=== PATIENT | male | born 1950 | race African-American/Black ===

== ENCOUNTER → 2016-08-08 | Outpatient (REF) | payer MEDICARE, MEDICAID ==
[~2016-08-08] MED LIST: /HALO5TAB OR; ARTANE OR; CARMOL TOP; CIPR25SS OR; FERR325T OR; FLEETS ENEMA PR; HALDOL DECANOATE IM; KEFL250C OR; KEFL500C OR; LACT10SO8 OR; MILKSUS OR; PAXI20TA OR; PRIMI25TA OR; RISP0.5T20 OR; SYNT50TA OR; TRAZ100T OR; VALT500T OR; [UNRECOGNIZED DRUG - CODE] OR
[2016-08-08 15:44] LABS: BASO % 0.1 % (0.0-1.0); LARGE UNSTAINED CELL # 0.2 K/mm3 (0.0-0.4); LARGE UNSTAINED CELL % 5.8 % (0.0-4.0); LYMPH % 39.1 % (24.0-44.0); MEAN CORPUSCULAR HEMOGLOBIN 28.4 pg (27.0-33.0); MEAN CORPUSCULAR HGB CONC 30.9 g/dl (32.0-36.5); MEAN CORPUSCULAR VOLUME 91.9 fl (80.0-96.0); MONO # 0.2 K/mm3 (0.0-0.8); MONO % 6.4 % (0.0-5.0); NEUTROPHILS # 1.2 K/mm3 (1.8-7.7); NEUTROPHILS % 46.5 % (36.0-66.0); PLATELET COUNT, AUTOMATED 140 k/mm3 (150-450); RED CELL DISTRIBUTION WIDTH 13.4 % (11.5-14.5); WHITE BLOOD COUNT 2.7 K/mm3 (4.0-10.0)
[2016-08-08 16:38] LABS: ALBUMIN 3.6 GM/DL (3.2-5.2); ALKALINE PHOSPHATASE 92 U/L (45-117); ALT/SGPT 26 U/L (12-78); ANION GAP 10 MEQ/L (8-16); AST/SGOT 34 U/L (15-37); BILIRUBIN,TOTAL 0.4 MG/DL (0.2-1.0); BLOOD UREA NITROGEN 12 MG/DL (7-18); CALCIUM LEVEL 8.1 MG/DL (8.8-10.2); CARBON DIOXIDE LEVEL 24 MEQ/L (21-32); CHLORIDE LEVEL 106 MEQ/L (98-107); CREATININE FOR GFR 0.76 MG/DL (0.70-1.30); FERRITIN 48 NG/ML (26-388); FREE T4 0.91 NG/DL (0.76-1.46); GLOMERULAR FILTRATION RATE > 60.0 (>49); GLUCOSE, FASTING 64 MG/DL (80-110); PERCENT SATURATION 36.9 % (19.7-37.4); SODIUM LEVEL 140 MEQ/L (136-145); TOTAL IRON BINDING CAPACITY 268 UG/DL (250-450); TOTAL PROTEIN 7.6 GM/DL (6.4-8.2)
[2016-08-08 16:42] LABS: POTASSIUM SERUM 5.4 MEQ/L (3.5-5.1)
== END ==
LOC: M SFHCPLAZ 12:00
PROVIDERS: ATTEND Family Medicine
DX: D50.9 Iron deficiency anemia, unspecified (principal); R22.1 Localized swelling, mass and lump, neck; E03.9 Hypothyroidism, unspecified
CPT/HCPCS: 36415; 80053; 82728; 83550; 84439; 84443; 85025; 86140; G0463

== ENCOUNTER → 2016-08-13 | Outpatient (CLI) | payer MEDICARE, MEDICAID ==
--- NOTE | 2016-08-13 09:56 | REP ---
Clinical: Neck mass. Technique: Real time tan scale and color evaluation using curved array and linear high frequency transducer. 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 Signed by Layo Fernandez MD 08/13/2016 09:48 A
== END ==
LOC: M RAD 08:24
PROVIDERS: ATTEND Family Medicine
DX: R22.1 Localized swelling, mass and lump, neck (principal)

== ENCOUNTER → 2016-09-12 | Outpatient (CLI) | payer MEDICARE, MEDICAID | LOC: M WUC 08:37 | PROVIDERS: ATTEND Anesthesiology Pain Medicine | DX: Z79.899 Other long term (current) drug therapy (principal) ==

== ENCOUNTER → 2017-01-01 | Outpatient (REF) | payer MEDICARE, MEDICAID ==
[~2017-01-01] MED LIST changes: +FLEEENE4 PR; +FOLI1TAB4 PO; +HALD50IN4 IM; +HALO5TA PO; +LACT10SO29 PO; +LEVO50TA5 PO; +MILKSUS PO; +PARO20TA3 PO; +PRIMI25TA PO; +RISP0.5T3 PO; +TRAZ50TA11 PO; +TRIH5TAB PO; +[UNRECOGNIZED DRUG - CODE] PO
== END ==
LOC: M SFHCPLAZ 12:34
PROVIDERS: ATTEND Family Medicine
DX: D72.819 Decreased white blood cell count, unspecified (principal); G40.909 Epilepsy, unspecified, not intractable, without status epilepticus; Z12.5 Encounter for screening for malignant neoplasm of prostate; D50.9 Iron deficiency anemia, unspecified

== ENCOUNTER → 2017-01-02 | Outpatient (CLI) | payer MEDICARE, MEDICAID ==
[2017-01-02 14:20] LABS: MEAN CORPUSCULAR HEMOGLOBIN 28.6 pg (27.0-33.0); MEAN CORPUSCULAR HGB CONC 32.5 g/dl (32.0-36.5); MEAN CORPUSCULAR VOLUME 87.9 fl (80.0-96.0)
[2017-01-02 14:43] LABS: VITAMIN B12 LEVEL 726 PG/ML (247-911)
[2017-01-02 14:48] LABS: ALBUMIN 3.5 GM/DL (3.2-5.2); ALBUMIN/GLOBULIN RATIO 0.92 (1.00-1.93); ALKALINE PHOSPHATASE 74 U/L (45-117); ALT/SGPT 33 U/L (12-78); ANION GAP 8 MEQ/L (8-16); AST/SGOT 23 U/L (15-37); BILIRUBIN,TOTAL 0.2 MG/DL (0.2-1.0); BLOOD UREA NITROGEN 13 MG/DL (7-18); CALCIUM LEVEL 8.2 MG/DL (8.8-10.2); CARBON DIOXIDE LEVEL 27 MEQ/L (21-32); CHLORIDE LEVEL 105 MEQ/L (98-107); CREATININE FOR GFR 0.82 MG/DL (0.70-1.30); GLOMERULAR FILTRATION RATE > 60.0 (>49); GLUCOSE, FASTING 87 MG/DL (80-110); POTASSIUM SERUM 4.4 MEQ/L (3.5-5.1); SODIUM LEVEL 140 MEQ/L (136-145); TOTAL PROTEIN 7.3 GM/DL (6.4-8.2)
[2017-01-02 15:05] LABS: EOSINOPHILS 1 % (0-5)
[2017-01-02 15:07] LABS: ANISOCYTOSIS 1+
[2017-01-06 00:06] LABS: PHENOBARBITAL (PRIMIDONE) 10 ug/mL (15-40)
[2017-01-09 11:53] LABS: PRETREATED FOLATE FOR RBCFOL 5.6 NG/ML
== END ==
LOC: M LAB 13:36
PROVIDERS: ATTEND Family Medicine
DX: D72.819 Decreased white blood cell count, unspecified (principal); Z12.5 Encounter for screening for malignant neoplasm of prostate; D50.9 Iron deficiency anemia, unspecified; G40.909 Epilepsy, unspecified, not intractable, without status epilepticus; Z79.899 Other long term (current) drug therapy
CPT/HCPCS: 36415; 80053; 80188; 82607; 82747; 85007; 85027; G0103

== ENCOUNTER → 2017-01-13 | Outpatient (CLI) | payer MEDICARE, MEDICAID ==
--- NOTE | 2017-01-13 09:42 | REP ---
CT Head without contrast HISTORY: Ataxia COMPARISON: None Areas of decreased attenuation are present in the periventricular white matter. This represents small-vessel ischemic disease. There is no intraparenchymal hemorrhage, acute infarct, mass or midline shift. The ventricular system and cortical sulci are dilated consistent with minimal volume loss. There is no extra cerebral collection. There is no fracture. The visualized sinuses are clear. There is enlargement of the pinna greater on the right than on the left. Several calcifications are present. IMPRESSION: 1. Small vessel ischemic disease. 2. Minimal volume loss. Signed by Jw Neal MD 01/13/2017 09:33 A
== END ==
LOC: M RAD 08:53
PROVIDERS: ATTEND Family Medicine
DX: R27.0 Ataxia, unspecified (principal)

== ENCOUNTER 2017-01-15 12:25 | Observation (INO) | payer MEDICARE, MEDICAID ==
[~2017-01-15] VITALS: Ht 165.1 cm; Wt 64.8 kg
[~2017-01-15 12:25] MED LIST changes: -FLEEENE4 PR; -FOLI1TAB4 PO; -HALD50IN4 IM; -HALO5TA PO; -LACT10SO29 PO; -LEVO50TA5 PO; -MILKSUS PO; -PARO20TA3 PO; -PRIMI25TA PO; -RISP0.5T3 PO; -TRAZ50TA11 PO; -TRIH5TAB PO; -[UNRECOGNIZED DRUG - CODE] PO
[2017-01-15] MEDS ORDERED: FOLI1TAB4 PO ×2 (12:55→20:25)
--- NOTE | 2017-01-15 15:04 | REP ---
CT Head without contrast HISTORY: Ataxia COMPARISON: 01/13/2017 Areas of decreased attenuation are present in the periventricular white matter. This represents small-vessel ischemic disease. There is no intraparenchymal hemorrhage, acute infarct, mass or midline shift. The ventricular system and cortical sulci are dilated consistent with minimal volume loss. There is no extra cerebral collection. There is no fracture. The visualized sinuses are clear. There is enlargement of the pinna greater on the right than on the left. IMPRESSION: 1. Small vessel ischemic disease. 2. Minimal volume loss. Signed by Jw Neal MD 01/15/2017 02:55 P
--- NOTE | 2017-01-15 15:57 | REP ---
LUMBAR SPINE, THREE VIEWS: HISTORY: Fall. The examination is limited. There is no acute fracture or subluxation. The intervertebral discs are decreased in height consistent with disc degeneration. IMPRESSION: Degenerative change as described above. Signed by Jw Neal MD 01/15/2017 04:01 P
[2017-01-15 16:20] LABS: BASO % 0.2 % (0.0-1.0); EOS # 0.1 K/mm3 (0.0-0.50); EOS % 2.1 % (0.0-3.0); LARGE UNSTAINED CELL # 0.2 K/mm3 (0.0-0.4); LYMPH # 1.5 K/mm3 (1.5-4.5); LYMPH % 31.4 % (24.0-44.0); MEAN CORPUSCULAR HEMOGLOBIN 29.2 pg (27.0-33.0); MEAN CORPUSCULAR HGB CONC 32.6 g/dl (32.0-36.5); MEAN CORPUSCULAR VOLUME 89.7 fl (80.0-96.0); MONO # 0.3 K/mm3 (0.0-0.8); MONO % 7.4 % (0.0-5.0); NEUTROPHILS # 2.2 K/mm3 (1.8-7.7); NEUTROPHILS % 53.9 % (36.0-66.0); PLATELET COUNT, AUTOMATED 150 k/mm3 (150-450)
[2017-01-15 16:56] LABS: ANION GAP 6 MEQ/L (8-16); BLOOD UREA NITROGEN 13 MG/DL (7-18); CARBON DIOXIDE LEVEL 29 MEQ/L (21-32); CHLORIDE LEVEL 103 MEQ/L (98-107); CREATININE FOR GFR 0.92 MG/DL (0.70-1.30); FREE T4 0.93 NG/DL (0.76-1.46); GLOMERULAR FILTRATION RATE > 60.0 (>49); GLUCOSE, FASTING 90 MG/DL (80-110); POTASSIUM SERUM 4.5 MEQ/L (3.5-5.1); SODIUM LEVEL 138 MEQ/L (136-145)
--- NOTE | 2017-01-15 19:40 | REPUSA ---
CT of the lumbar spine without contrast Clinical history: leg weakness. Technique: Multiple axial CT images were obtained through the lumbar spine without administration of contrast. Coronal and sagittal 3-D reconstructed images were also obtained. Findings: The lumbar vertebral bodies are in satisfactory positioning and alignment. No fractures or dislocatio ns are demonstrated. Intervertebral disc spaces are well-maintained. There is no evidence of facet wyman bluxation. The neural foramen appear grossly patent. The spinal canal demonstrates normal caliber and contour without evidence of spinal stenosis. The surrounding soft tissues are within normal limits. Moderate amount of stool fills the colon. Impression: 1. Unremarkable CT examination of the lumbar spine. 2. Moderate constipation.
[2017-01-15] MEDS ORDERED: BISACODYL 5 MG TAB PO PRN (20:15)
[2017-01-15] MEDS ORDERED: ACETAMINOPHEN TAB 650MG DOSE (2X325MG) PO PRN (20:15)
[2017-01-15] MEDS ORDERED: LEVO50TA5 PO (20:25)
[2017-01-15] MEDS ORDERED: FLEEENE4 PR (20:25)
[2017-01-15] MEDS ORDERED: PRIMI25TA PO (20:25)
[2017-01-15] MEDS ORDERED: RISP0.5T3 PO (20:25)
[2017-01-15] MEDS ORDERED: LACT10SO29 PO (20:25)
[2017-01-15] MEDS ORDERED: HALO5TA PO (20:25)
[2017-01-15] MEDS ORDERED: TRAZ50TA11 PO (20:25)
[2017-01-15] MEDS ORDERED: HALD50IN4 IM (20:25)
[2017-01-15] MEDS ORDERED: [UNRECOGNIZED DRUG - CODE] PO (20:25)
[2017-01-15] MEDS ORDERED: TRIH5TAB PO (20:25)
[2017-01-15] MEDS ORDERED: MILKSUS PO (20:25)
[2017-01-15] MEDS ORDERED: PARO20TA3 PO (20:25)
[2017-01-15] MEDS ORDERED: risperiDONE 0.5 MG TAB PO SCH (21:00)
[2017-01-15] MEDS ORDERED: traZODone 50 MG TAB PO SCH (21:00)
[2017-01-15] MEDS: PRIMIDONE 250 MG TAB PO SCH (21:00)
[2017-01-15] MEDS ORDERED: ASPIRIN 81 MG ENTERIC TAB PO ONE (21:00)
[2017-01-15] MEDS ORDERED: ATORVASTATIN 20 MG TAB PO SCH (21:00)
[2017-01-16 00:30] VITALS: BP 138/88
[2017-01-16] MEDS: SENOKOT S TAB PO SCH ×2 (00:56→10:12)
[2017-01-16] MEDS: HALOPERIDOL 5 MG TAB PO SCH ×2 (00:57→10:12)
[2017-01-16] MEDS: LACTULOSE 20 GM/30 ML SYRUP UD PO SCH ×3 (00:57→16:02)
[2017-01-16] MEDS: TIAGABINE 4 MG PO SCH ×2 (00:58→10:13)
[2017-01-16] MEDS: TRIHEXYPHENIDYL 2 MG TAB PO SCH ×2 (00:58→10:12)
[2017-01-16 04:00] VITALS: BP 91/57
[2017-01-16 04:54] LABS: ADD MANUAL DIFFER YES; MEAN CORPUSCULAR HGB CONC 33.5 g/dl (32.0-36.5); MEAN CORPUSCULAR VOLUME 86.6 fl (80.0-96.0); PLATELET COUNT, AUTOMATED 141 k/mm3 (150-450); RED CELL DISTRIBUTION WIDTH 13.1 % (11.5-14.5); WHITE BLOOD COUNT 5.3 K/mm3 (4.0-10.0)
[2017-01-16 05:12] LABS: ALBUMIN 3.3 GM/DL (3.2-5.2); ALBUMIN/GLOBULIN RATIO 0.94 (1.00-1.93); ALKALINE PHOSPHATASE 75 U/L (45-117); ALT/SGPT 25 U/L (12-78); ANION GAP 9 MEQ/L (8-16); AST/SGOT 24 U/L (15-37); BILIRUBIN,TOTAL 0.4 MG/DL (0.2-1.0); BLOOD UREA NITROGEN 10 MG/DL (7-18); CALCIUM LEVEL 8.3 MG/DL (8.8-10.2); CARBON DIOXIDE LEVEL 23 MEQ/L (21-32); CHLORIDE LEVEL 105 MEQ/L (98-107); GLOMERULAR FILTRATION RATE > 60.0 (>49); GLUCOSE, FASTING 89 MG/DL (80-110); MAGNESIUM LEVEL 2.1 MG/DL (1.8-2.4); POTASSIUM SERUM 4.1 MEQ/L (3.5-5.1); SODIUM LEVEL 137 MEQ/L (136-145); TOTAL PROTEIN 6.8 GM/DL (6.4-8.2)
[2017-01-16 05:25] LABS: BASOPHILS 1 % (0-4); EOSINOPHILS 4 % (0-5)
[2017-01-16] MEDS ORDERED: LEVOTHYROXINE 50MCG TABLET (0.05MG) PO SCH (06:00)
--- NOTE | 2017-01-16 07:37 | ECGEPIP ---
Stationary ECG Study [facility] - ED Test Date: 2017-01-15 Pat Name: BIRD MCCALL JR Department: Room: [place] [address] Gender: M Reed Press Feeder: terry : 1950 Requested By: BETITO ARANA Order Number: [id number] Reading MD: Delphine Thomas Measurements Intervals [place] Rate: 73 P: 18 ME: 142 QRS: 4 QRSD: 85 T: -2 QT: 368 QTc: 407 Interpretive Statements SINUS RHYTHM MODERATE T-WAVE ABNORMALITY, CONSIDER ANTERIOR ISCHEMIA, SEEN 11/30/13 Electronically Signed On 01-16-2017 7:37:42 EDT by Delphine Thomas
[2017-01-16 08:00] VITALS: BP 125/80
--- NOTE | 2017-01-16 08:06 | HPE ---
DATE OF ADMISSION: 01/15/2017 PRIMARY CARE PHYSICIAN: Dr. Shelton CHIEF COMPLAINT: Tremors of the upper extremities, weakness, and unsteady gait. The patient had this episode before when he had a urinary tract infection (UTI). HISTORY OF PRESENT ILLNESS: Mr. Hamilton is a 66-year-old male with multiple past medical history including profound mental retardation with psychosis, who was transferred from [facility] to the emergency room (ER) due to experiencing upper extremity tremors as well as generalized weakness and very unsteady gait. However, according to the [facility] ([facility]) paperwork and personnel, the patient had this episode before when he had UTI. According to the [facility] staff, for the past two days the patient has more shaking of his upper extremities. Also the patient has ambulating with ataxia that is mostly in the morning at the baseline at the [facility], and they have been using a gait belt. Due to profound mental retardation, the patient does not communicate regarding his pains or new symptoms. However, based on the [facility] staff, the patient seems to be more weak and tired than usual. The patient also continued to have this shaking on-and-off. Therefore, the patient was transferred to the ER. At the ER, the patient's urinalysis (UA) was negative for UTI. However, urine culture is pending. According to [facility] staff, at this moment the patient is at his baseline and shaking has stopped for the past two hours. ALLERGIES: 1. PENICILLIN. 2. LITHIUM. 3. ZYPREXA. 4. SEROQUEL. 5. AMANTADINE. 6. IV SEDATIONS. PAST MEDICAL HISTORY: 1. Profound mental retardation with psychosis. 2. Seizure disorder. 3. History of positive PPD. 4. Hypothyroidism. 5. Anemia, chronic, secondary to iron deficiency and AEDs/thrombocytopenia. 6. Bilateral feet corns. 7. Constipation, chronic/megacolon, chronic enema dependent. 8. History of gastrointestinal (gastrointestinal) bleed. 9. UTI, first was in 2013, Escherichia (E.) coli. Normal bilateral ultrasound of the renal, which was done in 2013. 10. Chronic stool/urinary incontinence. 11. Leukopenia, chronic clonal T-large granular lymphocytosis. PAST SURGICAL HISTORY: 1. Ar fundoplication April 1990. 2. Cholecystectomy. 3. Normal colonoscopy to the right colon, poor prep. No ICV visualized. FAMILY HISTORY: Unknown at this time. However, based on documentation, the patient does not have legal guardians. SOCIAL HISTORY: Based on documentation, the patient never had a history of smoking. The patient has never had occupation due to mental instability. At this time, the patient lives at [facility]. The patient has no history of illicit drug use or alcohol usage. REVIEW OF SYSTEMS: Review of systems cannot be obtained due to profound mental retardation and not being able to communicate. HOME MEDICATIONS: - folic acid 1 mg by mouth daily - Haldol 50 mg intravenous (IV) every month - haloperidol 5 mg by mouth twice a day - lactulose 30 mg by mouth three times a day - Synthroid 50 mcg by mouth daily - milk of magnesia 30 mL by mouth every two days - paroxetine HCL 20 mg by mouth daily - primidone 250 mg by mouth twice a day - risperidone 0.5 mg by mouth at bedtime - sodium biphosphate one Mondays and - Gabitril 16 mg by mouth twice a day - trazodone 50 mg by mouth at bedtime - trihexyphenidyl HCL 5 mg by mouth twice a day PHYSICAL EXAMINATION: VITAL SIGNS: Temperature 98.1, pulse 89, respiratory rate 18, blood pressure 124/87, pulse oximetry 98 on room air. GENERAL APPEARANCE: The patient is sitting in bed, seems to be not in acute distress, and the patient is nonverbal, not cooperative, and not being able to communicate due to profound mental retardation. HEENT: Oral mucosa is moist. Atraumatic. Pupils are equal and reactive to light. NECK: Soft, supple. No lymphadenopathy, no thyromegaly. HEART: Regular rate and rhythm. Normal S1, S2. LUNGS: Clear breath sounds. ABDOMEN: Soft. No guarding or rebound with palpating the abdomen. Positive bowel sounds in all quadrants. EXTREMITIES: The patient has mild lower extremity edema, +2 pulses in both lower extremities. However, due to patient not being cooperative and not being able to communicate due to mental retardation, I cannot determine the strength and the sensation of his upper and lower extremities. Also, we ambulated the patient with a gait belt. The patient was ambulating at the baseline, based on the report from the [facility] staff. Also, no tremor was appreciated on the upper extremities, and based on the [facility] staff, the patient is at baseline. NEUROLOGIC: Exam cannot be done due to patient being uncooperative secondary to mental retardation. LABORATORY DATA: White blood cells four, red blood cells 5.18, hemoglobin 15.1, hematocrit 46.5, MCV 89.7, MCH 29.2, MCHC 32.6, RDW 13, platelet count 150. Neutrophil percentage 53.9, lymphocyte percentage 31.4, monocyte percentage 7.4, eosinophils percentage 2.1, basophils percentage 0.2, leukocyte percentage five. Sodium 138, potassium 4.5, chloride 103, carbon dioxide 29, anion gap six, BUN 13, creatinine 0.92, glomerular filtration rate more than 60, fasting glucose 90 , calcium nine. TSH 1.15. Free T4 0.93. UA: Urine color yellow, urine appearance clear, urine pH six, urine specific gravity 1.010, urine protein negative. Urine glucose negative. Urine ketones negative. Urine blood 1+. Urine nitrite negative. Urine bilirubin negative. Urine urobilinogen 0.2, urine leukocyte esterase negative. Urine white blood cells one , urine red blood cells five, urine hyaline casts zero, urine bacteria negative, urine squamous epithelial cells zero. Blood culture is pending. Urine culture is pending. IMAGING: Head CT shows small vessel ischemic disease, minimal volume loss. Spine lumbosacral complete shows degenerative changes; however, there is no acute fracture or subluxation. CT spine lumbar without contrast shows unremarkable CT examination of the lumbar spine. Moderate constipation. ASSESSMENT AND PLAN: 1. Generalized weakness/upper extremity tremor. Urinalysis (UA) was negative for urinary tract infection (UTI); however, urine culture is pending. Also, I have ordered blood culture. The patient does not have leukocytosis and the patient is afebrile. Therefore, I have not started the patient on antibiotic. CT of the head was negative. Also, other imaging for spine did not show any fracture. I have spoken with Dr. Hilton who believes that the patient has low possibility of stroke; however, we have ordered MRI/MRA of the brain, as well as MRI of the spine without contrast. However, it needs to be coordinated with anesthesiology due to the patient's mental retardation. Dr. Hilton requested to be called back if the results of the MRI/MRA are abnormal. Also, I have started the patient on aspirin 81 mg, as well as Lipitor 40 mg. 2. Ataxia. Chronic issue. At the ER, we ambulated the patient and based on the report from the [facility] staff, the patient is at his baseline. 3. Neck mass. The patient has posterior neck mass about 5 cm x 5 cm, which favors lipoma. This is a chronic issue. 4. History of iron-deficiency anemia. This is a chronic issue. However, at this time the patient's hemoglobin and hematocrit are in normal range. 5. Seizure disorder. At this time, the patient is on Mysoline as well as Gabitril, which is managed by the primary care. Based on the report from [facility], the patient has not had any episode of seizure recently. We will continue the patient on these medications. 6. Constipation. This is a chronic issue. The patient is on milk of magnesia as well as lactulose. Also, patient is receiving Fleet enema on Mondays and . 7. Hypothyroidism. We will continue the patient on the current dose of Synthroid. 8. Deep venous thrombosis (DVT) prophylaxis. The patient is on Lovenox. 9. Profound mental retardation with psychosis. At this time, we will continue the patient on the home medications. My preceptor for this patient encounter was Dr. Marianela Sanchez. The preceptor was physically present in the building during the encounter and was fully available as needed. All aspects of the patient interview, examination, medical decision making process, and medical care plan development were reviewed and approved by the preceptor. The preceptor is aware and concurs with the plan as stated in the body of this note and will attest to such by his/her co-signature. I have both independently examined this patient as well as reviewed the H&P. I have discussed in detail with the resident the findings and plan of treatment as documented in the residents note. I will continue to follow the patient and offer further guidance to the patients care as necessary during this hospital stay. Marianela RICK
[2017-01-16] MEDS ORDERED: MIRALAX *UNIT DOSE* 17GM PACKET PO SCH (09:00)
[2017-01-16] MEDS ORDERED: PARoxetine 20 MG TAB PO SCH (09:00)
[2017-01-16] MEDS ORDERED: FOLIC ACID 1 MG TAB PO SCH (09:00)
[2017-01-16] MEDS ORDERED: ASPIRIN 81 MG ENTERIC TAB PO SCH (09:00)
[2017-01-16] MEDS ORDERED: ENOXAPARIN 40 MG/0.4 ML SYRINGE (J1650) SC SCH (09:00)
[2017-01-16] MEDS: PRIMIDONE 250 MG TAB PO SCH (12:30)
[2017-01-16 14:00] VITALS: BP 120/71
[2017-01-16] MEDS ORDERED: MOM 30ML SUSPENSION UDC PO SCH (21:00)
--- NOTE | 2017-01-17 22:59 | DSES ---
DATE OF ADMISSION: 01/15/2017 DATE OF DISCHARGE: 01/16/2017 ATTENDING PHYSICIAN: Dr. Jacky Shelton. PRIMARY CARE PHYSICIAN Dr. Jacky Shelton. HISTORY OF PRESENT ILLNESS: A 66-year-old male, resident of [facility] ([facility]) with profound mental retardation with psychosis who was transferred from [facility] to [facility] emergency room experiencing upper extremity tremors and generalized weakness with unsteady gait. This lasted for approximately two hours and subsequently resolved. The patient returned to normal physical function and behavior. According to [facility] staff, this is common for him when he has a urinary tract infection (UTI). [facility] staff also admit that the patient has been having some odd lethargy and tremors mostly in the evening hours. It has been going on for the past 3-6 months. Workup in the emergency department (ED) proved negative for a UTI. The patient continued to have baseline behavior, as well as physical capabilities. MRI/MRA were unobtainable secondary to patient's inability to lay still for the testing. CT of the brain did show minimal volume loss. CT lumbar spine was unremarkable. PHYSICAL EXAMINATION: VITAL SIGNS: Stable. He is afebrile. HEENT: Neck is supple without lymphadenopathy or jugular venous distention (JVD). CARDIOVASCULAR: Heart rate and rhythm are regular. PULMONARY: Lungs are clear. NEUROLOGIC: The patient is nonverbal. He does respond to conversation, is cooperative with exam, and appears to appreciate attention by staff as well as healthcare providers. ASSESSMENT/DISCHARGE DIAGNOSES: 1. Generalized weakness with upper extremity tremor. The patient will be set up for an electroencephalogram (EEG) Thursday, 01/19, by his primary care physician (PCP), Dr. Jacky Shelton, for further evaluation of questionable recurrent seizure. 2. Ataxia. This is a chronic issue and he is at his baseline physical capabilities per [facility] staff. 3. 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 This can be monitored by PCP. SECONDARY DIAGNOSES: 1. History of iron-deficiency anemia. 2. Seizure disorder. 3. Constipation. 4. Hypothyroidism. 5. Profound mental retardation with psychosis. PLAN: The patient will be discharged back to [facility]. Diet is as tolerated. Activities as tolerated. Medications: - folic acid 1 mg by mouth daily - haloperidol 5 mg by mouth twice a day - haloperidol 50 mg intramuscular (IM) monthly - lactulose 30 mL by mouth three times a day - levothyroxine 50 mcg by mouth daily - milk of magnesia 30 mL by mouth every two days - paroxetine 20 mg daily - Primidone 250 mg by mouth twice a day - risperidone 0.5 mg tablet by mouth at bedtime - Fleets enema per rectum twice per week - Gabitril 16 mg by mouth twice a day - trazodone 50 mg by mouth at bedtime - trihexyphenidyl 5 mg one by mouth twice a day The patient is discharged in stable and satisfactory condition. Staff had no further questions at time of discharge.
== END 2017-01-16 16:22 | disposition other institution (70) ==
LOC: M ED 12:25 → M ED INP 21:14 → M ICU 01-16 00:20 → M MSPAV 01-16 13:29
PROVIDERS: ADMIT Hospitalist; ATTEND Family Medicine
DX: R53.1 Weakness (principal); R26.0 Ataxic gait; D17.30 Benign lipomatous neoplasm of skin and subcutaneous tissue of unspecified sites; E03.9 Hypothyroidism, unspecified; K59.00 Constipation, unspecified; G40.909 Epilepsy, unspecified, not intractable, without status epilepticus; D50.9 Iron deficiency anemia, unspecified; F73 Profound intellectual disabilities; Z79.899 Other long term (current) drug therapy; Z88.0 Allergy status to penicillin; Z88.8 Allergy status to other drugs, medicaments and biological substances; R76.11 Nonspecific reaction to tuberculin skin test without active tuberculosis
CPT/HCPCS: 36415; 51701; 70450; 72110; 72131; 80048; 80053; 81001; 83735; 84439; 84443; 85025; 87040; 87086; 93005; 96372; 99284; G0378; J1650

== ENCOUNTER → 2017-02-21 | Outpatient (CLI) | payer MEDICARE, MEDICAID ==
[~2017-02-21] MED LIST changes: +FLEEENE4 PR; +FOLI1TAB4 PO; +HALD50IN4 IM; +HALO5TA PO; +LACT10SO29 PO; +LEVO50TA5 PO; +MILKSUS PO; +PARO20TA3 PO; +PRIMI25TA PO; +RISP0.5T3 PO; +TRAZ50TA11 PO; +TRIH5TAB PO; +[UNRECOGNIZED DRUG - CODE] PO
== END ==
LOC: M WUC 09:37
PROVIDERS: ATTEND Anesthesiology Pain Medicine
DX: Z79.899 Other long term (current) drug therapy (principal)

== ENCOUNTER → 2017-03-13 | Outpatient (CLI) | payer MEDICARE, MEDICAID ==
--- NOTE | 2017-03-13 16:25 | REP ---
Pelvis, bilateral hip study: Five views. History: Pain. Findings: AP view of the pelvis demonstrate an intact bony pelvic ring. There is mild acetabular spurring bilaterally. Femoral heads are smooth and rounded. Periarticular soft tissues are unremarkable. Impression: Mild hip joint osteoarthritis bilaterally. No acute abnormality. Signed by Raymundo Payne MD 03/13/2017 05:02 P
== END ==
LOC: M RAD 15:13
PROVIDERS: ATTEND Family Medicine
DX: M25.559 Pain in unspecified hip (principal)

== ENCOUNTER → 2017-04-20 | Outpatient (REF) | payer MEDICARE, MEDICAID ==
[2017-04-20 13:09] LABS: MEAN CORPUSCULAR HEMOGLOBIN 27.4 pg (27.0-33.0); MEAN CORPUSCULAR HGB CONC 31.3 g/dl (32.0-36.5); MEAN CORPUSCULAR VOLUME 87.6 fl (80.0-96.0); RED CELL DISTRIBUTION WIDTH 13.8 % (11.5-14.5); RETIC HEMOGLOBIN EQUIVALENT 33.1 pg (24-36); RETICULOCYTE % 1.2 % (0.5-1.5); WHITE BLOOD COUNT 3.1 10^3/uL (4.0-10.0)
[2017-04-20 13:34] LABS: CBCMD ORDERED? YES (YES)
[2017-04-20 14:00] LABS: ALBUMIN 3.9 GM/DL (3.2-5.2); ALBUMIN/GLOBULIN RATIO 0.98 (1.00-1.93); ALKALINE PHOSPHATASE 85 U/L (45-117); ALT/SGPT 44 U/L (12-78); ANION GAP 6 MEQ/L (8-16); AST/SGOT 25 U/L (15-37); BASOPHILS 1 % (0-4); BILIRUBIN,TOTAL 0.3 MG/DL (0.2-1.0); BLOOD UREA NITROGEN 16 MG/DL (7-18); CALCIUM LEVEL 8.6 MG/DL (8.8-10.2); CARBON DIOXIDE LEVEL 30 MEQ/L (21-32); CHLORIDE LEVEL 105 MEQ/L (98-107); CREATININE FOR GFR 0.87 MG/DL (0.70-1.30); EOSINOPHILS 1 % (0-5); FERRITIN 64 NG/ML (26-388); FREE T4 0.91 NG/DL (0.76-1.46); GLOMERULAR FILTRATION RATE > 60.0 (>49); GLUCOSE, FASTING 69 MG/DL (80-110); PERCENT SATURATION 43.4 % (19.7-50.0); POTASSIUM SERUM 4.5 MEQ/L (3.5-5.1); SODIUM LEVEL 141 MEQ/L (136-145); TOTAL IRON BINDING CAPACITY 242 UG/DL (250-450); TOTAL PROTEIN 7.9 GM/DL (6.4-8.2)
[2017-04-21 11:05] LABS: PRETREATED FOLATE FOR RBCFOL 12.8 NG/ML
== END ==
LOC: M SFHCPLAZ 11:34
PROVIDERS: ATTEND Family Medicine
DX: E53.8 Deficiency of other specified B group vitamins (principal); E03.9 Hypothyroidism, unspecified; D50.9 Iron deficiency anemia, unspecified
CPT/HCPCS: 80053; 82728; 82747; 83550; 84439; 84443; 85007; 85027; 85046; G0463

== ENCOUNTER 2017-06-23 10:42 | Emergency (ER) | payer MEDICARE, MEDICAID ==
[2017-06-23 13:21] LABS: KETONE, URINE AUTO RFX TRACE mg/dL (NEGATIVE); MUCUS, URINE RFX MODERATE (NEGATIVE); RBC, URINE AUTO RFX TNTC /HPF (0-3); SPECIFIC GRAVITY UR AUTO RFX 1.026 (1.002-1.035); SQUAM EPITHELIAL CELL UR AURFX 1 /HPF (0-6)
[2017-06-23 13:24] LABS: LEUKOCYTE ESTERASE UR AUTO RFX 3+ (NEGATIVE); NITRITE, URINE AUTO RFX POSITIVE (NEGATIVE); WBC, URINE AUTO RFX TNTC /HPF (0-3)
== END 2017-06-23 14:04 | disposition home or self-care (01) ==
LOC: M ED 10:42
DX: N39.0 Urinary tract infection, site not specified (principal); R56.9 Unspecified convulsions; F79 Unspecified intellectual disabilities; G93.40 Encephalopathy, unspecified; E03.9 Hypothyroidism, unspecified; F33.9 Major depressive disorder, recurrent, unspecified; D72.819 Decreased white blood cell count, unspecified; G24.01 Drug induced subacute dyskinesia; Z79.899 Other long term (current) drug therapy; Z79.52 Long term (current) use of systemic steroids; Z79.890 Hormone replacement therapy; Z88.0 Allergy status to penicillin; Z88.8 Allergy status to other drugs, medicaments and biological substances
CPT/HCPCS: 81001

== ENCOUNTER → 2017-08-13 | Outpatient (REF) | payer MEDICARE, MEDICAID ==
[2017-08-13 12:38] LABS: BASO % 0.3 % (0.0-1.0); EOS # 0.1 10^3/uL (0.0-0.50); EOS % 1.5 % (0.0-3.0); HEMATOCRIT 44.3 % (42.0-52.0); IMMATURE GRANULOCYTE % 0.3 % (0-3.0); LYMPH # 1.5 10^3/uL (1.5-4.5); LYMPH % 43.3 % (24.0-44.0); MEAN CORPUSCULAR HEMOGLOBIN 27.1 pg (27.0-33.0); MEAN CORPUSCULAR HGB CONC 31.6 g/dl (32.0-36.5); MEAN CORPUSCULAR VOLUME 85.9 fl (80.0-96.0); MONO # 0.3 10^3/uL (0.0-0.8); MONO % 8.7 % (0.0-5.0); NEUTROPHILS # 1.5 10^3/uL (1.8-7.7); NEUTROPHILS % 45.9 % (36.0-66.0); PLATELET COUNT, AUTOMATED 266 10^3/uL (150-450); RED BLOOD COUNT 5.16 10^6/uL (4.30-6.10); RED CELL DISTRIBUTION WIDTH 14.6 % (11.5-14.5); RETIC HEMOGLOBIN EQUIVALENT 31.2 pg (24-36); RETICULOCYTE % 1.2 % (0.5-1.5); WHITE BLOOD COUNT 3.4 10^3/uL (4.0-10.0)
[2017-08-13 12:50] LABS: TOTAL 25(OH) VITAMIN D 24.2 NG/ML (30.0-100.0)
[2017-08-13 12:51] LABS: PTH INTACT 28.7 PG/ML (18.5-88.0)
[2017-08-13 12:55] LABS: ALBUMIN 3.9 GM/DL (3.2-5.2); ALBUMIN/GLOBULIN RATIO 0.95 (1.00-1.93); ALKALINE PHOSPHATASE 79 U/L (45-117); ALT/SGPT 26 U/L (12-78); ANION GAP 6 MEQ/L (8-16); AST/SGOT 19 U/L (7-37); BILIRUBIN,TOTAL 0.2 MG/DL (0.2-1.0); BLOOD UREA NITROGEN 11 MG/DL (7-18); CALCIUM LEVEL 8.5 MG/DL (8.8-10.2); CARBON DIOXIDE LEVEL 30 MEQ/L (21-32); CHLORIDE LEVEL 104 MEQ/L (98-107); CREATININE FOR GFR 0.82 MG/DL (0.70-1.30); GLOMERULAR FILTRATION RATE > 60.0 (>49); GLUCOSE, FASTING 81 MG/DL (70-100); POTASSIUM SERUM 4.4 MEQ/L (3.5-5.1); SODIUM LEVEL 140 MEQ/L (136-145)
[2017-08-16 00:06] LABS: QUANTIFERON GOLD TB Negative (Negative); TB Test (QFT) Antigen 0.05 IU/mL (.); TB Test (QFT) Mitogen 6.77 IU/mL (.); TB Test (QFT) Nil 0.05 IU/mL (.)
[2017-08-17 10:10] LABS: (LD) FRACTION 1 19 % (17-32); (LD) FRACTION 2 27 % (25-40); (LD) FRACTION 3 30 % (17-27); (LD) FRACTION 4 12 % (5-13); (LD) FRACTION 5 12 % (4-20); LDH 176 IU/L (121-224)
[2017-08-18 00:06] LABS: PHENOBARBITAL (PRIMIDONE) 11 ug/mL (15-40); PRIMIDONE, SERUM 11.6 ug/mL (5.0-12.0)
== END ==
LOC: M SFHCPLAZ 10:12
DX: E53.8 Deficiency of other specified B group vitamins (principal); G40.909 Epilepsy, unspecified, not intractable, without status epilepticus; D50.9 Iron deficiency anemia, unspecified; R76.11 Nonspecific reaction to tuberculin skin test without active tuberculosis; D72.819 Decreased white blood cell count, unspecified; R22.1 Localized swelling, mass and lump, neck; N39.0 Urinary tract infection, site not specified; F79 Unspecified intellectual disabilities; R27.0 Ataxia, unspecified; D72.820 Lymphocytosis (symptomatic); K59.00 Constipation, unspecified; E03.9 Hypothyroidism, unspecified; Z12.5 Encounter for screening for malignant neoplasm of prostate; F51.01 Primary insomnia
CPT/HCPCS: 83625

== ENCOUNTER → 2017-08-19 | Outpatient (CLI) | payer MEDICARE, MEDICAID | LOC: M RAD 10:50 | DX: R22.1 Localized swelling, mass and lump, neck (principal) | CPT/HCPCS: 76536 ==

== ENCOUNTER → 2017-08-28 | Outpatient (CLI) | payer MEDICARE, MEDICAID | LOC: M RAD 10:38 | DX: R22.1 Localized swelling, mass and lump, neck (principal); Z53.9 Procedure and treatment not carried out, unspecified reason ==

== ENCOUNTER → 2017-09-11 | Outpatient (CLI) | payer MEDICARE, MEDICAID ==
[~2017-09-11] MED LIST changes: -/HALO5TAB OR; -ARTANE OR; -CARMOL TOP; -CIPR25SS OR; -FERR325T OR; -FLEEENE4 PR; -FLEETS ENEMA PR; -FOLI1TAB4 PO; -HALD50IN4 IM; -HALDOL DECANOATE IM; -HALO5TA PO; +ISOVUE-370 76% 100ML VIAL (Q9967) As Ordered; -KEFL250C OR; -KEFL500C OR; -LACT10SO29 PO; -LACT10SO8 OR; -LEVO50TA5 PO; -MILKSUS OR; -MILKSUS PO; -PARO20TA3 PO; -PAXI20TA OR; -PRIMI25TA OR; -PRIMI25TA PO; -RISP0.5T20 OR; -RISP0.5T3 PO; -SYNT50TA OR; -TRAZ100T OR; -TRAZ50TA11 PO; -TRIH5TAB PO; -VALT500T OR; -[UNRECOGNIZED DRUG - CODE] OR; -[UNRECOGNIZED DRUG - CODE] PO
== END ==
LOC: M RAD 08:28
DX: R22.1 Localized swelling, mass and lump, neck (principal)
CPT/HCPCS: Q9967

== ENCOUNTER → 2017-12-11 | Outpatient (CLI) | payer MEDICARE, MEDICAID ==
[2017-12-11 09:21] LABS: BASO % 0.2 % (0.0-1.0); EOS # 0.1 10^3/uL (0.0-0.50); EOS % 1.6 % (0.0-3.0); HEMATOCRIT 44.8 % (42.0-52.0); HEMOGLOBIN 14.3 g/dl (13.5-17.5); IMMATURE GRANULOCYTE % 0.2 % (0-3.0); LYMPH # 1.9 10^3/uL (1.5-4.5); LYMPH % 44.1 % (24.0-44.0); MEAN CORPUSCULAR HEMOGLOBIN 27.5 pg (27.0-33.0); MEAN CORPUSCULAR HGB CONC 31.9 g/dl (32.0-36.5); MEAN CORPUSCULAR VOLUME 86.2 fl (80.0-96.0); MONO # 0.5 10^3/uL (0.0-0.8); MONO % 10.8 % (0.0-5.0); NEUTROPHILS # 1.9 10^3/uL (1.8-7.7); NEUTROPHILS % 43.1 % (36.0-66.0); PLATELET COUNT, AUTOMATED 179 10^3/uL (150-450); RED CELL DISTRIBUTION WIDTH 13.5 % (11.5-14.5); WHITE BLOOD COUNT 4.4 10^3/uL (4.0-10.0)
[2017-12-11 09:50] LABS: ALBUMIN/GLOBULIN RATIO 0.98 (1.00-1.93); ALKALINE PHOSPHATASE 84 U/L (45-117); ALT/SGPT 27 U/L (12-78); ANION GAP 7 MEQ/L (8-16); AST/SGOT 19 U/L (7-37); BILIRUBIN,TOTAL 0.3 MG/DL (0.2-1.0); BLOOD UREA NITROGEN 12 MG/DL (7-18); CALCIUM LEVEL 8.6 MG/DL (8.8-10.2); CARBON DIOXIDE LEVEL 30 MEQ/L (21-32); CHLORIDE LEVEL 104 MEQ/L (98-107); CREATININE FOR GFR 0.92 MG/DL (0.70-1.30); FREE T4 0.93 NG/DL (0.76-1.46); GLOMERULAR FILTRATION RATE > 60.0 (>49); GLUCOSE, FASTING 80 MG/DL (70-100); SODIUM LEVEL 141 MEQ/L (136-145); TOTAL PROTEIN 8.1 GM/DL (6.4-8.2)
[2017-12-11 11:58] LABS: VITAMIN B12 LEVEL 591 PG/ML (247-911)
[2017-12-11 12:49] LABS: PRETREATED FOLATE FOR RBCFOL 15.2 NG/ML; RBC FOLATE 709.3 NG/ML (280-791)
== END ==
LOC: M WUC 08:12
DX: D72.819 Decreased white blood cell count, unspecified (principal); E03.9 Hypothyroidism, unspecified; Z12.5 Encounter for screening for malignant neoplasm of prostate
CPT/HCPCS: 84443

== ENCOUNTER 2018-03-06 12:40 | Emergency (ER) | payer MEDICARE, MEDICAID ==
[2018-03-06 14:13] LABS: EOS # 0.1 10^3/uL (0.0-0.50); EOS % 1.4 % (0.0-3.0); HEMATOCRIT 46.9 % (42.0-52.0); HEMOGLOBIN 14.7 g/dl (13.5-17.5); IMMATURE GRANULOCYTE % 0.3 % (0-3.0); LYMPH # 1.3 10^3/uL (1.5-4.5); LYMPH % 35.2 % (24.0-44.0); MEAN CORPUSCULAR HEMOGLOBIN 27.5 pg (27.0-33.0); MEAN CORPUSCULAR HGB CONC 31.3 g/dl (32.0-36.5); MEAN CORPUSCULAR VOLUME 87.7 fl (80.0-96.0); MONO # 0.4 10^3/uL (0.0-0.8); MONO % 11.2 % (0.0-5.0); NEUTROPHILS # 1.9 10^3/uL (1.8-7.7); NEUTROPHILS % 51.9 % (36.0-66.0); PLATELET COUNT, AUTOMATED 184 10^3/uL (150-450); RED BLOOD COUNT 5.35 10^6/uL (4.30-6.10); RED CELL DISTRIBUTION WIDTH 13.9 % (11.5-14.5); WHITE BLOOD COUNT 3.6 10^3/uL (4.0-10.0)
[2018-03-06 14:34] LABS: ALBUMIN 3.9 GM/DL (3.2-5.2); ALBUMIN/GLOBULIN RATIO 0.93 (1.00-1.93); ALKALINE PHOSPHATASE 95 U/L (45-117); ALT/SGPT 43 U/L (12-78); ANION GAP 9 MEQ/L (8-16); AST/SGOT 31 U/L (7-37); BILIRUBIN,DIRECT < 0.1 MG/DL (0.0-0.2); BILIRUBIN,TOTAL 0.2 MG/DL (0.2-1.0); BLOOD UREA NITROGEN 10 MG/DL (7-18); CALCIUM LEVEL 8.7 MG/DL (8.8-10.2); CARBON DIOXIDE LEVEL 26 MEQ/L (21-32); CHLORIDE LEVEL 107 MEQ/L (98-107); GLOMERULAR FILTRATION RATE > 60.0 (>49); GLUCOSE, FASTING 53 MG/DL (70-100); SODIUM LEVEL 142 MEQ/L (136-145); TOTAL PROTEIN 8.1 GM/DL (6.4-8.2)
[2018-03-06 14:35] LABS: LACTIC ACID SEPSIS PROTOCOL 1.9 MMOL/L (0.4-2.0)
== END 2018-03-06 15:07 | disposition home or self-care (01) ==
LOC: M ED 12:40
DX: K59.00 Constipation, unspecified (principal); E16.2 Hypoglycemia, unspecified; K21.9 Gastro-esophageal reflux disease without esophagitis; E07.9 Disorder of thyroid, unspecified; D72.819 Decreased white blood cell count, unspecified; Z88.8 Allergy status to other drugs, medicaments and biological substances; Z88.0 Allergy status to penicillin; Z86.69 Personal history of other diseases of the nervous system and sense organs; Z79.899 Other long term (current) drug therapy
CPT/HCPCS: 74019

== ENCOUNTER → 2018-03-11 | Outpatient (CLI) | payer MEDICARE, MEDICAID ==
[2018-03-11 10:31] LABS: BASO % 0.3 % (0.0-1.0); EOS # 0.1 10^3/uL (0.0-0.50); EOS % 2.8 % (0.0-3.0); HEMOGLOBIN 14.9 g/dl (13.5-17.5); IMMATURE GRANULOCYTE % 0.3 % (0-3.0); LYMPH # 1.7 10^3/uL (1.5-4.5); LYMPH % 47.2 % (24.0-44.0); MEAN CORPUSCULAR HEMOGLOBIN 27.4 pg (27.0-33.0); MEAN CORPUSCULAR HGB CONC 31.7 g/dl (32.0-36.5); MEAN CORPUSCULAR VOLUME 86.4 fl (80.0-96.0); MONO # 0.4 10^3/uL (0.0-0.8); MONO % 12.4 % (0.0-5.0); NEUTROPHILS # 1.3 10^3/uL (1.8-7.7); PLATELET COUNT, AUTOMATED 211 10^3/uL (150-450); RED BLOOD COUNT 5.44 10^6/uL (4.30-6.10); RED CELL DISTRIBUTION WIDTH 13.9 % (11.5-14.5); WHITE BLOOD COUNT 3.5 10^3/uL (4.0-10.0)
[2018-03-11 11:19] LABS: ALBUMIN 3.8 GM/DL (3.2-5.2); ALKALINE PHOSPHATASE 95 U/L (45-117); ALT/SGPT 40 U/L (12-78); ANION GAP 9 MEQ/L (8-16); AST/SGOT 30 U/L (7-37); BILIRUBIN,TOTAL 0.3 MG/DL (0.2-1.0); BLOOD UREA NITROGEN 9 MG/DL (7-18); CALCIUM LEVEL 8.7 MG/DL (8.8-10.2); CARBON DIOXIDE LEVEL 29 MEQ/L (21-32); CHLORIDE LEVEL 102 MEQ/L (98-107); CHOLESTEROL LEVEL 151 MG/DL (<200); CHOLESTEROL RISK RATIO 2.396 (<5); FREE T4 0.99 NG/DL (0.76-1.46); GLOMERULAR FILTRATION RATE > 60.0 (>49); GLUCOSE, FASTING 74 MG/DL (70-100); HDL CHOLESTEROL 63 MG/DL (>40); LDL CHOLESTEROL 76 MG/DL (<100); NON-HDL-C 88 MG/DL; POTASSIUM SERUM 4.4 MEQ/L (3.5-5.1); PSA SCREENING 0.94 NG/ML (< 4.0); SODIUM LEVEL 140 MEQ/L (136-145); TRIGLYCERIDES LEVEL 62 MG/DL (<150)
[2018-03-12 13:12] LABS: PRETREATED FOLATE FOR RBCFOL 13.7 NG/ML; RBC FOLATE 612.1 NG/ML (280-791)
== END ==
LOC: M WUC 08:31
DX: D72.819 Decreased white blood cell count, unspecified (principal); E53.8 Deficiency of other specified B group vitamins; Z12.5 Encounter for screening for malignant neoplasm of prostate; E03.9 Hypothyroidism, unspecified; Z13.220 Encounter for screening for lipoid disorders
CPT/HCPCS: 84443

== ENCOUNTER 2018-03-22 18:25 | Inpatient (IN) | payer MEDICARE, MEDICAID ==
[2018-03-22] MEDS: NS 500 ML IV (20:52)
[2018-03-22] MEDS: LevoFLOXacin IV 750 MG in APPROPRIATE DILUENT 1 EA IV (21:39)
[2018-03-22 21:49] LABS: BASO % 0.1 % (0.0-1.0); EOS # 0.1 10^3/uL (0.0-0.50); HEMATOCRIT 47.5 % (42.0-52.0); HEMOGLOBIN 15.3 g/dl (13.5-17.5); IMMATURE GRANULOCYTE % 0.3 % (0-3.0); LYMPH # 1.2 10^3/uL (1.5-4.5); LYMPH % 17.4 % (24.0-44.0); MEAN CORPUSCULAR HEMOGLOBIN 27.4 pg (27.0-33.0); MEAN CORPUSCULAR HGB CONC 32.2 g/dl (32.0-36.5); MEAN CORPUSCULAR VOLUME 85.1 fl (80.0-96.0); MONO # 1.1 10^3/uL (0.0-0.8); MONO % 16.7 % (0.0-5.0); NEUTROPHILS # 4.3 10^3/uL (1.8-7.7); NEUTROPHILS % 64.5 % (36.0-66.0); PLATELET COUNT, AUTOMATED 184 10^3/uL (150-450); RED BLOOD COUNT 5.58 10^6/uL (4.30-6.10); RED CELL DISTRIBUTION WIDTH 13.6 % (11.5-14.5); WHITE BLOOD COUNT 6.7 10^3/uL (4.0-10.0)
[2018-03-22 22:15] LABS: LACTIC ACID SEPSIS PROTOCOL 1.5 MMOL/L (0.4-2.0)
[2018-03-22] MEDS ORDERED: MIRALAX *UNIT DOSE* 17GM PACKET PO (22:15)
[2018-03-22] MEDS ORDERED: ONDANSETRON 4MG/2ML VIAL (J2405) IV (22:15)
[2018-03-22] MEDS ORDERED: PILL CRUSHER/CUTTER 1 EACH XX (22:30)
[2018-03-22 22:33] LABS: ALBUMIN 3.5 GM/DL (3.2-5.2); ALBUMIN/GLOBULIN RATIO 0.85 (1.00-1.93); ALKALINE PHOSPHATASE 90 U/L (45-117); ALT/SGPT 26 U/L (12-78); ANION GAP 8 MEQ/L (8-16); AST/SGOT 16 U/L (7-37); BILIRUBIN,DIRECT 0.1 MG/DL (0.0-0.2); BILIRUBIN,TOTAL 0.3 MG/DL (0.2-1.0); BLOOD UREA NITROGEN 15 MG/DL (7-18); CALCIUM LEVEL 8.8 MG/DL (8.8-10.2); CARBON DIOXIDE LEVEL 30 MEQ/L (21-32); CHLORIDE LEVEL 100 MEQ/L (98-107); CREATININE FOR GFR 0.78 MG/DL (0.70-1.30); GLOMERULAR FILTRATION RATE > 60.0 (>49); GLUCOSE, FASTING 92 MG/DL (70-100); LIPASE 98 U/L (73-393); POTASSIUM SERUM 4.1 MEQ/L (3.5-5.1); SODIUM LEVEL 138 MEQ/L (136-145); TOTAL PROTEIN 7.6 GM/DL (6.4-8.2)
[2018-03-23] MEDS: LACTULOSE 20 GM/30 ML SYRUP UD PO ×4 (01:34→22:19)
[2018-03-23] MEDS: traZODone 50 MG TAB PO ×2 (01:34→22:08)
[2018-03-23] MEDS: NS 500 ML IV ×4 (01:34→22:53)
[2018-03-23] MEDS: HALOPERIDOL 5 MG TAB PO ×3 (01:34→22:08)
[2018-03-23] MEDS: TRIHEXYPHENIDYL 2 MG TAB PO ×3 (01:35→22:13)
[2018-03-23] MEDS: PRIMIDONE 250 MG TAB PO ×3 (01:35→22:15)
[2018-03-23] MEDS: TIAGABINE 4 MG PO ×3 (01:37→22:10)
[2018-03-23 07:07] LABS: HEMATOCRIT 43.2 % (42.0-52.0); HEMOGLOBIN 14.1 g/dl (13.5-17.5); MEAN CORPUSCULAR HEMOGLOBIN 27.3 pg (27.0-33.0); MEAN CORPUSCULAR HGB CONC 32.6 g/dl (32.0-36.5); MEAN CORPUSCULAR VOLUME 83.6 fl (80.0-96.0); PLATELET COUNT, AUTOMATED 187 10^3/uL (150-450); RED BLOOD COUNT 5.17 10^6/uL (4.30-6.10); RED CELL DISTRIBUTION WIDTH 13.4 % (11.5-14.5); WHITE BLOOD COUNT 5.2 10^3/uL (4.0-10.0)
[2018-03-23 07:22] LABS: ANION GAP 8 MEQ/L (8-16); BLOOD UREA NITROGEN 14 MG/DL (7-18); CALCIUM LEVEL 8.5 MG/DL (8.8-10.2); CARBON DIOXIDE LEVEL 28 MEQ/L (21-32); CHLORIDE LEVEL 102 MEQ/L (98-107); CREATININE FOR GFR 0.83 MG/DL (0.70-1.30); GLOMERULAR FILTRATION RATE > 60.0 (>49); GLUCOSE, FASTING 87 MG/DL (70-100); POTASSIUM SERUM 4.2 MEQ/L (3.5-5.1); SODIUM LEVEL 138 MEQ/L (136-145)
[2018-03-23] MEDS ORDERED: DOCUSATE SODIUM 100 MG CAP PO (09:00)
[2018-03-23] MEDS: ENOXAPARIN 40 MG/0.4 ML SYRINGE (J1650) SC (10:02)
[2018-03-23] MEDS: VITAMIN D 1,000 INTERNATIONAL UNITS TABLET PO (10:03)
[2018-03-23] MEDS: FOLIC ACID 1 MG TAB PO (10:03)
[2018-03-23] MEDS: LEVOTHYROXINE 50MCG TABLET (0.05MG) PO (10:04)
[2018-03-23] MEDS: PARoxetine 20 MG TAB PO (10:04)
[2018-03-23] MEDS: FLEET ENEMA PR (12:15)
[2018-03-23] MEDS: SENNA 8.6 MG TAB (SENOKOT) PO ×2 (12:16→22:10)
[2018-03-23] MEDS: DOCUSATE SOD LIQ 100MG/10ML UDC PO ×2 (14:02→22:19)
[2018-03-23] MEDS: LevoFLOXacin IV 750 MG in APPROPRIATE DILUENT 1 EA IV (22:05)
[2018-03-23] MEDS: MOM 30ML SUSPENSION UDC PO (22:19)
[2018-03-24] MEDS: NS 500 ML IV ×4 (01:29→14:20)
[2018-03-24 06:41] LABS: HEMATOCRIT 39.1 % (42.0-52.0); HEMOGLOBIN 12.6 g/dl (13.5-17.5); MEAN CORPUSCULAR HEMOGLOBIN 27.3 pg (27.0-33.0); MEAN CORPUSCULAR HGB CONC 32.2 g/dl (32.0-36.5); MEAN CORPUSCULAR VOLUME 84.6 fl (80.0-96.0); PLATELET COUNT, AUTOMATED 189 10^3/uL (150-450); RED BLOOD COUNT 4.62 10^6/uL (4.30-6.10); RED CELL DISTRIBUTION WIDTH 13.7 % (11.5-14.5); WHITE BLOOD COUNT 4.4 10^3/uL (4.0-10.0)
[2018-03-24 07:04] LABS: ANION GAP 11 MEQ/L (8-16); BLOOD UREA NITROGEN 13 MG/DL (7-18); CARBON DIOXIDE LEVEL 22 MEQ/L (21-32); CHLORIDE LEVEL 107 MEQ/L (98-107); CREATININE FOR GFR 0.74 MG/DL (0.70-1.30); GLOMERULAR FILTRATION RATE > 60.0 (>49); GLUCOSE, FASTING 81 MG/DL (70-100); MAGNESIUM LEVEL 1.7 MG/DL (1.8-2.4); SODIUM LEVEL 140 MEQ/L (136-145)
[2018-03-24] MEDS: TIAGABINE 4 MG PO ×2 (08:20→21:02)
[2018-03-24] MEDS: PRIMIDONE 250 MG TAB PO ×2 (08:21→21:01)
[2018-03-24] MEDS: TRIHEXYPHENIDYL 2 MG TAB PO ×2 (08:22→21:02)
[2018-03-24] MEDS: LEVOTHYROXINE 50MCG TABLET (0.05MG) PO (08:25)
[2018-03-24] MEDS: SENNA 8.6 MG TAB (SENOKOT) PO ×2 (08:25→21:01)
[2018-03-24] MEDS: PARoxetine 20 MG TAB PO (08:25)
[2018-03-24] MEDS: LACTULOSE 20 GM/30 ML SYRUP UD PO ×3 (08:27→21:02)
[2018-03-24] MEDS: DOCUSATE SOD LIQ 100MG/10ML UDC PO ×2 (08:27→21:01)
[2018-03-24] MEDS: ENOXAPARIN 40 MG/0.4 ML SYRINGE (J1650) SC (08:27)
[2018-03-24] MEDS: FLEET ENEMA PR (08:52)
[2018-03-24] MEDS ORDERED: FLEET ENEMA PR (09:00)
[2018-03-24] MEDS: VITAMIN D 1,000 INTERNATIONAL UNITS TABLET PO (10:00)
[2018-03-24] MEDS: HALOPERIDOL 5 MG TAB PO ×2 (10:00→21:02)
[2018-03-24] MEDS: FOLIC ACID 1 MG TAB PO (10:00)
[2018-03-24] MEDS: traZODone 50 MG TAB PO (21:01)
[2018-03-24] MEDS: LevoFLOXacin IV 750 MG in APPROPRIATE DILUENT 1 EA IV (21:03)
[2018-03-25] MEDS: NS 500 ML IV ×4 (00:21→19:00)
[2018-03-25 06:59] LABS: HEMATOCRIT 39.6 % (42.0-52.0); HEMOGLOBIN 12.7 g/dl (13.5-17.5); MEAN CORPUSCULAR HEMOGLOBIN 27.4 pg (27.0-33.0); MEAN CORPUSCULAR HGB CONC 32.1 g/dl (32.0-36.5); MEAN CORPUSCULAR VOLUME 85.3 fl (80.0-96.0); PLATELET COUNT, AUTOMATED 180 10^3/uL (150-450); RED BLOOD COUNT 4.64 10^6/uL (4.30-6.10); RED CELL DISTRIBUTION WIDTH 13.8 % (11.5-14.5); WHITE BLOOD COUNT 5.1 10^3/uL (4.0-10.0)
[2018-03-25 07:45] LABS: ANION GAP 9 MEQ/L (8-16); BLOOD UREA NITROGEN 12 MG/DL (7-18); CALCIUM LEVEL 8.2 MG/DL (8.8-10.2); CARBON DIOXIDE LEVEL 24 MEQ/L (21-32); CHLORIDE LEVEL 109 MEQ/L (98-107); CREATININE FOR GFR 0.68 MG/DL (0.70-1.30); GLOMERULAR FILTRATION RATE > 60.0 (>49); GLUCOSE, FASTING 86 MG/DL (70-100); POTASSIUM SERUM 3.8 MEQ/L (3.5-5.1); SODIUM LEVEL 142 MEQ/L (136-145)
[2018-03-25] MEDS: TIAGABINE 4 MG PO ×2 (10:04→21:00)
[2018-03-25] MEDS: LACTULOSE 20 GM/30 ML SYRUP UD PO ×3 (10:04→21:00)
[2018-03-25] MEDS: VITAMIN D 1,000 INTERNATIONAL UNITS TABLET PO (10:05)
[2018-03-25] MEDS: DOCUSATE SOD LIQ 100MG/10ML UDC PO ×2 (10:05→21:00)
[2018-03-25] MEDS: TRIHEXYPHENIDYL 2 MG TAB PO ×2 (10:05→21:00)
[2018-03-25] MEDS: SENNA 8.6 MG TAB (SENOKOT) PO ×2 (10:06→21:00)
[2018-03-25] MEDS: PRIMIDONE 250 MG TAB PO ×2 (10:06→21:00)
[2018-03-25] MEDS: LEVOTHYROXINE 50MCG TABLET (0.05MG) PO (10:06)
[2018-03-25] MEDS: ENOXAPARIN 40 MG/0.4 ML SYRINGE (J1650) SC (10:06)
[2018-03-25] MEDS: FOLIC ACID 1 MG TAB PO (10:06)
[2018-03-25] MEDS: HALOPERIDOL 5 MG TAB PO ×2 (10:06→21:00)
[2018-03-25] MEDS: PARoxetine 20 MG TAB PO (10:32)
[2018-03-25] MEDS: FINASTERIDE 5 MG TAB PO (15:39)
[2018-03-25] MEDS: TAMSULOSIN 0.4 MG CAP PO (21:00)
[2018-03-25] MEDS: MOM 30ML SUSPENSION UDC PO (21:00)
[2018-03-25] MEDS: traZODone 50 MG TAB PO (21:00)
[2018-03-25] MEDS: LevoFLOXacin IV 750 MG in APPROPRIATE DILUENT 1 EA IV (22:30)
[2018-03-26] MEDS: NS 500 ML IV (00:55)
[2018-03-26] MEDS: LEVOTHYROXINE 50MCG TABLET (0.05MG) PO (06:20)
[2018-03-26 07:03] LABS: KETONE, URINE AUTO RFX TRACE mg/dL (NEGATIVE); NITRITE, URINE AUTO RFX NEGATIVE (NEGATIVE); SPECIFIC GRAVITY UR AUTO RFX 1.004 (1.002-1.035)
[2018-03-26 07:04] LABS: LEUKOCYTE ESTERASE UR AUTO RFX NEGATIVE (NEGATIVE); MUCUS, URINE RFX SMALL (NEGATIVE); RBC, URINE AUTO RFX 4 /HPF (0-3); SQUAM EPITHELIAL CELL UR AURFX 0 /HPF (0-6); WBC, URINE AUTO RFX 1 /HPF (0-3)
[2018-03-26 07:22] LABS: HEMATOCRIT 38.3 % (42.0-52.0); HEMOGLOBIN 12.5 g/dl (13.5-17.5); MEAN CORPUSCULAR HEMOGLOBIN 27.1 pg (27.0-33.0); MEAN CORPUSCULAR HGB CONC 32.6 g/dl (32.0-36.5); MEAN CORPUSCULAR VOLUME 83.1 fl (80.0-96.0); PLATELET COUNT, AUTOMATED 192 10^3/uL (150-450); RED BLOOD COUNT 4.61 10^6/uL (4.30-6.10); RED CELL DISTRIBUTION WIDTH 13.6 % (11.5-14.5); WHITE BLOOD COUNT 4.1 10^3/uL (4.0-10.0)
[2018-03-26 07:45] LABS: ANION GAP 7 MEQ/L (8-16); BLOOD UREA NITROGEN 6 MG/DL (7-18); CALCIUM LEVEL 7.4 MG/DL (8.8-10.2); CARBON DIOXIDE LEVEL 23 MEQ/L (21-32); CHLORIDE LEVEL 109 MEQ/L (98-107); GLOMERULAR FILTRATION RATE > 60.0 (>49); GLUCOSE, FASTING 95 MG/DL (70-100); POTASSIUM SERUM 3.7 MEQ/L (3.5-5.1); SODIUM LEVEL 139 MEQ/L (136-145)
[2018-03-26] MEDS: FLEET ENEMA PR (09:00)
[2018-03-26] MEDS: DOCUSATE SOD LIQ 100MG/10ML UDC PO ×2 (09:42→20:00)
[2018-03-26] MEDS: LACTULOSE 20 GM/30 ML SYRUP UD PO ×3 (09:42→20:00)
[2018-03-26] MEDS: FINASTERIDE 5 MG TAB PO (09:43)
[2018-03-26] MEDS: HALOPERIDOL 5 MG TAB PO ×2 (09:43→20:01)
[2018-03-26] MEDS: VITAMIN D 1,000 INTERNATIONAL UNITS TABLET PO (09:43)
[2018-03-26] MEDS: SENNA 8.6 MG TAB (SENOKOT) PO ×2 (09:43→20:01)
[2018-03-26] MEDS: PARoxetine 20 MG TAB PO (09:43)
[2018-03-26] MEDS: FOLIC ACID 1 MG TAB PO (09:43)
[2018-03-26] MEDS: TAMSULOSIN 0.4 MG CAP PO ×2 (09:43→20:00)
[2018-03-26] MEDS: LevoFLOXacin 750 MG TABLET PO (09:43)
[2018-03-26] MEDS: ENOXAPARIN 40 MG/0.4 ML SYRINGE (J1650) SC (09:44)
[2018-03-26] MEDS: TRIHEXYPHENIDYL 2 MG TAB PO ×2 (09:44→20:01)
[2018-03-26] MEDS: PRIMIDONE 250 MG TAB PO ×2 (09:44→20:01)
[2018-03-26] MEDS: TIAGABINE 4 MG PO ×2 (11:28→20:01)
[2018-03-26] MEDS: traZODone 50 MG TAB PO (20:00)
[2018-03-27] MEDS: LevoFLOXacin 750 MG TABLET PO (05:43)
[2018-03-27] MEDS: LEVOTHYROXINE 50MCG TABLET (0.05MG) PO (05:43)
[2018-03-27 06:36] LABS: MEAN CORPUSCULAR HEMOGLOBIN 27.5 pg (27.0-33.0); MEAN CORPUSCULAR HGB CONC 33.3 g/dl (32.0-36.5); MEAN CORPUSCULAR VOLUME 82.6 fl (80.0-96.0); PLATELET COUNT, AUTOMATED 204 10^3/uL (150-450); RED BLOOD COUNT 4.72 10^6/uL (4.30-6.10); RED CELL DISTRIBUTION WIDTH 13.5 % (11.5-14.5)
[2018-03-27 07:00] LABS: ANION GAP 9 MEQ/L (8-16); BLOOD UREA NITROGEN 7 MG/DL (7-18); CALCIUM LEVEL 8.5 MG/DL (8.8-10.2); CARBON DIOXIDE LEVEL 25 MEQ/L (21-32); CHLORIDE LEVEL 108 MEQ/L (98-107); GLOMERULAR FILTRATION RATE > 60.0 (>49); GLUCOSE, FASTING 83 MG/DL (70-100); POTASSIUM SERUM 3.6 MEQ/L (3.5-5.1); SODIUM LEVEL 142 MEQ/L (136-145)
[2018-03-27] MEDS: PARoxetine 20 MG TAB PO (09:56)
[2018-03-27] MEDS: PRIMIDONE 250 MG TAB PO ×2 (09:56→19:35)
[2018-03-27] MEDS: FOLIC ACID 1 MG TAB PO (09:56)
[2018-03-27] MEDS: FINASTERIDE 5 MG TAB PO (09:56)
[2018-03-27] MEDS: TAMSULOSIN 0.4 MG CAP PO ×2 (09:56→19:34)
[2018-03-27] MEDS: TRIHEXYPHENIDYL 2 MG TAB PO ×2 (09:57→19:35)
[2018-03-27] MEDS: VITAMIN D 1,000 INTERNATIONAL UNITS TABLET PO (09:57)
[2018-03-27] MEDS: TIAGABINE 4 MG PO ×2 (09:57→19:35)
[2018-03-27] MEDS: HALOPERIDOL 5 MG TAB PO ×2 (09:57→19:35)
[2018-03-27] MEDS: SENNA 8.6 MG TAB (SENOKOT) PO ×2 (09:57→19:34)
[2018-03-27] MEDS: ENOXAPARIN 40 MG/0.4 ML SYRINGE (J1650) SC (09:58)
[2018-03-27] MEDS: DOCUSATE SOD LIQ 100MG/10ML UDC PO ×2 (09:58→19:35)
[2018-03-27] MEDS: LACTULOSE 20 GM/30 ML SYRUP UD PO ×3 (09:58→19:35)
[2018-03-27] MEDS: MEGESTROL ES SUSP 625 MG/5 ML UDC PO (18:55)
[2018-03-27] MEDS: traZODone 50 MG TAB PO (19:35)
[2018-03-27] MEDS: MOM 30ML SUSPENSION UDC PO (19:49)
[2018-03-28] MEDS: LevoFLOXacin 750 MG TABLET PO (05:53)
[2018-03-28] MEDS: LEVOTHYROXINE 50MCG TABLET (0.05MG) PO (05:53)
[2018-03-28 06:13] LABS: ANION GAP 7 MEQ/L (8-16); BLOOD UREA NITROGEN 7 MG/DL (7-18); CARBON DIOXIDE LEVEL 25 MEQ/L (21-32); CHLORIDE LEVEL 105 MEQ/L (98-107); CREATININE FOR GFR 0.75 MG/DL (0.70-1.30); GLOMERULAR FILTRATION RATE > 60.0 (>49); GLUCOSE, FASTING 95 MG/DL (70-100); POTASSIUM SERUM 3.7 MEQ/L (3.5-5.1); SODIUM LEVEL 137 MEQ/L (136-145)
[2018-03-28 07:45] LABS: HEMATOCRIT 40.5 % (42.0-52.0); HEMOGLOBIN 13.5 g/dl (13.5-17.5); MEAN CORPUSCULAR HEMOGLOBIN 27.5 pg (27.0-33.0); MEAN CORPUSCULAR HGB CONC 33.3 g/dl (32.0-36.5); MEAN CORPUSCULAR VOLUME 82.5 fl (80.0-96.0); PLATELET COUNT, AUTOMATED 219 10^3/uL (150-450); RED BLOOD COUNT 4.91 10^6/uL (4.30-6.10); RED CELL DISTRIBUTION WIDTH 13.6 % (11.5-14.5); WHITE BLOOD COUNT 4.9 10^3/uL (4.0-10.0)
[2018-03-28] MEDS: VITAMIN D 1,000 INTERNATIONAL UNITS TABLET PO (10:11)
[2018-03-28] MEDS: PRIMIDONE 250 MG TAB PO ×2 (10:11→21:18)
[2018-03-28] MEDS: TRIHEXYPHENIDYL 2 MG TAB PO ×2 (10:12→21:18)
[2018-03-28] MEDS: TIAGABINE 4 MG PO ×2 (10:13→21:18)
[2018-03-28] MEDS: HALOPERIDOL 5 MG TAB PO ×2 (10:14→21:18)
[2018-03-28] MEDS: SENNA 8.6 MG TAB (SENOKOT) PO ×2 (10:14→21:19)
[2018-03-28] MEDS: FINASTERIDE 5 MG TAB PO (10:14)
[2018-03-28] MEDS: TAMSULOSIN 0.4 MG CAP PO ×2 (10:14→21:19)
[2018-03-28] MEDS: MEGESTROL ES SUSP 625 MG/5 ML UDC PO (10:15)
[2018-03-28] MEDS: LACTULOSE 20 GM/30 ML SYRUP UD PO ×3 (10:15→21:19)
[2018-03-28] MEDS: FOLIC ACID 1 MG TAB PO (10:15)
[2018-03-28] MEDS: DOCUSATE SOD LIQ 100MG/10ML UDC PO ×2 (10:15→21:19)
[2018-03-28] MEDS: PARoxetine 20 MG TAB PO (10:15)
[2018-03-28] MEDS: ENOXAPARIN 40 MG/0.4 ML SYRINGE (J1650) SC (10:16)
[2018-03-28] MEDS: traZODone 50 MG TAB PO (21:19)
[2018-03-29] MEDS: LevoFLOXacin 750 MG TABLET PO (05:35)
[2018-03-29] MEDS: LEVOTHYROXINE 50MCG TABLET (0.05MG) PO (05:35)
[2018-03-29 07:49] LABS: HEMATOCRIT 41.2 % (42.0-52.0); HEMOGLOBIN 13.7 g/dl (13.5-17.5); MEAN CORPUSCULAR HEMOGLOBIN 27.4 pg (27.0-33.0); MEAN CORPUSCULAR HGB CONC 33.3 g/dl (32.0-36.5); MEAN CORPUSCULAR VOLUME 82.4 fl (80.0-96.0); PLATELET COUNT, AUTOMATED 228 10^3/uL (150-450); RED CELL DISTRIBUTION WIDTH 13.9 % (11.5-14.5); WHITE BLOOD COUNT 7.4 10^3/uL (4.0-10.0)
[2018-03-29 08:30] LABS: ANION GAP 6 MEQ/L (8-16); BLOOD UREA NITROGEN 10 MG/DL (7-18); CALCIUM LEVEL 8.6 MG/DL (8.8-10.2); CARBON DIOXIDE LEVEL 25 MEQ/L (21-32); CHLORIDE LEVEL 106 MEQ/L (98-107); CREATININE FOR GFR 0.75 MG/DL (0.70-1.30); GLOMERULAR FILTRATION RATE > 60.0 (>49); GLUCOSE, FASTING 87 MG/DL (70-100); NT-PRO BNP 13 PG/ML (<125); SODIUM LEVEL 137 MEQ/L (136-145)
[2018-03-29] MEDS: TIAGABINE 4 MG PO ×2 (09:41→21:01)
[2018-03-29] MEDS: FINASTERIDE 5 MG TAB PO (09:41)
[2018-03-29] MEDS: PRIMIDONE 250 MG TAB PO ×2 (09:41→21:01)
[2018-03-29] MEDS: SENNA 8.6 MG TAB (SENOKOT) PO ×2 (09:41→21:01)
[2018-03-29] MEDS: FOLIC ACID 1 MG TAB PO (09:41)
[2018-03-29] MEDS: VITAMIN D 1,000 INTERNATIONAL UNITS TABLET PO (09:41)
[2018-03-29] MEDS: PARoxetine 20 MG TAB PO (09:41)
[2018-03-29] MEDS: TAMSULOSIN 0.4 MG CAP PO ×2 (09:41→21:01)
[2018-03-29] MEDS: HALOPERIDOL 5 MG TAB PO ×2 (09:41→21:01)
[2018-03-29] MEDS: LACTULOSE 20 GM/30 ML SYRUP UD PO ×3 (09:42→21:02)
[2018-03-29] MEDS: DOCUSATE SOD LIQ 100MG/10ML UDC PO ×2 (09:42→21:01)
[2018-03-29] MEDS: TRIHEXYPHENIDYL 2 MG TAB PO ×2 (09:42→21:01)
[2018-03-29] MEDS: ENOXAPARIN 40 MG/0.4 ML SYRINGE (J1650) SC (09:42)
[2018-03-29] MEDS: FLEET ENEMA PR (09:45)
[2018-03-29] MEDS: MEGESTROL ES SUSP 625 MG/5 ML UDC PO (09:45)
[2018-03-29] MEDS: traZODone 50 MG TAB PO (21:01)
[2018-03-29] MEDS: MOM 30ML SUSPENSION UDC PO (21:02)
[2018-03-30] MEDS: LEVOTHYROXINE 50MCG TABLET (0.05MG) PO (06:03)
[2018-03-30] MEDS: LevoFLOXacin 750 MG TABLET PO (06:03)
[2018-03-30] MEDS: DOCUSATE SOD LIQ 100MG/10ML UDC PO ×2 (09:40→22:03)
[2018-03-30] MEDS: LACTULOSE 20 GM/30 ML SYRUP UD PO (09:40)
[2018-03-30] MEDS: ENOXAPARIN 40 MG/0.4 ML SYRINGE (J1650) SC (09:41)
[2018-03-30] MEDS: PRIMIDONE 250 MG TAB PO ×2 (09:41→22:02)
[2018-03-30] MEDS: HALOPERIDOL 5 MG TAB PO ×2 (09:41→22:02)
[2018-03-30] MEDS: TIAGABINE 4 MG PO ×2 (09:42→22:02)
[2018-03-30] MEDS: FINASTERIDE 5 MG TAB PO (09:42)
[2018-03-30] MEDS: TRIHEXYPHENIDYL 2 MG TAB PO ×2 (09:42→22:07)
[2018-03-30] MEDS: VITAMIN D 1,000 INTERNATIONAL UNITS TABLET PO (09:43)
[2018-03-30] MEDS: SENNA 8.6 MG TAB (SENOKOT) PO ×2 (09:43→22:03)
[2018-03-30] MEDS: FOLIC ACID 1 MG TAB PO (09:43)
[2018-03-30] MEDS: PARoxetine 20 MG TAB PO (09:43)
[2018-03-30] MEDS: TAMSULOSIN 0.4 MG CAP PO ×2 (09:43→22:03)
[2018-03-30] MEDS: MEGESTROL ES SUSP 625 MG/5 ML UDC PO (09:54)
[2018-03-30] MEDS: FLEET ENEMA PR (17:15)
[2018-03-30] MEDS: MIRALAX *UNIT DOSE* 17GM PACKET PO (17:43)
[2018-03-30] MEDS: MOM 30ML SUSPENSION UDC PO (22:03)
[2018-03-30] MEDS: traZODone 50 MG TAB PO (22:03)
[2018-03-31] MEDS: LEVOTHYROXINE 50MCG TABLET (0.05MG) PO (05:58)
[2018-03-31] MEDS: LevoFLOXacin 750 MG TABLET PO (05:58)
[2018-03-31 07:36] LABS: ALBUMIN 3.2 GM/DL (3.2-5.2); ANION GAP 7 MEQ/L (8-16); BLOOD UREA NITROGEN 11 MG/DL (7-18); CALCIUM LEVEL 8.6 MG/DL (8.8-10.2); CARBON DIOXIDE LEVEL 26 MEQ/L (21-32); CHLORIDE LEVEL 107 MEQ/L (98-107); CREATININE FOR GFR 0.73 MG/DL (0.70-1.30); GLOMERULAR FILTRATION RATE > 60.0 (>49); GLUCOSE, FASTING 98 MG/DL (70-100); MAGNESIUM LEVEL 1.9 MG/DL (1.8-2.4); PHOSPHORUS LEVEL 2.7 MG/DL (2.5-4.9); POTASSIUM SERUM 3.6 MEQ/L (3.5-5.1); SODIUM LEVEL 140 MEQ/L (136-145)
[2018-03-31] MEDS: MOM 30ML SUSPENSION UDC PO ×2 (09:00→09:35)
[2018-03-31] MEDS: MEGESTROL ES SUSP 625 MG/5 ML UDC PO ×2 (09:00→09:36)
[2018-03-31] MEDS: HALOPERIDOL 5 MG TAB PO ×2 (09:28→19:56)
[2018-03-31] MEDS: PRIMIDONE 250 MG TAB PO ×2 (09:28→19:56)
[2018-03-31] MEDS: TIAGABINE 4 MG PO ×2 (09:29→19:57)
[2018-03-31] MEDS: TRIHEXYPHENIDYL 2 MG TAB PO ×2 (09:29→19:57)
[2018-03-31] MEDS: VITAMIN D 1,000 INTERNATIONAL UNITS TABLET PO (09:34)
[2018-03-31] MEDS: TAMSULOSIN 0.4 MG CAP PO ×2 (09:34→19:56)
[2018-03-31] MEDS: FINASTERIDE 5 MG TAB PO (09:34)
[2018-03-31] MEDS: PARoxetine 20 MG TAB PO (09:35)
[2018-03-31] MEDS: MIRALAX *UNIT DOSE* 17GM PACKET PO (09:35)
[2018-03-31] MEDS: SENNA 8.6 MG TAB (SENOKOT) PO ×2 (09:35→19:56)
[2018-03-31] MEDS: FOLIC ACID 1 MG TAB PO (09:35)
[2018-03-31] MEDS: ENOXAPARIN 40 MG/0.4 ML SYRINGE (J1650) SC (09:36)
[2018-03-31] MEDS: FLEET ENEMA PR (09:36)
[2018-03-31] MEDS: DOCUSATE SOD LIQ 100MG/10ML UDC PO ×3 (09:36→21:00)
[2018-03-31] MEDS: traZODone 50 MG TAB PO (19:56)
[2018-04-01] MEDS: LEVOTHYROXINE 50MCG TABLET (0.05MG) PO (06:06)
[2018-04-01] MEDS: LevoFLOXacin 750 MG TABLET PO (06:06)
[2018-04-01] MEDS: MOM 30ML SUSPENSION UDC PO (09:14)
[2018-04-01] MEDS: TRIHEXYPHENIDYL 2 MG TAB PO (09:14)
[2018-04-01] MEDS: DOCUSATE SOD LIQ 100MG/10ML UDC PO (09:14)
[2018-04-01] MEDS: TIAGABINE 4 MG PO (09:15)
[2018-04-01] MEDS: FINASTERIDE 5 MG TAB PO (09:15)
[2018-04-01] MEDS: VITAMIN D 1,000 INTERNATIONAL UNITS TABLET PO (09:15)
[2018-04-01] MEDS: FOLIC ACID 1 MG TAB PO (09:15)
[2018-04-01] MEDS: BISACODYL 10 MG SUPP PR (09:16)
[2018-04-01] MEDS: TAMSULOSIN 0.4 MG CAP PO (09:16)
[2018-04-01] MEDS: PRIMIDONE 250 MG TAB PO (09:16)
[2018-04-01] MEDS: MIRALAX *UNIT DOSE* 17GM PACKET PO (09:16)
[2018-04-01] MEDS: HALOPERIDOL 5 MG TAB PO (09:16)
[2018-04-01] MEDS: PARoxetine 20 MG TAB PO (09:16)
[2018-04-01] MEDS: SENNA 8.6 MG TAB (SENOKOT) PO (09:17)
[2018-04-01] MEDS: ENOXAPARIN 40 MG/0.4 ML SYRINGE (J1650) SC (09:17)
[2018-04-01] MEDS: MEGESTROL ES SUSP 625 MG/5 ML UDC PO (09:18)
[2018-04-04 14:13] LABS: QUANTIFERON GOLD TB Negative (Negative); TB Test (QFT) Antigen Minus Ni 0.04 IU/mL (.); TB Test (QFT) Mitogen >10.00 IU/mL (.); TB Test (QFT) Nil 0.06 IU/mL (.)
== END 2018-04-01 12:05 | disposition home or self-care (01) | DRG 194 ==
LOC: M MS5PR 03-23 00:20 → M ED 18:25 → M MS5PR 03-23 14:30 → M ED INP 22:03
DX: J18.9 Pneumonia, unspecified organism (principal); F72 Severe intellectual disabilities; J90 Pleural effusion, not elsewhere classified; G40.909 Epilepsy, unspecified, not intractable, without status epilepticus; E03.9 Hypothyroidism, unspecified; K56.41 Fecal impaction; Z88.0 Allergy status to penicillin; Z88.8 Allergy status to other drugs, medicaments and biological substances; Z79.899 Other long term (current) drug therapy; R33.9 Retention of urine, unspecified; R32 Unspecified urinary incontinence; N31.2 Flaccid neuropathic bladder, not elsewhere classified; R35.0 Frequency of micturition; R35.1 Nocturia

== ENCOUNTER → 2018-03-22 | Outpatient (REF) | payer MEDICARE, MEDICAID ==
[2018-03-22 14:12] LABS: BASO % 0.1 % (0.0-1.0); EOS # 0.1 10^3/uL (0.0-0.50); EOS % 0.8 % (0.0-3.0); HEMATOCRIT 49.9 % (42.0-52.0); IMMATURE GRANULOCYTE % 0.5 % (0-3.0); LYMPH # 1.3 10^3/uL (1.5-4.5); LYMPH % 17.4 % (24.0-44.0); MEAN CORPUSCULAR HEMOGLOBIN 27.4 pg (27.0-33.0); MEAN CORPUSCULAR HGB CONC 32.1 g/dl (32.0-36.5); MEAN CORPUSCULAR VOLUME 85.4 fl (80.0-96.0); MONO # 1.1 10^3/uL (0.0-0.8); MONO % 14.7 % (0.0-5.0); NEUTROPHILS % 66.5 % (36.0-66.0); PLATELET COUNT, AUTOMATED 196 10^3/uL (150-450); RED BLOOD COUNT 5.84 10^6/uL (4.30-6.10); RED CELL DISTRIBUTION WIDTH 13.7 % (11.5-14.5); WHITE BLOOD COUNT 7.5 10^3/uL (4.0-10.0)
[2018-03-22 15:01] LABS: ALBUMIN 3.8 GM/DL (3.2-5.2); ALBUMIN/GLOBULIN RATIO 0.83 (1.00-1.93); ALKALINE PHOSPHATASE 96 U/L (45-117); ALT/SGPT 31 U/L (12-78); ANION GAP 9 MEQ/L (8-16); AST/SGOT 28 U/L (7-37); BILIRUBIN,TOTAL 0.4 MG/DL (0.2-1.0); BLOOD UREA NITROGEN 14 MG/DL (7-18); CALCIUM LEVEL 9.5 MG/DL (8.8-10.2); CARBON DIOXIDE LEVEL 29 MEQ/L (21-32); CHLORIDE LEVEL 98 MEQ/L (98-107); CREATININE FOR GFR 0.76 MG/DL (0.70-1.30); GLOMERULAR FILTRATION RATE > 60.0 (>49); GLUCOSE, FASTING 91 MG/DL (70-100); LIPASE 104 U/L (73-393); POTASSIUM SERUM 4.6 MEQ/L (3.5-5.1); SODIUM LEVEL 136 MEQ/L (136-145); TOTAL PROTEIN 8.4 GM/DL (6.4-8.2)
[2018-03-22 15:05] LABS: LACTIC ACID SEPSIS PROTOCOL 2.1 MMOL/L (0.4-2.0)
== END ==
LOC: M SFHCPLAZ 12:52
DX: R63.0 Anorexia (principal)
CPT/HCPCS: 83690

== ENCOUNTER → 2018-03-22 | Outpatient (CLI) | payer MEDICARE, MEDICAID | LOC: M WUC 13:48 | DX: J90 Pleural effusion, not elsewhere classified (principal); R63.0 Anorexia | CPT/HCPCS: 74021 ==

== ENCOUNTER 2018-04-08 09:23 | Emergency (ER) | payer MEDICARE, MEDICAID ==
[2018-04-08 10:39] LABS: VENOUS BASE EXCESS -0.6 (-2.0-2.0); VENOUS HCO3 26.3 MEQ/L (23.0-27.0); VENOUS O2 SATURATION 79.2 % (60.0-80.0); VENOUS PARTIAL PRESSURE CO2 51.9 mmHg (38.0-50.0); VENOUS PARTIAL PRESSURE O2 46.8 mmHg (30.0-50.0); VENOUS PH 7.322 UNITS (7.330-7.430); VENOUS STANDARD HCO3 23.6 MEQ/L; VENOUS TOTAL CO2 27.9 MEQ/L (24.0-28.0)
[2018-04-08 10:46] LABS: INFLUENZA A AMPLIFICATION NEGATIVE (NEGATIVE); INFLUENZA B AMPLIFICATION NEGATIVE (NEGATIVE)
[2018-04-08 10:53] LABS: BASO % 0.2 % (0.0-1.0); EOS % 0.3 % (0.0-3.0); HEMOGLOBIN 13.4 g/dl (13.5-17.5); IMMATURE GRANULOCYTE % 0.4 % (0-3.0); LYMPH # 1.2 10^3/uL (1.5-4.5); LYMPH % 13.4 % (24.0-44.0); MEAN CORPUSCULAR HEMOGLOBIN 27.6 pg (27.0-33.0); MEAN CORPUSCULAR HGB CONC 31.9 g/dl (32.0-36.5); MEAN CORPUSCULAR VOLUME 86.6 fl (80.0-96.0); MONO # 0.6 10^3/uL (0.0-0.8); MONO % 6.8 % (0.0-5.0); NEUTROPHILS # 7.3 10^3/uL (1.8-7.7); NEUTROPHILS % 78.9 % (36.0-66.0); PLATELET COUNT, AUTOMATED 326 10^3/uL (150-450); RED BLOOD COUNT 4.85 10^6/uL (4.30-6.10); RED CELL DISTRIBUTION WIDTH 14.3 % (11.5-14.5); WHITE BLOOD COUNT 9.2 10^3/uL (4.0-10.0)
[2018-04-08 11:22] LABS: ALBUMIN 3.4 GM/DL (3.2-5.2); ALBUMIN/GLOBULIN RATIO 0.89 (1.00-1.93); ALKALINE PHOSPHATASE 85 U/L (45-117); ALT/SGPT 29 U/L (12-78); ANION GAP 8 MEQ/L (8-16); AST/SGOT 21 U/L (7-37); BILIRUBIN,DIRECT < 0.1 MG/DL (0.0-0.2); BILIRUBIN,TOTAL 0.2 MG/DL (0.2-1.0); BLOOD UREA NITROGEN 10 MG/DL (7-18); CALCIUM LEVEL 8.1 MG/DL (8.8-10.2); CARBON DIOXIDE LEVEL 27 MEQ/L (21-32); CHLORIDE LEVEL 107 MEQ/L (98-107); CPK CREATINE PHOSPHOKINASE 87 U/L (39-308); CREATININE FOR GFR 0.85 MG/DL (0.70-1.30); GLOMERULAR FILTRATION RATE > 60.0 (>49); GLUCOSE, FASTING 91 MG/DL (70-100); MB/CK RELATIVE INDEX 2.99 (< OR =4); POTASSIUM SERUM 4.3 MEQ/L (3.5-5.1); SODIUM LEVEL 142 MEQ/L (136-145); TOTAL PROTEIN 7.2 GM/DL (6.4-8.2); TROPONIN I < 0.02 NG/ML (< 0.10)
[2018-04-08 11:31] LABS: LACTIC ACID SEPSIS PROTOCOL 3.6 MMOL/L (0.4-2.0)
[2018-04-08] MEDS: NS 1,000 ML IV (12:12)
[2018-04-08 15:56] LABS: LACTIC ACID SEPSIS PROTOCOL 1.4 MMOL/L (0.4-2.0)
== END 2018-04-08 16:40 | disposition home or self-care (01) ==
LOC: M ED 09:23
DX: R09.02 Hypoxemia (principal); E86.0 Dehydration; G40.909 Epilepsy, unspecified, not intractable, without status epilepticus; E07.9 Disorder of thyroid, unspecified; F79 Unspecified intellectual disabilities; Z79.899 Other long term (current) drug therapy; Z79.890 Hormone replacement therapy; Z88.0 Allergy status to penicillin; Z88.8 Allergy status to other drugs, medicaments and biological substances
CPT/HCPCS: 71045

== ENCOUNTER 2018-04-09 21:22 | Emergency (ER) | payer MEDICARE, MEDICAID ==
[2018-04-09 23:25] LABS: BASO % 0.1 % (0.0-1.0); EOS # 0.1 10^3/uL (0.0-0.50); EOS % 0.9 % (0.0-3.0); HEMOGLOBIN 13.6 g/dl (13.5-17.5); IMMATURE GRANULOCYTE % 0.3 % (0-3.0); LYMPH # 1.4 10^3/uL (1.5-4.5); MEAN CORPUSCULAR HEMOGLOBIN 27.6 pg (27.0-33.0); MEAN CORPUSCULAR HGB CONC 31.6 g/dl (32.0-36.5); MEAN CORPUSCULAR VOLUME 87.2 fl (80.0-96.0); MONO # 0.7 10^3/uL (0.0-0.8); MONO % 8.6 % (0.0-5.0); NEUTROPHILS # 5.4 10^3/uL (1.8-7.7); NEUTROPHILS % 72.1 % (36.0-66.0); PLATELET COUNT, AUTOMATED 347 10^3/uL (150-450); RED BLOOD COUNT 4.93 10^6/uL (4.30-6.10); RED CELL DISTRIBUTION WIDTH 14.4 % (11.5-14.5); WHITE BLOOD COUNT 7.5 10^3/uL (4.0-10.0)
[2018-04-09 23:58] LABS: ALBUMIN 3.4 GM/DL (3.2-5.2); ALBUMIN/GLOBULIN RATIO 0.83 (1.00-1.93); ALKALINE PHOSPHATASE 87 U/L (45-117); ALT/SGPT 25 U/L (12-78); ANION GAP 8 MEQ/L (8-16); AST/SGOT 18 U/L (7-37); BILIRUBIN,DIRECT < 0.1 MG/DL (0.0-0.2); BILIRUBIN,TOTAL 0.2 MG/DL (0.2-1.0); BLOOD UREA NITROGEN 6 MG/DL (7-18); CALCIUM LEVEL 8.6 MG/DL (8.8-10.2); CARBON DIOXIDE LEVEL 27 MEQ/L (21-32); CHLORIDE LEVEL 106 MEQ/L (98-107); CPK CREATINE PHOSPHOKINASE 84 U/L (39-308); CREATININE FOR GFR 0.78 MG/DL (0.70-1.30); GLOMERULAR FILTRATION RATE > 60.0 (>49); GLUCOSE, FASTING 89 MG/DL (70-100); MB/CK RELATIVE INDEX 1.19 (< OR =4); POTASSIUM SERUM 4.7 MEQ/L (3.5-5.1); SODIUM LEVEL 141 MEQ/L (136-145); TOTAL PROTEIN 7.5 GM/DL (6.4-8.2); TROPONIN I < 0.02 NG/ML (< 0.10)
[2018-04-10 01:45] LABS: KETONE, URINE AUTO RFX NEGATIVE (NEGATIVE); LEUKOCYTE ESTERASE UR AUTO RFX 1+ (NEGATIVE); MUCUS, URINE RFX SMALL (NEGATIVE); NITRITE, URINE AUTO RFX POSITIVE (NEGATIVE); RBC, URINE AUTO RFX 4 /HPF (0-3); SPECIFIC GRAVITY UR AUTO RFX 1.013 (1.002-1.035); SQUAM EPITHELIAL CELL UR AURFX 0 /HPF (0-6); WBC, URINE AUTO RFX 44 /HPF (0-3)
[2018-04-10] MEDS: LevoFLOXacin 750 MG TABLET PO ×2 (03:30)
== END 2018-04-10 04:38 | disposition home or self-care (01) ==
LOC: M ED 04-10 04:38
DX: N39.0 Urinary tract infection, site not specified (principal); F79 Unspecified intellectual disabilities; G24.01 Drug induced subacute dyskinesia; G93.40 Encephalopathy, unspecified; Z88.8 Allergy status to other drugs, medicaments and biological substances; Z88.0 Allergy status to penicillin; Z79.899 Other long term (current) drug therapy
CPT/HCPCS: 93005

== ENCOUNTER → 2018-04-21 | Outpatient (CLI) | payer MEDICARE, MEDICAID ==
[2018-04-21 13:53] LABS: BASO % 0.3 % (0.0-1.0); EOS # 0.1 10^3/uL (0.0-0.50); EOS % 1.7 % (0.0-3.0); HEMATOCRIT 42.2 % (42.0-52.0); HEMOGLOBIN 13.4 g/dl (13.5-17.5); IMMATURE GRANULOCYTE % 0.5 % (0-3.0); LYMPH # 1.2 10^3/uL (1.5-4.5); LYMPH % 18.8 % (24.0-44.0); MEAN CORPUSCULAR HEMOGLOBIN 27.6 pg (27.0-33.0); MEAN CORPUSCULAR HGB CONC 31.8 g/dl (32.0-36.5); MEAN CORPUSCULAR VOLUME 86.8 fl (80.0-96.0); MONO # 0.7 10^3/uL (0.0-0.8); MONO % 10.7 % (0.0-5.0); NEUTROPHILS # 4.3 10^3/uL (1.8-7.7); PLATELET COUNT, AUTOMATED 196 10^3/uL (150-450); RED BLOOD COUNT 4.86 10^6/uL (4.30-6.10); WHITE BLOOD COUNT 6.4 10^3/uL (4.0-10.0)
[2018-04-21 14:22] LABS: ALBUMIN 3.2 GM/DL (3.2-5.2); ALBUMIN/GLOBULIN RATIO 0.82 (1.00-1.93); ALKALINE PHOSPHATASE 93 U/L (45-117); ALT/SGPT 26 U/L (12-78); ANION GAP 8 MEQ/L (8-16); AST/SGOT 20 U/L (7-37); BILIRUBIN,TOTAL 0.2 MG/DL (0.2-1.0); BLOOD UREA NITROGEN 16 MG/DL (7-18); CALCIUM LEVEL 8.6 MG/DL (8.8-10.2); CARBON DIOXIDE LEVEL 25 MEQ/L (21-32); CHLORIDE LEVEL 107 MEQ/L (98-107); CREATININE FOR GFR 0.75 MG/DL (0.70-1.30); GLOMERULAR FILTRATION RATE > 60.0 (>49); GLUCOSE, FASTING 71 MG/DL (70-100); LIPASE 117 U/L (73-393); POTASSIUM SERUM 4.4 MEQ/L (3.5-5.1); SODIUM LEVEL 140 MEQ/L (136-145); TOTAL PROTEIN 7.1 GM/DL (6.4-8.2)
== END ==
LOC: M WUC 12:34
DX: J90 Pleural effusion, not elsewhere classified (principal); R63.0 Anorexia
CPT/HCPCS: 83690

== ENCOUNTER 2018-05-05 20:38 | Emergency (ER) | payer MEDICARE, MEDICAID ==
[2018-05-05] MEDS: diphenhydrAMINE INJ 50MG/ML VIAL (J1200) IM (21:45)
[2018-05-05] MEDS: HALOPERIDOL 5 MG/ML VIAL (J1630) IM (21:45)
[2018-05-05 22:56] LABS: AMORPHOUS SEDIMENT SMALL (NEGATIVE); APPEARANCE, URINE CLOUDY (CLEAR); BACTERIA, URINE AUTO NEGATIVE (NEGATIVE); BILIRUBIN, URINE AUTO NEGATIVE (NEGATIVE); BLOOD, URINE BLOOD NEGATIVE (NEGATIVE); COLOR, URINE YELLOW (YELLOW); GLUCOSE, URINE (UA) AUTO NEGATIVE (NEGATIVE); KETONE, URINE AUTO NEGATIVE (NEGATIVE); LEUKOCYTE ESTERASE, URINE AUTO 1+ (NEGATIVE); MUCUS, URINE SMALL (NEGATIVE); NITRITE, URINE AUTO NEGATIVE (NEGATIVE); PROTEIN, URINE AUTO NEGATIVE (NEGATIVE); RBC, URINE AUTO 1 /HPF (0-3); SPECIFIC GRAVITY URINE AUTO 1.021 (1.002-1.035); SQUAMOUS EPITHELIAL CELL UR AU 0 /HPF (0-6); TRIPLE PHOSPHATE CRYSTALS MODERATE; UROBILINOGEN, URINE AUTO 0.2 mg/dL (0.0-2.0); WBC, URINE AUTO 8 /HPF (0-3)
== END 2018-05-05 23:33 | disposition home or self-care (01) ==
LOC: M ED 20:38
DX: R33.9 Retention of urine, unspecified (principal); F79 Unspecified intellectual disabilities; Z79.899 Other long term (current) drug therapy; Z88.0 Allergy status to penicillin; Z88.8 Allergy status to other drugs, medicaments and biological substances
CPT/HCPCS: J1200

== ENCOUNTER → 2018-05-19 | Outpatient (CLI) | payer MEDICARE, MEDICAID ==
[2018-05-19 16:45] LABS: BASO % 0.1 % (0.0-1.0); EOS % 0.4 % (0.0-3.0); HEMATOCRIT 43.6 % (42.0-52.0); HEMOGLOBIN 13.8 g/dl (13.5-17.5); IMMATURE GRANULOCYTE % 0.3 % (0-3.0); LYMPH # 1.2 10^3/uL (1.5-4.5); LYMPH % 17.2 % (24.0-44.0); MEAN CORPUSCULAR HEMOGLOBIN 27.3 pg (27.0-33.0); MEAN CORPUSCULAR HGB CONC 31.7 g/dl (32.0-36.5); MEAN CORPUSCULAR VOLUME 86.2 fl (80.0-96.0); MONO # 0.5 10^3/uL (0.0-0.8); MONO % 7.2 % (0.0-5.0); NEUTROPHILS % 74.8 % (36.0-66.0); PLATELET COUNT, AUTOMATED 249 10^3/uL (150-450); RED BLOOD COUNT 5.06 10^6/uL (4.30-6.10); RED CELL DISTRIBUTION WIDTH 14.5 % (11.5-14.5); WHITE BLOOD COUNT 6.7 10^3/uL (4.0-10.0)
[2018-05-19 17:01] LABS: ANION GAP 5 MEQ/L (8-16); BLOOD UREA NITROGEN 10 MG/DL (7-18); CALCIUM LEVEL 8.5 MG/DL (8.8-10.2); CARBON DIOXIDE LEVEL 28 MEQ/L (21-32); CHLORIDE LEVEL 105 MEQ/L (98-107); CREATININE FOR GFR 0.67 MG/DL (0.70-1.30); GLOMERULAR FILTRATION RATE > 60.0 (>49); GLUCOSE, FASTING 92 MG/DL (70-100); POTASSIUM SERUM 4.7 MEQ/L (3.5-5.1); SODIUM LEVEL 138 MEQ/L (136-145)
== END ==
LOC: M WUC 14:35
DX: R14.0 Abdominal distension (gaseous) (principal); R05 Cough; J91.8 Pleural effusion in other conditions classified elsewhere; R93.5 Abnormal findings on diagnostic imaging of other abdominal regions, including retroperitoneum
CPT/HCPCS: 80048

== ENCOUNTER 2018-06-05 10:57 | Emergency (ER) | payer MEDICARE, MEDICAID ==
[2018-06-05 11:58] LABS: BASO % 0.1 % (0.0-1.0); EOS % 0.3 % (0.0-3.0); HEMATOCRIT 49.2 % (42.0-52.0); HEMOGLOBIN 15.7 g/dl (13.5-17.5); IMMATURE GRANULOCYTE % 0.4 % (0-3.0); LYMPH # 0.8 10^3/uL (1.5-4.5); LYMPH % 9.9 % (24.0-44.0); MEAN CORPUSCULAR HEMOGLOBIN 27.3 pg (27.0-33.0); MEAN CORPUSCULAR HGB CONC 31.9 g/dl (32.0-36.5); MEAN CORPUSCULAR VOLUME 85.4 fl (80.0-96.0); MONO # 0.7 10^3/uL (0.0-0.8); MONO % 9.4 % (0.0-5.0); NEUTROPHILS # 6.3 10^3/uL (1.8-7.7); NEUTROPHILS % 79.9 % (36.0-66.0); PLATELET COUNT, AUTOMATED 185 10^3/uL (150-450); RED BLOOD COUNT 5.76 10^6/uL (4.30-6.10); RED CELL DISTRIBUTION WIDTH 14.9 % (11.5-14.5); WHITE BLOOD COUNT 7.9 10^3/uL (4.0-10.0)
[2018-06-05] MEDS: NS 500 ML IV ×2 (12:08→13:40)
[2018-06-05 12:09] LABS: INR 0.92; PROTHROMBIN TIME 12.5 SECONDS (12.1-14.4)
[2018-06-05 12:10] LABS: PARTIAL THROMBOPLASTIN TIME 29.2 SECONDS (25.4-37.6)
[2018-06-05 12:39] LABS: ALBUMIN 3.5 GM/DL (3.2-5.2); ALKALINE PHOSPHATASE 145 U/L (45-117); ALT/SGPT 45 U/L (12-78); AMYLASE 101 U/L (25-115); ANION GAP 9 MEQ/L (8-16); AST/SGOT 25 U/L (7-37); BILIRUBIN,DIRECT < 0.1 MG/DL (0.0-0.2); BILIRUBIN,TOTAL 0.3 MG/DL (0.2-1.0); BLOOD UREA NITROGEN 11 MG/DL (7-18); CALCIUM LEVEL 9.3 MG/DL (8.8-10.2); CARBON DIOXIDE LEVEL 30 MEQ/L (21-32); CHLORIDE LEVEL 106 MEQ/L (98-107); GLOMERULAR FILTRATION RATE > 60.0 (>49); GLUCOSE, FASTING 69 MG/DL (70-100); LIPASE 111 U/L (73-393); POTASSIUM SERUM 4.4 MEQ/L (3.5-5.1); SODIUM LEVEL 145 MEQ/L (136-145); TOTAL PROTEIN 7.9 GM/DL (6.4-8.2)
[2018-06-05 13:32] LABS: BEDSIDE GLUCOSE 72 MG/DL (80-115)
[2018-06-05] MEDS ORDERED: ISOVUE-370 76% 100ML VIAL (Q9967) As Ordered (15:12)
[2018-06-05] MEDS: NS 1,000 ML IV (15:20)
== END 2018-06-05 19:57 | disposition home or self-care (01) ==
LOC: M ED 10:57
DX: S22.41XA Multiple fractures of ribs, right side, initial encounter for closed fracture (principal); K59.09 Other constipation; R00.0 Tachycardia, unspecified; R94.31 Abnormal electrocardiogram [ECG] [EKG]; X58.XXXA Exposure to other specified factors, initial encounter; Y92.9 Unspecified place or not applicable; Y93.9 Activity, unspecified; Y99.9 Unspecified external cause status; R56.9 Unspecified convulsions; E07.9 Disorder of thyroid, unspecified; F73 Profound intellectual disabilities; D72.819 Decreased white blood cell count, unspecified; Z79.899 Other long term (current) drug therapy; Z88.0 Allergy status to penicillin; Z88.8 Allergy status to other drugs, medicaments and biological substances
CPT/HCPCS: Q9967

== ENCOUNTER 2018-06-13 20:12 | Emergency (ER) | payer MEDICARE, MEDICAID ==
[2018-06-13 20:39] LABS: BEDSIDE GLUCOSE 76 MG/DL (80-115)
[2018-06-13 21:24] LABS: VENOUS BASE EXCESS -0.1 (-2.0-2.0); VENOUS HCO3 27.9 MEQ/L (23.0-27.0); VENOUS O2 SATURATION 68.7 % (60.0-80.0); VENOUS PARTIAL PRESSURE CO2 59.5 mmHg (38.0-50.0); VENOUS PARTIAL PRESSURE O2 40.6 mmHg (30.0-50.0); VENOUS PH 7.289 UNITS (7.330-7.430); VENOUS STANDARD HCO3 23.6 MEQ/L; VENOUS TOTAL CO2 29.7 MEQ/L (24.0-28.0)
[2018-06-13 21:26] LABS: EOS % 0.6 % (0.0-3.0); HEMATOCRIT 45.9 % (42.0-52.0); HEMOGLOBIN 14.3 g/dl (13.5-17.5); IMMATURE GRANULOCYTE % 0.3 % (0-3.0); LYMPH # 0.8 10^3/uL (1.5-4.5); LYMPH % 22.3 % (24.0-44.0); MEAN CORPUSCULAR HEMOGLOBIN 27.3 pg (27.0-33.0); MEAN CORPUSCULAR HGB CONC 31.2 g/dl (32.0-36.5); MEAN CORPUSCULAR VOLUME 87.8 fl (80.0-96.0); MONO # 0.2 10^3/uL (0.0-0.8); MONO % 6.2 % (0.0-5.0); NEUTROPHILS # 2.5 10^3/uL (1.8-7.7); NEUTROPHILS % 70.6 % (36.0-66.0); PLATELET COUNT, AUTOMATED 319 10^3/uL (150-450); RED BLOOD COUNT 5.23 10^6/uL (4.30-6.10); RED CELL DISTRIBUTION WIDTH 14.8 % (11.5-14.5); WHITE BLOOD COUNT 3.6 10^3/uL (4.0-10.0)
[2018-06-13 21:37] LABS: KETONE, URINE AUTO RFX TRACE mg/dL (NEGATIVE); LEUKOCYTE ESTERASE UR AUTO RFX 2+ (NEGATIVE); MUCUS, URINE RFX SMALL (NEGATIVE); NITRITE, URINE AUTO RFX NEGATIVE (NEGATIVE); RBC, URINE AUTO RFX 1 /HPF (0-3); SPECIFIC GRAVITY UR AUTO RFX 1.027 (1.002-1.035); SQUAM EPITHELIAL CELL UR AURFX 0 /HPF (0-6); TRIPLE PHOSPHATE CRYSTALS RFX LARGE; WBC, URINE AUTO RFX 14 /HPF (0-3)
[2018-06-13 21:42] LABS: AMMONIA 38 uMOL/L (<32)
[2018-06-13 21:51] LABS: AMPHETAMINES LEVEL URINE NEGATIVE (NEGATIVE); BARBITURATES URINE POSITIVE (NEGATIVE); BENZODIAZEPINES URINE NEGATIVE (NEGATIVE); CANNABINOIDS URINE NEGATIVE (NEGATIVE); COCAINE METABOLITE URINE NEGATIVE (NEGATIVE); METHADONE URINE NEGATIVE (NEGATIVE); OPIATES URINE NEGATIVE (NEGATIVE); PHENCYCLIDINE URINE NEGATIVE (NEGATIVE)
[2018-06-13 22:06] LABS: ACETAMINOPHEN LEVEL < 2.0 UG/ML (10.0-30.0); ALBUMIN 2.9 GM/DL (3.2-5.2); ALBUMIN/GLOBULIN RATIO 0.71 (1.00-1.93); ALKALINE PHOSPHATASE 136 U/L (45-117); ALT/SGPT 63 U/L (12-78); ANION GAP 9 MEQ/L (8-16); AST/SGOT 45 U/L (7-37); BILIRUBIN,DIRECT < 0.1 MG/DL (0.0-0.2); BILIRUBIN,TOTAL < 0.1 MG/DL (0.2-1.0); BLOOD UREA NITROGEN 8 MG/DL (7-18); CALCIUM LEVEL 8.1 MG/DL (8.8-10.2); CARBON DIOXIDE LEVEL 28 MEQ/L (21-32); CHLORIDE LEVEL 109 MEQ/L (98-107); CPK CREATINE PHOSPHOKINASE 52 U/L (39-308); CREATININE FOR GFR 0.74 MG/DL (0.70-1.30); ETHYL ALCOHOL (ETHANOL) < 0.003 % (0.000-0.010); GLOMERULAR FILTRATION RATE > 60.0 (>49); GLUCOSE, FASTING 58 MG/DL (70-100); MB/CK RELATIVE INDEX 2.88 (< OR =4); POTASSIUM SERUM 4.1 MEQ/L (3.5-5.1); SALICYLATE LEVEL < 1.7 MG/DL (5.0-30.0); SODIUM LEVEL 146 MEQ/L (136-145); THYROID STIMULATING HORMONE 0.855 uIU/ML (0.358-3.740); TROPONIN I < 0.02 NG/ML (< 0.10)
[2018-06-13] MEDS: GLUCAGON FOR INJ 1 MG VIAL (J1610) IM (22:43)
[2018-06-13 23:06] LABS: BEDSIDE GLUCOSE 112 MG/DL (80-115)
[2018-06-13 23:51] LABS: BEDSIDE GLUCOSE 149 MG/DL (80-115)
== END 2018-06-14 00:05 | disposition home or self-care (01) ==
LOC: M ED 06-14 00:05
DX: E16.2 Hypoglycemia, unspecified (principal); N39.0 Urinary tract infection, site not specified; R56.9 Unspecified convulsions; F20.9 Schizophrenia, unspecified; G93.40 Encephalopathy, unspecified; D72.819 Decreased white blood cell count, unspecified; Z79.899 Other long term (current) drug therapy; Z79.890 Hormone replacement therapy; Z88.0 Allergy status to penicillin; Z88.8 Allergy status to other drugs, medicaments and biological substances
CPT/HCPCS: J1610

== ENCOUNTER → 2018-06-24 | Outpatient (CLI) | payer MEDICARE, MEDICAID ==
[~2018-06-24] MED LIST changes: +/HALO5TAB OR; +ARTANE OR; +BACT20SS PO; +CARMOL TOP; +CIPR-249 PO; +CIPR25SS OR; +COLA100C5 PO; +FERR325T OR; +FINA5TAB2 PO; +FLEEENE4 PR; +FLEETS ENEMA PR; +FOLI1TAB11 PO; +HALD50IN4 IM; +HALDOL DECANOATE IM; +HALO5TA PO; -ISOVUE-370 76% 100ML VIAL (Q9967) As Ordered; +KEFL250C OR; +KEFL500C OR; +LACT10SO29 PO; +LACT10SO8 OR; +LEVA1TAB2 PO; +LEVA750T7 PO; +LEVO50TA5 PO; +MEGA625S PO; +MILK120011 PO; +MILKSUS OR; +MIRA3350 PO; +PARO20TA3 PO; +PAXI20TA OR; +PEG1POW PO; +PRIM250T8; +PRIMI25TA OR; +PRIMI25TA PO; +RISP0.5T20 OR; +RISP0.5T3 PO; +SENN18TA PO; +SYNT50TA OR; +TERA2CAP3; +TRAZ-160 PO; +TRAZ100T OR; +TRIH5TAB PO; +VALT500T OR; +VITA200015 PO; +[UNRECOGNIZED DRUG - CODE] OR; +[UNRECOGNIZED DRUG - CODE] PO; +[UNRECOGNIZED DRUG - CODE] PO
--- NOTE | 2018-06-24 16:30 | NUR ---
Pt. demonstrates mod-severe oropharyngeal phase dysphagia characterized by: open mouth posture, poor oral control of bolus, decreased AP transit, delayed swallow onset/reflex, pooling/residue in the vallecula and pyriform sinuses with penetration during nectar thick liquid intake via spoon sip. Recommend nectar thick liquids delivered via spoon sips and a pureed diet. Trials of feeding land surveyor assistant cup may result in increased PO consumption/swallow onset. Recommend discussion of possible feeding tube placement as pt. demonstrates severe risk of aspiration/penetration during PO intake due to decreased initation of swallow. Addendum: 06/25/18 at 1633 by ASHLYN JIN Amended: Links added.
--- NOTE | 2018-06-24 16:31 | NUR ---
Pt. demonstrates mod-severe oropharyngeal phase dysphagia characterized by: open mouth posture, poor oral control of bolus, decreased AP transit, delayed swallow onset/reflex, pooling/residue in the vallecula and pyriform sinuses with penetration during nectar thick liquid intake via spoon sip. Recommend nectar thick liquids delivered via spoon sips and a pureed diet. Trials of feeding assistant professor of forestry cup may result in increased PO consumption/swallow onset. Recommend discussion of possible feeding tube placement as pt. demonstrates severe risk of aspiration/penetration during PO intake due to decreased initiation of swallow. Addendum: 06/25/18 at 1633 by ASHLYN JIN Amended: Links added.
--- NOTE | 2018-06-24 17:59 | REP ---
Modified barium swallow: History: Oral pharyngeal dysphagia. Study is performed in conjunction with the swallowing therapist. The patient very limited ability to follow commands and could not remain motionless in the center of the field of view. Exam quality is substantially inhibited due to these factors. Fluoroscopy time associated with this examination is 1.5 minutes. The thin liquids portion of the examination was unsatisfactory due to the liquid barium spontaneously running out of the front of the patient's mouth. With pudding consistency material fed from this bone, the patient took the material intraorally. There was delay in oral transfer and there was significant delay in initiation of swallow with the ingested material in the region of the vallecula for a protected of time with swallowing. There was laryngeal penetration coating the supraglottic larynx. No rj aspiration was observed. No cough was observed. Impression: Significant laryngeal penetration was observed with pudding consistency material. There was a delay in intraoral transfer and significant delay in the initiation of swallow with pooling in the vallecula. There was lack of complete clearing and laryngeal penetration. Electronically Signed by Raymundo Panye MD 06/24/2018 06:27 P
--- NOTE | 2018-06-24 18:15 | NUR ---
Pt. demonstrates mod-severe oropharyngeal phase dysphagia characterized by: open mouth posture, poor oral control of bolus, decreased AP transit, delayed swallow onset/reflex, pooling/residue in the vallecula and pyriform sinuses, decreased epiglottic inversion and laryngeal elevation. Pt. demonstrates penetration during nectar thick liquid intake via spoon sip and pharyngeal residue results in risk of aspiration/penetration. Recommend nectar thick liquids delivered via spoon sips and a pureed diet. Trials of feeding assistant winemaker cup may result in increased PO consumption. Addendum: 06/24/18 at 1817 by ASHLYN JIN Amended: Links added.
== END ==
LOC: M ST 15:18
PROVIDERS: ATTEND Family Medicine
DX: R13.12 Dysphagia, oropharyngeal phase (principal)
CPT/HCPCS: 74230; 92611; G8996; G8997; G8998

== ENCOUNTER 2018-06-26 20:59 | Emergency (ER) | payer MEDICARE, MEDICAID ==
[~2018-06-26 20:59] MED LIST changes: -LEVA750T7 PO
[2018-06-26] MEDS ORDERED: ONDANSETRON 4MG/2ML VIAL (J2405) IV ONE (21:45)
[2018-06-26 22:03] LABS: BASO % 0.2 % (0.0-1.0); EOS % 0.3 % (0.0-3.0); HEMATOCRIT 44.9 % (42.0-52.0); HEMOGLOBIN 14.1 g/dl (13.5-17.5); LYMPH # 0.4 10^3/uL (1.5-4.5); LYMPH % 7.6 % (24.0-44.0); MEAN CORPUSCULAR HEMOGLOBIN 27.1 pg (27.0-33.0); MEAN CORPUSCULAR HGB CONC 31.4 g/dl (32.0-36.5); MEAN CORPUSCULAR VOLUME 86.3 fl (80.0-96.0); MONO # 0.3 10^3/uL (0.0-0.8); MONO % 4.9 % (0.0-5.0); NEUTROPHILS % 86.7 % (36.0-66.0); PLATELET COUNT, AUTOMATED 236 10^3/uL (150-450); WHITE BLOOD COUNT 5.8 10^3/uL (4.0-10.0)
[2018-06-26 23:26] LABS: BLOOD UREA NITROGEN 14 MG/DL (7-18); CALCIUM LEVEL 9.2 MG/DL (8.8-10.2); CARBON DIOXIDE LEVEL 27 MEQ/L (21-32); CHLORIDE LEVEL 108 MEQ/L (98-107); CREATININE FOR GFR 0.78 MG/DL (0.70-1.30); GLOMERULAR FILTRATION RATE > 60.0 (>49); GLUCOSE, FASTING 94 MG/DL (70-100); LIPASE 138 U/L (73-393); POTASSIUM SERUM 4.5 MEQ/L (3.5-5.1); SODIUM LEVEL 145 MEQ/L (136-145)
[2018-06-26] MEDS ORDERED: ISOVUE-370 76% 100ML VIAL (Q9967) As Ordered ONE (23:35)
--- NOTE | 2018-06-27 00:20 | REPVR ---
EXAM: CT Chest With Contrast EXAM DATE/TIME: 06/26/2018 11:52 PM CLINICAL HISTORY: 67 years old, male; Signs and symptoms; Other: Vomiting; Additional info: AMS and vomiting, R/O aspiration TECHNIQUE: Axial computed tomography images of the chest with intravenous contrast. All CT scans at this facility use at least one of these dose optimization techniques: automated exposure control; mA and/or kV adjustment per patient size (includes targeted exams where dose is matched to clinical indication); or iterative reconstruction. Coronal and sagittal reformatted images were created and reviewed. CONTRAST: 100 ml of ISOVUE 370 administered intravenously. COMPARISON: CT Chest without contrast 03/28/2018 11:30 AM FINDINGS: Limitations: Examination is limited by motion artifact. Lungs: Mild patchy ground glass opacities bilaterally. Pulmonary cavitation in the right lower lobe measuring 12 mm in diameter. Pleural space: Small bilateral pleural effusions. No pneumothorax. Heart: Normal. No cardiomegaly. No pericardial effusion. Mediastinum: Diffuse thickening of the esophagus. Esophagus measures up to 2.9 x 4.8 cm. Aorta: Normal. No aortic aneurysm. Lymph nodes: Unremarkable. No enlarged lymph nodes. Bones/joints: Mild degenerative spine. No acute fracture. Soft tissues: Unremarkable. Stomach and bowel: Moderate sliding type gastric hiatal hernia. IMPRESSION: Mild patchy ground glass opacities bilaterally. New from prior. Pneumonia versus pneumonitis. Pulmonary cavitation in the right lower lobe. New from prior. Diffuse thickened and dilated esophagus. Thickening is new. Dilatation is increased. Evaluate for esophagitis. Moderate sliding type gastric hiatal hernia. Unchanged from prior. Small bilateral pleural effusions. Decreased on the right. Unchanged on the left. Additional findings as described. Electronically signed by: Aston Pike On 06/27/2018 00:19:43 AM
--- NOTE | 2018-06-27 00:23 | REPVR ---
EXAM: CT Abdomen and Pelvis With Contrast EXAM DATE/TIME: 06/26/2018 11:52 PM CLINICAL HISTORY: 67 years old, male; Signs and symptoms; Vomiting; Additional info: AMS and vomiting, R/O aspiration TECHNIQUE: Axial computed tomography images of the abdomen and pelvis with intravenous contrast. All CT scans at this facility use at least one of these dose optimization techniques: automated exposure control; mA and/or kV adjustment per patient size (includes targeted exams where dose is matched to clinical indication); or iterative reconstruction. Coronal and sagittal reformatted images were created and reviewed. COMPARISON: CT Chest without contrast 03/28/2018 11:30 AM FINDINGS: Limitations: Examination is limited by motion artifact. Lower thorax: Small bilateral pleural effusions. Moderate sliding type gastric hiatal hernia. See CT chest report. ABDOMEN: Liver: Normal. No mass. Gallbladder and bile ducts: Patient is status post cholecystectomy. No biliary ductal dilatation. Pancreas: Normal. No ductal dilation. Spleen: Normal. No splenomegaly. Adrenals: Normal. No mass. Kidneys and ureters: Normal. No hydronephrosis. Stomach and bowel: Distended loops of small bowel. Copious stool throughout the colon. Diffuse dilated colon. No normal bowel wall thickening. Negative for colonic diverticulitis. Appendix: The appendix is not seen. However, there is no evidence of appendicitis. PELVIS: Bladder: Unremarkable as visualized. Reproductive: Prostate is normal in size. ABDOMEN and PELVIS: Intraperitoneal space: Normal. No free air. No significant fluid collection. Bones/joints: No acute fracture. No dislocation. Soft tissues: Unremarkable. Vasculature: Normal. No abdominal aortic aneurysm. Lymph nodes: Normal. No enlarged lymph nodes. IMPRESSION: Copious stool throughout the colon. Increased from prior. No bowel perforation. Moderate sliding type gastric hiatal hernia. Unchanged from prior. Additional findings as described. Electronically signed by: Aston Pike On 06/27/2018 00:22:50 AM
[2018-06-27 00:30] VITALS: BP 104/60
[2018-06-27] MEDS ORDERED: LEVA750T7 PO (00:39)
[2018-06-27] MEDS ORDERED: LevoFLOXacin 750 MG TABLET PO ONE (00:45)
--- NOTE | 2018-06-27 09:22 | REP ---
Clinical: Cough and dyspnea. Comparison: 06/13/2018. Findings: Examination is significantly limited by portable technique, underpenetration, positioning and poor inspiratory effort. Very subtle perihilar and bibasilar opacities are suggested. No obvious effusion. No pneumothorax. Mediastinum and cardiac silhouette are stable. Skeletal structures intact. Impression: Perihilar and basilar opacities. Differential diagnosis includes early pulmonary edema as well as multifocal pneumonia. Electronically Signed by Layo Fernandez MD 06/27/2018 09:14 A
== END 2018-06-27 01:07 | disposition home or self-care (01) ==
LOC: EDBD 20:59 → M ED 20:59
DX: K59.00 Constipation, unspecified (principal); R91.8 Other nonspecific abnormal finding of lung field; K44.9 Diaphragmatic hernia without obstruction or gangrene; F79 Unspecified intellectual disabilities; G40.909 Epilepsy, unspecified, not intractable, without status epilepticus; F29 Unspecified psychosis not due to a substance or known physiological condition; Z87.440 Personal history of urinary (tract) infections; Z79.899 Other long term (current) drug therapy; Z88.0 Allergy status to penicillin; Z88.8 Allergy status to other drugs, medicaments and biological substances
CPT/HCPCS: 36415; 51701; 71045; 71260; 74177; 80048; 81001; 83605; 83690; 85025; 96374; 99284; J2405; Q9967

== ENCOUNTER → 2018-07-13 | Outpatient (CLI) | payer MEDICARE, MEDICAID ==
[~2018-07-13] MED LIST changes: +COMMENT; +FLOM0.4C39 PO; +LEVA750T7 PO; +LINZ290C PO; -TERA2CAP3; +TERA2CAP3 PO
[2018-07-13 17:15] LABS: BASO # 0.1 10^3/uL (0.0-0.2); BASO % 0.5 % (0.0-1.0); EOS % 0.3 % (0.0-3.0); HEMOGLOBIN 13.6 g/dl (13.5-17.5); LYMPH # 0.7 10^3/uL (1.5-4.5); MEAN CORPUSCULAR HEMOGLOBIN 27.1 pg (27.0-33.0); MEAN CORPUSCULAR HGB CONC 32.4 g/dl (32.0-36.5); MEAN CORPUSCULAR VOLUME 83.8 fl (80.0-96.0); MONO # 0.2 10^3/uL (0.0-0.8); MONO % 1.2 % (0.0-5.0); NEUTROPHILS # 11.7 10^3/uL (1.8-7.7); NEUTROPHILS % 90.8 % (36.0-66.0); PLATELET COUNT, AUTOMATED 147 10^3/uL (150-450); RED BLOOD COUNT 5.01 10^6/uL (4.30-6.10); WHITE BLOOD COUNT 12.9 10^3/uL (4.0-10.0)
[2018-07-13 17:27] LABS: ALBUMIN 2.4 GM/DL (3.2-5.2); ALT/SGPT 52 U/L (12-78); BILIRUBIN,TOTAL 0.1 MG/DL (0.2-1.0); BLOOD UREA NITROGEN 21 MG/DL (7-18); CALCIUM LEVEL 8.6 MG/DL (8.8-10.2); CARBON DIOXIDE LEVEL 31 MEQ/L (21-32); CHLORIDE LEVEL 113 MEQ/L (98-107); CHOLESTEROL LEVEL 162 MG/DL (<200); CHOLESTEROL RISK RATIO 3.306 (<5); CREATININE FOR GFR 0.92 MG/DL (0.70-1.30); FREE T4 1.35 NG/DL (0.76-1.46); GLOMERULAR FILTRATION RATE > 60.0 (>49); GLUCOSE, FASTING 90 MG/DL (70-100); HDL CHOLESTEROL 49 MG/DL (>40); LDL CHOLESTEROL 96 MG/DL (<100); NON-HDL-C 113 MG/DL; PHENOBARBITAL LEVEL 30.6 UG/ML (15.0-40.0); POTASSIUM SERUM 3.9 MEQ/L (3.5-5.1); SODIUM LEVEL 152 MEQ/L (136-145); THYROID STIMULATING HORMONE 0.806 uIU/ML (0.358-3.740); TOTAL PROTEIN 6.7 GM/DL (6.4-8.2); TRIGLYCERIDES LEVEL 86 MG/DL (<150)
[2018-07-13 19:21] LABS: EOSINOPHILS 2 % (0-5); LYMPHOCYTES 4 % (16-52); MONOCYTES 4 % (0-8); NEUTROPHILS 72 % (35-75)
[2018-07-13 19:25] LABS: PLATELET ESTIMATE DECREASED (NORMAL); TOXIC VACUOLATION 1+
[2018-07-13 19:26] LABS: ANISOCYTOSIS 1+
[2018-07-13 21:31] LABS: PTH INTACT 43.4 PG/ML (18.5-88.0); TOTAL 25(OH) VITAMIN D 72.5 NG/ML (30.0-100.0)
== END ==
LOC: M WUC 08:28
PROVIDERS: ATTEND Nurse Practitioner Family
DX: J98.4 Other disorders of lung (principal); J18.9 Pneumonia, unspecified organism; D50.9 Iron deficiency anemia, unspecified; E03.9 Hypothyroidism, unspecified; E53.8 Deficiency of other specified B group vitamins; E55.9 Vitamin D deficiency, unspecified

== ENCOUNTER 2018-07-15 09:32 | Inpatient (IN) | payer MEDICARE, MEDICAID ==
[2018-07-15] VITALS (12 sets, daily range): BP systolic 104–121; BP diastolic 72–81
[~2018-07-15] VITALS: Ht 160 cm; Wt 53.1 kg
[~2018-07-15 09:32] MED LIST changes: -COMMENT; -FLOM0.4C39 PO; -LINZ290C PO
[2018-07-15] MEDS ORDERED: NS 500 ML IV ONE (10:30)
[2018-07-15] MEDS ORDERED: HALOPERIDOL 5 MG/ML VIAL (J1630) IM ONE (12:00)
[2018-07-15 12:21] LABS: HEMATOCRIT 38.3 % (42.0-52.0); HEMOGLOBIN 12.3 g/dl (13.5-17.5); MEAN CORPUSCULAR HEMOGLOBIN 27.2 pg (27.0-33.0); MEAN CORPUSCULAR HGB CONC 32.1 g/dl (32.0-36.5); MEAN CORPUSCULAR VOLUME 84.7 fl (80.0-96.0); PLATELET COUNT, AUTOMATED 115 10^3/uL (150-450); RED BLOOD COUNT 4.52 10^6/uL (4.30-6.10); WHITE BLOOD COUNT 4.7 10^3/uL (4.0-10.0)
[2018-07-15 12:31] LABS: ALBUMIN 1.9 GM/DL (3.2-5.2); ALT/SGPT 43 U/L (12-78); BILIRUBIN,TOTAL < 0.1 MG/DL (0.2-1.0); BLOOD UREA NITROGEN 28 MG/DL (7-18); CALCIUM LEVEL 8.6 MG/DL (8.8-10.2); CARBON DIOXIDE LEVEL 31 MEQ/L (21-32); CHLORIDE LEVEL 115 MEQ/L (98-107); CREATININE FOR GFR 0.72 MG/DL (0.70-1.30); GLOMERULAR FILTRATION RATE > 60.0 (>49); GLUCOSE, FASTING 87 MG/DL (70-100); MAGNESIUM LEVEL 2.1 MG/DL (1.8-2.4); POTASSIUM SERUM 3.8 MEQ/L (3.5-5.1); SODIUM LEVEL 155 MEQ/L (136-145); TOTAL PROTEIN 5.9 GM/DL (6.4-8.2)
[2018-07-15] MEDS ORDERED: ISOVUE-370 76% 100ML VIAL (Q9967) As Ordered ONE (12:35)
[2018-07-15 12:57] LABS: EOSINOPHILS 1 % (0-5); LYMPHOCYTES 8 % (16-52); MONOCYTES 3 % (0-8); NEUTROPHILS 68 % (35-75); PLATELET ESTIMATE DECREASED (NORMAL)
[2018-07-15 12:58] LABS: MICROCYTOSIS 1+; TOXIC GRANULATION 1+; TOXIC VACUOLATION 1+
--- NOTE | 2018-07-15 13:49 | REP ---
CT CHEST WITH IV CONTRAST: HISTORY: Decreased appetite. Difficulty swallowing. Comparison chest CT study: June 26, 2018. CT CONTRAST DOSE: 100 mL of intravenous Isovue 370. CT FINDINGS: Diffuse mural thickening and mild hyper-enhancement of the mucosa of the esophagus is seen. The esophagus is dilated and contains air and some fluid. There is a sliding type hiatal hernia again noted. The findings are quite similar to the June 26, 2018 prior study and are felt to be suggestive of advanced reflux esophagitis. No focal mass lesion is seen. There is however a pattern of patchy pneumonia on today's chest CT which is considerably more pronounced than on the prior study. The markings are most pronounced in the right upper lobe but also abnormalities are seen in the lingula, left and right lower lobes and the right middle lobe. There is no pleural effusion. The previously noted cavitary area in the right lower lobe has resolved. There is a mottled pattern of contrast enhancement in the liver consistent with early phase contrast enhancement. There is a large amount of low density semi-solid stool in the colon filling the left upper quadrant of the abdomen. Cardiomegaly is observed. No evidence of adenopathy or mass. IMPRESSION: Patchy pneumonitis pattern bilaterally, more pronounced than previous. Hiatal hernia. Evidence of diffuse esophagitis with dilation and diffuse mural thickening in the esophagus consistent with reflux esophagitis. Electronically Signed by Raymundo Payne MD 07/15/2018 06:09 P
--- NOTE | 2018-07-15 13:55 | REP ---
CT abdomen and pelvis with IV contrast: History: Decreased appetite. History of megacolon. Question obstruction. Comparison CT study June 26, 2018. CT contrast dose: 100 mL of intravenous Isovue [address] findings: A somewhat mottled contrast enhancement pattern is seen in the liver today consistent with some early phase contrast enhancement. The spleen is unremarkable. No adrenal lesion is seen. The kidneys enhance symmetrically and are morphologically intact. No pancreatic abnormalities observed. There is moderate to marked diffuse dilation of the colon. The colon is filled with relatively low density semi-solid stool. There is marked dilation of the rectum with mural thickening in the rectum and rectosigmoid colon consistent with stercoral colitis. The dilated rectum fills the pelvis displacing the bladder anteriorly. Urinary bladder is slightly distended today and contains some opaque material in its dependent portion. This is a new finding and may be a calcifications. The CT acquisition was done too soon after contrast injection for it to be contrast opacified urine. A normal appendix is seen in the right lower quadrant. No evidence of free air is seen. No dilated small bowel loops are seen. Impression: Fecal impaction obstipation pattern. Possible stercoral colitis with mural thickening in the rectum and rectosigmoid colon. Somewhat distended urinary bladder. Electronically Signed by Raymundo Payne MD 07/15/2018 06:09 P
[2018-07-15] MEDS ORDERED: LINZ290C PO (14:36)
[2018-07-15] MEDS ORDERED: MEGA625S PO (14:36)
[2018-07-15] MEDS ORDERED: FLOM0.4C39 PO (14:37)
[2018-07-15] MEDS ORDERED: COMMENT (14:38)
[2018-07-15] MEDS ORDERED: NS 0.45% 1,000 ML IV ONE (15:15)
[2018-07-15] MEDS: MEROPENEM INJ 1 GM in APPROPRIATE DILUENT 1 EA IV SCH (17:05)
[2018-07-15] MEDS: NS 0.45% 1,000 ML IV SCH ×2 (17:05→20:45)
[2018-07-15] MEDS ORDERED: NS IV ONE (18:15)
[2018-07-15] MEDS ORDERED: DILUENT IV ONE (18:15)
[2018-07-15] MEDS: CLINDAMYCIN 600 MG in APPROPRIATE DILUENT 1 EA IV SCH ×2 (18:30→23:52)
--- NOTE | 2018-07-15 18:43 | HPE ---
DATE OF ADMISSION: 07/15/2018 67-year-old male with past medical history of advanced cognitive impairment with psychosis. Nonverbal with a past medical history of seizures and recurrent urinary tract infections who presents to the emergency room from [facility] where the staff have noticed in the last week that he has been progressively having decreased by mouth intake and more lethargic and has been having intermittent vomiting of the food that he has been taking in. They brought him to the ER for evaluation. In the ER he was found to be hypothermic so Nohemy huggers were started on him however it was very difficult to get a temperature from him. They did do a catheter temp and the catheter temp and the catheter temp was 90.5 and according to the staff members he runs between 94 and 95 degrees Fahrenheit. He was started on IV fluid with a bolus of [address] of the abdomen and pelvis and chest abdomen and pelvis was also done which only revealed bilateral pneumonitis, urinalysis was strongly positive for UTI. He will be admitted for further management. PAST MEDICAL HISTORY: Advanced cognitive impairment with psychosis currently nonverbal. History of hypothyroidism. History of seizure disorder. Recurrent UTI's. PAST SURGICAL HISTORY: Farheen fundoplication and cholecystectomy. ALLERGIES: Amantadine, olanzapine, Dawn, penicillin as well as cross reactors and Seroquel. FAMILY HISTORY: Can not be assessed. He is mentally challenged. SOCIAL HISTORY: Can not be assessed. He is mentally challenged but he is fully dependant ADL's at the [facility]. MEDICATIONS: Cholecalciferol 2000 units orally daily, Colace 100 mg orally twice daily, folic acid 1 mg orally daily, Haldol 50 mg IM monthly, Haldol 5 mg by mouth twice a day, lactulose 30 mL orally three times a day, Synthroid 50 mcg orally daily, linaclotide 290 mcg orally daily, megace 5 mg orally daily, milk of magnesia as needed, paroxetine 20 mg orally daily, polythene glycol one dose orally daily as needed, primidone 250 mg orally twice daily, risperidone 0.5 mg orally at bedtime, Fleet's enema Thursday, Thursday, Thursday, tamsulosin 0.4 mg orally daily, terazosin 2 mg orally daily, Gabitril 60 mg orally twice daily, trazodone 50 mg orally at bedtime, trihexyphenidyl 5 mg orally twice daily. REVIEW OF SYSTEMS: Can not be assessed. Patient is mentally challenged and nonverbal. VITALS: Blood pressure 96/56, pulse 71 and regular, respiratory rate 26, temperature 90.5 via urinary catheter, Oxygen saturation 98% on room air. Head is atraumatic, normocephalic. Neck is supple with no JVD. Lungs are clear to auscultation S1 audible. No murmurs appreciated. Abdomen was soft and positive bowel sounds. No pedal edema. Skin was intact. Neurologic examination, the patient is awake, alert and orietned times 0. LABS: WBC 4.7, hemoglobin 12.3, hematocrit 38.8, platelets are 115,000. Sodium 155, potassium 3.8, chloride 115, CO2 31, anion gap 9, BUN 28, creatinine 0.72, lactic acid 1.2, urinalysis strongly positive for UTI. IMPRESSION: 1. Sepsis. 2. Bilateral pneumonitis. 3. Urinary tract infection. PLAN: The patient is to be admitted to PCU. We will start the patient on IV meropenem and clindamycin and follow up cultures. As far as the hyponatremia is concerned, the patient already got a 500 mL bolus of normal saline. I will start gently hydrating him back to normal natremia with half normal saline at 75 mL an hour. He will be nothing by mouth including meds and I will switch him Synthroid to 25 mcg IV daily until speech evaluates him for his swallow capabilities. We will continue following his care in the PCU.
[2018-07-15] MEDS ORDERED: NOREPINEPHRINE 4 MG/4 ML AMP As Ordered ONE ×2 (19:19→19:32)
[2018-07-15] MEDS: NOREPINEPHRINE BITARTRATE 8 MG in D5W 492 ML IV SCH (19:43)
[2018-07-15] MEDS ORDERED: NS 1,000 ML IV ONE (21:15)
[2018-07-16] VITALS (44 sets, daily range): BP systolic 76–113; BP diastolic 51–77
[2018-07-16] MEDS: MEROPENEM INJ 1 GM in APPROPRIATE DILUENT 1 EA IV SCH ×3 (00:42→17:51)
[2018-07-16] MEDS ORDERED: D5W 1,000 ML IV SCH (01:30)
[2018-07-16 05:27] LABS: HEMATOCRIT 31.9 % (42.0-52.0); MEAN CORPUSCULAR HEMOGLOBIN 26.8 pg (27.0-33.0); MEAN CORPUSCULAR HGB CONC 32.3 g/dl (32.0-36.5); MEAN CORPUSCULAR VOLUME 83.1 fl (80.0-96.0); PLATELET COUNT, AUTOMATED 121 10^3/uL (150-450); RED BLOOD COUNT 3.84 10^6/uL (4.30-6.10); WHITE BLOOD COUNT 4.6 10^3/uL (4.0-10.0)
[2018-07-16 05:43] LABS: HEMOGLOBIN 10.3 g/dl (13.5-17.5)
[2018-07-16 05:54] LABS: BLOOD UREA NITROGEN 22 MG/DL (7-18); CALCIUM LEVEL 7.4 MG/DL (8.8-10.2); CARBON DIOXIDE LEVEL 26 MEQ/L (21-32); CHLORIDE LEVEL 118 MEQ/L (98-107); CREATININE FOR GFR 0.77 MG/DL (0.70-1.30); GLOMERULAR FILTRATION RATE > 60.0 (>49); GLUCOSE, FASTING 80 MG/DL (70-100); POTASSIUM SERUM 3.3 MEQ/L (3.5-5.1); SODIUM LEVEL 151 MEQ/L (136-145)
[2018-07-16] MEDS ORDERED: LEVOTHYROXINE 25MCG TABLET (0.025MG) XX SCH (06:00)
[2018-07-16] MEDS: CLINDAMYCIN 600 MG in APPROPRIATE DILUENT 1 EA IV SCH ×4 (06:01→23:47)
[2018-07-16] MEDS ORDERED: POTASSIUM CHLORIDE 10 MEQ SR TABLET PO ONE (07:30)
[2018-07-16] MEDS ORDERED: D5W 1,000 ML IV ONE (07:45)
[2018-07-16 08:00] LABS: FREE T4 1.07 NG/DL (0.76-1.46); THYROID STIMULATING HORMONE 0.988 uIU/ML (0.358-3.740)
--- NOTE | 2018-07-16 08:02 | REP ---
Portable chest x-ray: Single view. History: Post line insertion. Comparison study: June 26, 2018. Findings: Right internal jugular central venous line has been inserted with its tip in the expected location of the right atrium. There is no visible pneumothorax. Heart is enlarged. Pulmonary vascular interstitial markings are diffusely prominent as before. Increased markings in the bases may reflect infiltrates. Electronically Signed by Raymundo Payne MD 07/16/2018 07:54 A
--- NOTE | 2018-07-16 08:47 | IPNPDOC ---
Subjective Date Seen The patient was seen on 07/16/18. Subjective Chief Complaint/HPI Patient is a 67 yo [facility] resident with PMH of advanced cognitive impairment w/ psychosis, seizure d/o, frequent UTI, anemia, and urinary retention presents at ED as he has progressively decrease in PO intake with intermittent vomiting. Found david hypothermic in ER; UA indicated UTI and CXR showed b/l pneumonitis Events since last encounter Patient is examined at bedside. Obtunded thus ROS non-obtainable. It is noted that at baseline pt non-verbal but is able to ambulate w/o assist; usually don't follow commands General: Denies: ROS Unobtainable Objective Physical Examination General Exam: Positive: Other (Obtunded); Negative: Alert, Cooperative Eye Exam: Positive: Conjunctiva & lids normal, EOMI (Unable to assess as not fo llowing commands), Sclera icteric; Negative: PERRLA (Dilated pupil b/l) ENT Exam: Positive: Other ENT; Negative: Atraumatic (healing scar on forehead with no obvious signs of inflammation), Mucous membr. moist/pink (Dried oral mucosa) Neck Exam: Positive: Supple; Negative: JVD Chest Exam: Positive: Clear to auscultation, Normal air movement Heart Exam: Positive: Rate Normal, Regular Rhythm; Negative: Normal S1, Normal S2 Abdomen Exam: Positive: Normal bowel sounds, Soft; Negative: Tenderness (Unable to assess as pt obtunded, no grimace was noted on palpation) Extremity Exam: Negative: Edema, Swelling Skin Exam: Positive: Other skin issue (Cold and dry); Negative: Nl turgor and temperature (mild to moderately cold and dry) Neuro Exam: Negative: Normal Gait, Normal Speech (Obtunded; non-verbal), Strength at 5/5 X4 ext (Cold and dry), Cranial Nerves 3-12 NL (Unable to assess as not following commands) Psych Exam: Negative: Mental status NL (Unable to assess as not following comm ands), Memory Intact (Unable to assess as not following commands), Oriented x 3 (Unable to assess as not following commands) Assessment /Plan Problems (1) Shock Status: Acute Response to Treatment: Controlled Problem Specific Plan: Monitor Clinically, Repeat Tests Problem Text: Likely 2/2 sepsis with a component of hypovolemic shock from dehydration; Free water deficit 2.1L; urine osmolality 702 with oligouria. 9lb weight loss compared to 06/26/18. UA indicates UTI; urine Cx pending. Blood Cx neg for 24 hrs. CXR pos for pneumonitis. Continue to trend blood cx. Improving MAP currently>65. Hypothermia resolved. Pt on Clindamycin and Meropenem. High Na and low K likely 2/2 compensatory response to hypovolemia/hypotension. On levophed at rate of 2 micrograms per minute and IV D5W with 20meq KCl at 75ml/hr. Pt did have drop in hemoglobin and platelets but likely 2/2 to hemodilution; s/p 3.1L IVF. (2) Hypernatremia Status: Acute Response to Treatment: Stable Problem Specific Plan: Monitor Clinically, Repeat Labs Problem Text: Probably d/t compensatory response to dehydration vs less likely hyperaldosteronism. Plasma renin and aldosterone level ordered. Pt on 20meqK with D5W 75ml/hr as pt also has hypokalemia and hypotension. F/u BMP at 0920. Continue to f/u BMP (3) Hypokalemia Status: Resolved Response to Treatment: Stable, Improving Problem Specific Plan: Monitor Clinically, Repeat Labs Problem Text: K 3.3 with repeat in the afternoon 3.4. Questionable 2/2 compensatory response to hypoveolemia/hyperaldosteronism. R/O RTA type 1 as urine bicarb>10 and urine K<40. Plasma renin and aldosterone lvl ordered. Continue to trend with K level or BMP (4) UTI (urinary tract infection) Status: Acute Problem Text: UA pos for nitrite only; Continue IV Meropnenm and Clindamycin. (5) Hypothyroidism Status: Chronic Response to Treatment: Stable, Controlled Problem Specific Plan: Monitor Clinically Problem Text: PMH of hypothyroidism; T4 and TSH wnl; r/o myexedma coma. IV synthroid conversion equivalent to PO synthroid dose as pt isNPO (6) Hypothermia Status: Resolved Problem Text: Initially presented with hypothermia currently resolved. Warm blanket. It should be noted that his baseline temperature is reported as roughly 95F per staff at [facility]. (7) Anemia Status: Chronic Problem Specific Plan: Repeat Labs Problem Text: Likely 2/2 to hemodilution vs less likely GI bleed. PMH of anemia as well as GI bleed. Hg on 07/16 10.3 with repeat 9.9. Occult blood ordered. Continue to trend H&H and CBC (8) Oligouria Status: Resolved Problem Specific Plan: Monitor Clinically, Repeat Tests Problem Text: Urine output 375ml for 24 hr. Likely 2/2 dehydration/hypovolemia vs unlikely urinary retention. Urine osmo 702; on IVF. Bladder scan ordered. (9) Seizure disorder Status: Chronic Response to Treatment: Controlled Problem Specific Plan: Monitor Clinically Problem Text: PMH of seizure d/o. PO meds on hold as pt obtunded. Seizure precaution ordered (10) Constipation Status: Chronic Response to Treatment: Stable, Controlled Problem Specific Plan: Monitor Clinically Problem Text: PMH of constipation. CT abdomen showed obstipation. 1 bowel movement 07/16 so far. Fleet enema PRN (11) Cognitive impairment Status: Chronic Response to Treatment: Stable Problem Text: [facility] pt with PMH of advanced cognitive impairement with psychosis. Hold home meds now as pt is NPO. Pt not at baseline as more obtunded than usual Plan/VTE VTE Prophylaxis Ordered?: Yes (SCD) Plan/Urinary Catheter Urinary Catheter: Place Jimenez Reason for insertion/continuin: Critical Pt monitoring Plan IVF: Change Diet: Make NPO Activity: Continue Current Medications: Replete Electrolytes IV, Bowel Regimen Diagnostics: Check Labs, Repeat Labs in AM, Obtain Cultures Family Medicine Attending Note: I was present on site to supervise CRISTA Williamson. We discussed the history and exam. I confirmed the valentino elements during my [id number] encounter with the patient. We conferred on the assessment and plan; I agree with the note as documented. Mr. Hamilton seems to be stable, but th is is stable on pressors. We'll slowly trend his hypernatremia down with D5 W the 20meQ potassium in the bag. I spoke to his primary care physician, Dr. Jacky Shelton, today he expresses concern about recurrent aspiration and feels that that may be a component of what's going on during this admission. He suggested we consider consulting with the [facility] Guardian Committee to discussed the possibility of PEG tube placement early next week. I put a call in to Faith Moreno ([phone]) to initiate this process. I have not received a call back, but will pass this information on so we can continue to be in communication. (produce wrapper) Disposition Shock likely 2/2 to sepsis vs hypovolemia. MAP roughly stable on IVF D5W with 20meql KCl as well as Levophed. Hypokalemia improving. Seizure precaution. Oligouria; hx of urinary retention thus bladder scan ordered VS, I&O, 24H, Fishbone Vital Signs/I&O Vital Signs Date Time Temp Pulse Resp B/P (MAP) Pulse Ox O2 Delivery O2 Flow Rate FiO2 07/16/18 07:30 86 26 90/61 (71) 95 Room Air 07/16/18 07:00 96.9 I&O- Last 24 Hours up to 6 AM 07/16/18 06:00 Intake Total 5078.8 ml Output Total 735 ml Balance 4343.8 ml Laboratory Data 24H LABS Laboratory Tests 2 07/15/18 11:41: Nucleated Red Blood Cells % (auto) 1.5H, Neutrophils 68, Band Neutrophils 20H, Lymphocytes (Manual) 8L, Monocytes (Manual) 3, Eosinophils (Manual) 1, Toxic Granulation 1+, Toxic Vacuolation 1+, Platelet Estimate DECREASED, Microcytosis 1+, Anion Gap 9, Glomerular Filtration Rate > 60.0, Lactic Acid Level 1.2, Blood Urea Nitrogen 28H, Creatinine 0.72, Sodium Level 155H, Potassium Level 3.8, Chloride Level 115H, Carbon Dioxide Level 31, Calcium Level 8.6L, Aspartate Amino Transf (AST/SGOT) 32, Alanine Aminotransferase (ALT/SGPT) 43, Alkaline Phosphatase 134H, Total Bilirubin < 0.1L, Total Protein 5.9L, Albumin 1.9#L, Magnesium Level 2.1, Albumin/Globulin Ratio 0.48L 07/15/18 13:29: Urine Color EMILY, Urine Appearance HAZY, Urine pH 7.0, Urine Specific [place] 1.031, Urine Protein 2+H, Urine Glucose (UA) NEGATIVE, Urine Ketones TRACEH, Urine Blood NEGATIVE, Urine Nitrite POSITIVEH, Urine Bilirubin 1+H, Urine Urobilinogen 0.2, Urine Leukocyte Esterase TRACEH, Urine WBC (Auto) 7H, Urine RBC (Auto) 32H, Urine Hyaline Casts (Auto) 0, Urine Bacteria (Auto) 1+H, Urine Squamous Epithelial Cells 0, Urine Triple Phosphate Cryst (Auto) SMALL, Urine Mucus (Auto) SMALL, Urine Sperm (Auto) 07/16/18 05:12: Nucleated Red Blood Cells % (auto) 2.4H, Anion Gap 7L, Glomerular Filtration Rate > 60.0, Blood Urea Nitrogen 22H, Creatinine 0.77, Sodium Level 151H, Potassium Level 3.3L, Chloride Level 118H, Carbon Dioxide Level 26, Calcium Level 7.4L, Thyroid Stimulating Hormone (TSH) 0.988, Free Thyroxine 1.07 CBC/BMP Laboratory Tests 07/15/18 11:41 Red Blood Count 4.52, Mean Corpuscular Volume 84.7, Mean Corpuscular Hemoglobin 27.2, Mean Corpuscular Hemoglobin Concent 32.1, Red Cell Distribution Width 16.3 H, Calcium Level 8.6 L, Aspartate Amino Transf (AST/SGOT) 32, Alanine Aminotransferase (ALT/SGPT) 43, Alkaline Phosphatase 134 H, Total Bilirubin < 0.1 L, Total Protein 5.9 L, Albumin 1.9 #L 07/16/18 05:12 Red Blood Count 3.84 L, Mean Corpuscular Volume 83.1, Mean Corpuscular Hemoglobin 26.8 L, Mean Corpuscular Hemoglobin Concent 32.3, Red Cell Distribution Width 15.7 H, Calcium Level 7.4 L Microbiology Microbiology 07/15/18 Blood Culture, Received Pending 07/15/18 Blood Culture, Received Pending 07/15/18 Urine Culture, Received Pending SKYE ALLEN DO Jul 16, 2018 08:47 Yong Gallardo MD Jul 17, 2018 18:02
[2018-07-16] MEDS: LEVOTHYROXINE 100 MCG (0.1MG) VIAL IV SCH (09:03)
[2018-07-16] MEDS: KCL 20MEQ IN D5/NS 1000ML 1,000 ML IV SCH ×2 (09:03→20:25)
[2018-07-16] MEDS: NOREPINEPHRINE BITARTRATE 8 MG in D5W 492 ML IV SCH (09:29)
[2018-07-16 09:42] LABS: BLOOD UREA NITROGEN 19 MG/DL (7-18); CALCIUM LEVEL 7.2 MG/DL (8.8-10.2); CARBON DIOXIDE LEVEL 26 MEQ/L (21-32); CHLORIDE LEVEL 117 MEQ/L (98-107); CREATININE FOR GFR 0.79 MG/DL (0.70-1.30); FREE T4 1.07 NG/DL (0.76-1.46); GLOMERULAR FILTRATION RATE > 60.0 (>49); GLUCOSE, FASTING 106 MG/DL (70-100); POTASSIUM SERUM 3.3 MEQ/L (3.5-5.1); SODIUM LEVEL 150 MEQ/L (136-145); THYROID STIMULATING HORMONE 0.803 uIU/ML (0.358-3.740)
--- NOTE | 2018-07-16 11:12 | NUR ---
Pt w/ severe oropharyngeal phase dysphagia. Recommend continue NPO. Dysphagia tx reassess tolerance pureed solids. Please assist pt w/ oral care 3x/day using suction toothbrush or toothben's pinched of excess mouthwash. Addendum: 07/16/[address] [facility] Amended: Links added.
[2018-07-16 12:56] LABS: HEMATOCRIT 30.8 % (42.0-52.0); HEMOGLOBIN 9.9 g/dl (13.5-17.5)
[2018-07-16 14:01] LABS: ABG BASE EXCESS 0.7 (-2.0-2.0); ABG HCO3 24.4 MEQ/L (22.0-26.0); ABG O2 SATURATION 97.1 % (95.0-99.0); ABG PARTIAL PRESSURE CO2 35.6 mmHg (35.0-45.0); ABG PARTIAL PRESSURE O2 92.4 mmHg (75.0-100.0); ABG STANDARD HCO3 25.1 MEQ/L (22.0-26.0); ABG TOTAL CO2 25.4 MEQ/L (23.0-31.0); ABG pH (ARTERIAL) 7.453 UNITS (7.350-7.450)
[2018-07-16] MEDS ORDERED: FLEET ENEMA PR PRN (14:15)
[2018-07-16 16:20] LABS: BLOOD UREA NITROGEN 19 MG/DL (7-18); CALCIUM LEVEL 7.1 MG/DL (8.8-10.2); CARBON DIOXIDE LEVEL 26 MEQ/L (21-32); CHLORIDE LEVEL 118 MEQ/L (98-107); CREATININE FOR GFR 0.82 MG/DL (0.70-1.30); GLOMERULAR FILTRATION RATE > 60.0 (>49); GLUCOSE, FASTING 103 MG/DL (70-100); POTASSIUM SERUM 3.6 MEQ/L (3.5-5.1); SODIUM LEVEL 152 MEQ/L (136-145)
[2018-07-17] VITALS (25 sets, daily range): BP systolic 73–120; BP diastolic 50–69
[2018-07-17] MEDS: MEROPENEM INJ 1 GM in APPROPRIATE DILUENT 1 EA IV SCH ×3 (00:35→23:44)
[2018-07-17 05:18] LABS: HEMATOCRIT 29.9 % (42.0-52.0); HEMOGLOBIN 9.7 g/dl (13.5-17.5); MEAN CORPUSCULAR HEMOGLOBIN 26.9 pg (27.0-33.0); MEAN CORPUSCULAR HGB CONC 32.4 g/dl (32.0-36.5); MEAN CORPUSCULAR VOLUME 82.8 fl (80.0-96.0); PLATELET COUNT, AUTOMATED 132 10^3/uL (150-450); RED BLOOD COUNT 3.61 10^6/uL (4.30-6.10); WHITE BLOOD COUNT 4.3 10^3/uL (4.0-10.0)
[2018-07-17] MEDS: CLINDAMYCIN 600 MG in APPROPRIATE DILUENT 1 EA IV SCH ×2 (05:35→12:39)
[2018-07-17 05:42] LABS: BLOOD UREA NITROGEN 13 MG/DL (7-18); CALCIUM LEVEL 7.2 MG/DL (8.8-10.2); CARBON DIOXIDE LEVEL 26 MEQ/L (21-32); CHLORIDE LEVEL 122 MEQ/L (98-107); CREATININE FOR GFR 0.77 MG/DL (0.70-1.30); GLOMERULAR FILTRATION RATE > 60.0 (>49); GLUCOSE, FASTING 93 MG/DL (70-100); POTASSIUM SERUM 3.6 MEQ/L (3.5-5.1); SODIUM LEVEL 153 MEQ/L (136-145)
--- NOTE | 2018-07-17 07:54 | IPNPDOC ---
Subjective Date Seen The patient was seen on 07/17/18. Subjective Chief Complaint/HPI Patient is a 67 yo [facility] resident with PMH of advanced cognitive impairment w/ psychosis, seizure d/o, frequent UTI, anemia, and urinary retention presents at ED as he has progressively decrease in PO intake with intermittent vomiting. Events since last encounter Patient is examined at bedside with no family member/[facility] staff at bedside. ROS non-obtainable as patient is obtunded. It was noted that patient would open eyes spontaneously, but otherwise no significant mental status change and pt remained obtunded General: Reports: ROS Unobtainable Objective Physical Examination General Exam: Positive: Other (Obtunded); Negative: Alert, Cooperative Eye Exam: Positive: Conjunctiva & lids normal, EOMI (Unable to assess as not following commands); Negative: PERRLA (Dilated pupil b/l non-reactive to light), Sclera icteric ENT Exam: Negative: Atraumatic (healing scar on forehead with no obvious signs of inflammation), Mucous membr. moist/pink (lips and part of oral mucosa appears to be dry), Ext Auditory Canal Nml (b/l cauliflower ear noted) Neck Exam: Positive: Supple; Negative: JVD Chest Exam: Positive: Normal air movement, Rales (bilateral); Negative: Clear to auscultation Heart Exam: Positive: Rate Normal, Regular Rhythm; Negative: Normal S1, Normal S2 Abdomen Exam: Positive: Normal bowel sounds, Soft; Negative: Tenderness (Unable to assess aas pt obtunded) Extremity Exam: Negative: Edema, Swelling Skin Exam: Positive: Nl turgor and temperature, Lesion (healing 1cm long lesion on forehead), Other skin issue (Cold and dry) Neuro Exam: Positive: Other (patient is minimally responsive. does respond to voice, looks at examiner, pulls away to painful stimuli, doesn't follow command, no verbal response, GCS=8 (E3,V1,M4)) Psych Exam: Positive: Other (See Neuro exam) Assessment /Plan Problems (1) Shock Status: Acute Response to Treatment: Improving, Controlled Problem Specific Plan: Monitor Clinically Problem Text: 07/17 Hypovolemic shock from inadequate water intake/dehydration. Continue IVF and levophed; goal MAP>65, controlled. Off levophed since a little after 9am today with MAP around 70. 07/16 likely 2/2 hypovolemic shock from dehydration vs inadequate water intake vs sepsis; Free water deficit 2.1L; urine osmolality 702 with oligouria. 9lb weight loss compared to 06/26/18. UA indicates UTI; urine Cx pending. Blood Cx neg for 24 hrs. CXR pos for pneumonitis. Continue to trend blood cx. Improving MAP currently>65. Hypothermia resolved. Pt on Clindamycin and Meropenem. High Na and low K likely 2/2 compensatory response to hypovolemia/hypotension. On levophed at rate of 2 and IVF. Pt did have drop in hemoglobin and platelets but likely 2/2 to hemodilution (2) Hypernatremia Status: Acute Response to Treatment: Stable Problem Specific Plan: Monitor Clinically, Repeat Labs Problem Text: Questionable d/t compensatory response to dehydration vs less likely hyperaldosternoism. Plasma renin and aldosteron level pending. Continue IVF. BMP daily. F/u with BMP this afternoon. (3) Hypokalemia Status: Resolved Response to Treatment: Stable, Controlled Problem Specific Plan: Monitor Clinically, Repeat Labs Problem Text: Resolved. K 3.6 as of 07/17. Questionable 2/2 compensatory response to hypoveolemia/hyperaldosteronism. R/O RTA type 1 as urine bicarb>10 and urine K<40. Plasma renin and aldosterone lvl ordered. Continue to f/u BMP. Continue IVF with 20meq KCl (4) UTI (urinary tract infection) Status: Acute Problem Text: UA pos for nitrite only; Urine Cx pos for >100,000 stap epidermidis. Clindamycin d/c and start Vancomycin as pt has unspecified PCN allergy per [facility]. Cont Meropenem as pt has pneumonitis questionable for pneumonia (5) Hypothyroidism Status: Chronic Response to Treatment: Stable, Controlled Problem Specific Plan: Monitor Clinically Problem Text: PMH of hypothyroidism; T4 and TSH wnl; r/o myexedma coma. IV synthroid conversion equivalent to PO synthroid dose as pt isNPO (6) Hypothermia Status: Resolved Response to Treatment: Controlled Problem Specific Plan: Monitor Clinically, Repeat Tests Problem Text: Initially presented with hypothermia currently resolved. Warm blanket. (7) Anemia Status: Chronic Response to Treatment: Stable Problem Specific Plan: Repeat Labs Problem Text: likely 2/2 to hemodilution. PMH of anemia as well as GI bleed; GI bleed r/o as occult blood neg. Hg on 07/17 9.7 compared to 9.9 yesterday. Continue to trend CBC (8) Oligouria Status: Resolved Problem Specific Plan: Monitor Clinically Problem Text: Resolved. Likely 2/2 dehydration/hypovolemia vs unlikely urinary retention. Urine osmo 702; on IVF. On klein catheter (9) Seizure disorder Status: Chronic Response to Treatment: Controlled Problem Specific Plan: Monitor Clinically Problem Text: PMH of seizure d/o. PO meds on hold as pt obtunded. Seizure precaution (10) Constipation Status: Chronic Response to Treatment: Stable, Controlled Problem Specific Plan: Monitor Clinically Problem Text: PMH of constipation. CT abdomen showed obstipation. 1 bowel movement 07/16. PT home bowel regimen on hold as he is NPO, continue Fleet enema PRN. Ammonia level ordered as pt kathy meds include Lactulose; result wnl at 31. (11) Cognitive impairment Status: Chronic Response to Treatment: Stable Problem Specific Plan: Monitor Clinically Problem Text: [facility] pt with PMH of advanced cognitive impairement with psychosis. Hold home meds now as pt is NPO. Pt not at baseline as more obtunded than usual. CT brain w/o contrast ordered showed no gross abnormality. Continue to monitor Plan/VTE VTE Prophylaxis Ordered?: Yes (SCD) Plan/Urinary Catheter Urinary Catheter: Other Catheter: (con klein catheter) Reason for insertion/continuin: Critical Pt monitoring Plan IVF: Change Diet: Make NPO Activity: Continue Current Therapy: Speech Medications: Replete Electrolytes IV, Bowel Regimen Diagnostics: Check Labs, Repeat Labs in AM, CT Disposition CT brain w/o contrast showed no acute abnormality. Continue IVF. MAP at goal. Clindamycin d/c and start Vanco as pt urine cx pos for >100,000 staph epidermis. Cont Meropenem for ?pneumonia as CXR showed pneumonitis VS, I&O, 24H, Fishbone Vital Signs/I&O Vital Signs Date Time Temp Pulse Resp B/P (MAP) Pulse Ox O2 Delivery O2 Flow Rate FiO2 07/17/18 04:00 95.4 70 22 93/64 (74) 98 Room Air I&O- Last 24 Hours up to 6 AM 07/17/18 06:00 Intake Total 2384.8 ml Output Total 765 ml Balance 1619.8 ml Laboratory Data 24H LABS Laboratory Tests 2 07/16/18 08:56: Anion Gap 7L, Glomerular Filtration Rate > 60.0, Blood Urea Nitrogen 19H, Creatinine 0.79, Sodium Level 150H, Potassium Level 3.3L, Chloride Level 117H, Carbon Dioxide Level 26, Calcium Level 7.2L, C-Reactive Protein, Quantitative 22.70H, Thyroid Stimulating Hormone (TSH) 0.803, Free Thyroxine 1.07 07/16/18 08:57: Urine Random Osmolality 702, Urine Random Potassium 26.7, Osmolality 306H 07/16/18 13:44: Blood Gas Bicarbonate Standard 25.1, Arterial Blood pH 7.453H, Arterial Blood Partial Pressure CO2 35.6, Arterial Blood Partial Pressure O2 92.4, Arterial Blood Total CO2 25.4, Arterial Blood HCO3 24.4, Arterial Blood Base Excess 0.7, Arterial Blood Oxygen Saturation 97.1 07/16/18 15:30: Anion Gap 8, Glomerular Filtration Rate > 60.0, Blood Urea Nitrogen 19H, Creatinine 0.82, Sodium Level 152H, Potassium Level 3.6, Chloride Level 118H, Carbon Dioxide Level 26, Calcium Level 7.1L 07/17/18 05:08: Nucleated Red Blood Cells % (auto) 2.6H, Anion Gap 5L, Glomerular Filtration Rate > 60.0, Blood Urea Nitrogen 13, Creatinine 0.77, Sodium Level 153H, Potassium Level 3.6, Chloride Level 122H, Carbon Dioxide Level 26, Calcium Level 7.2L CBC/BMP Laboratory Tests 07/16/18 08:56 Calcium Level 7.2 L 07/16/18 12:38 07/16/18 15:30 Calcium Level 7.1 L 07/16/18 19:37 07/16/18 23:43 07/17/18 03:50 07/17/18 05:08 Red Blood Count 3.61 L, Mean Corpuscular Volume 82.8, Mean Corpuscular Hemoglobin 26.9 L, Mean Corpuscular Hemoglobin Concent 32.4, Red Cell Distribution Width 15.5 H, Calcium Level 7.2 L Microbiology Microbiology 07/15/18 Blood Culture - Preliminary, Resulted No growth after 24 hours . All specim... 07/15/18 Blood Culture - Preliminary, Resulted No growth after 24 hours . All specim... 07/16/18 Stool Occult Blood (LIZBETH) - Final, Complete 07/15/18 Urine Culture - Final, Complete Staphylococcus Epidermidis SKEY ALLEN DO Jul 17, 2018 07:54 Ben Ley MD Jul 17, 2018 15:29
[2018-07-17] MEDS: NOREPINEPHRINE BITARTRATE 8 MG in D5W 492 ML IV SCH ×3 (08:00→18:28)
[2018-07-17] MEDS ORDERED: VANCOMYCIN HCL 1,000 MG, VIAL MATE ADAPTER 1 EACH in D5W 250 ML IV SCH (08:00)
[2018-07-17] MEDS: LEVOTHYROXINE 100 MCG (0.1MG) VIAL IV SCH (08:37)
[2018-07-17] MEDS: KCL 20MEQ IN D5W 1000ML 1,000 ML IV SCH ×2 (08:37→20:52)
[2018-07-17] MEDS ORDERED: VANCOMYCIN HCL 500 MG in D5W MINI-BAG PLUS 100 ML IV ONE (09:00)
--- NOTE | 2018-07-17 10:16 | REP ---
CT BRAIN WITHOUT CONTRAST: 07/17/2018. Comparison: 06/13/2018, 06/05/2018. Clinical history: Altered mental status. Findings: Noncontrast images show lateral ventricles midline, symmetric, mildly dilated but in proportion with diffuse cerebral atrophy. All this is unchanged. Basal ganglia were symmetric. Scattered heterogeneous low attenuation white matter changes are noted. There is mild chronic small vessel ischemic disease. There is no intracranial hemorrhage, extra-axial fluid collection, mass or mass effect. Cortical atrophy is noted. Brainstem intact. Cerebellum shows some mild atrophy but no mass. No posterior fossa bleed. Third and fourth ventricles are unchanged and proportionate to the atrophy. Calcifications in the carotid siphons are minimal. Mastoid aeration symmetric and normal. Some minor ethmoid sinus mucosal thickening with the other sinuses visible without opacification. The skull base and calvarium without fracture or focal lesion. Incidental note is made of cartilage calcification in the ears, left greater than right, as on previous studies. There is thickening or swelling of the right year lobe more than the left. Impression: 1. Some generalized atrophy and chronic small vessel white matter ischemic change. Stable from multiple prior studies. No intracranial hemorrhage, acute infarct, mass or mass effect. 2. Skull base and calvarium grossly intact. Sinuses and mastoids without opacification. Electronically Signed by Declan Bar MD 07/17/2018 01:21 P
--- NOTE | 2018-07-17 14:12 | PHACANCOPD ---
PHARMACY VANCOMYCIN DOSING Pt Demographics Demographics Patient Age:67 , Weight:61.500 , Gender: male Adjusted Body Weight Date: 07/17/18, Adjusted Body Weight: [61.5] Kg Events Past 24 Hours Events Past 24 Hours: NO: Dialysis, Diuretic Therapy, Change in CrCl, Fever, Elevation in WBC, Pending Diagnostics, Pending Procedures, Other Vancomycin Vancomycin indication: uti Vancomycin Target Ranges: 15-20 mcg/ml Vancomycin Load Y/N: Yes Load Dose Date Time Vancomycin Load Dose: 1.5g Date: 07/17/18 Time: 08:00 Vancomycin Dose Date: 07/17/18. Current Vancomycin Dose: [1g iv q12h] Intermittent Dosing?: No Labs Labs Item Value Date Time White Blood Count 4.6 10^3/uL 07/16/18 0512 White Blood Count 4.3 10^3/uL 07/17/18 0508 Creatinine 0.77 MG/DL 07/17/18 0508 Micro Microbiology 07/15/18 Blood Culture - Preliminary, Resulted No Growth after 48 hours. All Specime... 07/15/18 Blood Culture - Preliminary, Resulted No Growth after 48 hours. All Specime... 07/16/18 Stool Occult Blood (LIZBETH) - Final, Complete 07/15/18 Urine Culture - Final, Complete Staphylococcus Epidermidis Creatinine Clearance Date:07/17/18. Creatinine Clearance: [75ml/min]. Assessment and Plan Maintaining Current Dose?: Yes Reason for dose change: No Dose Change Pharmacist Note Pharmacist Note Date: 07/17/18. Pharmacist note: Pt is a 67 year old male being treated for UTI goal trough 15-20mcg/ml. The patient has not been treated with vancomycin here at [facility] in the past. To achieve goal a 1.5g loading dose was started 07/17/18 @08. Maintenance therapy will consist of 1g IV every 12 hours starting 07/17/18 @ 20:00. A trough is scheduled 07/18/18 @19:00. We will continue to monitor and adjust the dose as needed. JUSTICE SANTANA [facility] Jul 17, 2018 14:12
[2018-07-17 15:14] LABS: BLOOD UREA NITROGEN 12 MG/DL (7-18); CALCIUM LEVEL 6.7 MG/DL (8.8-10.2); CARBON DIOXIDE LEVEL 26 MEQ/L (21-32); CHLORIDE LEVEL 119 MEQ/L (98-107); CREATININE FOR GFR 0.73 MG/DL (0.70-1.30); GLOMERULAR FILTRATION RATE > 60.0 (>49); GLUCOSE, FASTING 77 MG/DL (70-100); POTASSIUM SERUM 3.8 MEQ/L (3.5-5.1); SODIUM LEVEL 149 MEQ/L (136-145)
[2018-07-17] MEDS ORDERED: MEROPENEM INJ 1 GM in APPROPRIATE DILUENT 1 EA IV SCH (15:15)
[2018-07-17] MEDS ORDERED: GLUCAGON FOR INJ 1 MG VIAL (J1610) SC PRN (16:30)
[2018-07-17] MEDS ORDERED: DEXTROSE 50% 50 ML SYRINGE IV PRN (16:30)
[2018-07-17] MEDS: VANCOMYCIN HCL 1,000 MG, VIAL MATE ADAPTER 1 EACH in D5W 250 ML IV SCH (19:03)
[2018-07-17 23:48] LABS: BLOOD UREA NITROGEN 12 MG/DL (7-18); CALCIUM LEVEL 7.1 MG/DL (8.8-10.2); CARBON DIOXIDE LEVEL 23 MEQ/L (21-32); CHLORIDE LEVEL 117 MEQ/L (98-107); CREATININE FOR GFR 0.74 MG/DL (0.70-1.30); GLOMERULAR FILTRATION RATE > 60.0 (>49); GLUCOSE, FASTING 69 MG/DL (70-100); POTASSIUM SERUM 4.3 MEQ/L (3.5-5.1); SODIUM LEVEL 148 MEQ/L (136-145)
[2018-07-18] VITALS (20 sets, daily range): BP systolic 95–124; BP diastolic 56–90
[2018-07-18 05:19] LABS: HEMATOCRIT 31.6 % (42.0-52.0); HEMOGLOBIN 10.4 g/dl (13.5-17.5); MEAN CORPUSCULAR HEMOGLOBIN 26.6 pg (27.0-33.0); MEAN CORPUSCULAR HGB CONC 32.9 g/dl (32.0-36.5); MEAN CORPUSCULAR VOLUME 80.8 fl (80.0-96.0); PLATELET COUNT, AUTOMATED 149 10^3/uL (150-450); RED BLOOD COUNT 3.91 10^6/uL (4.30-6.10)
[2018-07-18 05:36] LABS: BLOOD UREA NITROGEN 11 MG/DL (7-18); CALCIUM LEVEL 7.8 MG/DL (8.8-10.2); CARBON DIOXIDE LEVEL 24 MEQ/L (21-32); CHLORIDE LEVEL 116 MEQ/L (98-107); CREATININE FOR GFR 0.87 MG/DL (0.70-1.30); GLOMERULAR FILTRATION RATE > 60.0 (>49); GLUCOSE, FASTING 96 MG/DL (70-100); POTASSIUM SERUM 3.7 MEQ/L (3.5-5.1); SODIUM LEVEL 147 MEQ/L (136-145)
[2018-07-18] MEDS: MEROPENEM INJ 1 GM in APPROPRIATE DILUENT 1 EA IV SCH ×2 (08:20→16:21)
[2018-07-18] MEDS: VANCOMYCIN HCL 1,000 MG, VIAL MATE ADAPTER 1 EACH in D5W 250 ML IV SCH ×2 (08:21→19:55)
[2018-07-18] MEDS: LEVOTHYROXINE 100 MCG (0.1MG) VIAL IV SCH (08:21)
[2018-07-18] MEDS: KCL 20MEQ IN D5W 1000ML 1,000 ML IV SCH ×2 (10:18→21:31)
[2018-07-18] MEDS ORDERED: SODIUM CHLORIDE 0.9% INJ 10 ML SYR IV PRN (14:15)
--- NOTE | 2018-07-18 14:45 | IPNPDOC ---
Subjective Date Seen The patient was seen on 07/18/18. Subjective Chief Complaint/HPI none General: Reports: ROS Unobtainable Objective Physical Examination General Exam: Positive: Other Eye Exam: Positive: Conjunctiva & lids normal, EOMI, Sclera icteric ENT Exam: Positive: Other ENT (tongue protrudes, not verbal) Neck Exam: Positive: Supple, Other (right central line catheter in place. no redness and no oozing) Chest Exam: Positive: Clear to auscultation, Normal air movement Heart Exam: Positive: Rate Normal, Regular Rhythm Abdomen Exam: Positive: Normal bowel sounds, Soft Extremity Exam: Negative: Edema, Swelling Skin Exam: Positive: Other skin issue Psych Exam: Positive: Other (alert, no verbal response, spontaneously attempts to block exam. GCS 10 (E4,V1,M5) This may be his baseline based on comments of [facility] staff here present.) Assessment /Plan Problems (1) Shock Status: Resolved Response to Treatment: Controlled Problem Specific Plan: Monitor Clinically, Repeat Tests Problem Text: 07/18: required levophen from 1722 until about 0200 today, now >12 hours w/o pressor and BP good. Sats good and urine output is good. Likely 2/2 sepsis with a component of hypovolemic shock from dehydration; Free water deficit 2.1L; urine osmolality 702 with oligouria. 9lb weight loss compared to 06/26/18. UA indicates UTI; urine Cx pending. Blood Cx neg for 24 hrs. CXR pos for pneumonitis. Continue to trend blood cx. Improving MAP currently>65. Hypothermia resolved. Pt on Clindamycin and Meropenem. High Na and low K likely 2/2 compensatory response to hypovolemia/hypotension. On levophed at rate of 2 micrograms per minute and IV D5W with 20meq KCl at 75ml/hr. Pt did have drop in hemoglobin and platelets but likely 2/2 to hemodilution; s/p 3.1L IVF. (2) Hypernatremia Status: Acute Response to Treatment: Stable Problem Specific Plan: Monitor Clinically, Repeat Labs Problem Text: 07/18: Sodum improving. Will continue D5W Probably d/t compensatory response to dehydration vs less likely hyperaldosteronism. Plasma renin and aldosterone level ordered. Pt on 20meqK with D5W 75ml/hr as pt also has hypokalemia and hypotension. F/u BMP at 0920. Continue to f/u BMP (3) Hypokalemia Status: Resolved Response to Treatment: Stable, Improving Problem Specific Plan: Monitor Clinically, Repeat Labs Problem Text: K 3.3 with repeat in the afternoon 3.4. Questionable 2/2 compensatory response to hypoveolemia/hyperaldosteronism. R/O RTA type 1 as urine bicarb>10 and urine K<40. Plasma renin and aldosterone lvl ordered. Continue to trend with K level or BMP (4) UTI (urinary tract infection) Status: Acute Problem Text: UA pos for nitrite only; Continue IV Meropnenm and Clindamycin. (5) Hypothyroidism Status: Chronic Response to Treatment: Stable, Controlled Problem Specific Plan: Monitor Clinically Problem Text: PMH of hypothyroidism; T4 and TSH wnl; r/o myexedma coma. IV synthroid conversion equivalent to PO synthroid dose as pt isNPO (6) Hypothermia Status: Resolved Problem Text: Initially presented with hypothermia currently resolved. Warm blanket. It should be noted that his baseline temperature is reported as roughly 95F per staff at [facility]. (7) Anemia Status: Chronic Problem Specific Plan: Repeat Labs Problem Text: Likely 2/2 to hemodilution vs less likely GI bleed. PMH of anemia as well as GI bleed. Hg on 07/16 10.3 with repeat 9.9. Occult blood ordered. Continue to trend H&H and CBC (8) Oligouria Status: Resolved Problem Specific Plan: Monitor Clinically, Repeat Tests Problem Text: Urine output 375ml for 24 hr. Likely 2/2 dehydration/hypovolemia vs unlikely urinary retention. Urine osmo 702; on IVF. Bladder scan ordered. (9) Seizure disorder Status: Chronic Response to Treatment: Controlled Problem Specific Plan: Monitor Clinically Problem Text: PMH of seizure d/o. PO meds on hold as pt obtunded. Seizure precaution ordered (10) Constipation Status: Chronic Response to Treatment: Stable, Controlled Problem Specific Plan: Monitor Clinically Problem Text: PMH of constipation. CT abdomen showed obstipation. 1 bowel movement 07/16 so far. Fleet enema PRN (11) Cognitive impairment Status: Chronic Response to Treatment: Stable Problem Text: [facility] pt with PMH of advanced cognitive impairement with psychosis. Hold home meds now as pt is NPO. Pt not at baseline as more obtunded than usual (12) Severe protein-calorie malnutrition Status: Acute Response to Treatment: Worse Problem Text: Attending Dr. Shelton is interested in Tube feeding option. Unclear if patient would be able to leave site intact without continous meng restraints. (13) Pneumonia Status: Acute Response to Treatment: Improving Problem Text: continue antibiotics for now. Plan/VTE VTE Prophylaxis Ordered?: Yes (SCD) Plan/Urinary Catheter Urinary Catheter: Other Catheter: (con klein catheter) Reason for insertion/continuin: Critical Pt monitoring Plan IVF: Change Diet: Make NPO Activity: Continue Current Therapy: Speech Medications: Replete Electrolytes IV, Bowel Regimen Diagnostics: Check Labs, Repeat Labs in AM, CT VS, I&O, 24H, Fishbone Vital Signs/I&O Vital Signs Date Time Temp Pulse Resp B/P (MAP) Pulse Ox O2 Delivery O2 Flow Rate FiO2 07/18/18 14:00 77 20 124/81 (95) 98 Room Air 07/18/18 12:00 97.4 07/17/18 18:12 1.0 I&O- Last 24 Hours up to 6 AM 07/18/18 06:00 Intake Total 2652.8 ml Output Total 2050 ml Balance 602.8 ml Laboratory Data 24H LABS Laboratory Tests 2 07/17/18 18:15: Bedside Glucose (Misc Panel) 96 07/17/18 22:35: Anion Gap 8, Glomerular Filtration Rate > 60.0, Blood Urea Nitrogen 12, Creatinine 0.74, Sodium Level 148H, Potassium Level 4.3, Chloride Level 117H, Carbon Dioxide Level 23, Calcium Level 7.1L 07/18/18 04:45: Anion Gap 7L, Glomerular Filtration Rate > 60.0, Blood Urea Nitrogen 11, Creatinine 0.87, Sodium Level 147H, Potassium Level 3.7, Chloride Level 116H, Carbon Dioxide Level 24, Calcium Level 7.8L, Nucleated Red Blood Cells % (auto) 1.3H 07/18/18 12:14: Bedside Glucose (Misc Panel) 97 CBC/BMP Laboratory Tests 07/17/18 22:35 Calcium Level 7.1 L 07/18/18 04:45 Calcium Level 7.8 L, Red Blood Count 3.91 L, Mean Corpuscular Volume 80.8, Mean Corpuscular Hemoglobin 26.6 L, Mean Corpuscular Hemoglobin Concent 32.9, Red Cell Distribution Width 15.9 H Microbiology Microbiology 07/15/18 Blood Culture - Preliminary, Resulted No Growth after 72 hours. All specime... 07/15/18 Blood Culture - Preliminary, Resulted No Growth after 72 hours. All specime... 07/16/18 Stool Occult Blood ([facility]ZBETH) - Final, Complete 07/15/18 Urine Culture - Final, Complete Staphylococcus Epidermidis Ben Ley MD Jul 18, 2018 14:45
[2018-07-18] MEDS: SODIUM CHLORIDE 0.9% INJ 10 ML SYR IV SCH (21:31)
[2018-07-19] MEDS: MEROPENEM INJ 1 GM in APPROPRIATE DILUENT 1 EA IV SCH ×3 (00:35→15:19)
[2018-07-19 04:00] VITALS: BP 130/92
[2018-07-19] MEDS: SODIUM CHLORIDE 0.9% INJ 10 ML SYR IV SCH ×3 (05:34→21:11)
[2018-07-19 05:49] LABS: HEMATOCRIT 34.2 % (42.0-52.0); HEMOGLOBIN 11.2 g/dl (13.5-17.5); MEAN CORPUSCULAR HEMOGLOBIN 26.7 pg (27.0-33.0); MEAN CORPUSCULAR HGB CONC 32.7 g/dl (32.0-36.5); MEAN CORPUSCULAR VOLUME 81.4 fl (80.0-96.0); PLATELET COUNT, AUTOMATED 154 10^3/uL (150-450); WHITE BLOOD COUNT 3.6 10^3/uL (4.0-10.0)
[2018-07-19 06:09] LABS: BLOOD UREA NITROGEN 7 MG/DL (7-18); CALCIUM LEVEL 8.3 MG/DL (8.8-10.2); CARBON DIOXIDE LEVEL 23 MEQ/L (21-32); CHLORIDE LEVEL 113 MEQ/L (98-107); CREATININE FOR GFR 0.59 MG/DL (0.70-1.30); GLOMERULAR FILTRATION RATE > 60.0 (>49); GLUCOSE, FASTING 89 MG/DL (70-100); POTASSIUM SERUM 3.7 MEQ/L (3.5-5.1); SODIUM LEVEL 143 MEQ/L (136-145)
[2018-07-19 07:42] LABS: VANCOMYCIN RANDOM 17.5 UG/ML
[2018-07-19 08:00] VITALS: BP 108/64
[2018-07-19] MEDS: VANCOMYCIN HCL 1,000 MG, VIAL MATE ADAPTER 1 EACH in D5W 250 ML IV SCH (08:06)
--- NOTE | 2018-07-19 09:22 | IPNPDOC ---
Subjective Date Seen The patient was seen on 07/19/18. Subjective Chief Complaint/HPI Patient is examined at bedside with sitter in the room. He is more alert but is still non-verbal thus ROS non-obtainable. It was noted that no agitation was observed General: Reports: ROS Unobtainable Objective Physical Examination General Exam: Positive: Alert, No Acute Distress, Other Eye Exam: Positive: PERRLA, Conjunctiva & lids normal; Negative: Sclera icteric ENT Exam: Positive: Other ENT (tongue protrudes, not verbal. About 1 to 1.5 cm long healing scar on forehead; no obvious sign of infection) Neck Exam: Positive: Supple, Other (right central line catheter in place. no redness and no oozing) Chest Exam: Positive: Clear to auscultation, Normal air movement; Negative: Rales, Rhonchi, Wheezing Heart Exam: Positive: Rate Normal, Regular Rhythm Abdomen Exam: Positive: Normal bowel sounds, Soft Extremity Exam: Negative: Edema, Swelling Psych Exam: Positive: Other (alert, no verbal response, spontaneously attempts to block exam. GCS 10 (E4,V1,M5) This may be his baseline) Assessment /Plan Assessment Spoke with caregiver at [facility] (current [facility] staffer in room is returning from a couple months vacation and has not seen the patient recently), who describes decline in patient over the last couple months, less interactive and no longer ambulatory. Swallow eval has been rescheduled for tomorrow. Problems (1) Shock Status: Resolved Response to Treatment: Controlled Problem Specific Plan: Monitor Clinically, Repeat Tests Problem Text: 07/19. Pt BP stable on IV D5w at 80ml/hr. Continue to trend I&O as. Vial signs as scheduled. Pt in PCU now 07/18: required levophen from 1722 until about 0200 today, now >12 hours w/o pressor and BP good. Sats good and urine output is good. Likely 2/2 sepsis with a component of hypovolemic shock from dehydration; calculated pos free water deficit 2.1L as of 07/16/18; urine osmolality 702 with oligouria. 9lb weight loss compared to 06/26/18. urine Cx pos for staph epidermidis. On IV Vanco and Meorpenem. Blood Cx neg for 72 hrs. CXR pos for pneumonitis. Hypothermia resolved. High Na and low K likely 2/2 compensatory response to hypovolemia/hypotension. (2) Leukopenia Status: Acute Problem Text: May be 2/2 to Vancomycin. WBC 3.6. CBC with differentials ordered. Vitals stable on room air not in acute respiratory distress. One 300mcg Neupogen ordered. Continue to f/u with CBC with diff. (3) Hypernatremia Status: Resolved Response to Treatment: Stable Problem Specific Plan: Monitor Clinically, Repeat Labs Problem Text: 07/19 Hyponatremia resolved. Continue D5W for now. Continue to trend BMP 07/18: Sodum improving. Will continue D5W Probably d/t compensatory response to dehydration vs less likely hyperaldosteronism. Plasma renin and aldosterone level ordered. Pt on 20meqK with D5W 75ml/hr as pt also has hypokalemia and hypotension. F/u BMP at 0920. Continue to f/u BMP (4) UTI (urinary tract infection) Status: Acute Problem Text: UTI pos with>100,000 staph epidermidis in urine cx; Continue IV Meropnenm and Vancomycin. Vital signs as scheduled. Continue to f/u with CBC; vital signs as scheduled. CRP ordered (5) Hypothyroidism Status: Chronic Response to Treatment: Stable, Controlled Problem Specific Plan: Monitor Clinically Problem Text: PMH of hypothyroidism; T4 and TSH wnl; r/o myexedma coma. IV synt hroid conversion equivalent to PO synthroid dose as pt isNPO (6) Anemia Status: Chronic Response to Treatment: Improving Problem Specific Plan: Repeat Labs Problem Text: Likely 2/2 to hemodilution. PMH of anemia as well as GI bleed. Hg on 07/16 11.2. Neg occult blood test. Continue to trend CBC (7) Oligouria Status: Resolved Problem Specific Plan: Monitor Clinically, Repeat Tests Problem Text: Likely 2/2 dehydration/hypovolemia vs unlikely urinary retention. Urine osmo 702; on IVF. Continue to f/u I&O (8) Seizure disorder Status: Chronic Response to Treatment: Controlled Problem Specific Plan: Monitor Clinically Problem Text: PMH of seizure d/o. PO meds on hold as pt obtunded. Seizure precaution ordered (9) Constipation Status: Chronic Response to Treatment: Stable, Controlled Problem Specific Plan: Monitor Clinically Problem Text: PMH of constipation. CT abdomen showed obstipation. 1 bowel movement 07/18. Fleet enema PRN (10) Cognitive impairment Status: Chronic Response to Treatment: Stable Problem Text: [facility] pt with PMH of advanced cognitive impairement with psychosis. Hold home meds now as pt is NPO. Pt not at baseline as more obtunded than usual (11) Severe protein-calorie malnutrition Status: Acute Response to Treatment: Worse Problem Text: 07/19 Speech therapy will re-evaluate pt again today. Advance diet as tolerated 07/[address] Shelton is interested in Tube feeding option. Unclear if patient would be able to leave site intact without continous meng restraints. (12) Pneumonia Status: Acute Response to Treatment: Improving Problem Text: continue antibiotics for now. Continue to f/u with CBC; vital signs as scheduled. Resp panel and CRP ordered (13) Physical deconditioning Status: Chronic Response to Treatment: Stable Problem Text: PT ordered. Continue to monitor the pt Plan/VTE VTE Prophylaxis Ordered?: Yes (SCD) Plan/Urinary Catheter Urinary Catheter: Other Catheter: (con klein catheter) Reason for insertion/continuin: Critical Pt monitoring Plan IVF: Continue Diet: Make NPO Activity: Continue Current Therapy: Speech Medications: Replete Electrolytes IV, Bowel Regimen Diagnostics: Check Labs, Repeat Labs in AM, Obtain Cultures Disposition Leukopenia with diffs ordered. 1 time dose 300 mcg Neupogen ordered. Alert now. Still non-verbal however this is baseline. Speech therapy will re-eval, advance diet as tolerated. PT ordered. VS, I&O, 24H, Fishbone Vital Signs/I&O Vital Signs Date Time Temp Pulse Resp B/P (MAP) Pulse Ox O2 Delivery O2 Flow Rate FiO2 07/19/18 08:00 96.3 66 18 108/64 (79) 100 Room Air 07/17/18 18:12 1.0 I&O- Last 24 Hours up to 6 AM 07/19/18 06:00 Intake Total 2250 ml Output Total 3490 ml Balance -1240 ml Laboratory Data 24H LABS Laboratory Tests 2 07/18/18 12:14: Bedside Glucose (Misc Panel) 97 07/18/18 18:12: Bedside Glucose (Misc Panel) 89 07/19/18 00:28: Bedside Glucose (Misc Panel) 99 07/19/18 05:34: Nucleated Red Blood Cells % (auto) 1.4H, Anion Gap 7L, Glomerular Filtration Rate > 60.0, Blood Urea Nitrogen 7, Creatinine 0.59L, Sodium Level 143, Potassium Level 3.7, Chloride Level 113H, Carbon Dioxide Level 23, Calcium Level 8.3L, Random Vancomycin Level 17.5 CBC/BMP Laboratory Tests 07/19/18 05:34 Red Blood Count 4.20 L, Mean Corpuscular Volume 81.4, Mean Corpuscular Hemoglobin 26.7 L, Mean Corpuscular Hemoglobin Concent 32.7, Red Cell Distribution Width 15.7 H, Calcium Level 8.3 L Microbiology Microbiology 07/15/18 Blood Culture - Preliminary, Resulted No Growth after 72 hours. All specime... 07/15/18 Blood Culture - Preliminary, Resulted No Growth after 72 hours. All specime... 07/16/18 Stool Occult Blood (LIZBETH) - Final, Complete 07/15/18 Urine Culture - Final, Complete Staphylococcus Epidermidis SKYE ALLEN DO Jul 19, 2018 09:22 THERESA LUQUE DO Jul 19, 2018 16:08
[2018-07-19] MEDS: LEVOTHYROXINE 100 MCG (0.1MG) VIAL IV SCH (09:50)
[2018-07-19 10:04] LABS: BASO % 0.3 % (0.0-1.0); EOS # 0.1 10^3/uL (0.0-0.50); EOS % 1.3 % (0.0-3.0); HEMOGLOBIN 11.3 g/dl (13.5-17.5); LYMPH # 0.9 10^3/uL (1.5-4.5); LYMPH % 23.4 % (24.0-44.0); MEAN CORPUSCULAR HEMOGLOBIN 27.3 pg (27.0-33.0); MEAN CORPUSCULAR HGB CONC 33.2 g/dl (32.0-36.5); MEAN CORPUSCULAR VOLUME 82.1 fl (80.0-96.0); MONO # 0.2 10^3/uL (0.0-0.8); MONO % 5.8 % (0.0-5.0); NEUTROPHILS # 2.7 10^3/uL (1.8-7.7); NEUTROPHILS % 68.2 % (36.0-66.0); PLATELET COUNT, AUTOMATED 162 10^3/uL (150-450); RED BLOOD COUNT 4.14 10^6/uL (4.30-6.10); WHITE BLOOD COUNT 3.9 10^3/uL (4.0-10.0)
[2018-07-19] MEDS ORDERED: FILGRASTIM 300 MCG/0.5 ML SYRINGE (J1442 PER 1MCG) SC ONE (11:00)
[2018-07-19] MEDS: KCL 20MEQ IN D5W 1000ML 1,000 ML IV SCH (11:22)
[2018-07-19 12:00] VITALS: BP 129/84
--- NOTE | 2018-07-19 13:19 | RO ---
DATE OF PROCEDURE: 07/16/2018 INDICATION FOR PROCEDURE: Septic shock. PROCEDURE SENIOR RESEARCH CONSULTANT: Dr. Murrieta ATTENDING PHYSICIAN: Dr. Jovanna Graff and Dr. Baltazar Jackson who were both in attendance. Consent was obtained verbally from patient's nurse prior to the procedure. Indication, risks, and benefits were explained at length to the nurse. The procedure was performed emergently and the permission was implied because of the emergent nature. PROCEDURE SUMMARY: The central line insertion practice form was completed by the independent observer, starting with first hand washing prior to starting sterile technique. A time out was performed. My hands were washed immediately prior to the procedure. I wore a surgical cap, mask, and protective eye wear, full gown and sterile gloves throughout the procedure. The patient was placed in Trendelenburg. Right chest region was prepped using Chlorhexidine scrub and draped in a sterile fashion using a full drape and sterile probe cover employed. The medial and lateral head of the sternocleidomastoid were identified as the carotid pulse. The internal jugular vein was identified using the ultrasound. Anesthesia was achieved over the vein using 1% Lidocaine. Using real-time out of plane guidance the inducer needle was inserted into the internal jugular vein under a direct ultrasound visualization. Venous blood was withdrawn. The syringe was removed and a guidewire was advanced in the introducer needle. The guidewire was visualized in the intrajugular vein by ultrasound. A small incision was made on the thickened surface with a scalpel and an introducer needle was exchanged for a dilator over the guidewire. After appropriate dilatation was obtained the dilator was removed over the wire for a triple lumen central venous catheter. The wire was removed and the catheter was sutured in place. The patient tolerated the procedure without any hemodynamic compromise. At the time of the procedure, completion of all ports were aspirated and flushed properly. Post-procedure chest x-ray was done at the end of the procedure which was negative for any pneumothorax of any hematoma. Estimated blood loss minimal.
--- NOTE | 2018-07-19 15:28 | NUR ---
Researched dysphagia history following brief conversation with Dr. Sorensen regarding re-evaluating for diet upgrade since Pt appeared to be more alert today. His baseline diet was puree solids and nectar thick liquids prior to this admission. It was noted 06/24/18 that Pt was at high risk of aspiration with PO intake based on Modified Barium Swallow Study. Call was placed to [facility] house caregiver. Caregiver reported that alternate method of nutrition and hydration was in the process of being confirmed. DAVID Joseph was notified of reports and she was to ask MD if they still wanted to have a PO evaluation given the results of less than 1 month ago. Awaiting MD direction. Addendum: 07/19/18 at 1537 by KAROL BOWSER [facility] KEVIN Amended: Links added.
[2018-07-19 16:00] VITALS: BP 114/60
[2018-07-19 20:00] VITALS: BP 102/68
[2018-07-20] VITALS: BP 105/72
[2018-07-20] MEDS: KCL 20MEQ IN D5W 1000ML 1,000 ML IV SCH ×2 (00:08→13:34)
[2018-07-20] MEDS: MEROPENEM INJ 1 GM in APPROPRIATE DILUENT 1 EA IV SCH ×3 (00:12→16:30)
[2018-07-20 04:00] VITALS: BP 98/72
[2018-07-20] MEDS: SODIUM CHLORIDE 0.9% INJ 10 ML SYR IV SCH ×3 (05:22→21:43)
[2018-07-20 06:12] LABS: HEMATOCRIT 34.1 % (42.0-52.0); HEMOGLOBIN 11.3 g/dl (13.5-17.5); MEAN CORPUSCULAR HEMOGLOBIN 26.5 pg (27.0-33.0); MEAN CORPUSCULAR HGB CONC 33.1 g/dl (32.0-36.5); PLATELET COUNT, AUTOMATED 159 10^3/uL (150-450); RED BLOOD COUNT 4.26 10^6/uL (4.30-6.10); WHITE BLOOD COUNT 13.2 10^3/uL (4.0-10.0)
[2018-07-20 06:46] LABS: BLOOD UREA NITROGEN 5 MG/DL (7-18); C REACTIVE PROTEIN QUANTITATIV 9.49 MG/DL (0.00-0.30); CALCIUM LEVEL 8.1 MG/DL (8.8-10.2); CARBON DIOXIDE LEVEL 23 MEQ/L (21-32); CHLORIDE LEVEL 111 MEQ/L (98-107); CREATININE FOR GFR 0.64 MG/DL (0.70-1.30); GLOMERULAR FILTRATION RATE > 60.0 (>49); GLUCOSE, FASTING 76 MG/DL (70-100); POTASSIUM SERUM 3.9 MEQ/L (3.5-5.1); SODIUM LEVEL 142 MEQ/L (136-145)
[2018-07-20 07:32] LABS: ANISOCYTOSIS 1+; LYMPHOCYTES 16 % (16-52); MONOCYTES 2 % (0-8); NEUTROPHILS 82 % (35-75); PLATELET ESTIMATE NORMAL (NORMAL)
[2018-07-20 08:00] VITALS: BP 88/71
--- NOTE | 2018-07-20 09:13 | IPNPDOC ---
Subjective Date Seen The patient was seen on 07/20/18. Subjective Chief Complaint/HPI Patient is examined at bedside with sitter in the room. It was noted that no agitation was reported. Patient is sleeping in the room, and it was reported by sitter that while he is awake, he is able to move all 4 extremities General: Reports: ROS Unobtainable Objective Physical Examination General Exam: Positive: Alert, No Acute Distress, Other (Sleeping) Eye Exam: Positive: Conjunctiva & lids normal; Negative: Sclera icteric ENT Exam: Positive: Other ENT (tongue protrudes, not verbal. About 1 to 1.5 cm long healing scar on forehead; no obvious sign of infection) Neck Exam: Positive: Supple, Other (right central line catheter not in place anymore, covered by dressings) Chest Exam: Positive: Clear to auscultation (on left lung while aus anteriorly), Normal air movement, Rales; Negative: Rhonchi, Wheezing Heart Exam: Positive: Rate Normal, Regular Rhythm Abdomen Exam: Positive: Normal bowel sounds, Soft Extremity Exam: Negative: Edema, Swelling Psych Exam: Positive: Other (alert, no verbal response, spontaneously attempts to block exam. GCS 10 (E4,V1,M5) This may be his baseline) Assessment /Plan Assessment Agree with below. Problems (1) Shock Status: Resolved Response to Treatment: Controlled Problem Specific Plan: Monitor Clinically, Repeat Tests Problem Text: 07/19. Pt BP stable on IV D5w at 80ml/hr. Continue to trend I&O. Vial signs as scheduled. Pt in PCU now. Swallow eval today, may d/c IVF if pt tolerates oral intake 07/18: required levophen from 1722 until about 0200 today, now >12 hours w/o pressor and BP good. Sats good and urine output is good. Likely 2/2 sepsis with a component of hypovolemic shock from dehydration; calculated pos free water deficit 2.1L as of 07/16/18; urine osmolality 702 with oligouria. 9lb weight loss compared to 06/26/18. urine Cx pos for staph epidermidis. On IV Vanco and Meorpenem. Blood Cx neg for 72 hrs. CXR pos for pneumonitis. Hypothermia resolved. High Na and low K likely 2/2 compensatory response to hypovolemia/hypotension. (2) UTI (urinary tract infection) Status: Acute Problem Text: UTI pos with>100,000 staph epidermidis in urine cx; Continue IV Meropnenm day 6. Vital signs as scheduled. Continue to f/u with CBC; vital signs as scheduled. CRP ordered (3) Leukocytosis Status: Acute Problem Text: May be 2/2 to Neupogen for his leukopenia; will continue to monitor CBC with diff. (4) Leukopenia Status: Resolved Problem Text: May be 2/2 to Vancomycin. WBC 3.6 07/19 s/p 1 dose of 300mcg Neupogen; now WBC 13.2. CBC with differentials ordered. Vitals stable on room air not in acute respiratory distress. Continue to f/u with CBC with diff. (5) Hypernatremia Status: Resolved Response to Treatment: Stable Problem Specific Plan: Monitor Clinically, Repeat Labs Problem Text: 07/20 Hyponatremia resolved. Continue D5W for now. Continue to tr end BMP. 07/19 Hyponatremia resolved. Continue D5W for now. Continue to trend BMP 07/18: Sodum improving. Will continue D5W Probably d/t compensatory response to dehydration vs less likely hyperaldost eronism. Plasma renin and aldosterone level ordered. Pt on 20meqK with D5W 75ml/hr as pt also has hypokalemia and hypotension. F/u BMP at 0920. Continue to f/u BMP (6) Hypothyroidism Status: Chronic Response to Treatment: Stable, Controlled Problem Specific Plan: Monitor Clinically Problem Text: PMH of hypothyroidism; T4 and TSH wnl; r/o myexedma coma. IV synthroid conversion equivalent to PO synthroid dose as pt isNPO (7) Anemia Status: Chronic Response to Treatment: Improving Problem Specific Plan: Repeat Labs Problem Text: Likely 2/2 to hemodilution. PMH of anemia as well as GI bleed. Hg on 07/20 11.3, stable. Neg occult blood test. Continue to trend CBC (8) Seizure disorder Status: Chronic Response to Treatment: Controlled Problem Specific Plan: Monitor Clinically Problem Text: PMH of seizure d/o. PO meds on hold as pt NPO now. Seizure precaution ordered (9) Constipation Status: Chronic Response to Treatment: Stable, Controlled Problem Specific Plan: Monitor Clinically Problem Text: PMH of constipation. CT abdomen showed obstipation. 1 bowel movement 07/19. Fleet enema PRN (10) Cognitive impairment Status: Chronic Response to Treatment: Stable Problem Text: [facility] pt with PMH of advanced cognitive impairement with psychosis. Hold home meds now as pt is NPO. Pt not at baseline as more obtunded than usual (11) Severe protein-calorie malnutrition Status: Acute Response to Treatment: Worse Problem Text: 07/20 Speech therapy will evaluate pt today.NPO now, may advance diet as tolerated 07/[address] Shelton is interested in Tube feeding option. Unclear if patient would be able to leave site intact without continous meng restraints. (12) Pneumonia Status: Acute Response to Treatment: Improving Problem Text: continue Meropenem for now. Continue to f/u with CBC; vital signs as scheduled. Resp panel and CRP ordered (13) Physical deconditioning Status: Chronic Response to Treatment: Stable Problem Text: PT ordered unable to evaluate the pt 07/19; will re-assess pt tod ay. Continue to monitor the pt. Activity per PT/OT Plan/VTE VTE Prophylaxis Ordered?: Yes (SCD) Plan/Urinary Catheter Urinary Catheter: Other Catheter: (con klein catheter) Reason for insertion/continuin: Critical Pt monitoring Plan IVF: Continue Diet: Make NPO Activity: Continue Current Therapy: Speech Medications: Replete Electrolytes IV, Bowel Regimen Diagnostics: Check Labs, Repeat Labs in AM, Obtain Cultures VS, I&O, 24H, [facility] Vital Signs/I&O Vital Signs Date Time Temp Pulse Resp B/P (MAP) Pulse Ox O2 Delivery O2 Flow Rate FiO2 07/20/18 04:00 96.1 67 18 98/72 (81) 98 Room Air 07/17/18 18:12 1.0 I&O- Last 24 Hours up to 6 AM 07/20/18 06:00 Intake Total 2220 ml Output Total 3375 ml Balance -1155 ml Laboratory Data 24H LABS Laboratory Tests 2 07/19/18 09:41: Immature Granulocyte % (Auto) 1.0, White Blood Count 3.9L, Red Blood Count 4.14L, Hemoglobin 11.3L, Hematocrit 34.0L, Mean Corpuscular Volume 82.1, Mean Corpuscular Hemoglobin 27.3, Mean Corpuscular Hemoglobin Concent 33.2, Red Cell Distribution Width 15.9H, Platelet Count 162, Neutrophils (%) (Auto) 68.2H, Lym phocytes (%) (Auto) 23.4L, Monocytes (%) (Auto) 5.8H, Eosinophils (%) (Auto) 1.3, Basophils (%) (Auto) 0.3, Neutrophils # (Auto) 2.7, Lymphocytes # (Auto) 0.9L, Monocytes # (Auto) 0.2, Eosinophils # (Auto) 0.1, Basophils # (Auto) 0.0, Nucleated Red Blood Cells % (auto) 1.3H, C-Reactive Protein, Quantitative 12.50H 07/19/18 12:53: Bedside Glucose (Misc Panel) 71L 07/19/18 18:53: Bedside Glucose (Misc Panel) 82 07/20/18 01:48: Bedside Glucose (Misc Panel) 84 07/20/18 05:54: Nucleated Red Blood Cells % (auto) 0.6H, Neutrophils 82H, Lymphocytes (Manual) 16, Monocytes (Manual) 2, Platelet Estimate NORMAL, Anisocytosis 1+, Anion Gap 8, Glomerular Filtration Rate > 60.0, Blood Urea Nitrogen 5L, Creatinine 0.64L, Sodium Level 142, Potassium Level 3.9, Chloride Level 111H, Carbon Dioxide Level 23, Calcium Level 8.1L, C-Reactive Protein, Quantitative 9.49H CBC/BMP Laboratory Tests 07/19/18 09:41 Red Blood Count 4.14 L, Mean Corpuscular Volume 82.1, Mean Corpuscular Hemoglobin 27.3, Mean Corpuscular Hemoglobin Concent 33.2, Red Cell Distribution Width 15.9 H, Neutrophils (%) (Auto) 68.2 H, Lymphocytes (%) (Auto) 23.4 L, Monocytes (%) (Auto) 5.8 H, Eosinophils (%) (Auto) 1.3, Basophils (%) (Auto) 0.3, Neutrophils # (Auto) 2.7, Lymphocytes # (Auto) 0.9 L, Monocytes # (Auto) 0.2, Eosinophils # (Auto) 0.1, Basophils # (Auto) 0.0 07/20/18 05:54 Red Blood Count 4.26 L, Mean Corpuscular Volume 80.0, Mean Corpuscular Hemoglobin 26.5 L, Mean Corpuscular Hemoglobin Concent 33.1, Red Cell Distribution Width 15.9 H, Calcium Level 8.1 L Microbiology Microbiology 07/15/18 Blood Culture - Preliminary, Resulted No Growth after 72 hours. All specime... 07/15/18 Blood Culture - Preliminary, Resulted No Growth after 72 hours. All specime... 07/16/18 Stool Occult Blood (LIZBETH) - Final, Complete 07/20/18 Respiratory Virus Panel (PCR) (LIZBETH) - Final, Complete 07/15/18 Urine Culture - Final, Complete Staphylococcus Epidermidis SKYE ALLEN DO Jul 20, 2018 09:13 THERESA LUQUE DO Jul 20, 2018 19:23
[2018-07-20] MEDS ORDERED: VARIBAR NECTAR 40% w/v 240ML SUSP BTL As Ordered ONE (09:32)
[2018-07-20] MEDS ORDERED: VARIBAR PUDDING 40% w/v 230ML TUBE As Ordered ONE (09:32)
[2018-07-20] MEDS ORDERED: E-Z-PAQUE 96% w/w SUSP 176GM BTL As Ordered ONE (09:32)
[2018-07-20] MEDS: LEVOTHYROXINE 100 MCG (0.1MG) VIAL IV SCH (09:48)
[2018-07-20 09:59] LABS: HEMATOCRIT 35.7 % (42.0-52.0); HEMOGLOBIN 11.9 g/dl (13.5-17.5); MEAN CORPUSCULAR HEMOGLOBIN 27.1 pg (27.0-33.0); MEAN CORPUSCULAR HGB CONC 33.3 g/dl (32.0-36.5); MEAN CORPUSCULAR VOLUME 81.3 fl (80.0-96.0); PLATELET COUNT, AUTOMATED 161 10^3/uL (150-450); RED BLOOD COUNT 4.39 10^6/uL (4.30-6.10)
[2018-07-20 10:13] LABS: ANISOCYTOSIS 1+; LYMPHOCYTES 12 % (16-52); MONOCYTES 5 % (0-8); NEUTROPHILS 81 % (35-75); PLATELET ESTIMATE NORMAL (NORMAL)
[2018-07-20 12:00] VITALS: BP 119/78
[2018-07-20 16:00] VITALS: BP 124/61
--- NOTE | 2018-07-20 16:30 | NUR ---
Moderate oropharyngeal phase dysphagia as characterized by: open mouth posture,poor a/p transfer of thinner liquids and reduced coordination. Pt unwilling to proceed with nectar thick trials limiting outcomes. Recommendations based on observed trials: Puree solids and honey thick liquids (via cup side). Meds crushed in puree assist. Pt must be in full upright position for all meals/med pass/snacks. Addendum: 07/20/18 at 1631 by KAROL BOWSER [facility] KEVIN Amended: Links added.
--- NOTE | 2018-07-20 17:33 | REP ---
COOKIE SWALLOW The procedure was performed under the direct supervision of Dr. Payne. The procedure was performed with Leonie Putnam from speech pathology present. 5 ml aliquots of pudding and honey consistency barium was administered. There is no evidence of penetration or aspiration. The detailed report of this examination will be provided by speech pathology. 1.2 minutes of fluoroscopy time was utilized for this procedure. Reviewed by RODRIGO Tang 07/20/2018 03:13 P Electronically Signed by Raymundo Payne MD 07/20/2018 05:25 P
[2018-07-20 20:00] VITALS: BP 97/61
[2018-07-21] VITALS: BP 102/73
[2018-07-21] MEDS: KCL 20MEQ IN D5W 1000ML 1,000 ML IV SCH ×2 (01:24→08:24)
[2018-07-21 04:00] VITALS: BP 93/66
[2018-07-21] MEDS: SODIUM CHLORIDE 0.9% INJ 10 ML SYR IV SCH ×3 (05:33→21:19)
[2018-07-21] MEDS: LEVOTHYROXINE 50MCG TABLET (0.05MG) PO SCH (06:00)
[2018-07-21 06:17] LABS: HEMATOCRIT 38.6 % (42.0-52.0); HEMOGLOBIN 12.5 g/dl (13.5-17.5); MEAN CORPUSCULAR HEMOGLOBIN 26.9 pg (27.0-33.0); MEAN CORPUSCULAR HGB CONC 32.4 g/dl (32.0-36.5); MEAN CORPUSCULAR VOLUME 83.2 fl (80.0-96.0); PLATELET COUNT, AUTOMATED 209 10^3/uL (150-450); RED BLOOD COUNT 4.64 10^6/uL (4.30-6.10); WHITE BLOOD COUNT 19.5 10^3/uL (4.0-10.0)
[2018-07-21 06:43] LABS: BLOOD UREA NITROGEN 5 MG/DL (7-18); C REACTIVE PROTEIN QUANTITATIV 9.51 MG/DL (0.00-0.30); CALCIUM LEVEL 8.5 MG/DL (8.8-10.2); CARBON DIOXIDE LEVEL 23 MEQ/L (21-32); CHLORIDE LEVEL 110 MEQ/L (98-107); CREATININE FOR GFR 0.71 MG/DL (0.70-1.30); GLOMERULAR FILTRATION RATE > 60.0 (>49); GLUCOSE, FASTING 66 MG/DL (70-100); POTASSIUM SERUM 3.9 MEQ/L (3.5-5.1); SODIUM LEVEL 142 MEQ/L (136-145)
[2018-07-21 07:26] LABS: LYMPHOCYTES 5 % (16-52); MONOCYTES 5 % (0-8); NEUTROPHILS 85 % (35-75)
[2018-07-21 07:27] LABS: ANISOCYTOSIS 1+; PLATELET ESTIMATE NORMAL (NORMAL)
[2018-07-21 07:59] VITALS: BP 103/56
[2018-07-21] MEDS: LEVOTHYROXINE 100 MCG (0.1MG) VIAL IV SCH (08:24)
[2018-07-21] MEDS: MEROPENEM INJ 1 GM in APPROPRIATE DILUENT 1 EA IV SCH ×5 (08:24→23:08)
[2018-07-21] MEDS: MEGESTROL ES SUSP 625 MG/5 ML UDC PO SCH (09:00)
[2018-07-21] MEDS: PARoxetine 20 MG TAB PO SCH (09:00)
[2018-07-21] MEDS: TIAGABINE 4 MG PO SCH ×2 (09:00→20:23)
[2018-07-21] MEDS: PRIMIDONE 250 MG TAB PO SCH ×2 (09:00→20:24)
[2018-07-21] MEDS: FOLIC ACID 1 MG TAB PO SCH (09:00)
[2018-07-21] MEDS: FLEET ENEMA PR SCH (09:00)
[2018-07-21] MEDS: DOCUSATE SOD LIQ 100MG/10ML UDC PO SCH ×2 (09:00→20:23)
[2018-07-21] MEDS: HALOPERIDOL 5 MG TAB PO SCH ×2 (09:00→20:23)
[2018-07-21] MEDS: [UNRECOGNIZED DRUG - OTHER] PO SCH ×2 (09:00→20:23)
[2018-07-21] MEDS: TERAZOSIN 1 MG CAP PO SCH (09:00)
[2018-07-21] MEDS: VITAMIN D 1,000 INTERNATIONAL UNITS TABLET PO SCH (09:00)
[2018-07-21] MEDS: TAMSULOSIN 0.4 MG CAP PO SCH (09:00)
--- NOTE | 2018-07-21 11:30 | IPNPDOC ---
Subjective Date Seen The patient was seen on 07/21/18. Subjective Chief Complaint/HPI Patient is examined at bedside with oralia. Sitter reported that no minimal agitation were observed but no agressive behavior. It was also reported that pt seems to be active compared to yesterday but not at baseline yet per oralia. General: Reports: ROS Unobtainable Objective Physical Examination General Exam: Positive: Alert, No Acute Distress, Other (Sleeping) Eye Exam: Positive: PERRLA, Conjunctiva & lids normal, EOMI, Other Eye Symptoms (unable to assess EOM as not following commands); Negative: Sclera icteric ENT Exam: Positive: Other ENT (tongue protrudes, not verbal. About 1 to 1.5 cm long healing scar on forehead; no obvious sign of infection) Neck Exam: Positive: Supple, Other (right central line catheter not in place anymore, covered by dressings) Chest Exam: Positive: Normal air movement, Rales (on left lung while aus anteriorly); Negative: Rhonchi, Wheezing Heart Exam: Positive: Rate Normal, Regular Rhythm, Normal S1, Normal S2 Abdomen Exam: Positive: Normal bowel sounds, Soft, Other Extremity Exam: Negative: Edema, Swelling Skin Exam: Positive: Nl turgor and temperature Neuro Exam: Positive: Other (Non-verbal as baseline. Voluntary movement during examination attempting to block exam. Open eyes spontaneously. Glascow scale 10; appears to be baseline) Psych Exam: Positive: Other Assessment /Plan Problems (1) Shock Status: Resolved Response to Treatment: Controlled Problem Specific Plan: Monitor Clinically, Repeat Tests Problem Text: Pt passed swallow study for puree/honey thick diet. Sitter who has been taking care of him for 2-3 years reports baseline soft diet. Will try puree diet with assist from speech therapy for feeding. If tolerating PO diet, may d/c IV D5W. Consider d/c Meropenem as pt is day 7 for pneumonitis questionable for pneumonia. Consider transfer pt to [facility] as more medically stable now Likely 2/2 sepsis with a component of hypovolemic shock from dehydration; calculated pos free water deficit 2.1L as of 07/16/18; urine osmolality 702 with oligouria. 9lb weight loss compared to 06/26/18. urine Cx pos for staph epidermidis. On IV Meorpenem day 7. Blood Cx neg for 72 hrs. CXR pos for pneumonitis. Hypothermia resolved. Initial high Na and low K likely 2/2 compensatory response to hypovolemia/hypotension. (2) UTI (urinary tract infection) Status: Acute Problem Text: UTI pos with>100,000 staph epidermidis in urine cx; On IV Meropnenm day 7, consider switching to PO daptomycin as pt has complicated UTI thus require antibiotic treatment 10-14 days; PCN allergy with cross reaction . Vital signs as scheduled. Continue to f/u with CBC; vital signs as scheduled. CRP mildly elevated compared to yesterday at 9.5 but roughly stable (3) Leukocytosis Status: Acute Problem Text: May be 2/2 to Neupogen for his leukopenia; will continue to monitor CBC with diff. (4) Leukopenia Status: Resolved Problem Text: May be 2/2 to Vancomycin. WBC 3.6 07/19 s/p 1 dose of 300mcg Neupogen; now WBC 19.5. Vitals stable on room air not in acute respiratory distress. Continue to f/u with CBC. (5) Hypothyroidism Status: Chronic Response to Treatment: Stable, Controlled Problem Specific Plan: Monitor Clinically Problem Text: PMH of hypothyroidism; T4 and TSH wnl; r/o myexedma coma. Currently on IV synthroid conversion equivalent to PO synthroid dose as pt just passed swallow eval. May resume home PO synthroid if tolerating PO diet well (6) Anemia Status: Chronic Response to Treatment: Improving Problem Specific Plan: Repeat Labs Problem Text: Likely 2/2 to hemodilution. PMH of anemia as well as GI bleed. Hg on 07/21 12.5, improving. Neg occult blood test. Continue to trend CBC (7) Seizure disorder Status: Chronic Response to Treatment: Controlled Problem Specific Plan: Monitor Clinically Problem Text: PMH of seizure d/o. Will resume home seizure med if tolerating PO diet well. Seizure precaution ordered (8) Constipation Status: Resolved Response to Treatment: Stable, Controlled Problem Specific Plan: Monitor Clinically Problem Text: PMH of constipation. CT abdomen showed obstipation. 2 bowel movements this morning so far. Fleet enema PRN. May resume home med Docusate, milk of magnesia, and miralax if pt tolerating PO diet well. (9) Cognitive impairment Status: Chronic Response to Treatment: Stable Problem Text: [facility] pt with PMH of advanced cognitive impairement with psychosis. Hold home meds now as pt just passed swallow eval; may resume if tolerating PO diet well. Pt more active compared to yesterday but not at baseline yet (10) Severe protein-calorie malnutrition Status: Chronic Problem Text: 07/21 Passed swallow eval for puree diet. Instructions to sit up for all oral intake with ST assist ordered. Dietary consult ordered as pt albumin 1.4 07/20 Speech therapy will evaluate pt today.NPO now, may advance diet as tole rated 07/[address] Shelton is interested in Tube feeding option. Unclear if patient would be able to leave site intact without continous meng restraints. (11) Pneumonia Status: Acute Response to Treatment: Improving Problem Text: continue Meropenem for now day 7, october d/c for pneumonia. Pt will continue to be on antibiotics for complicated UTI. Continue to f/u with CBC; vital signs as scheduled. Continue to f/u CRP (12) Physical deconditioning Status: Chronic Response to Treatment: Stable Problem Text: PT d/c as pt unable to follow command. d/c bedrest; OOB with assist. Plan/VTE VTE Prophylaxis Ordered?: Yes (SCD) Plan/Urinary Catheter Urinary Catheter: D/C Jimenez Reason for insertion/continuin: Critical Pt monitoring Plan IVF: Continue Diet: Advance (Passed swallow eval for puree/honey thick diet. diet ordered with feeding assist. May resume PO med if tolerating PO diet. Consider down- grading to med surge. Dietary consult. OOB with assist. Consider switching to PO antibiotics for complicated UTI) Activity: Continue Current Therapy: Speech Medications: Bowel Regimen Diagnostics: Check Labs, Repeat Labs in AM Disposition Passed swallow eval for puree/honey thick diet; ordered with feeding assist with ST. May resume PO meds if tolerating PO diet well. Consider switching to PO antibiotics as pt has complicated UTI. Meropenem day 7. OOB with assist. VS, I&O, 24H, Fishbone Vital Signs/I&O Vital Signs Date Time Temp Pulse Resp B/P (MAP) Pulse Ox O2 Delivery O2 Flow Rate FiO2 07/21/18 07:59 96.7 75 18 103/56 (72) 98 Room Air 07/17/18 18:12 1.0 I&O- Last 24 Hours up to 6 AM 07/21/18 06:00 Intake Total 1100 ml Output Total 550 ml Balance 550 ml Laboratory Data 24H LABS Laboratory Tests 2 07/20/18 12:10: Bedside Glucose (Misc Panel) 68L 07/20/18 17:45: Bedside Glucose (Misc Panel) 77L 07/20/18 23:47: Bedside Glucose (Misc Panel) 77L 07/21/18 05:57: Nucleated Red Blood Cells % (auto) 0.2H, Neutrophils 85H, Band Neutrophils 5, Lymphocytes (Manual) 5L, Monocytes (Manual) 5, Platelet Estimate NORMAL, Anisocytosis 1+, Macrocytosis 1+, Anion Gap 9, Glomerular Filtration Rate > 60.0, Blood Urea Nitrogen 5L, Creatinine 0.71, Sodium Level 142, Potassium Level 3.9, Chloride Level 110H, Carbon Dioxide Level 23, Calcium Level 8.5L, C- Reactive Protein, Quantitative 9.51H 07/21/18 05:58: Bedside Glucose (Misc Panel) 68L CBC/BMP Laboratory Tests 07/21/18 05:57 Red Blood Count 4.64, Mean Corpuscular Volume 83.2, Mean Corpuscular Hemoglobin 26.9 L, Mean Corpuscular Hemoglobin Concent 32.4, Red Cell Distribution Width 15.9 H, Calcium Level 8.5 L Microbiology Microbiology 07/15/18 Blood Culture - Final, Complete NO GROWTH AFTER 5 DAYS 07/15/18 Blood Culture - Final, Complete NO GROWTH AFTER 5 DAYS 07/16/18 Stool Occult Blood (LIZBETH) - Final, Complete 07/20/18 Respiratory Virus Panel (PCR) (LIZBETH) - Final, Complete 07/15/18 Urine Culture - Final, Complete Staphylococcus Epidermidis SKYE ALLEN DO Jul 21, 2018 11:29
[2018-07-21 12:00] VITALS: BP 118/79
[2018-07-21] MEDS ORDERED: MIRALAX *UNIT DOSE* 17GM PACKET PO PRN (12:15)
--- NOTE | 2018-07-21 14:55 | NUR ---
Pt was seen this date for follow up to modified barium swallow study w/recommendations for puree solids and honey thick liquids. As stated in the report, Pt participated in swallowing only 2 trials (puree & honey). DAVID Foote expressed to me this morning that she was having a difficult time feeding him and found that much of the bolus was spilling anteriorly and that he was coughing post-swallowing. During this follow up session, Pt was placed in a chair and supported with the help of [facility] patient care assistant. Trials began with honey thick cranberry juice from a nosey cup. Pt tolerated 2 swallows well and w/o overt s/s of aspiration/penetration. Trials then proceeded to puree whereby the first 2 bites were tolerated. Following the 5th bite, Pt began to cough post-swallow and puree solids were stopped. Anterior spillage noted throughout but this is baseline for Pt. Pt was then given one more honey thick liquid trial, as he tolerated it well initially. Post cough cough began again and cranberry juice tint was present in secretions coming from his nose. All trials were stopped. Pt mouth was suctioned. It was reported to DAVID Foote and to Dr. Perez that resuming NPO is recommended. Addendum: 07/21/18 at 1506 by KAROL BOWSER [facility] KEVIN Amended: Links added.
[2018-07-21 15:27] LABS: ALDOSTERONE < 1.0 ng/dL (0.0-30.0)
[2018-07-21] MEDS: LACTULOSE 20 GM/30 ML SYRUP UD PO SCH ×2 (16:00→20:23)
[2018-07-21 16:33] LABS: CALCIUM LEVEL 8.6 MG/DL (8.8-10.2); PHOSPHORUS LEVEL 2.6 MG/DL (2.5-4.9); URIC ACID 5.8 MG/DL (3.5-7.2)
[2018-07-21] MEDS: D5W/0.45% SODIUM CHLORIDE 1,000 ML IV SCH (17:30)
[2018-07-21 20:00] VITALS: BP 125/71
[2018-07-21] MEDS ORDERED: MOM 30ML SUSPENSION UDC PO SCH (21:00)
[2018-07-21] MEDS ORDERED: traZODone 50 MG TAB PO SCH (21:00)
[2018-07-21] MEDS ORDERED: risperiDONE 0.5 MG TAB PO SCH (21:00)
[2018-07-21 23:45] VITALS: BP 110/77
[2018-07-22] VITALS (9 sets, daily range): BP systolic 70–111; BP diastolic 46–80
[2018-07-22] MEDS: D5W/0.45% SODIUM CHLORIDE 1,000 ML IV SCH ×3 (01:00→17:53)
[2018-07-22] MEDS: SODIUM CHLORIDE 0.9% INJ 10 ML SYR IV SCH ×3 (06:00→22:00)
[2018-07-22] MEDS: LEVOTHYROXINE 50MCG TABLET (0.05MG) PO SCH (06:01)
[2018-07-22 08:30] LABS: HEMATOCRIT 37.2 % (42.0-52.0); MEAN CORPUSCULAR HGB CONC 32.3 g/dl (32.0-36.5); MEAN CORPUSCULAR VOLUME 83.6 fl (80.0-96.0); PLATELET COUNT, AUTOMATED 238 10^3/uL (150-450); RED BLOOD COUNT 4.45 10^6/uL (4.30-6.10); WHITE BLOOD COUNT 14.7 10^3/uL (4.0-10.0)
[2018-07-22 08:54] LABS: BLOOD UREA NITROGEN 3 MG/DL (7-18); C REACTIVE PROTEIN QUANTITATIV 8.13 MG/DL (0.00-0.30); CALCIUM LEVEL 8.6 MG/DL (8.8-10.2); CARBON DIOXIDE LEVEL 27 MEQ/L (21-32); CHLORIDE LEVEL 108 MEQ/L (98-107); CREATININE FOR GFR 0.64 MG/DL (0.70-1.30); GLOMERULAR FILTRATION RATE > 60.0 (>49); GLUCOSE, FASTING 69 MG/DL (70-100); POTASSIUM SERUM 3.3 MEQ/L (3.5-5.1); SODIUM LEVEL 142 MEQ/L (136-145)
[2018-07-22 08:56] LABS: ANISOCYTOSIS 1+; EOSINOPHILS 2 % (0-5); LYMPHOCYTES 5 % (16-52); MONOCYTES 4 % (0-8); NEUTROPHILS 88 % (35-75)
[2018-07-22 08:57] LABS: PLATELET ESTIMATE NORMAL (NORMAL)
[2018-07-22] MEDS: FOLIC ACID 1 MG TAB PO SCH (10:01)
[2018-07-22] MEDS: PARoxetine 20 MG TAB PO SCH (10:01)
[2018-07-22] MEDS: TAMSULOSIN 0.4 MG CAP PO SCH (10:01)
[2018-07-22] MEDS: VITAMIN D 1,000 INTERNATIONAL UNITS TABLET PO SCH (10:01)
[2018-07-22] MEDS: TERAZOSIN 1 MG CAP PO SCH (10:01)
[2018-07-22] MEDS: HALOPERIDOL 5 MG TAB PO SCH (10:02)
[2018-07-22] MEDS: TIAGABINE 4 MG PO SCH ×2 (10:02→23:57)
[2018-07-22] MEDS: PRIMIDONE 250 MG TAB PO SCH (10:02)
[2018-07-22] MEDS: [UNRECOGNIZED DRUG - OTHER] PO SCH (10:02)
[2018-07-22] MEDS: DOCUSATE SOD LIQ 100MG/10ML UDC PO SCH (10:03)
[2018-07-22] MEDS: MEGESTROL ES SUSP 625 MG/5 ML UDC PO SCH (10:03)
[2018-07-22] MEDS: LACTULOSE 20 GM/30 ML SYRUP UD PO SCH (10:03)
[2018-07-22] MEDS: MEROPENEM INJ 1 GM in APPROPRIATE DILUENT 1 EA IV SCH ×2 (10:04→17:31)
[2018-07-22] MEDS: HALOPERIDOL DECANOATE 100 MG/ML VIAL (J1631) IM SCH (10:04)
[2018-07-22] MEDS ORDERED: KCL 20MEQ IN 100ML SWI (KRUN) 20 MEQ in APPROPRIATE DILUENT 1 EA IV ONE ×2 (13:00)
[2018-07-22] MEDS: KCL 10MEQ/100ML SWI (KRUN) X 2 DOSES (20MEQ TOTAL) IV SCH ×4 (14:00→15:00)
[2018-07-22 14:28] LABS: MAGNESIUM LEVEL 1.8 MG/DL (1.8-2.4)
[2018-07-22 14:44] LABS: RENIN LEVEL 0.999 ng/mL/hr (0.167-5.380)
--- NOTE | 2018-07-22 16:47 | IPNPDOC ---
Subjective Date Seen The patient was seen on 07/22/18. Subjective Chief Complaint/HPI Patient was examined at bedside with sitter at bedside around 2pm. It was reported that patient appeared to be agitated in the morning but after a dose of Haloperidol. It was also noted that pt fell earlier today, but no apparent trauma and vital signs were stable for a period of time after the all. It was noted that a consent for PEG tube was given per [facility]; pt's passed swallow study but food was observed in nostrils during feeding. It was noted that IV bag was not running because IV access was lost General: Reports: ROS Unobtainable Objective Physical Examination General Exam: Positive: No Acute Distress, Other (Pt is sleeping at the time of the examination) Eye Exam: Positive: Other Eye Symptoms (unable to assess EOM as not following commands); Negative: Sclera icteric ENT Exam: Positive: Other ENT (tongue protrudes, not verbal. About 1 to 1.5 cm long healing scar on forehead; no obvious sign of infection) Neck Exam: Positive: Supple, Other (right central line not in place anymore; covered with dressing) Chest Exam: Positive: Normal air movement, Rales (on left lung while aus anteriorly); Negative: Rhonchi, Wheezing Heart Exam: Positive: Rate Normal, Regular Rhythm, Normal S1, Normal S2 Abdomen Exam: Positive: Normal bowel sounds, Soft, Other Extremity Exam: Negative: Edema, Swelling Skin Exam: Positive: Other skin issue (Skin appears to be dry) Neuro Exam: Positive: Other (Patient is sleeping. Does not open eyes spontaneously. Withdraw to pain) Assessment /Plan Assessment CDT -- I called [facility] yesterday afternoon after Mr. Hamilton visibly aspirated the first couple bites of his diet (with ST in the room.) His guardian, Mr. William Zhong, returned my call this morning and verbally agreed to a PEG tube. Surgery was consulted, and felt that he was not a surgical candidate secondary to airway concerns with his protruding, enlarged tongue. They advised that he should have a feeding tube placed via IR, which we do not have the ability to do here. As a result, I ordered an NG tube to allow at least temporary nutrition. Despite having a sitter in the room, and mitts on his hands, Mr. Hamilton pulled the NG tube within an hour of it being placed. I reached Mr. Zhong [phone] and discussed. He is amenalbe to attempting TPN via PICC line until we can obtain a feeding tube via IR. I was notified this evening that Mr. Hamilton was hypotensive when I was told that his IV access had been lost earlier in the day. He appeared comfortable, if sleepy. His blood pressure has improved with normal saline, and I suspect that the etiology of this is volume depletion. We also gave him an amp of D50 to tr eat his hypoglycemia. Problems (1) Shock Status: Resolved Response to Treatment: Controlled Problem Specific Plan: Monitor Clinically, Repeat Tests Problem Text: Pt passed swallow study for puree/honey thick diet however food observed in nostrils during feeding; Patient was made NPO with PO meds on hold. Pt on Meropenem IV still as pt is day 8 for pneumonitis questionable for pneumonia. Consent for PEG tube was given. Discussed with Dr. Miller, pt not a surgical candidate; patient will need to get PEG tube placement with IR in [place]. At the time of the examination IVF was not running as IV access was lost. Orders or IV access on ventral foot was given. Pt had received 2 of the 500L IVF so far; pt BP improving after IVF bolus. Continue to f/u vital signs. May replete more bolus fluid if needed. NG tube placement with Jervidi 1.5 ordered Likely 2/2 sepsis with a component of hypovolemic shock from dehydration; calculated pos free water deficit 2.1L as of 07/16/18; urine osmolality 702 with oligouria. 9lb weight loss compared to 06/26/18. urine Cx pos for staph epidermidis. On IV Meorpenem day 7. Blood Cx neg for 72 hrs. CXR pos for pneumonitis. Hypothermia resolved. Initial high Na and low K likely 2/2 compensatory response to hypovolemia/hypotension. (2) UTI (urinary tract infection) Status: Acute Problem Text: UTI pos with>100,000 staph epidermidis in urine cx; On IV Meropnenm day 8, Pt NPO; pt has complicated UTI thus require antibiotic treatment 10-14 days; PCN allergy with cross reaction . Vital signs as scheduled. Continue to f/u with CBC; vital signs as scheduled. CRP trending down at 8.13 (3) Leukocytosis Status: Acute Response to Treatment: Improving Problem Text: May be 2/2 to Neupogen for his leukopenia; Leukocytosis improving WBC 13 today. will continue to monitor CBC (4) Hypothyroidism Status: Chronic Response to Treatment: Stable, Controlled Problem Specific Plan: Monitor Clinically Problem Text: PMH of hypothyroidism; T4 and TSH wnl; r/o myexedma coma. PO synthroid dose through NG tube feeding (5) Anemia Status: Chronic Response to Treatment: Improving Problem Specific Plan: Repeat Labs Problem Text: Likely 2/2 to hemodilution. PMH of anemia as well as GI bleed. Hg on 07/21 12.5, improving. Neg occult blood test. Continue to trend CBC (6) Seizure disorder Status: Chronic Response to Treatment: Controlled Problem Specific Plan: Monitor Clinically Problem Text: PMH of seizure d/o. Home seizure med through NG tube. Seizure precaution ordered (7) Constipation Status: Resolved Response to Treatment: Stable, Controlled Problem Specific Plan: Monitor Clinically Problem Text: PMH of constipation. CT abdomen showed obstipation. bowel movements noted 07/21. Fleet enema PRN. (8) Cognitive impairment Status: Chronic Response to Treatment: Stable Problem Text: [facility] pt with PMH of advanced cognitive impairement with psychosis. Hold home meds as pt NPO (9) Severe protein-calorie malnutrition Status: Chronic Problem Text: 07/22 Pt NPO as not tolerating puree diet well. NG tube placement with ensure ordered. 07/21 Passed swallow eval for puree diet. Instructions to sit up for all oral intake with ST assist ordered. Dietary consult ordered as pt albumin 1.4 07/20 Speech therapy will evaluate pt today.NPO now, may advance diet as tolerated 07/[address] Shelton is interested in Tube feeding option. Unclear if patient would be able to leave site intact without continous meng restraints. (10) Pneumonia Status: Acute Response to Treatment: Stable, Improving Problem Text: continue Meropenem for now day 8, october d/c for pneumonia. Pt will continue to be on antibiotics for complicated UTI. Continue to f/u with CBC; vital signs as scheduled. Continue to f/u CRP (11) Physical deconditioning Status: Chronic Response to Treatment: Stable Problem Text: PT d/c as pt unable to follow command. d/c bedrest; OOB with assist. Plan/VTE VTE Prophylaxis Ordered?: Yes (SCD) Plan/Urinary Catheter Urinary Catheter: D/C Klein, Other Catheter: (klein catheter PRN no void) Reason for insertion/continuin: Critical Pt monitoring Plan IVF: Continue Diet: Advance (Passed swallow eval for puree/honey thick diet. diet ordered with feeding assist. May resume PO med if tolerating PO diet. Consider down- grading to med surge. Dietary consult. OOB with assist. Consider switching to PO antibiotics for complicated UTI) Activity: Continue Current Medications: Bowel Regimen Diagnostics: Check Labs, Repeat Labs in AM Disposition Pt IV access was lost; re-established IV assess. NG tub placed with feeding Jevirdi 1.5. Mits ordered. Meds will be crushed feed through feeding tube VS, I&O, 24H, Fishbone Vital Signs/I&O Vital Signs Date Time Temp Pulse Resp B/P (MAP) Pulse Ox O2 Delivery O2 Flow Rate FiO2 07/22/18 14:00 98.5 66 18 71/46 (54) 98 Room Air 07/22/18 10:00 1.0 I&O- Last 24 Hours up to 6 AM 07/22/18 06:00 Intake Total 1470 ml Output Total 300 ml Balance 1170 ml Laboratory Data 24H LABS Laboratory Tests 2 07/21/18 17:12: Bedside Glucose (Misc Panel) 60L 07/21/18 18:20: Bedside Glucose (Misc Panel) 85 07/21/18 23:38: Bedside Glucose (Misc Panel) 63L 07/22/18 04:30: Urine Color STRAW, Urine Appearance CLEAR, Urine pH 7.0, Urine Specific [place] 1.005, Urine Protein NEGATIVE, Urine Glucose (UA) NEGATIVE, Urine Ketones NEGATIVE, Urine Blood NEGATIVE, Urine Nitrite NEGATIVE, Urine Bilirubin NEGAT REAL, Urine Urobilinogen 0.2, Urine Leukocyte Esterase NEGATIVE, Urine WBC (Auto) 1, Urine RBC (Auto) 3, Urine Hyaline Casts (Auto) 0, Urine Bacteria (Auto) NEGATIVE, Urine Squamous Epithelial Cells 0, Urine Sperm (Auto) 07/22/18 06:23: Bedside Glucose (Misc Panel) 87 07/22/18 08:18: Nucleated Red Blood Cells % (auto) 0.1H, Neutrophils 88H, Band Neutrophils 1, Lymphocytes (Manual) 5L, Monocytes (Manual) 4, Eosinophils (Manual) 2, Platelet Estimate NORMAL, Anisocytosis 1+, Macrocytosis 1+, Anion Gap 7L, Glomerular Filtration Rate > 60.0, Blood Urea Nitrogen 3L, Creatinine 0.64L, Sodium Level 142, Potassium Level 3.3L, Chloride Level 108H, Carbon Dioxide Level 27, Calcium Level 8.6L, Magnesium Level 1.8, C-Reactive Protein, Quantitative 8.13H 07/22/18 11:39: Bedside Glucose (Misc Panel) 76L CBC/BMP Laboratory Tests 07/22/18 08:18 Red Blood Count 4.45, Mean Corpuscular Volume 83.6, Mean Corpuscular Hemoglobin 27.0, Mean Corpuscular Hemoglobin Concent 32.3, Red Cell Distribution Width 16.6 H, Calcium Level 8.6 L Microbiology Microbiology 07/15/18 Blood Culture - Final, Complete NO GROWTH AFTER 5 DAYS 07/15/18 Blood Culture - Final, Complete NO GROWTH AFTER 5 DAYS 07/16/18 Stool Occult Blood (LIZBETH) - Final, Complete 07/20/18 Respiratory Virus Panel (PCR) (LIZBETH) - Final, Complete 07/15/18 Urine Culture - Final, Complete Staphylococcus Epidermidis SKYE ALLEN DO Jul 22, 2018 16:47 THERESA LUQUE DO Jul 22, 2018 19:31
[2018-07-22] MEDS ORDERED: SODIUM CHLORIDE 0.9% 1000ML IV ONE (17:15)
[2018-07-22] MEDS ORDERED: POTASSIUM CHLORIDE 10% LIQ 20 MEQ/15 ML UDC NG ONE (17:15)
[2018-07-22] MEDS ORDERED: DEXTROSE 50% 50 ML SYRINGE IV STA (17:44)
[2018-07-22] MEDS ORDERED: NS 1,000 ML IV ONE (18:45)
[2018-07-22] MEDS ORDERED: LEVOTHYROXINE 50MCG TABLET (0.05MG) PO STA (18:47)
--- NOTE | 2018-07-22 19:43 | REP ---
CHEST, PORTABLE: AP portable view of the chest was performed and compared to prior studies, most recent of which is 07/15/2018. Scattered bilateral infiltrates appear somewhat improved although residual infiltrates are present particularly in the lower lung zones. The cardiomediastinal silhouette is unchanged. A nasogastric tube is visualized with the distal end in the stomach. IMPRESSION: Bilateral infiltrates have improved since prior study of 07/15/2018. A nasogastric tube is seen with the distal tip in the region of the stomach. Electronically Signed by Mj Warren MD 07/22/2018 07:50 P
[2018-07-22] MEDS ORDERED: GLUCAGON FOR INJ 1 MG VIAL (J1610) SC PRN (19:45)
[2018-07-22] MEDS: KCL 20MEQ IN D5/0.45NS 1000ML 1,000 ML IV SCH (23:58)
[2018-07-23 06:00] VITALS: BP 90/58
[2018-07-23] MEDS: SODIUM CHLORIDE 0.9% INJ 10 ML SYR IV SCH ×3 (06:00→22:00)
[2018-07-23 06:18] LABS: HEMATOCRIT 28.2 % (42.0-52.0); MEAN CORPUSCULAR HEMOGLOBIN 27.2 pg (27.0-33.0); MEAN CORPUSCULAR HGB CONC 32.3 g/dl (32.0-36.5); MEAN CORPUSCULAR VOLUME 84.2 fl (80.0-96.0); PLATELET COUNT, AUTOMATED 177 10^3/uL (150-450); RED BLOOD COUNT 3.35 10^6/uL (4.30-6.10); WHITE BLOOD COUNT 8.6 10^3/uL (4.0-10.0)
[2018-07-23 06:26] LABS: HEMOGLOBIN 9.1 g/dl (13.5-17.5)
[2018-07-23 06:29] LABS: BLOOD UREA NITROGEN 4 MG/DL (7-18); C REACTIVE PROTEIN QUANTITATIV 4.65 MG/DL (0.00-0.30); CALCIUM LEVEL 7.3 MG/DL (8.8-10.2); CARBON DIOXIDE LEVEL 23 MEQ/L (21-32); CHLORIDE LEVEL 116 MEQ/L (98-107); CREATININE FOR GFR 0.43 MG/DL (0.70-1.30); GLOMERULAR FILTRATION RATE > 60.0 (>49); GLUCOSE, FASTING 94 MG/DL (70-100); POTASSIUM SERUM 3.5 MEQ/L (3.5-5.1); SODIUM LEVEL 144 MEQ/L (136-145)
[2018-07-23] MEDS: LEVOTHYROXINE 50MCG TABLET (0.05MG) PO SCH (06:45)
--- NOTE | 2018-07-23 07:31 | IPNPDOC ---
Subjective Date Seen The patient was seen on 07/23/18. Subjective Chief Complaint/HPI Pt is examined with sitter at bedside. Review of system was non-obtainable. It was noted that patient had been moving around on bed. Objective Physical Examination General Exam: Positive: Alert, No Acute Distress Eye Exam: Positive: Other Eye Symptoms (unable to assess EOM as not following commands); Negative: Sclera icteric ENT Exam: Positive: Other ENT (tongue protrudes, not verbal. About 1 to 1.5 cm long healing scar on forehead; no obvious sign of infection) Neck Exam: Positive: Supple, Other (right central line not in place anymore; covered with dressing) Chest Exam: Positive: Normal air movement, Rales; Negative: Rhonchi, Wheezing Heart Exam: Positive: Rate Normal, Regular Rhythm, Normal S1, Normal S2 Abdomen Exam: Positive: Normal bowel sounds, Soft, Other Extremity Exam: Negative: Edema, Swelling Skin Exam: Positive: Other skin issue (Skin appears to be nildly dry) Neuro Exam: Positive: Other (Patient opens eye spontaneously. Spontaneous movement. Non-verbal); Negative: Normal Speech Assessment /Plan Assessment CDT -- spoke with Mr. William Zhong earlier today, after the hospital was unable to place a PICC for TPN. I was clear with him that we had exhausted our abilities to provide nutrition for Mr. Hamilton here. If he is not made DIRECTOR OF IT OPERATIONS status, would require transfer to another facility with interventional radiology for consideration/attempt to place feeding tube. Discussed that this would not eliminate the risk of aspiration, and I suspect that he is unlikely to maintain the upright positioning necessary to limit aspiration risk with a feeding tube. I also discussed my concerns that Mr. Hamilton was unlikely to tolerate having a feeding tube, as he pulls incessantly on anything placed on or in him. When I saw him this evening, he had stripped off his diaper, and was trying to pull off a Bandaid on his finger with his teeth. He has repeatedly pulled out IVs, and managed to pull out an NG tube within an hour of its placement despite having mitts placed on him and having a sitter from [facility] physically present in the room. Mr. Zhong said that he was familiar with the risks and benefits, and would try to get together with the guardianship committee and "start the process," discussing a MOLST form and plan for care. At this point, our therapeutic options for Mr. Hamilton are either to transfer and attempt placement of a feeding tube elsewhere, or to make him DIRECTOR OF IT OPERATIONS with no artificial nutrition or hydration. Problems (1) Dysphagia Problem Text: 07/23 -- ultimately, many of Mr. Hamilton' problems are secondary to his dysphagia. He has been losing weight and has had multiple episodes of pneumonia, felt secondary to aspiration. Though he passed a swallow evaluation earlier this week, he visibly aspirated the same diet, with a speech therapist, the very next day. This directly contributes to his malnutrition and aspiration. His weight loss prior to hospitalization probably reflects decreased intake secondary to dysphagia. (2) Shock Status: Resolved Response to Treatment: Improving, Controlled Problem Specific Plan: Monitor Clinically, Repeat Tests Problem Text: 07/23 Pt's BP gradually increase. MAP>65 since 10pm last night.Currently on IV D5W WITH 20Meq KCl. PICC line scheduled for today but was unable to get it done. Will discuss with Guardian as pt unable to tolerate PO diet 07/22 Pt passed swallow study for puree/honey thick diet however food observed in nostrils during feeding; Patient was made NPO with PO meds on hold. Pt on Merop enem IV still as pt is day 8 for pneumonitis questionable for pneumonia. Consent for PEG tube was given. Discussed with Dr. Miller, pt not a surgical candidate; patient will need to get PEG tube placement with IR in [place]. At the time of the examination IVF was not running as IV access was lost. Orders or IV access on ventral foot was given. Pt had received 2 of the 500L IVF so far; pt BP improving after IVF bolus. Continue to f/u vital signs. May replete more bolus fluid if needed. NG tube placement with Jervidi 1.5 ordered Likely 2/2 sepsis with a component of hypovolemic shock from dehydration; calculated pos free water deficit 2.1L as of 07/16/18; urine osmolality 702 with oligouria. 9lb weight loss compared to 06/26/18. urine Cx pos for staph epidermidis. On IV Meorpenem day 7. Blood Cx neg for 72 hrs. CXR pos for pneumonitis. Hypothermia resolved. Initial high Na and low K likely 2/2 compensatory response to hypovolemia/hypotension. (3) Severe protein-calorie malnutrition Status: Chronic Problem Text: 07/23 Pt NPO. Will discuss with Guardian for feeding issue 07/22 Pt NPO as not tolerating puree diet well. NG tube placement with ensure ordered. 07/21 Passed swallow eval for puree diet. Instructions to sit up for all oral intake with ST assist ordered. Dietary consult ordered as pt albumin 1.4 07/20 Speech therapy will evaluate pt today.NPO now, may advance diet as tolerated 07/[address] Shelton is interested in Tube feeding option. Unclear if patient would be able to leave site intact without continous meng restraints. (4) UTI (urinary tract infection) Status: Acute Problem Text: UTI pos with>100,000 staph epidermidis in urine cx; On IV Meropnenm day 9, Pt NPO; pt has complicated UTI thus require antibiotic treatment 10-14 days; PCN allergy with cross reaction . Vital signs as scheduled. Continue to f/u with CBC; vital signs as scheduled. CRP trending down at 8.13 (5) Leukocytosis Status: Resolved Response to Treatment: Improving Problem Text: WBCs and CRP trending downward, consistent with resolving PNA (6) Hypothyroidism Status: Chronic Response to Treatment: Stable, Controlled Problem Specific Plan: Monitor Clinically Problem Text: 07/23 -- chronic and stable. No PO levothyroxine as no NG tube and NPO. PMH of hypothyroidism; T4 and TSH wnl; r/o myexedma coma. PO synthroid dose through NG tube feeding (7) Anemia Status: Chronic Problem Specific Plan: Repeat Labs Problem Text: Hg 9.1 today compared to 12.5 yesterday. Likely 2/2 to hemodilution. PMH of anemia as well as GI bleed. Neg occult blood test. Contin ue to trend CBC (8) Seizure disorder Status: Chronic Response to Treatment: Controlled Problem Specific Plan: Monitor Clinically Problem Text: PMH of seizure d/o. Hold PO meds as pt NPO now. Seizure precaution ordered (9) Cognitive impairment Status: Chronic Response to Treatment: Stable Problem Text: [facility] pt with PMH of advanced cognitive impairement with psychosis. Hold PO meds as pt NPO now. (10) Pneumonia Status: Acute Response to Treatment: Stable, Improving Problem Text: 07/13 -- Meropenem has been stopped. No respiratory distress, though at risk for future aspiration. continue Meropenem for now day 9, may d/c for pneumonia. Pt will continue to be on antibiotics for complicated UTI. CRP trending down, continue to f/u with CRP; vital signs as scheduled. (11) Physical deconditioning Status: Chronic Response to Treatment: Stable Problem Text: PT d/c as pt unable to follow command. d/c bedrest; OOB with assist. Sitter with fall precaution. (12) Constipation Status: Resolved Response to Treatment: Stable, Controlled Problem Specific Plan: Monitor Clinically Problem Text: PMH of constipation. CT abdomen showed obstipation. bowel movements noted 07/21. Fleet enema PRN. Plan/VTE VTE Prophylaxis Ordered?: Yes (SCD) Plan/Urinary Catheter Urinary Catheter: D/C Klein, Other Catheter: (klein catheter PRN no void) Reason for insertion/continuin: Critical Pt monitoring Plan IVF: Continue Diet: Advance (Passed swallow eval for puree/honey thick diet. diet ordered with feeding assist. May resume PO med if tolerating PO diet. Consider down- grading to med surge. Dietary consult. OOB with assist. Consider switching to PO antibiotics for complicated UTI) Activity: Continue Current Medications: Bowel Regimen Diagnostics: Check Labs, Repeat Labs in AM Disposition Meropenem day 9; pending feeding route VS, I&O, 24H, [place] Vital Signs/I&O Vital Signs Date Time Temp Pulse Resp B/P (MAP) Pulse Ox O2 Delivery O2 Flow Rate FiO2 07/23/18 06:00 48 20 90/58 (69) 99 Room Air 07/22/18 22:00 96.1 07/22/18 10:00 1.0 I&O- Last 24 Hours up to 6 AM 07/23/18 06:00 Intake Total 3180 ml Balance 3180 ml Laboratory Data 24H LABS Laboratory Tests 2 07/22/18 08:18: Nucleated Red Blood Cells % (auto) 0.1H, Neutrophils 88H, Band Neutrophils 1, Lymphocytes (Manual) 5L, Monocytes (Manual) 4, Eosinophils (Manual) 2, Platelet Estimate NORMAL, Anisocytosis 1+, Macrocytosis 1+, Anion Gap 7L, Glomerular Filtration Rate > 60.0, Blood Urea Nitrogen 3L, Creatinine 0.64L, Sodium Level 142, Potassium Level 3.3L, Chloride Level 108H, Carbon Dioxide Level 27, Calcium Level 8.6L, Magnesium Level 1.8, C-Reactive Protein, Quantitative 8.13H 07/22/18 11:39: Bedside Glucose (Misc Panel) 76L 07/22/18 17:54: Bedside Glucose (Misc Panel) 67L 07/22/18 18:26: Bedside Glucose (Misc Panel) 92 07/23/18 00:26: Bedside Glucose (Misc Panel) 73L 07/23/18 05:52: Nucleated Red Blood Cells % (auto) 0.2H, Anion Gap 5L, Glomerular Filtration Rate > 60.0, Blood Urea Nitrogen 4L, Creatinine 0.43L, Sodium Level 144, Potassium Level 3.5, Chloride Level 116H, Carbon Dioxide Level 23, Calcium Level 7.3#L, C-Reactive Protein, Quantitative 4.65H 07/23/18 06:50: Bedside Glucose (Misc Panel) 80 CBC/BMP Laboratory Tests 07/22/18 08:18 Red Blood Count 4.45, Mean Corpuscular Volume 83.6, Mean Corpuscular Hemoglobin 27.0, Mean Corpuscular Hemoglobin Concent 32.3, Red Cell Distribution Width 16.6 H, Calcium Level 8.6 L 07/23/18 05:52 Red Blood Count 3.35 L, Mean Corpuscular Volume 84.2, Mean Corpuscular Hemoglobin 27.2, Mean Corpuscular Hemoglobin Concent 32.3, Red Cell Distribution Width 16.1 H, Calcium Level 7.3 #L Microbiology Microbiology 07/15/18 Blood Culture - Final, Complete NO GROWTH AFTER 5 DAYS 07/15/18 Blood Culture - Final, Complete NO GROWTH AFTER 5 DAYS 07/16/18 Stool Occult Blood (LIZBETH) - Final, Complete 07/20/18 Respiratory Virus Panel (PCR) (LIZBETH) - Final, Complete 07/15/18 Urine Culture - Final, Complete Staphylococcus Epidermidis SKYE ALLEN DO Jul 23, 2018 07:31 THERESA LUQUE DO Jul 23, 2018 19:07
[2018-07-23] MEDS: KCL 20MEQ IN D5/0.45NS 1000ML 1,000 ML IV SCH ×2 (08:06→17:16)
--- NOTE | 2018-07-23 08:56 | IPNPDOC ---
Subjective Date Seen The patient was seen on 07/23/18. Subjective Chief Complaint/HPI Pt this morning is restless, moving around the bed. He requires constant supervision and most of the time hands on care. Nursing reports that they have had difficulty maintaining access because the patient pulls and anything attached to him, he will also move so that he rubs against it in an effort to get it off from him. This is true for any IV site as well as the NG. Nursing had a difficult time placing initial NG, pt rubbed this against his mits, pillows, blanket and bed until it was out. He requires mtp sticks for blood draws and for repeated IV placement due to loss of access. It takes as many as 5 people to perform in an effort to redirect the patient away from the task as he constantly is reaching and grabbing. Nursing reports that he is essentially incapable of being redirected rendering it very difficult to place IV, or NG tube. Nursing has concerns about the PICC being placed and the ability to maintain this. Pt easily is able to get free from his mitts, and reposition himself to rub away whatever is on him that he doesn't desire. I spoke with Speech pathology this morning. She reports that this week Marcus has been both unable to tolerate any oral intake with signs of both aspiration and food coming out his nose, and then yest did quite well with, however amounts he took in are likely not sufficient for sustainabilty. She reports that his risk of aspiration with PEG is also exceptionally high. General: Reports: ROS Unobtainable Objective Physical Examination General Exam: Positive: Other (Pt restless in bed this morning, he has moved around so much that his depends are on his thighs.); Negative: Cooperative, No Acute Distress Eye Exam: Positive: Other Eye Symptoms (unable to assess EOM as not following commands); Negative: Sclera icteric ENT Exam: Positive: Other ENT (tongue protrudes, not verbal. About 1 to 1.5 cm long healing scar on forehead; no obvious sign of infection) Neck Exam: Positive: Supple, Other (right central line not in place anymore; covered with dressing) Chest Exam: Positive: Normal air movement, Rales (on left lung while aus anteriorly); Negative: Rhonchi, Wheezing Heart Exam: Positive: Rate Normal, Regular Rhythm, Normal S1, Normal S2 Abdomen Exam: Positive: Normal bowel sounds, Soft, Other Extremity Exam: Negative: Edema, Swelling Skin Exam: Positive: Other skin issue (Skin appears to be dry) Neuro Exam: Positive: Other (mildly agitated, restless this am.) Assessment /Plan Problems (1) Shock Status: Resolved Response to Treatment: Improving, Controlled Problem Specific Plan: Monitor Clinically, Repeat Tests Problem Text: 07/23 Pt's BP gradually increase. MAP>65 since 10pm last night.Currently on IV D5W WITH 20Meq KCl. PICC line scheduled for today as pt unable to tolerate PO diet 07/22 Pt passed swallow study for puree/honey thick diet however food observed in nostrils during feeding; Patient was made NPO with PO meds on hold. Pt on Meropenem IV still as pt is day 8 for pneumonitis questionable for pneumonia. Consent for PEG tube was given. Discussed with Dr. Miller, pt not a surgical candidate; patient will need to get PEG tube placement with IR in [place]. At the time of the examination IVF was not running as IV access was lost. Orders or IV access on ventral foot was given. Pt had received 2 of the 500L IVF so far; pt BP improving after IVF bolus. Continue to f/u vital signs. May replete more bolus fluid if needed. NG tube placement with Jervidi 1.5 ordered Likely 2/2 sepsis with a component of hypovolemic shock from dehydration; calculated pos free water deficit 2.1L as of 07/16/18; urine osmolality 702 with oligouria. 9lb weight loss compared to 06/26/18. urine Cx pos for staph epidermidis. On IV Meorpenem day 7. Blood Cx neg for 72 hrs. CXR pos for pneumonitis. Hypothermia resolved. Initial high Na and low K likely 2/2 compensatory response to hypovolemia/hypotension. (2) UTI (urinary tract infection) Status: Acute Problem Text: UTI pos with>100,000 staph epidermidis in urine cx; On IV Meropnenm day 9, Pt NPO; pt has complicated UTI thus require antibiotic treatment 10-14 days; PCN allergy with cross reaction . Vital signs as scheduled. Continue to f/u with CBC; vital signs as scheduled. CRP trending down at 8.13 (3) Leukocytosis Status: Acute Response to Treatment: Improving Problem Text: May be 2/2 to Neupogen for his leukopenia; Leukocytosis improving WBC 13 today. will continue to monitor CBC (4) Hypothyroidism Status: Chronic Response to Treatment: Stable, Controlled Problem Specific Plan: Monitor Clinically Problem Text: PMH of hypothyroidism; T4 and TSH wnl; r/o myexedma coma. PO synthroid dose through NG tube feeding (5) Anemia Status: Chronic Problem Specific Plan: Repeat Labs Problem Text: Hg 9.1 today compared to 12.5 yesterday. Likely 2/2 to hemodilution. PMH of anemia as well as GI bleed. Neg occult blood test. Continue to trend CBC (6) Seizure disorder Status: Chronic Response to Treatment: Controlled Problem Specific Plan: Monitor Clinically Problem Text: PMH of seizure d/o. Hold PO meds as pt NPO now. PICC line insertion scheduled 07/23. Seizure precaution ordered (7) Constipation Status: Resolved Response to Treatment: Stable, Controlled Problem Specific Plan: Monitor Clinically Problem Text: PMH of constipation. CT abdomen showed obstipation. bowel movements noted 07/21. Fleet enema PRN. (8) Cognitive impairment Status: Chronic Response to Treatment: Stable Problem Text: [facility] pt with PMH of advanced cognitive impairement with psychosis. Hold PO meds as pt NPO now. PICC line insertion scheduled 07/23 (9) Severe protein-calorie malnutrition Status: Chronic Problem Text: 07/23 dietary consult recommended recommend Jevity 1.5 x5 cans daily to provide 1775 calories with 75g protein daily If enteral nutrition support ; 80ml free water flush pre/post feedings to provide 1700ml total fluid from TF & free water flushes. PICC line scheduled for today as pt unable to tolerate PO diet 07/22 Pt NPO as not tolerating puree diet well. NG tube placement with ensure ord ered. 07/21 Passed swallow eval for puree diet. Instructions to sit up for all oral intake with ST assist ordered. Dietary consult ordered as pt albumin 1.4 07/20 Speech therapy will evaluate pt today.NPO now, may advance diet as tolerated 07/[address] Shelton is interested in Tube feeding option. Unclear if patient would be able to leave site intact without continous meng restraints. (10) Pneumonia Status: Acute Response to Treatment: Stable, Improving Problem Text: continue Meropenem for now day 9, october d/c for pneumonia. Pt will continue to be on antibiotics for complicated UTI. Continue to f/u with CRP; vital signs as scheduled. Continue to f/u CRP (11) Physical deconditioning Status: Chronic Response to Treatment: Stable Problem Text: PT d/c as pt unable to follow command. d/c bedrest; OOB with assist. Plan/VTE VTE Prophylaxis Ordered?: Yes (SCD) Plan/Urinary Catheter Urinary Catheter: D/C Klein, Other Catheter: (klein catheter PRN no void) Reason for insertion/continuin: Critical Pt monitoring Plan IVF: Continue Diet: Advance (Passed swallow eval for puree/honey thick diet. diet ordered with feeding assist. May resume PO med if tolerating PO diet. Consider down- grading to med surge. Dietary consult. OOB with assist. Consider switching to PO antibiotics for complicated UTI) Activity: Continue Current Medications: Bowel Regimen Diagnostics: Check Labs, Repeat Labs in AM VS, I&O, 24H, Fishbone Vital Signs/I&O Vital Signs Date Time Temp Pulse Resp B/P (MAP) Pulse Ox O2 Delivery O2 Flow Rate FiO2 07/23/18 06:00 48 20 90/58 (69) 99 Room Air 07/22/18 22:00 96.1 07/22/18 10:00 1.0 I&O- Last 24 Hours up to 6 AM 07/23/18 06:00 Intake Total 3180 ml Balance 3180 ml Laboratory Data 24H LABS Laboratory Tests 2 07/22/18 11:39: Bedside Glucose (Misc Panel) 76L 07/22/18 17:54: Bedside Glucose (Misc Panel) 67L 07/22/18 18:26: Bedside Glucose (Misc Panel) 92 07/23/18 00:26: Bedside Glucose (Misc Panel) 73L 07/23/18 05:52: Nucleated Red Blood Cells % (auto) 0.2H, Anion Gap 5L, Glomerular Filtration Rate > 60.0, Blood Urea Nitrogen 4L, Creatinine 0.43L, Sodium Level 144, Potassium Level 3.5, Chloride Level 116H, Carbon Dioxide Level 23, Calcium Level 7.3#L, C-Reactive Protein, Quantitative 4.65H 07/23/18 06:50: Bedside Glucose (Misc Panel) 80 CBC/BMP Laboratory Tests 07/23/18 05:52 Red Blood Count 3.35 L, Mean Corpuscular Volume 84.2, Mean Corpuscular Hemoglobin 27.2, Mean Corpuscular Hemoglobin Concent 32.3, Red Cell Distribution Width 16.1 H, Calcium Level 7.3 #L Microbiology Microbiology 07/15/18 Blood Culture - Final, Complete NO GROWTH AFTER 5 DAYS 07/15/18 Blood Culture - Final, Complete NO GROWTH AFTER 5 DAYS 07/16/18 Stool Occult Blood (LIZBETH) - Final, Complete 07/20/18 Respiratory Virus Panel (PCR) (LIZBETH) - Final, Complete 07/15/18 Urine Culture - Final, Complete Staphylococcus Epidermidis NANCY ARCINIEGA PA-C Jul 23, 2018 08:56
[2018-07-23] MEDS: FLEET ENEMA PR SCH (09:00)
[2018-07-23] MEDS: TIAGABINE 4 MG PO SCH ×2 (09:00→21:00)
[2018-07-23] MEDS ORDERED: LIDOCAINE 1% MDV 20ML VIAL As Ordered ONE (12:25)
[2018-07-23 15:06] LABS: ALBUMIN 1.5 GM/DL (3.2-5.2); ALT/SGPT 45 U/L (12-78); BILIRUBIN,DIRECT < 0.1 MG/DL (0.0-0.2); BILIRUBIN,TOTAL < 0.1 MG/DL (0.2-1.0); TOTAL PROTEIN 5.2 GM/DL (6.4-8.2)
[2018-07-23] MEDS ORDERED: NS 500 ML IV ONE (15:45)
[2018-07-23] MEDS: DEXTROSE 50% 50 ML SYRINGE IV PRN (17:58)
[2018-07-23 18:37] VITALS: BP 104/74
[2018-07-23 22:00] VITALS: BP 102/73
[2018-07-24] MEDS: KCL 20MEQ IN D5/0.45NS 1000ML 1,000 ML IV SCH ×4 (01:35→23:52)
[2018-07-24] MEDS: SODIUM CHLORIDE 0.9% INJ 10 ML SYR IV SCH ×3 (05:21→21:50)
[2018-07-24] MEDS: LEVOTHYROXINE 50MCG TABLET (0.05MG) PO SCH (05:21)
[2018-07-24 06:00] VITALS: BP 81/47
[2018-07-24] MEDS ORDERED: NS 500 ML IV STA (07:14)
[2018-07-24 07:17] LABS: BASO % 0.2 % (0.0-1.0); EOS # 0.1 10^3/uL (0.0-0.50); HEMATOCRIT 32.9 % (42.0-52.0); HEMOGLOBIN 10.6 g/dl (13.5-17.5); LYMPH # 0.7 10^3/uL (1.5-4.5); LYMPH % 8.3 % (24.0-44.0); MEAN CORPUSCULAR HEMOGLOBIN 26.6 pg (27.0-33.0); MEAN CORPUSCULAR HGB CONC 32.2 g/dl (32.0-36.5); MEAN CORPUSCULAR VOLUME 82.5 fl (80.0-96.0); MONO # 0.3 10^3/uL (0.0-0.8); NEUTROPHILS # 7.5 10^3/uL (1.8-7.7); PLATELET COUNT, AUTOMATED 257 10^3/uL (150-450); RED BLOOD COUNT 3.99 10^6/uL (4.30-6.10); WHITE BLOOD COUNT 8.6 10^3/uL (4.0-10.0)
[2018-07-24] MEDS ORDERED: DEXTROSE 50% 50 ML SYRINGE IV STA (07:17)
[2018-07-24 07:40] LABS: ALT/SGPT 53 U/L (12-78); BILIRUBIN,TOTAL 0.2 MG/DL (0.2-1.0); BLOOD UREA NITROGEN 1 MG/DL (7-18); C REACTIVE PROTEIN QUANTITATIV 5.22 MG/DL (0.00-0.30); CALCIUM LEVEL 7.6 MG/DL (8.8-10.2); CARBON DIOXIDE LEVEL 23 MEQ/L (21-32); CHLORIDE LEVEL 112 MEQ/L (98-107); CREATININE FOR GFR 0.49 MG/DL (0.70-1.30); GLOMERULAR FILTRATION RATE > 60.0 (>49); GLUCOSE, FASTING 88 MG/DL (70-100); POTASSIUM SERUM 3.9 MEQ/L (3.5-5.1); SODIUM LEVEL 142 MEQ/L (136-145); TOTAL PROTEIN 5.9 GM/DL (6.4-8.2)
[2018-07-24] MEDS: TIAGABINE 4 MG PO SCH ×2 (08:29→21:00)
[2018-07-24 08:31] VITALS: BP 98/67
[2018-07-24 10:00] VITALS: BP 116/81
--- NOTE | 2018-07-24 13:47 | IPNPDOC ---
Subjective Date Seen The patient was seen on 07/24/18. Subjective Chief Complaint/HPI Mr. Hamilton is quite restless at this time. He will not keep any clothing on and his [facility] aide is working very hard to protect his IV in his foot. I contacted the [facility] to initiate a transfer for IR guided PEG tube placement. They accepted the patient in theory, but have no beds available. They stated that they will place him on a waiting list and let us know when they do have a bed, however, they also said it would be reasonable to check with other facilities as they may not have a bed for several days. I spoke with the [facility] nurse in charge, Nena, and updated her on the situation. General: Reports: ROS Unobtainable Objective Physical Examination General Exam: Positive: Mild Distress (he is moving constantly in the bed and seems uncomfortable, but it is not clear if it is just his unfamiliar environment that is distressing him); Negative: Alert, Cooperative ENT Exam: Positive: Other ENT (tongue protrudes, not verbal. About 1 to 1.5 cm long healing scar on forehead; no obvious sign of infection) Neck Exam: Positive: Supple, Other (right central line not in place anymore; covered with dressing) Chest Exam: Positive: Normal air movement, Rales; Negative: Rhonchi, Wheezing Heart Exam: Positive: Rate Normal, Regular Rhythm, Normal S1, Normal S2 Abdomen Exam: Positive: BS Hypoactive, Soft; Negative: Tenderness Extremity Exam: Negative: Edema, Swelling Skin Exam: Positive: Nl turgor and temperature (signs of early dehydration); Negative: Breakdown Neuro Exam: Positive: Other (does not respond to my presence in the room); Negative: Normal Speech Assessment /Plan Problems (1) Dysphagia Problem Text: 07/24 -- ultimately, many of Mr. Hamilton' problems are secondary to his dysphagia. He has been losing weight and has had multiple episodes of pneumonia, felt secondary to aspiration. Though he passed a swallow evaluation earlier this week, he visibly aspirated the same diet, with a speech therapist, the very next day. This directly contributes to his malnutrition and aspiration. His weight loss prior to hospitalization probably reflects decreased intake secondary to dysphagia. The Guardianship committee at [facility] has requested we attempt to have a PEG tube placed for artificial nutrition. We have discussed that this will NOT eliminate the risk of aspiration (although ti should reduce it), and there is significant concern that he will pull it out as he has his central line, and several peripheral IVs. They stated that they have several clients that have PEGs that they protect with abdominal binders; they would like to try this option for him. I did attempt to transfer him to [facility] today, but they don't have a bed available. He is on a wait list with them. Tomorrow I will check with [facility] and [facility]. If we can't get anywhere by the end of the weekend, perhaps we should [facility] back with out surgeons and see if they would consider attempting this placement even though they feel it will be harder on him and them. (2) Severe protein-calorie malnutrition Status: Chronic Problem Text: 07/24 He remains NPO for grave aspiration risk with oral feedings. No other enteral or parenteral feeding option is available. We are trying to get a PEG tube placed as above. We are giving him some dextrose in his IV solutions, but this is not enough to sustain him nutritionally. 07/23 Pt NPO. Will discuss with Guardian for feeding issue 07/22 Pt NPO as not tolerating puree diet well. NG tube placement with ensure ordered. 07/21 Passed swallow eval for puree diet. Instructions to sit up for all oral intake with ST assist ordered. Dietary consult ordered as pt albumin 1.4 07/20 Speech therapy will evaluate pt today.NPO now, may advance diet as tolerated 07/[address] Shelton is interested in Tube feeding option. Unclear if patient would be able to leave site intact without continous meng restraints. (3) Shock Status: Acute Response to Treatment: Improving, Controlled Problem Specific Plan: Monitor Clinically, Repeat Tests Problem Text: 07/24: He had some lower BPs today and did receive a 500cc bolus with NS. Currently his BP is better. This hypotension is probably hypovolemic shock secondary to no oral intake, rather than from sepsis or some other mechanism. 07/23 Pt's BP gradually increase. MAP>65 since 10pm last night.Currently on IV D5W WITH 20Meq KCl. PICC line scheduled for today but was unable to get it done. Will discuss with Guardian as pt unable to tolerate PO diet 07/22 Pt passed swallow study for puree/honey thick diet however food observed in nostrils during feeding; Patient was made NPO with PO meds on hold. Pt on Meropenem IV still as pt is day 8 for pneumonitis questionable for pneumonia. Consent for PEG tube was given. Discussed with Dr. Miller, pt not a surgical candidate; patient will need to get PEG tube placement with IR in [place]. At the time of the examination IVF was not running as IV access was lost. Orders or IV access on ventral foot was given. Pt had received 2 of the 500L IVF so far; pt BP improving after IVF bolus. Continue to f/u vital signs. May replete more bolus fluid if needed. NG tube placement with Jervidi 1.5 ordered Likely 2/2 sepsis with a component of hypovolemic shock from dehydration; calculated pos free water deficit 2.1L as of 07/16/18; urine osmolality 702 with oligouria. 9lb weight loss compared to 06/26/18. urine Cx pos for staph epidermidis. On IV Meorpenem day 7. Blood Cx neg for 72 hrs. CXR pos for pne umonitis. Hypothermia resolved. Initial high Na and low K likely 2/2 compensatory response to hypovolemia/hypotension. (4) Hypothyroidism Status: Chronic Response to Treatment: Stable, Controlled Problem Specific Plan: Monitor Clinically Problem Text: 07/23 -- chronic and stable. No PO levothyroxine as no NG tube and NPO. PMH of hypothyroidism; T4 and TSH wnl; r/o myexedma coma. PO synthroid dose through NG tube feeding (5) Anemia Status: Chronic Problem Specific Plan: Repeat Labs Problem Text: Hg 9.1 today compared to 12.5 yesterday. Likely 2/2 to hemodilution. PMH of anemia as well as GI bleed. Neg occult blood test. Continue to trend CBC (6) Seizure disorder Status: Chronic Response to Treatment: Controlled Problem Specific Plan: Monitor Clinically Problem Text: PMH of seizure d/o. Hold PO meds as pt NPO now. Seizure precaution ordered (7) Cognitive impairment Status: Chronic Response to Treatment: Stable Problem Text: [facility] pt with PMH of advanced cognitive impairement with psychosis. Hold PO meds as pt NPO now. (8) Pneumonia Status: Acute Response to Treatment: Stable, Improving Problem Text: 07/13 -- Meropenem has been stopped. No respiratory distress, though at risk for future aspiration. continue Meropenem for now day 9October d/c for pneumonia. Pt will continue to be on antibiotics for complicated UTI. CRP trending down, continue to f/u with CRP; vital signs as scheduled. (9) Physical deconditioning Status: Chronic Response to Treatment: Stable Problem Text: PT d/c as pt unable to follow command. d/c bedrest; OOB with assist. Sitter with fall precaution. (10) Constipation Status: Resolved Response to Treatment: Stable, Controlled Problem Specific Plan: Monitor Clinically Problem Text: PMH of constipation. CT abdomen showed obstipation. bowel movements noted 07/21. Fleet enema PRN. (11) Leukocytosis Status: Resolved Response to Treatment: Improving Problem Text: WBCs and CRP trending downward, consistent with resolving PNA (12) UTI (urinary tract infection) Status: Resolved Problem Text: UTI pos with>100,000 staph epidermidis in urine cx; he received 5 days of IV Vancomycin while he was in the ICU. Also completed a course of IV Meropenem Plan/VTE VTE Prophylaxis Ordered?: Yes (SCD) Plan IVF: Continue Diet: Make NPO Activity: Bedrest Medications: Bowel Regimen Diagnostics: Check Labs, Repeat Labs in AM VS, I&O, 24H, Fishbone Vital Signs/I&O Vital Signs Date Time Temp Pulse Resp B/P (MAP) Pulse Ox O2 Delivery O2 Flow Rate FiO2 07/24/18 10:00 72 116/81 (93) 07/24/18 06:00 96.3 18 100 Room Air 07/22/18 10:00 1.0 I&O- Last 24 Hours up to 6 AM 07/24/18 06:00 Intake Total 3400 ml Output Total 0 ml Balance 3400 ml Laboratory Data 24H LABS Laboratory Tests 2 07/23/18 15:25: Bedside Glucose (Misc Panel) 69L 07/23/18 17:54: Bedside Glucose (Misc Panel) 51L 07/23/18 18:24: Bedside Glucose (Misc Panel) 89 07/24/18 00:40: Bedside Glucose (Misc Panel) 75L 07/24/18 06:58: Immature Granulocyte % (Auto) 0.5, White Blood Count 8.6, Red Blood Count 3.99L, Hemoglobin 10.6L, Hematocrit 32.9L, Mean Corpuscular Volume 82.5, Mean Corpuscular Hemoglobin 26.6L, Mean Corpuscular Hemoglobin Concent 32.2, Red Cell Distribution Width 16.4H, Platelet Count 257, Neutrophils (%) (Auto) 87.0H, Lymphocytes (%) (Auto) 8.3L, Monocytes (%) (Auto) 3.0, Eosinophils (%) (Auto) 1.0, Basophils (%) (Auto) 0.2, Neutrophils # (Auto) 7.5, Lymphocytes # (Auto) 0.7L, Monocytes # (Auto) 0.3, Eosinophils # (Auto) 0.1, Basophils # (Auto) 0.0, Nucleated Red Blood Cells % (auto) 0.2H, Anion Gap 7L, Glomerular Filtration Rate > 60.0, Blood Urea Nitrogen 1#L, Creatinine 0.49L, Sodium Level 142, Potas sium Level 3.9, Chloride Level 112H, Carbon Dioxide Level 23, Calcium Level 7.6L, Aspartate Amino Transf (AST/SGOT) 63H, Alanine Aminotransferase (ALT/SGPT) 53, Alkaline Phosphatase 162H, Total Bilirubin 0.2#, Total Protein 5.9L, Albumin 2.0#L, C-Reactive Protein, Quantitative 5.22H, Albumin/Globulin Ratio 0.51L 07/24/18 08:26: Bedside Glucose (Misc Panel) 77L 07/24/18 11:36: Bedside Glucose (Misc Panel) 78L CBC/BMP Laboratory Tests 07/24/18 06:58 Red Blood Count 3.99 L, Mean Corpuscular Volume 82.5, Mean Corpuscular Hemoglobin 26.6 L, Mean Corpuscular Hemoglobin Concent 32.2, Red Cell Distribution Width 16.4 H, Neutrophils (%) (Auto) 87.0 H, Lymphocytes (%) (Auto) 8.3 L, Monocytes (%) (Auto) 3.0, Eosinophils (%) (Auto) 1.0, Basophils (%) (Auto) 0.2, Neutrophils # (Auto) 7.5, Lymphocytes # (Auto) 0.7 L, Monocytes # (Auto) 0.3, Eosinophils # (Auto) 0.1, Basophils # (Auto) 0.0, Calcium Level 7.6 L, Aspartate Amino Transf (AST/SGOT) 63 H, Alanine Aminotransferase (ALT/SGPT) 53, Alkaline Phosphatase 162 H, Total Bilirubin 0.2 #, Total Protein 5.9 L, Albumin 2.0 #L Microbiology Microbiology 07/15/18 Blood Culture - Final, Complete NO GROWTH AFTER 5 DAYS 07/15/18 Blood Culture - Final, Complete NO GROWTH AFTER 5 DAYS 07/16/18 Stool Occult Blood ([facility]) - Final, Complete 07/20/18 Respiratory Virus Panel (PCR) ([facility]) - Final, Complete 07/15/18 Urine Culture - Final, Complete Staphylococcus Epidermidis Yong Gallardo MD Jul 24, 2018 12:54
[2018-07-24 14:00] VITALS: BP 100/62
[2018-07-24] MEDS: DEXTROSE 50% 50 ML SYRINGE IV PRN (18:04)
[2018-07-24 22:00] VITALS: BP 118/68
[2018-07-25] MEDS: SODIUM CHLORIDE 0.9% INJ 10 ML SYR IV SCH ×4 (03:26→22:00)
[2018-07-25] MEDS: LEVOTHYROXINE 50MCG TABLET (0.05MG) PO SCH (03:26)
[2018-07-25 06:00] VITALS: BP 137/84
[2018-07-25 06:41] LABS: HEMATOCRIT 37.1 % (42.0-52.0); MEAN CORPUSCULAR HGB CONC 32.3 g/dl (32.0-36.5); MEAN CORPUSCULAR VOLUME 83.6 fl (80.0-96.0); PLATELET COUNT, AUTOMATED 257 10^3/uL (150-450); RED BLOOD COUNT 4.44 10^6/uL (4.30-6.10); WHITE BLOOD COUNT 7.1 10^3/uL (4.0-10.0)
[2018-07-25 07:06] LABS: ALT/SGPT 51 U/L (12-78); BILIRUBIN,TOTAL 0.1 MG/DL (0.2-1.0); BLOOD UREA NITROGEN < 1 MG/DL (7-18); C REACTIVE PROTEIN QUANTITATIV 4.71 MG/DL (0.00-0.30); CARBON DIOXIDE LEVEL 25 MEQ/L (21-32); CHLORIDE LEVEL 112 MEQ/L (98-107); CREATININE FOR GFR 0.55 MG/DL (0.70-1.30); GLOMERULAR FILTRATION RATE > 60.0 (>49); GLUCOSE, FASTING 93 MG/DL (70-100); MAGNESIUM LEVEL 1.8 MG/DL (1.8-2.4); PHOSPHORUS LEVEL 1.6 MG/DL (2.5-4.9); SODIUM LEVEL 141 MEQ/L (136-145); TOTAL PROTEIN 6.8 GM/DL (6.4-8.2); URIC ACID 5.2 MG/DL (3.5-7.2)
[2018-07-25] MEDS: KCL 20MEQ IN D5/0.45NS 1000ML 1,000 ML IV SCH ×2 (08:00→15:15)
[2018-07-25] MEDS: TIAGABINE 4 MG PO SCH ×2 (09:00→21:00)
[2018-07-25] MEDS ORDERED: LORazepam 2 MG/ML VIAL (J2060) IV PRN ×2 (11:15→11:40)
[2018-07-25 14:15] VITALS: BP 132/84
[2018-07-25 16:56] LABS: ALBUMIN 2.1 GM/DL (3.2-5.2); BLOOD UREA NITROGEN < 1 MG/DL (7-18); CALCIUM LEVEL 8.1 MG/DL (8.8-10.2); CARBON DIOXIDE LEVEL 25 MEQ/L (21-32); CHLORIDE LEVEL 111 MEQ/L (98-107); CREATININE FOR GFR 0.51 MG/DL (0.70-1.30); GLOMERULAR FILTRATION RATE > 60.0 (>49); GLUCOSE, FASTING 83 MG/DL (70-100); PHOSPHORUS LEVEL 1.8 MG/DL (2.5-4.9); POTASSIUM SERUM 3.8 MEQ/L (3.5-5.1); SODIUM LEVEL 142 MEQ/L (136-145)
--- NOTE | 2018-07-25 18:06 | IPNPDOC ---
Subjective Date Seen The patient was seen on 07/25/18. Subjective Chief Complaint/HPI Mr. Hamilton was a little less restless today, which is ostensibly a good sign. However, nursing found him to be hypothermic with a rectal temp of 91.8, so I'm concerned that the decreased activity is more of an ominous sign rather than a stabilization. [facility] called and they don't have a bed for him yet. General: Reports: ROS Unobtainable Objective Physical Examination General Exam: Positive: Mild Distress (he is moving frequently in the bed listlessly); Negative: Alert, Cooperative ENT Exam: Positive: Other ENT (tongue protrudes, not verbal. About 1 to 1.5 cm long healing scar on forehead; no obvious sign of infection) Neck Exam: Positive: Supple Chest Exam: Positive: Normal air movement, Rales; Negative: Rhonchi, Wheezing Heart Exam: Positive: Rate Normal, Regular Rhythm, Normal S1, Normal S2 Abdomen Exam: Positive: BS Hypoactive, Soft; Negative: Tenderness Extremity Exam: Negative: Edema, Swelling Skin Exam: Negative: Breakdown Neuro Exam: Positive: Other (does not respond to my presence in the room); Negative: Normal Speech Psych Exam: Negative: Mental status NL Assessment /Plan Problems (1) Severe protein-calorie malnutrition Status: Chronic Problem Text: 07/25: There is still not a bed for him at [facility]. The dextrose may be causing a refeeding syndrome, but holding all macronutrients also seems like a bad idea. 07/24 He remains NPO for grave aspiration risk with oral feedings. No other enteral or parenteral feeding option is available. We are trying to get a PEG tube placed as above. We are giving him some dextrose in his IV solutions, but this is not enough to sustain him nutritionally. 07/23 Pt NPO. Will discuss with Guardian for feeding issue 07/22 Pt NPO as not tolerating puree diet well. NG tube placement with ensure ordered. 07/21 Passed swallow eval for puree diet. Instructions to sit up for all oral intake with ST assist ordered. Dietary consult ordered as pt albumin 1.4 07/20 Speech therapy will evaluate pt today.NPO now, may advance diet as tolerated 07/[address] Shelton is interested in Tube feeding option. Unclear if patien t would be able to leave site intact without continous meng restraints. (2) Refeeding syndrome Status: Acute Discussed With: Nurse Problem Specific Plan: Monitor Clinically, Repeat Labs Problem Text: His phosphorus is much lower than it was just a few days ago. I am concerned that the hypophosphatemia, while not severe yet, may signify he is heading into a refeeding syndrome with insulin driving phosphorus into the cells, but out of the circulation. He is bradycardic despite being quite active in his bed, which is what we would expect from a malnourished patient. It is also not clear if his hypothermia is an early sign of RETORT FORKER dysfunction. I decided to move him back to the PCU and ultimately he went back to the ICU because the Nohemy Hugger protocol necessitated it. I did discuss his case with the on-call injury prevention coordinator, who felt that 20mmol of KPhos would likely help, and not lead to calcium precipitation which could temporarily worsen things. I also ordered a dose of IV thiamine (the stat lab won't be completed until tomorrow?!) to avoid or treat Wernicke's encephalopathy if that may be an issue from his malnutrition. (3) Hypothermia Status: Acute Discussed With: Nurse, Other Discussed With: ([facility] josye) Problem Specific Plan: Monitor Clinically Problem Text: 07/25: He is hypothermic again. He is not responding well to the active warming blanket. (His core temp went from 91.8 to 91.9 after 1h). It is not clear if this is a sign of RETORT FORKER dysfunction from hypophosphatemia, or just a part of who he is when his body us under stress. He has a h/o a lower baseline temp as noted below, still 91.8F is a pretty low temp. Continue active warming until he gets to at least 93F. A Jimenez with a temp probe was placed to facilitate accurate core temperature measurement. 07/17: Initially presented with hypothermia currently resolved. Warm blanket. It should be noted that his baseline temperature is reported as roughly 95F per staff at [facility]. (4) Dysphagia Problem Text: 07/25: Again his dysphagia is the underlying cause of his severe and worsening malnutrition. There is not a bed for him at [facility] yet. I was too busy transferring him to the ICU and calling specialists for advice to inquire about beds at other [facility] today. If there is not a bed at [facility] for him tomorrow, this inquiry is still probably a good idea. 07/24 -- ultimately, many of Mr. Hamilton' problems are secondary to his dysphagia. He has been losing weight and has had multiple episodes of pneumonia, felt secondary to aspiration. Though he passed a swallow evaluation earlier this week, he visibly aspirated the same diet, with a speech therapist, the very next day. This directly contributes to his malnutrition and aspiration. His weight loss prior to hospitalization probably reflects decreased intake secondary to dysphagia. The Guardianship committee at [facility] has requested we attempt to have a PEG tube placed for artificial nutrition. We have discussed that this will NOT eliminate the risk of aspiration (although ti should reduce it), and there is significant concern that he will pull it out as he has his central line, and several peripheral IVs. They stated that they have several clients that have PEGs that they protect with abdominal binders; they would like to try this option for him. I did attempt to transfer him to [facility] today, but they don't have a bed available. He is on a wait list with them. Tomorrow I will check with [facility]. If we can't get anywhere by the end of the weekend, perhaps we should [place] back with out surgeons and see if they would consider attempting this placement even though they feel it will be harder on him and them. (5) Shock Status: Acute Response to Treatment: Improving, Controlled Problem Specific Plan: Monitor Clinically, Repeat Tests Problem Text: 07/25: His BPs have been ok today. He still has fluids running at 125cc/hr. I wouldn't want to go much more than that for fear of precipitating heart failure while we sort out his phosphorus. Cardiac and respiratory failure are the main causes of in patients with a refeeding syndrome. However, he still does need hydration and right now the one tenuous IV in his ankle is our only way to provide this for him. 07/24: He had some lower BPs today and did receive a 500cc bolus with NS. C urrently his BP is better. This hypotension is probably hypovolemic shock secondary to no oral intake, rather than from sepsis or some other mechanism. 07/23 Pt's BP gradually increase. MAP>65 since 10pm last night.Currently on IV D5W WITH 20Meq KCl. PICC line scheduled for today but was unable to get it done. Will discuss with Guardian as pt unable to tolerate PO diet 07/22 Pt passed swallow study for puree/honey thick diet however food observed in nostrils during feeding; Patient was made NPO with PO meds on hold. Pt on Meropenem IV still as pt is day 8 for pneumonitis questionable for pneumonia. Consent for PEG tube was given. Discussed with Dr. Miller, pt not a surgical candidate; patient will need to get PEG tube placement with IR in [place]. At the time of the examination IVF was not running as IV access was lost. Orders or IV access on ventral foot was given. Pt had received 2 of the 500L IVF so far; pt BP improving after IVF bolus. Continue to f/u vital signs. May replete more bolus fluid if needed. NG tube placement with Jervidi 1.5 ordered Likely 2/2 sepsis with a component of hypovolemic shock from dehydration; calculated pos free water deficit 2.1L as of 07/16/18; urine osmolality 702 with oligouria. 9lb weight loss compared to 06/26/18. urine Cx pos for staph epi dermidis. On IV Meorpenem day 7. Blood Cx neg for 72 hrs. CXR pos for pneumonitis. Hypothermia resolved. Initial high Na and low K likely 2/2 compensatory response to hypovolemia/hypotension. (6) Seizure disorder Status: Chronic Response to Treatment: Controlled Problem Specific Plan: Monitor Clinically Problem Text: 07/25: I spoke to the neurologist supply chain consultant to go through his neuro psychiatrically active medications to make sure none of them were causing the hypothermia. He was most concerned about the levothyroxine which is addressed below. The atypical antipsychotics should be covered by the haldol deconate. The Artane and Mysoline are likely for tremors or side effects of the anti- psychotics. The Gabatril and trazodone shouldn't cause these symptoms, but he encouraged me to use lorazepam 0.5mg IV QHS to provide some similar action/coverage so he is less likely to seize from withdrawal of these oral meds. Ultimately it would be best to get enteral access and resume his proven regimen. Seizure precaution were reaffirmed (7) Hypothyroidism Status: Chronic Response to Treatment: Stable, Controlled Problem Specific Plan: Monitor Clinically Problem Text: 07/25: his lack of levothyoxine could be a significant factor in his hypothermia. I reduced his usual PO dose by 25% and ordered it IV. 07/23 -- chronic and stable. No PO levothyroxine as no NG tube and NPO. PMH of hypothyroidism; T4 and TSH wnl; r/o myexedma coma. PO synthroid dose through NG tube feeding (8) Anemia Status: Chronic Problem Specific Plan: Repeat Labs Problem Text: Hg 9.1 today compared to 12.5 yesterday. Likely 2/2 to hemodilution. PMH of anemia as well as GI bleed. Neg occult blood test. Continue to trend CBC (9) Cognitive impairment Status: Chronic Response to Treatment: Stable Problem Text: [facility] pt with PMH of advanced cognitive impairement with psychosis. As many of his meds as could be given parenterally were changed today. Still enteral dosing of his proven regimen would be best. (10) Pneumonia Status: Resolved Response to Treatment: Stable, Improving Problem Text: 07/13 -- Meropenem has been stopped. No respiratory distress, though at risk for future aspiration. continue Meropenem for now day 9, october d/c for pneumonia. Pt will continue to be on antibiotics for complicated UTI. CRP trending down, continue to f/u with CRP; vital signs as scheduled. (11) Physical deconditioning Status: Chronic Response to Treatment: Stable Problem Text: PT d/c as pt unable to follow command. d/c bedrest; OOB with a ssist. Sitter with fall precaution. (12) Constipation Status: Resolved Response to Treatment: Stable, Controlled Problem Specific Plan: Monitor Clinically Problem Text: PMH of constipation. CT abdomen showed obstipation. bowel movements noted 07/21. Fleet enema PRN. (13) Leukocytosis Status: Resolved Response to Treatment: Improving Problem Text: WBCs and CRP trending downward, consistent with resolving PNA (14) UTI (urinary tract infection) Status: Resolved Problem Text: UTI pos with>100,000 staph epidermidis in urine cx; he received 5 days of IV Vancomycin while he was in the ICU. Also completed a course of IV Meropenem Plan/VTE VTE Prophylaxis Ordered?: Yes (SCD) Plan IVF: Continue Diet: Make NPO Activity: Bedrest Medications: Bowel Regimen Diagnostics: Check Labs, Repeat Labs in AM VS, I&O, 24H, [facility] Vital Signs/I&O Vital Signs Date Time Temp Pulse Resp B/P (MAP) Pulse Ox O2 Delivery O2 Flow Rate FiO2 07/25/18 16:00 91.8 07/25/18 14:15 58 16 132/84 (100) 100 Room Air 07/22/18 10:00 1.0 I&O- Last 24 Hours up to 6 AM 07/25/18 06:00 Intake Total 1875 ml Output Total 0 ml Balance 1875 ml Laboratory Data 24H LABS Laboratory Tests 2 07/24/18 18:41: Bedside Glucose (Misc Panel) 156H 07/25/18 00:30: Bedside Glucose (Misc Panel) 81 07/25/18 05:08: Bedside Glucose (Misc Panel) 90 07/25/18 06:24: Nucleated Red Blood Cells % (auto) 0.0, Anion Gap 4L, Glomerular Filtration Rate > 60.0, Blood Urea Nitrogen < 1L, Creatinine 0.55L, Sodium Level 141, Potassium Level 4.0, Chloride Level 112H, Carbon Dioxide Level 25, Calcium Level 8.0L, Phosphorus Level 1.6L, Aspartate Amino Transf (AST/SGOT) 61H, Alanine Ami notransferase (ALT/SGPT) 51, Alkaline Phosphatase 178H, Total Bilirubin 0.1L, Uric Acid 5.2, Total Protein 6.8, Albumin 2.0L, Magnesium Level 1.8, C-Reactive Protein, Quantitative 4.71H, Albumin/Globulin Ratio 0.42L 07/25/18 11:23: Bedside Glucose (Misc Panel) 83 07/25/18 16:23: 07/25/18 16:24: Blood Urea Nitrogen < 1L, Creatinine 0.51L, Sodium Level 142, Potassium Level 3.8, Chloride Level 111H, Carbon Dioxide Level 25, Anion Gap 6L, Glomerular Filtration Rate > 60.0, Calcium Level 8.1L, Phosphorus Level 1.8L, Albumin 2.1L 07/25/18 16:42: Urine Random Creatinine < 13.0, Urine Random Phosphorus 8.6 CBC/BMP Laboratory Tests 07/25/18 06:24 Red Blood Count 4.44, Mean Corpuscular Volume 83.6, Mean Corpuscular Hemoglobin 27.0, Mean Corpuscular Hemoglobin Concent 32.3, Red Cell Distribution Width 16.7 H, Calcium Level 8.0 L, Phosphorus Level 1.6 L, Aspartate Amino Transf (AST/SGOT) 61 H, Alanine Aminotransferase (ALT/SGPT) 51, Alkaline Phosphatase 178 H, Total Bilirubin 0.1 L, Uric Acid 5.2, Total Protein 6.8, Albumin 2.0 L 07/25/18 16:24 Anion Gap 6 L Microbiology Microbiology 07/15/18 Blood Culture - Final, Complete NO GROWTH AFTER 5 DAYS 07/15/18 Blood Culture - Final, Complete NO GROWTH AFTER 5 DAYS 07/16/18 Stool Occult Blood ([facility]ZBETH) - Final, Complete 07/20/18 Respiratory Virus Panel (PCR) ([facility]ZBETH) - Final, Complete 07/15/18 Urine Culture - Final, Complete Staphylococcus Epidermidis Yong Gallardo MD Jul 25, 2018 18:06
[2018-07-25 18:12] VITALS: BP 87/54
[2018-07-25 19:00] VITALS: BP 67/33
[2018-07-25] MEDS: LEVOTHYROXINE 100 MCG (0.1MG) VIAL IV SCH (19:18)
[2018-07-25 20:00] VITALS: BP 92/51
[2018-07-25] MEDS ORDERED: POTASSIUM PHOSPHATE INJ 20 MMOL in D5W 250 ML IV ONE (20:00)
[2018-07-25] MEDS: LORazepam 2 MG/ML VIAL (J2060) IV SCH (21:16)
[2018-07-25] MEDS ORDERED: THIAMINE HCL 200 MG/2 ML VIAL (J3411) IV ONE (23:00)
[2018-07-26] VITALS: BP 105/72
[2018-07-26] MEDS: KCL 20MEQ IN D5/0.45NS 1000ML 1,000 ML IV SCH ×4 (00:31→20:26)
[2018-07-26 04:00] VITALS: BP 90/60
[2018-07-26 05:17] LABS: HEMATOCRIT 34.1 % (42.0-52.0); HEMOGLOBIN 11.1 g/dl (13.5-17.5); MEAN CORPUSCULAR HGB CONC 32.6 g/dl (32.0-36.5); PLATELET COUNT, AUTOMATED 282 10^3/uL (150-450); RED BLOOD COUNT 4.11 10^6/uL (4.30-6.10); WHITE BLOOD COUNT 6.8 10^3/uL (4.0-10.0)
[2018-07-26 05:42] LABS: ALBUMIN 1.9 GM/DL (3.2-5.2); ALT/SGPT 47 U/L (12-78); BILIRUBIN,TOTAL 0.2 MG/DL (0.2-1.0); BLOOD UREA NITROGEN < 1 MG/DL (7-18); C REACTIVE PROTEIN QUANTITATIV 3.69 MG/DL (0.00-0.30); CALCIUM LEVEL 7.8 MG/DL (8.8-10.2); CARBON DIOXIDE LEVEL 24 MEQ/L (21-32); CHLORIDE LEVEL 113 MEQ/L (98-107); CREATININE FOR GFR 0.67 MG/DL (0.70-1.30); GLOMERULAR FILTRATION RATE > 60.0 (>49); GLUCOSE, FASTING 72 MG/DL (70-100); POTASSIUM SERUM 4.4 MEQ/L (3.5-5.1); SODIUM LEVEL 143 MEQ/L (136-145); TOTAL PROTEIN 6.6 GM/DL (6.4-8.2)
[2018-07-26] MEDS: SODIUM CHLORIDE 0.9% INJ 10 ML SYR IV SCH ×2 (06:00→14:00)
[2018-07-26] MEDS: LORazepam 2 MG/ML VIAL (J2060) IV PRN (06:22)
[2018-07-26 06:38] LABS: MAGNESIUM LEVEL 1.7 MG/DL (1.8-2.4)
[2018-07-26] MEDS ORDERED: MAG SULF 1GM/100ML (MAG RUN) 1 GM in APPROPRIATE DILUENT 1 EA IV ONE (07:45)
--- NOTE | 2018-07-26 07:48 | IPNPDOC ---
Subjective Date Seen The patient was seen on 07/26/18. Subjective Chief Complaint/HPI aspiration Events since last encounter Had a restful night. IV SL in foot on day #4. Patient has pulled out all other IV access. Nursing reported seizure medication ordered po has not been given in several days due to aspiration precautions. IVF infusing D51/2NS with 20 meq at 125 ml per hour. Continues to pend for a bed at [facility] for IR guided feeding tube. General: Reports: ROS Unobtainable Objective Physical Examination General Exam: Positive: No Acute Distress (sleeping), Mild Distress; Negative: Alert, Cooperative ENT Exam: Positive: Other ENT (tongue protrudes, not verbal. About 1 to 1.5 cm long healing scar on forehead; no obvious sign of infection) Neck Exam: Positive: Supple Chest Exam: Positive: Normal air movement; Negative: Rhonchi, Wheezing Heart Exam: Positive: Rate Normal, Regular Rhythm, Normal S1, Normal S2 Abdomen Exam: Positive: BS Hypoactive, Soft; Negative: Tenderness Extremity Exam: Negative: Edema, Swelling Skin Exam: Negative: Breakdown Neuro Exam: Positive: Other (does not respond to my presence in the room); Negative: Normal Speech Psych Exam: Negative: Mental status NL Assessment /Plan Problems (1) Severe protein-calorie malnutrition Status: Chronic Problem Text: 07/26/18: mag is low at 1.7 today will replace. Unable to provide PPN/TPN due to pulling out PICC line. Tolerating IVF for now. Wang Zhong [facility] Geographic Information Systems Engineer-I advised that patient would need a J-tube for enteral feeding given recurrent aspiration. I advised that this would only mitigate, but not eliminate, the aspiration risk. Additionally unless there was 24/7 supervision, the patient would most likely pull out the J-tube. As the patient's PCP, I agree with DNR status and favor ROUGHER OPERATOR status. Osvaldo advised me that the guardianship committee was meeting on Thu07/28/18 to discuss the patient's code status and that the yarn man, Tyron Hinkle, would call me tomorrow (there has never been family identified to assume guardianship) (2) Hypothermia Status: Acute Discussed With: Nurse, Other Discussed With: ([facility] aide) Problem Specific Plan: Monitor Clinically Problem Text: acute on chronic It should be noted that his baseline temperature is reported as roughly 95F per staff at [facility]. (3) Dysphagia Problem Text: 07/25: Again his dysphagia is the underlying cause of his severe and worsening malnutrition. There is not a bed for him at [facility] yet. I was too busy transferring him to the ICU and calling specialists for advice to inquire about beds at other [facility] today. If there is not a bed at [facility] for him tomorrow, this inquiry is still probably a good idea. 07/24 -- ultimately, many of Mr. Hamilton' problems are secondary to his dysphagia. He has been losing weight and has had multiple episodes of pneumonia, felt secondary to aspiration. Though he passed a swallow evaluation earlier this week, he visibly aspirated the same diet, with a speech therapist, the very next day. This directly contributes to his malnutrition and aspiration. His weight loss prior to hospitalization probably reflects decreased intake secondary to dysphagia. The Guardianship committee at [facility] has requested we attempt to have a PEG tube placed for artificial nutrition. We have discussed that this will NOT eliminate the risk of aspiration (although ti should reduce it), and there is significant concern that he will pull it out as he has his central line, and several peripheral IVs. They stated that they have several clients that have PEGs that they protect with abdominal binders; they would like to try this option for him. I did attempt to transfer him to [facility] today, but they don't have a bed available. He is on a wait list with them. Tomorrow I will check with [facility]. If we can't get anywhere by the end of the weekend, perhaps we should [place] back with out surgeons and see if they would consider attempting this placement even though they feel it will be harder on him and them. (4) Seizure disorder Status: Chronic Response to Treatment: Controlled Problem Specific Plan: Monitor Clinically Problem Text: 07/25: I spoke to the neurologist women's health care nurse practitioner to go through his neuropsychiatrically active medications to make sure none of them were causing the hypothermia. He was most concerned about the levothyroxine which is addressed below. The atypical antipsychotics should be covered by the haldol deconate. The Artane and Mysoline are likely for tremors or side effects of the anti-psychotics. The Gabatril and trazodone shouldn't cause these symptoms, but he encouraged me to use lorazepam 0.5mg IV QHS to provide some similar action/coverage so he is less likely to seize from withdrawal of these oral meds. Ultimately it would be best to get enteral access and resume his proven regimen. Seizure precaution were reaffirmed (5) Hypothyroidism Status: Chronic Response to Treatment: Stable, Controlled Problem Specific Plan: Monitor Clinically Problem Text: 07/25: his lack of levothyoxine could be a significant factor in his hypothermia. I reduced his usual PO dose by 25% and ordered it IV. 07/23 -- chronic and stable. No PO levothyroxine as no NG tube and NPO. PMH of hypothyroidism; T4 and TSH wnl; r/o myexedma coma. PO synthroid dose through NG tube feeding (6) Anemia Status: Chronic Problem Specific Plan: Repeat Labs Problem Text: Hg 9.1 today compared to 12.5 yesterday. Likely 2/2 to hemodilution. PMH of anemia as well as GI bleed. Neg occult blood test. Continue to trend CBC (7) Cognitive impairment Status: Chronic Response to Treatment: Stable Problem Text: [facility] pt with PMH of advanced cognitive impairement with psychosis. As many of his meds as could be given parenterally were changed today. Still enteral dosing of his proven regimen would be best. (8) Physical deconditioning Status: Chronic Response to Treatment: Stable Problem Text: PT d/c as pt unable to follow command. d/c bedrest; OOB with assist. Sitter with fall precaution. (9) Constipation Status: Resolved Response to Treatment: Stable, Controlled Problem Specific Plan: Monitor Clinically Problem Text: PMH of constipation. CT abdomen showed obstipation. bowel movements noted 07/21. Fleet enema PRN. Plan/VTE VTE Prophylaxis Ordered?: Yes (SCD) Plan IVF: Continue Diet: Make NPO Activity: Bedrest Medications: Bowel Regimen Diagnostics: Check Labs, Repeat Labs in AM VS, I&O, 24H, [facility] Vital Signs/I&O Vital Signs Date Time Temp Pulse Resp B/P (MAP) Pulse Ox O2 Delivery O2 Flow Rate FiO2 07/26/18 06:00 94.5 07/26/18 04:00 78 15 90/60 (70) 100 Room Air 07/22/18 10:00 1.0 I&O- Last 24 Hours up to 6 AM 07/26/18 05:59 Intake Total 1007 ml Output Total 400 ml Balance 607 ml Laboratory Data 24H LABS Laboratory Tests 2 07/25/18 11:23: Bedside Glucose (Misc Panel) 83 07/25/18 16:23: 07/25/18 16:24: Blood Urea Nitrogen < 1L, Creatinine 0.51L, Sodium Level 142, Potassium Level 3.8, Chloride Level 111H, Carbon Dioxide Level 25, Anion Gap 6L, Glomerular Filtration Rate > 60.0, Calcium Level 8.1L, Phosphorus Level 1.8L, Albumin 2.1L 07/25/18 16:42: Urine Random Creatinine < 13.0, Urine Random Phosphorus 8.6 07/26/18 00:35: Bedside Glucose (Misc Panel) 75L 07/26/18 04:44: Nucleated Red Blood Cells % (auto) 0.4H, Anion Gap 6L, Glomerular Filtration Rate > 60.0, Blood Urea Nitrogen < 1L, Creatinine 0.67L, Sodium Level 143, Potassium Level 4.4, Chloride Level 113H, Carbon Dioxide Level 24, Calcium Level 7.8L, Phosphorus Level 3.0#, Aspartate Amino Transf (AST/SGOT) 52H, Alanine Aminotransferase (ALT/SGPT) 47, Alkaline Phosphatase 161H, Total Bilirubin 0.2#, Total Protein 6.6, Albumin 1.9L, Magnesium Level 1.7L, C-Reactive Protein, Quantitative 3.69H, Albumin/Globulin Ratio 0.40L CBC/BMP Laboratory Tests 07/25/18 16:24 Anion Gap 6 L 07/26/18 04:44 Red Blood Count 4.11 L, Mean Corpuscular Volume 83.0, Mean Corpuscular Hemoglobin 27.0, Mean Corpuscular Hemoglobin Concent 32.6, Red Cell Distribution Width 17.1 H, Calcium Level 7.8 L, Phosphorus Level 3.0 #, Aspartate Amino Transf (AST/SGOT) 52 H, Alanine Aminotransferase (ALT/SGPT) 47, Alkaline [place] sphatase 161 H, Total Bilirubin 0.2 #, Total Protein 6.6, Albumin 1.9 L Microbiology Microbiology 07/16/18 Stool Occult Blood ([facility]ETH) - Final, Complete 07/20/18 Respiratory Virus Panel (PCR) ([facility]) - Final, Complete Aixa Swift [facility] Jul 26, 2018 07:48 Jacky Shelton M.D. Jul 26, 2018 17:48
[2018-07-26] MEDS: LEVOTHYROXINE 100 MCG (0.1MG) VIAL IV SCH (08:47)
[2018-07-26] MEDS: FLEET ENEMA PR SCH (10:27)
[2018-07-26 11:00] VITALS: BP 84/57
[2018-07-26 12:45] VITALS: BP 93/59
[2018-07-26 19:00] VITALS: BP 104/61
[2018-07-26] MEDS: LORazepam 2 MG/ML VIAL (J2060) IV SCH (20:26)
[2018-07-26 22:00] VITALS: BP 99/57
[2018-07-27] MEDS: KCL 20MEQ IN D5/0.45NS 1000ML 1,000 ML IV SCH ×3 (03:55→19:08)
[2018-07-27 06:00] VITALS: BP 96/53
[2018-07-27 06:18] LABS: BASO % 0.2 % (0.0-1.0); EOS # 0.1 10^3/uL (0.0-0.50); EOS % 1.3 % (0.0-3.0); HEMATOCRIT 33.4 % (42.0-52.0); HEMOGLOBIN 10.9 g/dl (13.5-17.5); LYMPH # 1.2 10^3/uL (1.5-4.5); MEAN CORPUSCULAR HEMOGLOBIN 26.7 pg (27.0-33.0); MEAN CORPUSCULAR HGB CONC 32.6 g/dl (32.0-36.5); MEAN CORPUSCULAR VOLUME 81.9 fl (80.0-96.0); MONO # 0.4 10^3/uL (0.0-0.8); MONO % 8.3 % (0.0-5.0); NEUTROPHILS % 63.8 % (36.0-66.0); PLATELET COUNT, AUTOMATED 295 10^3/uL (150-450); RED BLOOD COUNT 4.08 10^6/uL (4.30-6.10); WHITE BLOOD COUNT 4.7 10^3/uL (4.0-10.0)
[2018-07-27 06:39] LABS: ALBUMIN 1.9 GM/DL (3.2-5.2); ALT/SGPT 44 U/L (12-78); BILIRUBIN,TOTAL 0.2 MG/DL (0.2-1.0); BLOOD UREA NITROGEN < 1 MG/DL (7-18); C REACTIVE PROTEIN QUANTITATIV 2.48 MG/DL (0.00-0.30); CALCIUM LEVEL 7.7 MG/DL (8.8-10.2); CARBON DIOXIDE LEVEL 25 MEQ/L (21-32); CHLORIDE LEVEL 113 MEQ/L (98-107); CREATININE FOR GFR 0.67 MG/DL (0.70-1.30); GLOMERULAR FILTRATION RATE > 60.0 (>49); GLUCOSE, FASTING 67 MG/DL (70-100); POTASSIUM SERUM 4.1 MEQ/L (3.5-5.1); SODIUM LEVEL 144 MEQ/L (136-145); TOTAL PROTEIN 6.6 GM/DL (6.4-8.2)
--- NOTE | 2018-07-27 07:50 | IPNPDOC ---
Subjective Date Seen The patient was seen on 07/27/18. Subjective Chief Complaint/HPI aspiration Events since last encounter Temp maintained overnight w/o warming blanket. Attending physician had discussion regarding DNR and potential SHOULDER PUNCHER with guardian. See progress note for further information. Continues with IV hydration. General: Reports: ROS Unobtainable (due to mentation) Objective Physical Examination General Exam: Positive: No Acute Distress (sleeping), Mild Distress; Negative: Alert, Cooperative ENT Exam: Positive: Other ENT (tongue protrudes, not verbal. About 1 to 1.5 cm long healing scar on forehead; no obvious sign of infection) Neck Exam: Positive: Supple Chest Exam: Positive: Normal air movement; Negative: Rhonchi, Wheezing Heart Exam: Positive: Rate Normal, Regular Rhythm, Normal S1, Normal S2 Abdomen Exam: Positive: BS Hypoactive, Soft; Negative: Tenderness Extremity Exam: Negative: Edema, Swelling Skin Exam: Negative: Breakdown Neuro Exam: Positive: Other (does not respond to my presence in the room, non- verbal); Negative: Normal Speech Psych Exam: Negative: Mental status NL Assessment /Plan Problems (1) Severe protein-calorie malnutrition Status: Chronic Problem Text: 07/27/18: see below for plan. unchanged. will hold on transfer until decision is made. 07/26/18: mag is low at 1.7 today will replace. Unable to provide PPN/TPN due to pulling out PICC line. Tolerating IVF for now. Wang Zhong [facility] Shredding Machine Operator-I advised that patient would need a J-tube for enteral feeding given recurrent aspiration. I advised that this would only mitigate, but not eliminate, the aspiration risk. Additionally unless there was 24/7 supervision, the patient would most likely pull out the J-tube. As the patient's PCP, I agree with DNR status and favor SHOULDER PUNCHER status. Osvaldo advised me that the guardianship committee was meeting on Thu07/28/18 to discuss the patient's code status and that the marshmallow machine operator, Tyron Hinkle, would call me tomorrow (there has never been family identified to assume guardianship) (2) Hypothermia Status: Acute Discussed With: Nurse, Other Discussed With: ([facility] aide) Problem Specific Plan: Monitor Clinically Problem Text: 07/27/18: has Chronic hypothermia averaging a temp of 93 at home residence. Stable w/o warming blanket for last 12 hours. acute on chronic It should be noted that his baseline temperature is reported as roughly 95F per staff at [facility]. (3) Dysphagia Problem Text: 07/25: Again his dysphagia is the underlying cause of his severe and worsening malnutrition. There is not a bed for him at [facility] yet. I was too busy transferring him to the ICU and calling specialists for advice to inquire about beds at other [facility] today. If there is not a bed at [facility] for him tomorrow, this inquiry is still probably a good idea. 07/24 -- ultimately, many of Mr. Hamilton' problems are secondary to his dysphagia. He has been losing weight and has had multiple episodes of pneumonia, felt secondary to aspiration. Though he passed a swallow evaluation earlier this week, he visibly aspirated the same diet, with a speech therapist, the very next day. This directly contributes to his malnutrition and aspiration. His weight loss prior to hospitalization probably reflects decreased intake secondary to dysphagia. The Guardianship committee at [facility] has requested we attempt to have a PEG tube placed for artificial nutrition. We have discussed that this will NOT eliminate the risk of aspiration (although ti should reduce it), and there is significant concern that he will pull it out as he has his central line, and several peripheral IVs. They stated that they have several clients that have PEGs that they protect with abdominal binders; they would like to try this option for him. I did attempt to transfer him to [facility] today, but they don't have a bed available. He is on a wait list with them. Tomorrow I will check with [facility] and [facility]. If we can't get anywhere by the end of the weekend, perhaps we should [place] back with out surgeons and see if they would consider attempting this placement even though they feel it will be harder on him and them. (4) Seizure disorder Status: Chronic Response to Treatment: Controlled Problem Specific Plan: Monitor Clinically Problem Text: 07/25: I spoke to the neurologist environmental engineering aide to go through his neuropsychiatrically active medications to make sure none of them were causing the hypothermia. He was most concerned about the levothyroxine which is addressed below. The atypical antipsychotics should be covered by the haldol dec diogo. The Artane and Mysoline are likely for tremors or side effects of the anti-psychotics. The Gabatril and trazodone shouldn't cause these symptoms, but he encouraged me to use lorazepam 0.5mg IV QHS to provide some similar action/coverage so he is less likely to seize from withdrawal of these oral meds. Ultimately it would be best to get enteral access and resume his proven regimen. Seizure precaution were reaffirmed (5) Hypothyroidism Status: Chronic Response to Treatment: Stable, Controlled Problem Specific Plan: Monitor Clinically Problem Text: 07/25: his lack of levothyoxine could be a significant factor in his hypothermia. I reduced his usual PO dose by 25% and ordered it IV. 07/23 -- chronic and stable. No PO levothyroxine as no NG tube and NPO. PMH of hypothyroidism; T4 and TSH wnl; r/o myexedma coma. PO synthroid dose through NG tube feeding (6) Anemia Status: Chronic Problem Specific Plan: Repeat Labs Problem Text: Hg 9.1 today compared to 12.5 yesterday. Likely 2/2 to hemodilution. PMH of anemia as well as GI bleed. Neg occult blood test. Continue to trend CBC (7) Cognitive impairment Status: Chronic Response to Treatment: Stable Problem Text: [facility] pt with PMH of advanced cognitive impairement with psychosis. As many of his meds as could be given parenterally were changed today. Still enteral dosing of his proven regimen would be best. (8) Physical deconditioning Status: Chronic Response to Treatment: Stable Problem Text: PT d/c as pt unable to follow command. d/c bedrest; OOB with assist. Sitter with fall precaution. (9) Constipation Status: Resolved Response to Treatment: Stable, Controlled Problem Specific Plan: Monitor Clinically Problem Text: PMH of constipation. CT abdomen showed obstipation. bowel movements noted 07/21. Fleet enema PRN. Plan/VTE VTE Prophylaxis Ordered?: Yes (SCD) Plan IVF: Continue Diet: Make NPO Activity: Bedrest Medications: Bowel Regimen Diagnostics: Check Labs, Repeat Labs in AM VS, I&O, 24H, Fishbone Vital Signs/I&O Vital Signs Date Time Temp Pulse Resp B/P (MAP) Pulse Ox O2 Delivery O2 Flow Rate FiO2 07/27/18 06:00 96.4 60 18 96/53 (67) 100 Room Air 07/22/18 10:00 1.0 I&O- Last 24 Hours up to 6 AM 07/27/18 06:00 Intake Total 1985 ml Output Total 400 ml Balance 1585 ml Laboratory Data 24H LABS Laboratory Tests 2 07/26/18 12:34: Bedside Glucose (Misc Panel) 85 07/27/18 06:02: Immature Granulocyte % (Auto) 0.4, White Blood Count 4.7, Red Blood Count 4.08L, Hemoglobin 10.9L, Hematocrit 33.4L, Mean Corpuscular Volume 81.9, Mean Corpuscular Hemoglobin 26.7L, Mean Corpuscular Hemoglobin Concent 32.6, Red Cell Distribution Width 17.1H, Platelet Count 295, Neutrophils (%) (Auto) 63.8, Lymphocytes (%) (Auto) 26.0, Monocytes (%) (Auto) 8.3H, Eosinophils (%) (Auto) 1.3, Basophils (%) (Auto) 0.2, Neutrophils # (Auto) 3.0, Lymphocytes # (Auto) 1.2L, Monocytes # (Auto) 0.4, Eosinophils # (Auto) 0.1, Basophils # (Auto) 0.0, Nucleated Red Blood Cells % (auto) 0.4H, Anion Gap 6L, Glomerular Filtration Rate > 60.0, Blood Urea Nitrogen < 1L, Creatinine 0.67L, Sodium Level 144, Potassium Level 4.1, Chloride Level 113H, Carbon Dioxide Level 25, Calcium Level 7.7L, Aspartate Amino Transf (AST/SGOT) 57H, Alanine Aminotransferase (ALT/SGPT) 44, Alkaline Phosphatase 156H, Total Bilirubin 0.2, Total Protein 6.6, Albumin 1.9L, C-Reactive Protein, Quantitative 2.48H, Albumin/Globulin Ratio 0.40L CBC/BMP Laboratory Tests 07/27/18 06:02 Red Blood Count 4.08 L, Mean Corpuscular Volume 81.9, Mean Corpuscular Hemoglobin 26.7 L, Mean Corpuscular Hemoglobin Concent 32.6, Red Cell Distribution Width 17.1 H, Neutrophils (%) (Auto) 63.8, Lymphocytes (%) (Auto) 26.0, Monocytes (%) (Auto) 8.3 H, Eosinophils (%) (Auto) 1.3, Basophils (%) (Auto) 0.2, Neutrophils # (Auto) 3.0, Lymphocytes # (Auto) 1.2 L, Monocytes # (Auto) 0.4, Eosinophils # (Auto) 0.1, Basophils # (Auto) 0.0, Calcium Level 7.7 L, Aspartate Amino Transf (AST/SGOT) 57 H, Alanine Aminotransferase (ALT/SGPT) 44, Alkaline Phosphatase 156 H, Total Bilirubin 0.2, Total Protein 6.6, Albumin 1.9 L Microbiology Microbiology 07/20/18 Respiratory Virus Panel (PCR) ([facility]) - Final, Complete Aixa Swift CONSOLIDATION ACCOUNTANT Jul 27, 2018 07:50
[2018-07-27] MEDS: LEVOTHYROXINE 100 MCG (0.1MG) VIAL IV SCH (10:05)
[2018-07-27 14:00] VITALS: BP 98/56
[2018-07-27] MEDS: LORazepam 2 MG/ML VIAL (J2060) IV SCH (21:52)
[2018-07-27 22:00] VITALS: BP 87/52
[2018-07-28 02:23] VITALS: BP 90/58
[2018-07-28] MEDS: LORazepam 2 MG/ML VIAL (J2060) IV PRN (03:17)
[2018-07-28 06:00] VITALS: BP 96/53
--- NOTE | 2018-07-28 09:01 | IPNPDOC ---
Subjective Date Seen The patient was seen on 07/28/18. Subjective Chief Complaint/HPI aspiration Events since last encounter uneventful night. remains with normal temps. General: Reports: ROS Unobtainable Objective Physical Examination General Exam: Positive: No Acute Distress (sleeping); Negative: Alert, Cooperative ENT Exam: Positive: Other ENT (tongue protrudes, not verbal. About 1 to 1.5 cm long healing scar on forehead; no obvious sign of infection) Neck Exam: Positive: Supple Chest Exam: Positive: Normal air movement; Negative: Rhonchi, Wheezing Heart Exam: Positive: Rate Normal, Regular Rhythm, Normal S1, Normal S2 Abdomen Exam: Positive: Normal bowel sounds, Soft; Negative: Tenderness Extremity Exam: Negative: Edema, Swelling Skin Exam: Negative: Breakdown Neuro Exam: Positive: Other (does not respond to my presence in the room, non- verbal); Negative: Normal Speech Psych Exam: Negative: Mental status NL Assessment /Plan Problems (1) Severe protein-calorie malnutrition Status: Chronic Problem Text: 07/27/18: see below for plan. unchanged. will hold on transfer until decision is made. 07/26/18: mag is low at 1.7 today will replace. Unable to provide PPN/TPN due to pulling out PICC line. Tolerating IVF for now. Wang Zhong [facility] Network Support Administrator-I advised that patient would need a J-tube for enteral feeding given recurrent aspiration. I advised that this would only mitigate, but not eliminate, the aspiration risk. Additionally unless there was 24/7 supervision, the patient would most likely pull out the J-tube. As the patient's PCP, I agree with DNR status and favor DOOR TO DOOR SELLING DISTRIBUTOR status. Osvaldo advised me that the guardianship committee was meeting on 07/28/18 to discuss the patie nt's code status and that the accountant controller, Tyron Hinkle, would call me tomorrow (there has never been family identified to assume guardianship) (2) Hypothermia Status: Chronic Discussed With: Nurse, Other Discussed With: ([facility] aide) Problem Specific Plan: Monitor Clinically Problem Text: 07/27/18: has Chronic hypothermia averaging a temp of 93 at home residence. Stable w/o warming blanket for last 12 hours. acute on chronic It should be noted that his baseline temperature is reported as roughly 95F per staff at [facility]. (3) Dysphagia Problem Text: 07/25: Again his dysphagia is the underlying cause of his severe and worsening malnutrition. There is not a bed for him at [facility] yet. I was too busy transferring him to the ICU and calling specialists for advice to inquire about beds at other [facility] today. If there is not a bed at [facility] for him tomorrow, this inquiry is still probably a good idea. 07/24 -- ultimately, many of Mr. Hamilton' problems are secondary to his dysphagia. He has been losing weight and has had multiple episodes of pneumonia, felt secondary to aspiration. Though he passed a swallow evaluation earlier this week, he visibly aspirated the same diet, with a speech therapist, the very next day. This directly contributes to his malnutrition and aspiration. His weight loss prior to hospitalization probably reflects decreased intake secondary to dysphagia. The Guardianship committee at [facility] has requested we attempt to have a PEG tube placed for artificial nutrition. We have discussed that this will NOT eliminate the risk of aspiration (although ti should reduce it), and there is significant concern that he will pull it out as he has his central line, and several peripheral IVs. They stated that they have several clients that have PEGs that they protect with abdominal binders; they would like to try this option for him. I did attempt to transfer him to [facility] today, but they don't have a bed available. He is on a wait list with them. Tomorrow I will check with [facility]. If we can't get anywhere by the end of the weekend, perhaps we should [place] back with out surgeons and see if they would consider attempting this placement even though they feel it will be harder on him and them. (4) Seizure disorder Status: Chronic Response to Treatment: Controlled Problem Specific Plan: Monitor Clinically Problem Text: 07/25: I spoke to the neurologist contact lens edge buffer to go through his neuropsychiatrically active medications to make sure none of them were causing the hypothermia. He was most concerned about the levothyroxine which is addressed below. The atypical antipsychotics should be covered by the haldol deconate. The Artane and Mysoline are likely for tremors or side effects of the anti-psychotics. The Gabatril and trazodone shouldn't cause these symptoms, but he encouraged me to use lorazepam 0.5mg IV QHS to provide some similar action/coverage so he is less likely to seize from withdrawal of these oral meds. Ultimately it would be best to get enteral access and resume his proven regimen. Seizure precaution were reaffirmed (5) Hypothyroidism Status: Chronic Response to Treatment: Stable, Controlled Problem Specific Plan: Monitor Clinically Problem Text: 07/25: his lack of levothyoxine could be a significant factor in his hypothermia. I reduced his usual PO dose by 25% and ordered it IV. 07/23 -- chronic and stable. No PO levothyroxine as no NG tube and NPO. PMH of hypothyroidism; T4 and TSH wnl; r/o myexedma coma. PO synthroid dose through NG tube feeding (6) Anemia Status: Chronic Response to Treatment: Stable Problem Specific Plan: Repeat Labs Problem Text: Hg 9.1 today compared to 12.5 yesterday. Likely 2/2 to hemodilution. PMH of anemia as well as GI bleed. Neg occult blood test. Continue to trend CBC (7) Cognitive impairment Status: Chronic Response to Treatment: Stable Problem Text: [facility] pt with PMH of advanced cognitive impairement with psychosis. As many of his meds as could be given parenterally were changed today. Still enteral dosing of his proven regimen would be best. (8) Physical deconditioning Status: Chronic Response to Treatment: Stable Problem Text: PT d/c as pt unable to follow command. d/c bedrest; OOB with assist. Sitter with fall precaution. (9) Constipation Status: Resolved Response to Treatment: Stable, Controlled Problem Specific Plan: Monitor Clinically Problem Text: PMH of constipation. CT abdomen showed obstipation. bowel movements noted 07/21. Fleet enema PRN. Plan/VTE VTE Prophylaxis Ordered?: Yes (SCD) Plan IVF: Continue Diet: Make NPO Activity: Bedrest Medications: Bowel Regimen Diagnostics: Check Labs, Repeat Labs in AM VS, I&O, 24H, [place] Vital Signs/I&O Vital Signs Date Time Temp Pulse Resp B/P (MAP) Pulse Ox O2 Delivery O2 Flow Rate FiO2 07/28/18 06:00 96.4 60 18 96/53 (67) 100 Room Air 07/22/18 10:00 1.0 I&O- Last 24 Hours up to 6 AM 07/28/18 06:00 Intake Total 1500 ml Output Total 0 ml Balance 1500 ml Laboratory Data 24H LABS Laboratory Tests 2 07/27/18 13:03: Bedside Glucose (Misc Panel) 101 07/27/18 17:49: Bedside Glucose (Misc Panel) 87 07/27/18 20:11: Bedside Glucose (Misc Panel) 92 07/28/18 00:25: Bedside Glucose (Misc Panel) 81 07/28/18 05:10: Bedside Glucose (Misc Panel) 92 Microbiology Microbiology 07/20/18 Respiratory Virus Panel (PCR) ([facility]) - Final, Complete Aixa Swift INSPECTOR RUBBER STAMP DIE Jul 28, 2018 09:01
[2018-07-28] MEDS: LEVOTHYROXINE 100 MCG (0.1MG) VIAL IV SCH (11:18)
[2018-07-28] MEDS: FLEET ENEMA PR SCH (11:19)
[2018-07-28] MEDS: KCL 20MEQ IN D5/0.45NS 1000ML 1,000 ML IV SCH ×2 (11:19→14:20)
[2018-07-28 14:00] VITALS: BP 130/74
[2018-07-28] MEDS: LORazepam 2 MG/ML VIAL (J2060) IV SCH (22:08)
[2018-07-29] MEDS: KCL 20MEQ IN D5/0.45NS 1000ML 1,000 ML IV SCH ×3 (01:22→16:05)
[2018-07-29 07:35] LABS: EOS % 1.1 % (0.0-3.0); HEMATOCRIT 31.8 % (42.0-52.0); HEMOGLOBIN 10.3 g/dl (13.5-17.5); LYMPH # 0.7 10^3/uL (1.5-4.5); LYMPH % 26.6 % (24.0-44.0); MEAN CORPUSCULAR HEMOGLOBIN 27.3 pg (27.0-33.0); MEAN CORPUSCULAR HGB CONC 32.4 g/dl (32.0-36.5); MEAN CORPUSCULAR VOLUME 84.4 fl (80.0-96.0); MONO # 0.3 10^3/uL (0.0-0.8); MONO % 9.4 % (0.0-5.0); NEUTROPHILS # 1.7 10^3/uL (1.8-7.7); NEUTROPHILS % 62.5 % (36.0-66.0); PLATELET COUNT, AUTOMATED 283 10^3/uL (150-450); RED BLOOD COUNT 3.77 10^6/uL (4.30-6.10); WHITE BLOOD COUNT 2.7 10^3/uL (4.0-10.0)
[2018-07-29 07:54] LABS: ALT/SGPT 39 U/L (12-78); BILIRUBIN,TOTAL 0.2 MG/DL (0.2-1.0); BLOOD UREA NITROGEN 1 MG/DL (7-18); CALCIUM LEVEL 7.9 MG/DL (8.8-10.2); CARBON DIOXIDE LEVEL 25 MEQ/L (21-32); CHLORIDE LEVEL 114 MEQ/L (98-107); CREATININE FOR GFR 0.54 MG/DL (0.70-1.30); GLOMERULAR FILTRATION RATE > 60.0 (>49); GLUCOSE, FASTING 97 MG/DL (70-100); POTASSIUM SERUM 3.9 MEQ/L (3.5-5.1); SODIUM LEVEL 145 MEQ/L (136-145); TOTAL PROTEIN 6.4 GM/DL (6.4-8.2)
[2018-07-29] MEDS: LEVOTHYROXINE 100 MCG (0.1MG) VIAL IV SCH (08:57)
--- NOTE | 2018-07-29 09:36 | IPNPDOC ---
Subjective Date Seen The patient was seen on 07/29/18. Subjective Chief Complaint/HPI aspiration Events since last encounter lower tempts overnight noted. No change in patient's behavior. Given a warming blanket with improvement. Warming blanket now in need of repair. temp is maintaining 92 with extra blankets applied to bed. Behavior has remained at baseline. Patient has hx of thalamic central hypothermia. Bed at [facility] for interventional radiology placed PEG tube remains pending. General: Reports: ROS Unobtainable Objective Physical Examination General Exam: Positive: No Acute Distress (sleeping); Negative: Alert, Cooperative ENT Exam: Positive: Other ENT (tongue protrudes, not verbal. About 1 to 1.5 cm long healing scar on forehead; no obvious sign of infection) Neck Exam: Positive: Supple Chest Exam: Positive: Normal air movement; Negative: Rhonchi, Wheezing Heart Exam: Positive: Rate Normal, Regular Rhythm, Normal S1, Normal S2 Abdomen Exam: Positive: Normal bowel sounds, Soft; Negative: Tenderness Extremity Exam: Negative: Edema, Swelling Skin Exam: Negative: Breakdown Neuro Exam: Positive: Other (does not respond to my presence in the room, non- verbal); Negative: Normal Speech Psych Exam: Negative: Mental status NL Assessment /Plan Problems (1) Severe protein-calorie malnutrition Status: Chronic Problem Text: 07/27/18: see below for plan. unchanged. will hold on transfer until decision is made. 07/26/18: mag is low at 1.7 today will replace. Unable to provide PPN/TPN due to pulling out PICC line. Tolerating IVF for now. Wang Zhong [facility] Wood Boatbuilder-I advised that patient would need a J-tube for enteral feeding given recurrent aspiration. I advised that this would only mitigate, but not eliminate, the aspiration risk. Additionally unless there was 24/7 supervision, the patient would most likely pull out the J-tube. As the patient's PCP, I agree with DNR status and favor STRUCTURES MECHANIC status. Osvaldo advised me that the guardianship committee was meeting on Thu07/28/18 to discuss the patient's code status and that the co founder and chairman, Tyron Hinkle, would call me tomorrow (there has never been family identified to assume guardianship) (2) Hypothermia Status: Chronic Discussed With: Nurse, Other Discussed With: ([facility] aide) Problem Specific Plan: Monitor Clinically Problem Text: 07/29/18: DC warming blanket. Frequent rectal temps are causing more discomfort than optional intervention. Patient's behavior is at [facility] and he is not exhibiting signs of significant hypothermia. will monitor temps with routine vital signs at this time. 07/27/18: has Chronic hypothermia averaging a temp of 93 at home residence. Stable w/o warming blanket for last 12 hours. acute on chronic It should be noted that his baseline temperature is reported as roughly 95F per staff at [facility]. (3) Dysphagia Problem Text: 07/25: Again his dysphagia is the underlying cause of his severe and worsening malnutrition. There is not a bed for him at [facility] yet. I was too busy transferring him to the ICU and calling specialists for advice to inquire about beds at other [facility] today. If there is not a bed at [facility] for him tomorrow, this inquiry is still probably a good idea. 07/24 -- ultimately, many of Mr. Hamilton' problems are secondary to his dysphagia. He has been losing weight and has had multiple episodes of pneumonia, felt secondary to aspiration. Though he passed a swallow evaluation earlier this week, he visibly aspirated the same diet, with a speech therapist, the very next day. This directly contributes to his malnutrition and aspiration. His weight loss prior to hospitalization probably reflects decreased intake secondary to dysphagia. The Guardianship committee at [facility] has requested we attempt to have a PEG tube placed for artificial nutrition. We have discussed that this will NOT eliminate the risk of aspiration (although ti should reduce it), and there is significant concern that he will pull it out as he has his central line, and several peripheral IVs. They stated that they have several clients that have PEGs that they protect with abdominal binders; they would like to try this option for him. I did attempt to transfer him to [facility] today, but they don't have a bed available. He is on a wait list with them. Tomorrow I will check with [facility]. If we can't get anywhere by the end of the weekend, perhaps we should [place] back with out surgeons and see if they would consider attempting this placement even though they feel it will be harder on him and them. (4) Seizure disorder Status: Chronic Response to Treatment: Controlled Problem Specific Plan: Monitor Clinically Problem Text: 07/25: I spoke to the neurologist promotions team leader to go through his neuropsychiatrically active medications to make sure none of them were causing the hypothermia. He was most concerned about the levothyroxine which is addressed below. The atypical antipsychotics should be covered by the haldol deconate. The Artane and Mysoline are likely for tremors or side effects of the anti-psychotics. The Gabatril and trazodone shouldn't cause these symptoms, but he encouraged me to use lorazepam 0.5mg IV QHS to provide some similar action/coverage so he is less likely to seize from withdrawal of these oral meds. Ultimately it would be best to get enteral access and resume his proven regimen. Seizure precaution were reaffirmed (5) Hypothyroidism Status: Chronic Response to Treatment: Stable, Controlled Problem Specific Plan: Monitor Clinically Problem Text: 07/25: his lack of levothyoxine could be a significant factor in his hypothermia. I reduced his usual PO dose by 25% and ordered it IV. 07/23 -- chronic and stable. No PO levothyroxine as no NG tube and NPO. PMH of hypothyroidism; T4 and TSH wnl; r/o myexedma coma. PO synthroid dose through NG tube feeding (6) Anemia Status: Chronic Response to Treatment: Stable Problem Specific Plan: Repeat Labs Problem Text: Hg 9.1 today compared to 12.5 yesterday. Likely 2/2 to hemodilution. PMH of anemia as well as GI bleed. Neg occult blood test. Continue to trend CBC (7) Cognitive impairment Status: Chronic Response to Treatment: Stable Problem Text: [facility] pt with PMH of advanced cognitive impairement with psychosis. As many of his meds as could be given parenterally were changed today. Still enteral dosing of his proven regimen would be best. (8) Physical deconditioning Status: Chronic Response to Treatment: Stable Problem Text: PT d/c as pt unable to follow command. d/c bedrest; OOB with assist. Sitter with fall precaution. (9) Constipation Status: Resolved Response to Treatment: Stable, Controlled Problem Specific Plan: Monitor Clinically Problem Text: PMH of constipation. CT abdomen showed obstipation. bowel movemen ts noted 07/21. Fleet enema PRN. Plan/VTE VTE Prophylaxis Ordered?: Yes (SCD) Plan IVF: Continue Diet: Make NPO Activity: Bedrest Medications: Bowel Regimen Diagnostics: Check Labs, Repeat Labs in AM VS, I&O, 24H, [place] Vital Signs/I&O Vital Signs Date Time Temp Pulse Resp B/P (MAP) Pulse Ox O2 Delivery O2 Flow Rate FiO2 07/29/18 06:45 92.5 07/28/18 14:00 70 18 130/74 (92) 100 07/28/18 06:00 Room Air I&O- Last 24 Hours up to 6 AM 07/29/18 06:00 Intake Total 1500 ml Balance 1500 ml Laboratory Data 24H LABS Laboratory Tests 2 07/28/18 11:48: Bedside Glucose (Misc Panel) 97 07/28/18 16:28: Bedside Glucose (Misc Panel) 103 07/29/18 00:26: Bedside Glucose (Misc Panel) 104 07/29/18 07:20: Immature Granulocyte % (Auto) 0.4, White Blood Count 2.7L, Red Blood Count 3.77L, Hemoglobin 10.3L, Hematocrit 31.8L, Mean Corpuscular Volume 84.4, Mean Corpuscular Hemoglobin 27.3, Mean Corpuscular Hemoglobin Concent 32.4, Red Cell Distribution Width 17.3H, Platelet Count 283, Neutrophils (%) (Auto) 62.5, Lymphocytes (%) (Auto) 26.6, Monocytes (%) (Auto) 9.4H, Eosinophils (%) (Auto) 1.1, Basophils (%) (Auto) 0.0, Neutrophils # (Auto) 1.7L, Lymphocytes # (Auto) 0.7L, Monocytes # (Auto) 0.3, Eosinophils # (Auto) 0.0, Basophils # (Auto) 0.0, Nucleated Red Blood Cells % (auto) 0.0, Anion Gap 6L, Glomerular Filtration Rate > 60.0, Blood Urea Nitrogen 1L, Creatinine 0.54L, Sodium Level 145, Potassium Level 3.9, Chloride Level 114H, Carbon Dioxide Level 25, Calcium Level 7.9L, Aspartate Amino Transf (AST/SGOT) 43H, Alanine Aminotransferase (ALT/SGPT) 39, Alkaline Phosphatase 148H, Total Bilirubin 0.2, Total Protein 6.4, Albumin 2.0L, Albumin/Globulin Ratio 0.45L CBC/BMP Laboratory Tests 07/29/18 07:20 Red Blood Count 3.77 L, Mean Corpuscular Volume 84.4, Mean Corpuscular Hemoglobin 27.3, Mean Corpuscular Hemoglobin Concent 32.4, Red Cell Distribution Width 17.3 H, Neutrophils (%) (Auto) 62.5, Lymphocytes (%) (Auto) 26.6, Monocytes (%) (Auto) 9.4 H, Eosinophils (%) (Auto) 1.1, Basophils (%) (Auto) 0.0, Neutrophils # (Auto) 1.7 L, Lymphocytes # (Auto) 0.7 L, Monocytes # (Auto) 0.3, Eosinophils # (Auto) 0.0, Basophils # (Auto) 0.0, Calcium Level 7.9 L, Aspartate Amino Transf (AST/SGOT) 43 H, Alanine Aminotransferase (ALT/SGPT) 39, Alkaline Phosphatase 148 H, Total Bilirubin 0.2, Total Protein 6.4, Albumin 2.0 L Microbiology Microbiology 07/20/18 Respiratory Virus Panel ([facility]) ([facility]) - Final, Complete Aixa Swift [employer] Jul 29, 2018 09:36
[2018-07-29] MEDS: LORazepam 2 MG/ML VIAL (J2060) IV SCH (21:55)
[2018-07-29 22:00] VITALS: BP 106/68
[2018-07-30] MEDS: KCL 20MEQ IN D5/0.45NS 1000ML 1,000 ML IV SCH ×2 (01:49→11:57)
[2018-07-30 06:00] VITALS: BP 112/71
[2018-07-30 06:43] LABS: BASO % 0.3 % (0.0-1.0); EOS % 1.3 % (0.0-3.0); HEMATOCRIT 30.9 % (42.0-52.0); HEMOGLOBIN 9.9 g/dl (13.5-17.5); LYMPH # 0.9 10^3/uL (1.5-4.5); LYMPH % 29.8 % (24.0-44.0); MEAN CORPUSCULAR HEMOGLOBIN 26.8 pg (27.0-33.0); MEAN CORPUSCULAR VOLUME 83.7 fl (80.0-96.0); MONO # 0.3 10^3/uL (0.0-0.8); MONO % 8.9 % (0.0-5.0); NEUTROPHILS # 1.9 10^3/uL (1.8-7.7); NEUTROPHILS % 59.4 % (36.0-66.0); PLATELET COUNT, AUTOMATED 290 10^3/uL (150-450); RED BLOOD COUNT 3.69 10^6/uL (4.30-6.10); WHITE BLOOD COUNT 3.2 10^3/uL (4.0-10.0)
[2018-07-30 07:16] LABS: ALBUMIN 1.8 GM/DL (3.2-5.2); ALT/SGPT 35 U/L (12-78); BILIRUBIN,TOTAL 0.1 MG/DL (0.2-1.0); BLOOD UREA NITROGEN 1 MG/DL (7-18); CALCIUM LEVEL 7.8 MG/DL (8.8-10.2); CARBON DIOXIDE LEVEL 26 MEQ/L (21-32); CHLORIDE LEVEL 113 MEQ/L (98-107); CREATININE FOR GFR 0.58 MG/DL (0.70-1.30); GLOMERULAR FILTRATION RATE > 60.0 (>49); GLUCOSE, FASTING 100 MG/DL (70-100); POTASSIUM SERUM 4.4 MEQ/L (3.5-5.1); SODIUM LEVEL 144 MEQ/L (136-145); TOTAL PROTEIN 6.2 GM/DL (6.4-8.2)
[2018-07-30] MEDS: LEVOTHYROXINE 100 MCG (0.1MG) VIAL IV SCH (08:53)
[2018-07-30] MEDS: FLEET ENEMA PR SCH (08:54)
--- NOTE | 2018-07-30 10:29 | IPNPDOC ---
Subjective Date Seen The patient was seen on 07/30/18. Subjective Chief Complaint/HPI Nursing without new concerns. General: Reports: ROS Unobtainable Objective Physical Examination General Exam: Positive: No Acute Distress ENT Exam: Positive: Tongue Midline (slightly dry) Neck Exam: Positive: Supple Chest Exam: Positive: Normal air movement Heart Exam: Positive: Rate Normal, Regular Rhythm, Normal S1, Normal S2 Abdomen Exam: Positive: Normal bowel sounds, Soft Extremity Exam: Negative: Edema, Swelling Skin Exam: Negative: Breakdown Neuro Exam: Positive: Other Psych Exam: Negative: Mental status NL Assessment /Plan Problems (1) Severe protein-calorie malnutrition Status: Chronic Problem Text: 07/30 Plan to proceed with J-tube, await bed availability at [facility], nursing to f/u on this today. D/w nursing starting peripheral nutrition, she will look into this if the site pt has is compatible. 07/27/18: see below for plan. unchanged. will hold on transfer until decision is made. 07/26/18: mag is low at 1.7 today will replace. Unable to provide PPN/TPN due to pulling out PICC line. Tolerating IVF for now. Wang Zhong [facility] Synthetic Filament Extruder-I advised that patient would need a J-tube for enteral feeding given recurrent aspiration. I advised that this would only mitigate, but not eliminate, the aspiration risk. Additionally unless there was 19/01 supervision, the patient would most likely pull out the J-tube. As the patient's PCP, I agree with DNR status and favor APPLICATION SYSTEMS ENGINEER status. Osvaldo advised me that the guardianship committee was meeting on Thu07/28/18 to discuss the patient's code status and that the berry picker machine operator, Tyron Hinkle, would call me tomorrow (there has never been family identified to assume guardianship) (2) Hypothermia Status: Chronic Discussed With: Nurse, Other Discussed With: ([facility] aide) Problem Specific Plan: Monitor Clinically Problem Text: 07/[address], would be ideal to check temp once daily or with a change in status only. 07/29/18: DC warming blanket. Frequent rectal temps are causing more discomfort than optional intervention. Patient's behavior is at [facility] and he is not exhibiting signs of significant hypothermia. will monitor temps with routine vital signs at this time. 07/27/18: has Chronic hypothermia averaging a temp of 93 at home residence. Stable w/o warming blanket for last 12 hours. acute on chronic It should be noted that his baseline temperature is reported as roughly 95F per staff at [facility]. (3) Dysphagia Problem Text: 07/30 see above. 07/25: Again his dysphagia is the underlying cause of his severe and worsening malnutrition. There is not a bed for him at [facility] yet. I was too busy transferring him to the ICU and calling specialists for advice to inquire about beds at other [facility] today. If there is not a bed at [facility] for him tomorrow, this inquiry is still probably a good idea. 07/24 -- ultimately, many of Mr. Hamilton' problems are secondary to his dysphagia. He has been losing weight and has had multiple episodes of pneumonia, felt secondary to aspiration. Though he passed a swallow evaluation earlier this week, he visibly aspirated the same diet, with a speech therapist, the very next day. This directly contributes to his malnutrition and aspiration. His weight loss prior to hospitalization probably reflects decreased intake secondary to dysphagia. The Guardianship committee at [facility] has requested we attempt to have a PEG tube placed for artificial nutrition. We have discussed that this will NOT eliminate the risk of aspiration (although ti should reduce it), and there is significant concern that he will pull it out as he has his central line, and several peripheral IVs. They stated that they have several clients that have PEGs that they protect with abdominal binders; they would like to try this option for him. I did attempt to transfer him to [facility] today, but they don't have a bed available. He is on a wait list with them. Tomorrow I will check with [facility]. If we can't get anywhere by the end of the weekend, perhaps we should jena back with out surgeons and see if they would consider attempting this placement even though they feel it will be harder on him and them. (4) Seizure disorder Status: Chronic Response to Treatment: Controlled Problem Specific Plan: Monitor Clinically Problem Text: 07/25: I spoke to the neurologist information support project manager to go through his neuropsychiatrically active medications to make sure none of them were causing the hypothermia. He was most concerned about the levothyroxine which is addressed below. The atypical antipsychotics should be covered by the haldol deconate. The Artane and Mysoline are likely for tremors or side effects of the anti-psychotics. The Gabatril and trazodone shouldn't cause these symptoms, but he encouraged me to use lorazepam 0.5mg IV QHS to provide some similar action/coverage so he is less likely to seize from withdrawal of these oral meds. Ultimately it would be best to get enteral access and resume his proven regimen. Seizure precaution were reaffirmed (5) Hypothyroidism Status: Chronic Response to Treatment: Stable, Controlled Problem Specific Plan: Monitor Clinically Problem Text: 07/25: his lack of levothyoxine could be a significant factor in his hypothermia. I reduced his usual PO dose by 25% and ordered it IV. 07/23 -- chronic and stable. No PO levothyroxine as no NG tube and NPO. PMH of hypothyroidism; T4 and TSH wnl; r/o myexedma coma. PO synthroid dose through NG tube feeding (6) Anemia Status: Chronic Response to Treatment: Stable Problem Specific Plan: Repeat Labs Problem Text: Hg 9.1 today compared to 12.5 yesterday. Likely 2/2 to hemodilution. PMH of anemia as well as GI bleed. Neg occult blood test. Continue to trend CBC (7) Cognitive impairment Status: Chronic Response to Treatment: Stable Problem Text: [facility] pt with PMH of advanced cognitive impairement with psychosis. As many of his meds as could be given parenterally were changed today. Still enteral dosing of his proven regimen would be best. (8) Physical deconditioning Status: Chronic Response to Treatment: Stable Problem Text: PT d/c as pt unable to follow command. d/c bedrest; OOB with assist. Sitter with fall precaution. (9) Constipation Status: Resolved Response to Treatment: Stable, Controlled Problem Specific Plan: Monitor Clinically Problem Text: PMH of constipation. CT abdomen showed obstipation. bowel movements noted 07/21. Fleet enema PRN. Plan/VTE VTE Prophylaxis Ordered?: Yes (SCD) Plan IVF: Continue Diet: Make NPO Activity: Bedrest Medications: Bowel Regimen Diagnostics: Check Labs, Repeat Labs in AM VS, I&O, 24H, Fishbone Vital Signs/I&O Vital Signs Date Time Temp Pulse Resp B/P (MAP) Pulse Ox O2 Delivery O2 Flow Rate FiO2 07/30/18 09:06 96.0 07/30/18 06:00 58 18 112/71 (85) 98 07/28/18 06:00 Room Air I&O- Last 24 Hours up to 6 AM 07/30/18 06:00 Intake Total 750 ml Output Total 0 ml Balance 750 ml Laboratory Data 24H LABS Laboratory Tests 2 07/29/18 16:42: Bedside Glucose (Misc Panel) 92 07/30/18 06:30: Immature Granulocyte % (Auto) 0.3, White Blood Count 3.2L, Red Blood Count 3.69L, Hemoglobin 9.9L, Hematocrit 30.9L, Mean Corpuscular Volume 83.7, Mean Corpuscular Hemoglobin 26.8L, Mean Corpuscular Hemoglobin Concent 32.0, Red Cell Distribution Width 17.2H, Platelet Count 290, Neutrophils (%) (Auto) 59.4, Lymphocytes (%) (Auto) 29.8, Monocytes (%) (Auto) 8.9H, Eosinophils (%) (Auto) 1.3, Basophils (%) (Auto) 0.3, Neutrophils # (Auto) 1.9, Lymphocytes # (Auto) 0. 9L, Monocytes # (Auto) 0.3, Eosinophils # (Auto) 0.0, Basophils # (Auto) 0.0, Nucleated Red Blood Cells % (auto) 0.0, Anion Gap 5L, Glomerular Filtration Rate > 60.0, Blood Urea Nitrogen 1L, Creatinine 0.58L, Sodium Level 144, Potassium Level 4.4, Chloride Level 113H, Carbon Dioxide Level 26, Calcium Level 7.8L, Aspartate Amino Transf (AST/SGOT) 38H, Alanine Aminotransferase (ALT/SGPT) 35, Alkaline Phosphatase 141H, Total Bilirubin 0.1L, Total Protein 6.2L, Albumin 1.8L, Albumin/Globulin Ratio 0.41L CBC/BMP Laboratory Tests 07/30/18 06:30 Red Blood Count 3.69 L, Mean Corpuscular Volume 83.7, Mean Corpuscular Hemoglobin 26.8 L, Mean Corpuscular Hemoglobin Concent 32.0, Red Cell Distribution Width 17.2 H, Neutrophils (%) (Auto) 59.4, Lymphocytes (%) (Auto) 29.8, Monocytes (%) (Auto) 8.9 H, Eosinophils (%) (Auto) 1.3, Basophils (%) (Auto) 0.3, Neutrophils # (Auto) 1.9, Lymphocytes # (Auto) 0.9 L, Monocytes # (Auto) 0.3, Eosinophils # (Auto) 0.0, Basophils # (Auto) 0.0, Calcium Level 7.8 L, Aspartate Amino Transf (AST/SGOT) 38 H, Alanine Aminotransferase (ALT/SGPT) 3 5, Alkaline Phosphatase 141 H, Total Bilirubin 0.1 L, Total Protein 6.2 L, Albumin 1.8 L Microbiology Microbiology 07/20/18 Respiratory Virus Panel (PCR) ([facility]) - Final, Complete NANCY ARCINIEGA PA-C Jul 30, 2018 10:29
[2018-07-30] MEDS: HumaLOG INSULIN (NovoLOG) PER UNIT SC SCH ×2 (17:47→23:53)
[2018-07-30] MEDS: AMINO AC/ELECTROLYTE/DEX/CALC 1,000 ML IV SCH (17:48)
[2018-07-30] MEDS ORDERED: FAT EMULSION IV 20% 500 ML IV SCH (18:00)
[2018-07-30] MEDS: LORazepam 2 MG/ML VIAL (J2060) IV SCH (20:29)
[2018-07-30 22:00] VITALS: BP 97/63
[2018-07-31 06:00] VITALS: BP 93/61
[2018-07-31] MEDS: HumaLOG INSULIN (NovoLOG) PER UNIT SC SCH ×4 (06:00→23:50)
[2018-07-31 06:25] LABS: BASO % 0.2 % (0.0-1.0); EOS % 0.3 % (0.0-3.0); HEMATOCRIT 30.8 % (42.0-52.0); HEMOGLOBIN 10.2 g/dl (13.5-17.5); LYMPH # 0.7 10^3/uL (1.5-4.5); LYMPH % 11.9 % (24.0-44.0); MEAN CORPUSCULAR HEMOGLOBIN 27.2 pg (27.0-33.0); MEAN CORPUSCULAR HGB CONC 33.1 g/dl (32.0-36.5); MEAN CORPUSCULAR VOLUME 82.1 fl (80.0-96.0); MONO # 0.2 10^3/uL (0.0-0.8); MONO % 4.1 % (0.0-5.0); NEUTROPHILS # 4.8 10^3/uL (1.8-7.7); PLATELET COUNT, AUTOMATED 359 10^3/uL (150-450); RED BLOOD COUNT 3.75 10^6/uL (4.30-6.10); WHITE BLOOD COUNT 5.8 10^3/uL (4.0-10.0)
[2018-07-31 06:55] LABS: ALBUMIN 1.9 GM/DL (3.2-5.2); ALT/SGPT 34 U/L (12-78); BILIRUBIN,TOTAL 0.1 MG/DL (0.2-1.0); BLOOD UREA NITROGEN 3 MG/DL (7-18); CALCIUM LEVEL 7.7 MG/DL (8.8-10.2); CARBON DIOXIDE LEVEL 27 MEQ/L (21-32); CHLORIDE LEVEL 111 MEQ/L (98-107); CREATININE FOR GFR 0.79 MG/DL (0.70-1.30); GLOMERULAR FILTRATION RATE > 60.0 (>49); GLUCOSE, FASTING 94 MG/DL (70-100); POTASSIUM SERUM 3.7 MEQ/L (3.5-5.1); SODIUM LEVEL 145 MEQ/L (136-145); TOTAL PROTEIN 6.2 GM/DL (6.4-8.2)
[2018-07-31] MEDS: AMINO AC/ELECTROLYTE/DEX/CALC 1,000 ML IV SCH (10:36)
--- NOTE | 2018-07-31 12:40 | IPN ---
DATE: 07/31/2018 Marcus is seen in [address] [place] [address]. We are still waiting for a transfer to [facility] for an interventional radiology for percutaneous endoscopic gastrostomy (PEG) tube placement. He is currently on partial peripheral nutrition. He has intermittent hypothermia, which I think is simply a reflection of his severe neurologic deficits and hypothalamic dysfunction. We are periodically putting a warming blanket so his vital signs look more stable. Today vitals signs are blood pressure 193/61, temperature is 97.8, which is 4 degrees higher than his outpatient baseline. General appearance: Unchanged. Thick protruding tongue. Very narrow airway. Lungs: Clear. Heart regular rhythm. Abdomen soft, nontender. LABS: White count 5.8, hemoglobin 10.2, platelets 359. Sodium 145, potassium 3.7, BUN 3, creatinine 0.7, glucose 94. Plan is to continue peripheral nutrition. Call [facility]. There is no available for interventional radiology today or expected through the weekend. We can re-address this. Will put a call on Thursday.
[2018-07-31 14:00] VITALS: BP 104/60
[2018-07-31] MEDS: LEVOTHYROXINE 100 MCG (0.1MG) VIAL IV SCH (14:34)
[2018-07-31] MEDS ORDERED: FAT EMULSION IV 20% 500 ML IV SCH (18:00)
[2018-07-31 22:00] VITALS: BP 97/63
[2018-07-31] MEDS: LORazepam 2 MG/ML VIAL (J2060) IV SCH (22:03)
[2018-08-01] MEDS: AMINO AC/ELECTROLYTE/DEX/CALC 1,000 ML IV SCH ×2 (03:43→19:03)
[2018-08-01 06:15] VITALS: BP 78/52
[2018-08-01 06:20] LABS: BASO % 0.2 % (0.0-1.0); EOS % 0.3 % (0.0-3.0); HEMATOCRIT 32.4 % (42.0-52.0); HEMOGLOBIN 10.5 g/dl (13.5-17.5); LYMPH % 11.2 % (24.0-44.0); MEAN CORPUSCULAR HEMOGLOBIN 27.4 pg (27.0-33.0); MEAN CORPUSCULAR HGB CONC 32.4 g/dl (32.0-36.5); MEAN CORPUSCULAR VOLUME 84.6 fl (80.0-96.0); MONO # 0.4 10^3/uL (0.0-0.8); MONO % 4.9 % (0.0-5.0); NEUTROPHILS # 7.4 10^3/uL (1.8-7.7); NEUTROPHILS % 82.8 % (36.0-66.0); PLATELET COUNT, AUTOMATED 335 10^3/uL (150-450); RED BLOOD COUNT 3.83 10^6/uL (4.30-6.10); WHITE BLOOD COUNT 8.9 10^3/uL (4.0-10.0)
[2018-08-01] MEDS ORDERED: NS 1,000 ML IV ONE (06:30)
[2018-08-01] MEDS: HumaLOG INSULIN (NovoLOG) PER UNIT SC SCH ×4 (06:37→23:13)
[2018-08-01 07:05] LABS: ALBUMIN 1.9 GM/DL (3.2-5.2); ALT/SGPT 29 U/L (12-78); BILIRUBIN,TOTAL 0.2 MG/DL (0.2-1.0); BLOOD UREA NITROGEN 13 MG/DL (7-18); CALCIUM LEVEL 7.9 MG/DL (8.8-10.2); CARBON DIOXIDE LEVEL 28 MEQ/L (21-32); CHLORIDE LEVEL 108 MEQ/L (98-107); CREATININE FOR GFR 0.93 MG/DL (0.70-1.30); GLOMERULAR FILTRATION RATE > 60.0 (>49); GLUCOSE, FASTING 109 MG/DL (70-100); POTASSIUM SERUM 4.1 MEQ/L (3.5-5.1); SODIUM LEVEL 142 MEQ/L (136-145); TOTAL PROTEIN 6.3 GM/DL (6.4-8.2)
[2018-08-01 07:45] VITALS: BP 88/58
--- NOTE | 2018-08-01 08:19 | REP ---
Clinical: Rales/rhonchi and increased sputum production. Comparison: 07/22/2018. Findings: Mediastinum and cardiac silhouette are normal. Lung brandon demonstrate diffuse chronic interstitial changes. Superimposed right lower lobe infiltrate is suspected. No effusion. No pneumothorax. Skeletal structures stable. Impression: Chronic changes with superimposed right lower lobe infiltrate suggested. Electronically Signed by Layo Fernandez MD 08/01/2018 08:11 A
--- NOTE | 2018-08-01 10:11 | PHACANCOPD ---
PHARMACY VANCOMYCIN DOSING Pt Demographics Demographics Patient Age:67 , Weight:51.000 , Gender: male Adjusted Body Weight Date: 07/17/18, Adjusted Body Weight: [61.5] Kg Vancomycin Vancomycin indication: uti Vancomycin Target Ranges: 15-20 mcg/ml Vancomycin Load Y/N: No Load Dose Date Time Vancomycin Load Dose: NONE Vancomycin Dose Date: 07/17/18. Current Vancomycin Dose: [1g iv q12h] Intermittent Dosing?: No Labs Creatinine Clearance Date:07/17/18. Creatinine Clearance: [75ml/min]. Assessment and Plan Maintaining Current Dose?: Yes Reason for dose change: Other Pharmacist Note Pharmacist Note 08/01/18: Day #1 of empiric vancomycin therapy re-initiated at 1g IV Q12H for the treatment of a complicated UTI - aiming for a goal trough of 15-20mcg/ml. The patient was previously therapeutic on this regimen from 07/17-07/19/2018 for the treatment of UTI in which his urine culture grew staph epidermidis. WBC are currently WNL and the patient is afebrile. No new urinalysis or urine cultures currently. A vancomycin trough level has been scheduled to be drawn prior to the 5th dose on 08/03/18 @1000. We will continue to monitor and make dose adjustments if needed. Date: 07/17/18. Pharmacist note: Pt is a 67 year old male being treated for UTI goal trough 15-20mcg/ml. The patient has not been treated with vancomycin here at [facility] in the past. To achieve goal a 1.5g loading dose was started 07/17/18 @08. Maintenance therapy will consist of 1g IV every 12 hours starting 07/17/18 @ 20:00. A trough is scheduled 07/18/18 @19:00. We will continue to monitor and adjust the dose as needed. DAMI FRANCIS PHARMACY Aug 01, 2018 10:11
[2018-08-01] MEDS: LEVOTHYROXINE 100 MCG (0.1MG) VIAL IV SCH (11:12)
[2018-08-01] MEDS: MEROPENEM INJ 1 GM in APPROPRIATE DILUENT 1 EA IV SCH ×2 (11:12→19:02)
[2018-08-01] MEDS: VANCOMYCIN HCL 1,000 MG, VIAL MATE ADAPTER 1 EACH in D5W 250 ML IV SCH ×2 (12:19→23:06)
[2018-08-01 14:00] VITALS: BP 86/52
--- NOTE | 2018-08-01 14:41 | IPN ---
DATE: 08/01/2018 Marcus has taken a turn for the worse. He became hypotensive overnight and hypoxemic. I had to give him a bolus of saline. He dropped his oxygen saturation to 82%. His blood pressure was 78/52. I ordered lab work and state chest x-ray. X-ray confirmed close suspicion of a new pneumonia. He has a right lower lobe infiltrate. PHYSICAL EXAMINATION: Blood pressure 88.58, temperature 97.6 degrees. General Appearance: He looks more lethargic than usual. Protruding tongue. Narrow airway. Lungs: Rhonchi and wheezes on the right side. HEART: Regular rhythm. Abdomen soft, nontender. No peripheral edema. LABS: White count 8.9, hemoglobin 10.5, platelets 335. Sodium 142, potassium 4.1, BUN 13, creatinine 0.9, glucose 109. IMPRESSION: 1. Right upper lobe pneumonia presumed aspiration with hypotension and hypoxemia. I started vancomycin and meropenem (multiple drug allergies). I have also started some empiric steroid therapy with hydrocortisone 25 mg IV every 12 hours. We have not received any indication from [facility] that there is a bed available for his interventional radiology mediated feeding tube but at this point, that needs to be cancelled. He is in no condition to have the feeding tube placed and transfer should be cancelled. I spoke to Osvaldo Zhong who is the [facility] councilperson. I made him aware of Marcus's decline. He did confirm that Marcus is a DO NOT RESUSCITATE status. I entered that order. He will make the committee aware that the transfer now needs to be cancelled due to his aspirating and developing another pneumonia. In my professional opinion, Marcus would best be served by comfort measures only (CARE PARTNER) status and entering into a hospice palliative care program.
[2018-08-01] MEDS: HYDROCORTISONE 100 MG/2 ML VIAL (J1720) IV SCH (15:28)
[2018-08-01] MEDS ORDERED: FAT EMULSION IV 20% 500 ML IV SCH (18:00)
[2018-08-01] MEDS: LORazepam 2 MG/ML VIAL (J2060) IV SCH (20:12)
[2018-08-01 22:00] VITALS: BP 99/66
[2018-08-02] MEDS: MEROPENEM INJ 1 GM in APPROPRIATE DILUENT 1 EA IV SCH ×3 (01:06→17:26)
[2018-08-02] MEDS: HYDROCORTISONE 100 MG/2 ML VIAL (J1720) IV SCH ×2 (01:25→12:57)
[2018-08-02] MEDS: HumaLOG INSULIN (NovoLOG) PER UNIT SC SCH ×2 (05:44→12:56)
[2018-08-02 06:00] VITALS: BP 106/78
[2018-08-02 06:46] LABS: BASO % 0.2 % (0.0-1.0); EOS % 0.3 % (0.0-3.0); HEMATOCRIT 29.9 % (42.0-52.0); HEMOGLOBIN 9.7 g/dl (13.5-17.5); LYMPH # 0.8 10^3/uL (1.5-4.5); MEAN CORPUSCULAR HEMOGLOBIN 27.5 pg (27.0-33.0); MEAN CORPUSCULAR HGB CONC 32.4 g/dl (32.0-36.5); MEAN CORPUSCULAR VOLUME 84.7 fl (80.0-96.0); MONO # 0.3 10^3/uL (0.0-0.8); MONO % 2.2 % (0.0-5.0); NEUTROPHILS # 10.4 10^3/uL (1.8-7.7); NEUTROPHILS % 89.9 % (36.0-66.0); PLATELET COUNT, AUTOMATED 282 10^3/uL (150-450); RED BLOOD COUNT 3.53 10^6/uL (4.30-6.10); WHITE BLOOD COUNT 11.6 10^3/uL (4.0-10.0)
[2018-08-02 07:23] LABS: ALBUMIN 1.8 GM/DL (3.2-5.2); ALT/SGPT 23 U/L (12-78); BILIRUBIN,TOTAL 0.3 MG/DL (0.2-1.0); BLOOD UREA NITROGEN 11 MG/DL (7-18); CARBON DIOXIDE LEVEL 27 MEQ/L (21-32); CHLORIDE LEVEL 106 MEQ/L (98-107); CREATININE FOR GFR 0.56 MG/DL (0.70-1.30); GLOMERULAR FILTRATION RATE > 60.0 (>49); GLUCOSE, FASTING 105 MG/DL (70-100); POTASSIUM SERUM 3.8 MEQ/L (3.5-5.1); SODIUM LEVEL 139 MEQ/L (136-145); TOTAL PROTEIN 6.3 GM/DL (6.4-8.2)
--- NOTE | 2018-08-02 07:49 | IPNPDOC ---
Subjective Date Seen The patient was seen on 08/02/18. Subjective Chief Complaint/HPI Continues with IV Vancomycin and Meropenem for RLL infiltrate. Oxygen weaned off. Continues to be restless overnight. IV SL in foot remains intact. General: Reports: ROS Unobtainable Objective Physical Examination General Exam: Positive: No Acute Distress ENT Exam: Positive: Tongue Midline (slightly dry) Neck Exam: Positive: Supple Chest Exam: Positive: Diminished (RLL) Heart Exam: Positive: Rate Normal, Regular Rhythm, Normal S1, Normal S2 Abdomen Exam: Positive: Normal bowel sounds, Soft Extremity Exam: Negative: Edema, Swelling Skin Exam: Negative: Breakdown Neuro Exam: Positive: Other Psych Exam: Negative: Mental status NL Assessment /Plan Problems (1) Severe protein-calorie malnutrition Status: Chronic Problem Text: 08/02/18: PPN started and infusing in right foot peripheral line. Transfer on HOLD due to new onset pneumonia with hypotension and hypoxia. 07/30 Plan to proceed with J-tube, await bed availability at [facility], nursing to f/u on this today. D/w nursing starting peripheral nutrition, she will look into this if the site pt has is compatible. 07/27/18: see below for plan. unchanged. will hold on transfer until decision is made. 07/26/18: mag is low at 1.7 today will replace. Unable to provide PPN/TPN due to pulling out PICC line. Tolerating IVF for now. Wang Zhong [facility] Police Aide-I advised that patient would need a J-tube for enteral feeding given recurrent aspiration. I advised that this would only mitigate, but not eliminate, the aspiration risk. Additionally unless there was / supervision, the patient would most likely pull out the J-tube. As the patient's PCP, I agree with DNR status and favor DECORATIVE ENGRAVER APPRENTICE status. Osvaldo advised me that the guardianship committee was meeting on Thu07/28/18 to discuss the patient's code status and that the national park ranger, Tyron Hinkle, would call me tomorrow (there has never been family identified to assume guardianship) (2) Pneumonia Status: Acute Problem Text: new onset RLL new pneumonia. on IV Vancomycin and Meropenem. Has been weaned off of oxygen. (3) Hypothermia Status: Chronic Discussed With: Nurse, Other Discussed With: ([facility] aide) Problem Specific Plan: Monitor Clinically Problem Text: 2/4/19: no hypothermia over last several days. 07/[address], would be ideal to check temp once daily or with a change in status only. 07/29/18: DC warming blanket. Frequent rectal temps are causing more discomfort than optional intervention. Patient's behavior is at [facility] and he is not exhibiting signs of significant hypothermia. will monitor temps with routine vital signs at this time. 07/27/18: has Chronic hypothermia averaging a temp of 93 at home residence. Stable w/o warming blanket for last 12 hours. acute on chronic It should be noted that his baseline temperature is reported as roughly 95F per staff at [facility]. (4) Dysphagia Status: Chronic Problem Text: 07/30 see above. 07/25: Again his dysphagia is the underlying cause of his severe and worsening malnutrition. There is not a bed for him at [facility] yet. I was too busy transferring him to the ICU and calling specialists for advice to inquire about beds at other [facility] today. If there is not a bed at [facility] for him tomorrow, this inquiry is still probably a good idea. 07/24 -- ultimately, many of Mr. Hamilton' problems are secondary to his dysphagia. He has been losing weight and has had multiple episodes of pneumonia, felt secondary to aspiration. Though he passed a swallow evaluation earlier this week, he visibly aspirated the same diet, with a speech therapist, the very next day. This directly contributes to his malnutrition and aspiration. His weight loss prior to hospitalization probably reflects decreased intake secondary to dy sphagia. The Guardianship committee at [facility] has requested we attempt to have a PEG tube placed for artificial nutrition. We have discussed that this will NOT eliminate the risk of aspiration (although ti should reduce it), and there is significant concern that he will pull it out as he has his central line, and several peripheral IVs. They stated that they have several clients that have PEGs that they protect with abdominal binders; they would like to try this option for him. I did attempt to transfer him to [facility] today, but they don't have a bed available. He is on a wait list with them. Tomorrow I will check with [facility] and [facility]. If we can't get anywhere by the end of the weekend, perhaps we should [place] back with out surgeons and see if they would consider attempting this placement even though they feel it will be harder on him and them. (5) Seizure disorder Status: Chronic Response to Treatment: Controlled Problem Specific Plan: Monitor Clinically Problem Text: 07/25: I spoke to the neurologist career professional to go through his neuropsychiatrically active medications to make sure none of them were causing the hypothermia. He was most concerned about the levothyroxine which is addressed below. The atypical antipsychotics should be covered by the haldol deconate. The Artane and Mysoline are likely for tremors or side effects of the anti-psychotics. The Gabatril and trazodone shouldn't cause these symptoms, but he encouraged me to use lorazepam 0.5mg IV QHS to provide some similar action/coverage so he is less likely to seize from withdrawal of these oral meds. Ultimately it would be best to get enteral access and resume his proven regimen. Seizure precaution were reaffirmed (6) Hypothyroidism Status: Chronic Response to Treatment: Stable, Controlled Problem Specific Plan: Monitor Clinically Problem Text: 07/25: his lack of levothyoxine could be a significant factor in his hypothermia. I reduced his usual PO dose by 25% and ordered it IV. 07/23 -- chronic and stable. No PO levothyroxine as no NG tube and NPO. PMH of hypothyroidism; T4 and TSH wnl; r/o myexedma coma. PO synthroid dose through NG tube feeding (7) Anemia Status: Chronic Response to Treatment: Stable Problem Specific Plan: Repeat Labs Problem Text: Hg 9.1 today compared to 12.5 yesterday. Likely 2/2 to hemodilution. PMH of anemia as well as GI bleed. Neg occult blood test. Continue to trend CBC (8) Cognitive impairment Status: Chronic Response to Treatment: Stable Problem Text: [facility] pt with PMH of advanced cognitive impairement with psychosis. As many of his meds as could be given parenterally were changed today. Still enteral dosing of his proven regimen would be best. (9) Physical deconditioning Status: Chronic Response to Treatment: Stable Problem Text: PT d/c as pt unable to follow command. d/c bedrest; OOB with assist. Sitter with fall precaution. (10) Constipation Status: Resolved Response to Treatment: Stable, Controlled Problem Specific Plan: Monitor Clinically Problem Text: PMH of constipation. CT abdomen showed obstipation. bowel movem ents noted 07/21. Fleet enema PRN. Plan/VTE VTE Prophylaxis Ordered?: Yes (SCD) Plan IVF: Continue Diet: Make NPO Activity: Bedrest Medications: Bowel Regimen Diagnostics: Check Labs, Repeat Labs in AM VS, I&O, 24H, Fishbone Vital Signs/I&O Vital Signs Date Time Temp Pulse Resp B/P (MAP) Pulse Ox O2 Delivery O2 Flow Rate FiO2 08/02/18 06:00 95.0 81 16 106/78 (87) 98 08/01/18 07:45 1.0 07/28/18 06:00 Room Air I&O- Last 24 Hours up to 6 AM 08/02/18 06:00 Intake Total 1320 ml Output Total 0 ml Balance 1320 ml Laboratory Data 24H LABS Laboratory Tests 2 08/01/18 11:40: Bedside Glucose (Misc Panel) 71L 08/01/18 18:36: Bedside Glucose (Misc Panel) 121H 08/01/18 23:11: Bedside Glucose (Misc Panel) 105 08/02/18 05:43: Bedside Glucose (Misc Panel) 98 08/02/18 05:49: Immature Granulocyte % (Auto) 0.4, White Blood Count 11.6H, Red Blood Count 3.53L, Hemoglobin 9.7L, Hematocrit 29.9L, Mean Corpuscular Volume 84.7, Mean Corpuscular Hemoglobin 27.5, Mean Corpuscular Hemoglobin Concent 32.4, Red Cell Distribution Width 17.8H, Platelet Count 282, Neutrophils (%) (Auto) 89.9H, Lymphocytes (%) (Auto) 7.0L, Monocytes (%) (Auto) 2.2, Eosinophils (%) (Auto) 0.3, Basophils (%) (Auto) 0.2, Neutrophils # (Auto) 10.4H, Lymphocytes # (Auto) 0.8L, Monocytes # (Auto) 0.3, Eosinophils # (Auto) 0.0, Basophils # (Auto) 0.0, Nucleated Red Blood Cells % (auto) 0.0, Anion Gap 6L, Glomerular Filtration Rate > 60.0, Blood Urea Nitrogen 11, Creatinine 0.56L, Sodium Level 139, Potassium Level 3.8, Chloride Level 106, Carbon Dioxide Level 27, Calcium Level 8.0L, Aspartate Amino Transf (AST/SGOT) 24, Alanine Aminotransferase (ALT/SGPT) 23, Alkaline Phosphatase 123H, Total Bilirubin 0.3, Total Protein 6.3L, Albumin 1.8L, Albumin/Globulin Ratio 0.40L CBC/BMP Laboratory Tests 08/02/18 05:49 Red Blood Count 3.53 L, Mean Corpuscular Volume 84.7, Mean Corpuscular Hemoglobin 27.5, Mean Corpuscular Hemoglobin Concent 32.4, Red Cell Distribution Width 17.8 H, Neutrophils (%) (Auto) 89.9 H, Lymphocytes (%) (Auto) 7.0 L, Monocytes (%) (Auto) 2.2, Eosinophils (%) (Auto) 0.3, Basophils (%) (Auto) 0.2, Neutrophils # (Auto) 10.4 H, Lymphocytes # (Auto) 0.8 L, Monocytes # (Auto) 0.3, Eosinophils # (Auto) 0.0, Basophils # (Auto) 0.0, Calcium Level 8.0 L, Aspartate Amino Transf (AST/SGOT) 24, Alanine Aminotransferase (ALT/SGPT) 23, Alkaline Phosphatase 123 H, Total Bilirubin 0.3, Total Protein 6.3 L, Albumin 1.8 L Aixa SwiftP Aug 02, 2018 07:48
[2018-08-02] MEDS: LEVOTHYROXINE 100 MCG (0.1MG) VIAL IV SCH (08:19)
[2018-08-02] MEDS: FLEET ENEMA PR SCH (08:20)
--- NOTE | 2018-08-02 10:00 | REP ---
Chest one-view HISTORY: Right lower lobe infiltrate Comparison: 08/01/2018 An increase in interstitial markings is present in the lungs consistent with chronic interstitial change. Patchy density is present in the right lower lobe consistent with an infiltrate that is unchanged compared to the previous study. The heart is normal in size. The pulmonary vasculature is normal in appearance. Impression: 1. Right lower lobe infiltrate unchanged compared to the previous study. 2. Chronic interstitial change. Electronically Signed by Jw Neal MD 08/02/2018 09:51 A
[2018-08-02] MEDS: VANCOMYCIN HCL 1,000 MG, VIAL MATE ADAPTER 1 EACH in D5W 250 ML IV SCH ×2 (11:26→22:51)
[2018-08-02] MEDS: AMINO AC/ELECTROLYTE/DEX/CALC 1,000 ML IV SCH (12:11)
[2018-08-02 14:00] VITALS: BP 102/73
[2018-08-02 22:00] VITALS: BP 108/80
[2018-08-02] MEDS: LORazepam 2 MG/ML VIAL (J2060) IV SCH (22:00)
[2018-08-03] MEDS: HYDROCORTISONE 100 MG/2 ML VIAL (J1720) IV SCH ×2 (01:21→14:01)
[2018-08-03] MEDS: MEROPENEM INJ 1 GM in APPROPRIATE DILUENT 1 EA IV SCH ×3 (01:22→18:42)
[2018-08-03] MEDS: AMINO AC/ELECTROLYTE/DEX/CALC 1,000 ML IV SCH ×2 (03:47→21:31)
[2018-08-03 06:00] VITALS: BP 105/75
[2018-08-03 06:45] LABS: BASO % 0.1 % (0.0-1.0); EOS # 0.1 10^3/uL (0.0-0.50); EOS % 0.7 % (0.0-3.0); HEMATOCRIT 27.6 % (42.0-52.0); HEMOGLOBIN 9.3 g/dl (13.5-17.5); LYMPH # 0.8 10^3/uL (1.5-4.5); LYMPH % 10.3 % (24.0-44.0); MEAN CORPUSCULAR HGB CONC 33.7 g/dl (32.0-36.5); MEAN CORPUSCULAR VOLUME 83.1 fl (80.0-96.0); MONO # 0.4 10^3/uL (0.0-0.8); MONO % 5.1 % (0.0-5.0); NEUTROPHILS # 6.1 10^3/uL (1.8-7.7); NEUTROPHILS % 82.9 % (36.0-66.0); PLATELET COUNT, AUTOMATED 290 10^3/uL (150-450); RED BLOOD COUNT 3.32 10^6/uL (4.30-6.10); WHITE BLOOD COUNT 7.4 10^3/uL (4.0-10.0)
[2018-08-03 07:04] LABS: ALBUMIN 1.8 GM/DL (3.2-5.2); ALT/SGPT 20 U/L (12-78); BILIRUBIN,TOTAL 0.2 MG/DL (0.2-1.0); BLOOD UREA NITROGEN 9 MG/DL (7-18); CARBON DIOXIDE LEVEL 29 MEQ/L (21-32); CHLORIDE LEVEL 107 MEQ/L (98-107); CREATININE FOR GFR 0.49 MG/DL (0.70-1.30); GLOMERULAR FILTRATION RATE > 60.0 (>49); GLUCOSE, FASTING 114 MG/DL (70-100); POTASSIUM SERUM 3.4 MEQ/L (3.5-5.1); SODIUM LEVEL 141 MEQ/L (136-145); TOTAL PROTEIN 6.1 GM/DL (6.4-8.2)
[2018-08-03 08:00] VITALS: BP 97/62
[2018-08-03] MEDS: LEVOTHYROXINE 100 MCG (0.1MG) VIAL IV SCH (09:10)
--- NOTE | 2018-08-03 11:41 | PHACANCOPD ---
PHARMACY VANCOMYCIN DOSING Pt Demographics Demographics Patient Age:67 , Weight:52.300 , Gender: male Adjusted Body Weight Date: 07/17/18, Adjusted Body Weight: [61.5] Kg Events Past 24 Hours Events Past 24 Hours: NO: Dialysis, Diuretic Therapy, Change in CrCl, Fever, Elevation in WBC, Pending Diagnostics, Pending Procedures, Other Vancomycin Vancomycin indication: uti Vancomycin Target Ranges: 15-20 mcg/ml Vancomycin Load Y/N: No Load Dose Date Time Vancomycin Load Dose: NONE Vancomycin Dose Date: 07/17/18. Current Vancomycin Dose: [1g iv q12h] Intermittent Dosing?: No Labs Labs Item Value Date Time White Blood Count 7.4 10^3/uL 08/03/18 0622 White Blood Count 11.6 10^3/uL H 08/02/18 0549 White Blood Count 8.9 10^3/uL 08/01/18 0552 Creatinine 0.49 MG/DL L 08/03/18 0622 Creatinine 0.56 MG/DL L 08/02/18 0549 Creatinine 0.93 MG/DL 08/01/18 0552 Vancomycin Level Trough 21.4 UG/ML H 08/03/18 1006 Vancomycin Level Trough 17.2 UG/ML 08/02/18 215 Creatinine Clearance Date:07/17/18. Creatinine Clearance: [75ml/min]. Assessment and Plan Maintaining Current Dose?: No Reason for dose change: Trough too high Pharmacist Note Pharmacist Note 08/02/18: Trough today resulted at 21.4mcg/ml. The patient has continue to accumulate. I have adjusted his dose to Vanco 1G IV Q18H to allow the patient more time to clear between doses. Pt. is a [facility] pt. and likely CRCL is lower than presented. We will continue to monitor and adjust dose as needed. 08/01/18: Day #1 of empiric vancomycin therapy re-initiated at 1g IV Q12H for the treatment of a complicated UTI - aiming for a goal trough of 15-20mcg/ml. The patient was previously therapeutic on this regimen from 07/17-07/19/2018 for the treatment of UTI in which his urine culture grew staph epidermidis. WBC are currently WNL and the patient is afebrile. No new urinalysis or urine cultures currently. A vancomycin trough level has been scheduled to be drawn prior to the 5th dose on 08/03/18 @1000. We will continue to monitor and make dose adjustments if needed. Date: 07/17/18. Pharmacist note: Pt is a 67 year old male being treated for UTI goal trough 15-20mcg/ml. The patient has not been treated with vancomycin here at [facility] in the past. To achieve goal a 1.5g loading dose was started 07/17/18 @08. Maintenance therapy will consist of 1g IV every 12 hours starting 07/17/18 @ 20:00. A trough is scheduled 07/18/18 @19:00. We will continue to monitor and adjust the dose as needed. VAZQUEZ VERA PHARMACY Aug 03, 2018 11:41
[2018-08-03 14:00] VITALS: BP 113/77
--- NOTE | 2018-08-03 16:25 | IPNPDOC ---
Subjective Date Seen The patient was seen on 08/03/18. Subjective Chief Complaint/HPI per HPI General: Reports: ROS Unobtainable Objective Physical Examination General Exam: Positive: No Acute Distress ENT Exam: Positive: Tongue Midline (slightly dry) Neck Exam: Positive: Supple Chest Exam: Positive: Diminished (RLL) Heart Exam: Positive: Rate Normal, Regular Rhythm, Normal S1, Normal S2 Abdomen Exam: Positive: Normal bowel sounds, Soft Extremity Exam: Negative: Edema, Swelling Skin Exam: Negative: Breakdown Neuro Exam: Positive: Other Psych Exam: Negative: Mental status NL Assessment /Plan Problems (1) Severe protein-calorie malnutrition Status: Chronic Problem Text: 08/03: infusion site still functional. still waiting for transfer for IR placement of feeding tube. 08/02/18: PPN started and infusing in right foot peripheral line. Transfer on HOLD due to new onset pneumonia with hypotension and hypoxia. 07/30 Plan to proceed with J-tube, await bed availability at [facility], nursing to f/u on this today. D/w nursing starting peripheral nutrition, she will look i nto this if the site pt has is compatible. 07/27/18: see below for plan. unchanged. will hold on transfer until decision is made. 07/26/18: mag is low at 1.7 today will replace. Unable to provide PPN/TPN due to pulling out PICC line. Tolerating IVF for now. Wang Zhong [facility] Dispatch Officer-I advised that patient would need a J-tube for enteral feeding given recurrent aspiration. I advised that this would only mitigate, but not eliminate, the aspiration risk. Additionally unless there was 24/7 supervision, the patient would most likely pull out the J-tube. As the patient's PCP, I agree with DNR status and favor SURGICAL TECHNICIAN status. Osvaldo advised me that the guardianship committee was meeting on Thu07/28/18 to discuss the patient's code status and that the stripe matcher, Tyron Hinkle, would call me tomorrow (there has never been family identified to assume guardianship) (2) Pneumonia Status: Acute Problem Text: Seems stable. today. Sats good and VSS. new onset RLL new pneumonia. on IV Vancomycin and Meropenem. Has been weaned off of oxygen. (3) Hypothermia Status: Chronic Discussed With: Nurse, Other Discussed With: ([facility] aide) Problem Specific Plan: Monitor Clinically Problem Text: 08/02/18: no hypothermia over last several days. 07/[address], would be ideal to check temp once daily or with a change in status only. 07/29/18: DC warming blanket. Frequent rectal temps are causing more discomfort than optional intervention. Patient's behavior is at [facility] and he is not exhibiting signs of significant hypothermia. will monitor temps with routine vital signs at this time. 07/27/18: has Chronic hypothermia averaging a temp of 93 at home residence. Stable w/o warming blanket for last 12 hours. acute on chronic It should be noted that his baseline temperature is reported as roughly 95F per staff at [facility]. (4) Dysphagia Status: Chronic Problem Text: 07/30 see above. 07/25: Again his dysphagia is the underlying cause of his severe and worsening malnutrition. There is not a bed for him at [facility] yet. I was too busy transferring him to the ICU and calling specialists for advice to inquire about beds at other [facility] today. If there is not a bed at [facility] for him tomorrow, this inquiry is still probably a good idea. 07/24 -- ultimately, many of Mr. Hamilton' problems are secondary to his dysphagia. He has been losing weight and has had multiple episodes of pneumonia, felt secondary to aspiration. Though he passed a swallow evaluation earlier this week, he visibly aspirated the same diet, with a speech therapist, the very next day. This directly contributes to his malnutrition and aspiration. His weight loss prior to hospitalization probably reflects decreased intake secondary to d ysphagia. The Guardianship committee at [facility] has requested we attempt to have a PEG tube placed for artificial nutrition. We have discussed that this will NOT eliminate the risk of aspiration (although ti should reduce it), and there is significant concern that he will pull it out as he has his central line, and several peripheral IVs. They stated that they have several clients that have PEGs that they protect with abdominal binders; they would like to try this option for him. I did attempt to transfer him to [facility] today, but they don't have a bed available. He is on a wait list with them. Tomorrow I will check with [facility]. If we can't get anywhere by the end of the weekend, perhaps we should [place] back with out surgeons and see if they would consider attempting this placement even though they feel it will be harder on him and them. (5) Seizure disorder Status: Chronic Response to Treatment: Controlled Problem Specific Plan: Monitor Clinically Problem Text: 07/25: I spoke to the neurologist manager environmental services to go through his neuropsychiatrically active medications to make sure none of them were causing the hypothermia. He was most concerned about the levothyroxine which is addressed below. The atypical antipsychotics should be covered by the haldol deconate. The Artane and Mysoline are likely for tremors or side effects of the anti-psychotics. The Gabatril and trazodone shouldn't cause these symptoms, but he encouraged me to use lorazepam 0.5mg IV QHS to provide some similar action/coverage so he is less likely to seize from withdrawal of these oral meds. Ultimately it would be best to get enteral access and resume his proven regimen. Seizure precaution were reaffirmed (6) Hypothyroidism Status: Chronic Response to Treatment: Stable, Controlled Problem Specific Plan: Monitor Clinically Problem Text: 07/25: his lack of levothyoxine could be a significant factor in his hypothermia. I reduced his usual PO dose by 25% and ordered it IV. 07/23 -- chronic and stable. No PO levothyroxine as no NG tube and NPO. PMH of hypothyroidism; T4 and TSH wnl; r/o myexedma coma. PO synthroid dose through NG tube feeding (7) Anemia Status: Chronic Response to Treatment: Stable Problem Specific Plan: Repeat Labs Problem Text: Hg 9.1 today compared to 12.5 yesterday. Likely 2/2 to hemodilution. PMH of anemia as well as GI bleed. Neg occult blood test. Continue to trend CBC (8) Cognitive impairment Status: Chronic Response to Treatment: Stable Problem Text: [facility] pt with PMH of advanced cognitive impairement with psychosis. As many of his meds as could be given parenterally were changed today. Still enteral dosing of his proven regimen would be best. (9) Physical deconditioning Status: Chronic Response to Treatment: Stable Problem Text: PT d/c as pt unable to follow command. d/c bedrest; OOB with assist. Sitter with fall precaution. (10) Constipation Status: Resolved Response to Treatment: Stable, Controlled Problem Specific Plan: Monitor Clinically Problem Text: PMH of constipation. CT abdomen showed obstipation. bowel move ments noted 07/21. Fleet enema PRN. Plan/VTE VTE Prophylaxis Ordered?: Yes (SCD) Plan IVF: Continue Diet: Make NPO Activity: Bedrest Medications: Bowel Regimen Diagnostics: Check Labs, Repeat Labs in AM VS, I&O, 24H, Fishbone Vital Signs/I&O Vital Signs Date Time Temp Pulse Resp B/P (MAP) Pulse Ox O2 Delivery O2 Flow Rate FiO2 08/03/18 14:00 94.7 58 16 113/77 (89) 97 08/01/18 07:45 1.0 07/28/18 06:00 Room Air I&O- Last 24 Hours up to 6 AM 08/03/18 06:00 Intake Total 1280 ml Output Total 0 ml Balance 1280 ml Laboratory Data 24H LABS Laboratory Tests 2 08/02/18 17:31: Bedside Glucose (Misc Panel) 68L 08/02/18 18:52: Bedside Glucose (Misc Panel) 106 08/02/18 21:59: Vancomycin Level Trough 17.2 08/02/18 23:58: Bedside Glucose (Misc Panel) 130H 08/03/18 06:22: Immature Granulocyte % (Auto) 0.9, White Blood Count 7.4, Red Blood Count 3.32L, Hemoglobin 9.3L, Hematocrit 27.6L, Mean Corpuscular Volume 83.1, Mean Corpuscular Hemoglobin 28.0, Mean Corpuscular Hemoglobin Concent 33.7, Red Cell Distribution Width 17.3H, Platelet Count 290, Neutrophils (%) (Auto) 82.9H, Lymphocytes (%) (Auto) 10.3L, Monocytes (%) (Auto) 5.1H, Eosinophils (%) (Auto) 0.7, Basophils (%) (Auto) 0.1, Neutrophils # (Auto) 6.1, Lymphocytes # (Auto) 0.8L, Monocytes # (Auto) 0.4, Eosinophils # (Auto) 0.1, Basophils # (Auto) 0.0, Nucleated Red Blood Cells % (auto) 0.0, Anion Gap 5L, Glomerular Filtration Rate > 60.0, Blood Urea Nitrogen 9, Creatinine 0.49L, Sodium Level 141, Potassium Level 3.4L, Chloride Level 107, Carbon Dioxide Level 29, Calcium Level 8.0L, Aspartate Amino Transf (AST/SGOT) 23, Alanine Aminotransferase (ALT/SGPT) 20, Alkaline Phosphatase 112, Total Bilirubin 0.2, Total Protein 6.1L, Albumin 1.8L, Albumin/Globulin Ratio 0.42L 08/03/18 06:43: Bedside Glucose (Misc Panel) 106 08/03/18 10:06: Vancomycin Level Trough 21.4H CBC/BMP Laboratory Tests 08/03/18 06:22 Red Blood Count 3.32 L, Mean Corpuscular Volume 83.1, Mean Corpuscular Hemoglobin 28.0, Mean Corpuscular Hemoglobin Concent 33.7, Red Cell Distribution Width 17.3 H, Neutrophils (%) (Auto) 82.9 H, Lymphocytes (%) (Auto) 10.3 L, Monocytes (%) (Auto) 5.1 H, Eosinophils (%) (Auto) 0.7, Basophils (%) (Auto) 0.1, Neutrophils # (Auto) 6.1, Lymphocytes # (Auto) 0.8 L, Monocytes # (Auto) 0.4, Eosinophils # (Auto) 0.1, Basophils # (Auto) 0.0, Calcium Level 8.0 L, Aspartate Amino Transf (AST/SGOT) 23, Alanine Aminotransferase (ALT/SGPT) 20, Alkaline Phosphatase 112, Total Bilirubin 0.2, Total Protein 6.1 L, Albumin 1.8 L Ben Ley MD Aug 03, 2018 16:25
[2018-08-03] MEDS: VANCOMYCIN HCL 1,000 MG, VIAL MATE ADAPTER 1 EACH in D5W 250 ML IV SCH (17:49)
[2018-08-03] MEDS: LORazepam 2 MG/ML VIAL (J2060) IV SCH (21:30)
[2018-08-03 22:00] VITALS: BP 106/65
[2018-08-04] MEDS: MEROPENEM INJ 1 GM in APPROPRIATE DILUENT 1 EA IV SCH ×3 (02:20→18:45)
[2018-08-04] MEDS: HYDROCORTISONE 100 MG/2 ML VIAL (J1720) IV SCH ×2 (02:20→15:22)
[2018-08-04 06:00] VITALS: BP 94/61
[2018-08-04 06:05] LABS: BASO % 0.2 % (0.0-1.0); EOS % 0.6 % (0.0-3.0); HEMATOCRIT 27.2 % (42.0-52.0); HEMOGLOBIN 8.7 g/dl (13.5-17.5); LYMPH # 0.8 10^3/uL (1.5-4.5); LYMPH % 13.3 % (24.0-44.0); MEAN CORPUSCULAR HEMOGLOBIN 26.6 pg (27.0-33.0); MEAN CORPUSCULAR VOLUME 83.2 fl (80.0-96.0); MONO # 0.6 10^3/uL (0.0-0.8); MONO % 8.8 % (0.0-5.0); NEUTROPHILS # 4.8 10^3/uL (1.8-7.7); PLATELET COUNT, AUTOMATED 273 10^3/uL (150-450); RED BLOOD COUNT 3.27 10^6/uL (4.30-6.10); WHITE BLOOD COUNT 6.3 10^3/uL (4.0-10.0)
[2018-08-04 06:33] LABS: ALBUMIN 1.7 GM/DL (3.2-5.2); ALT/SGPT 18 U/L (12-78); BILIRUBIN,TOTAL 0.2 MG/DL (0.2-1.0); BLOOD UREA NITROGEN 8 MG/DL (7-18); CALCIUM LEVEL 8.3 MG/DL (8.8-10.2); CARBON DIOXIDE LEVEL 28 MEQ/L (21-32); CHLORIDE LEVEL 108 MEQ/L (98-107); CREATININE FOR GFR 0.47 MG/DL (0.70-1.30); GLOMERULAR FILTRATION RATE > 60.0 (>49); GLUCOSE, FASTING 104 MG/DL (70-100); POTASSIUM SERUM 3.7 MEQ/L (3.5-5.1); SODIUM LEVEL 141 MEQ/L (136-145); TOTAL PROTEIN 5.9 GM/DL (6.4-8.2)
[2018-08-04] MEDS: FLEET ENEMA PR SCH (09:00)
[2018-08-04] MEDS: LEVOTHYROXINE 100 MCG (0.1MG) VIAL IV SCH (09:34)
[2018-08-04] MEDS: VANCOMYCIN HCL 1,000 MG, VIAL MATE ADAPTER 1 EACH in D5W 250 ML IV SCH (11:18)
--- NOTE | 2018-08-04 12:13 | IPNPDOC ---
Subjective Date Seen The patient was seen on 08/04/18. Subjective Chief Complaint/HPI no new issues or concerns Constitutional: Denies: Chills, Fever Pulmonary: Denies: Cough Gastrointestinal: Denies: Nausea, Vomiting, Diarrhea Objective Physical Examination General Exam: Positive: Alert, No Acute Distress ENT Exam: Positive: Tongue Midline (slightly dry) Neck Exam: Positive: Supple Chest Exam: Positive: Clear to auscultation, Diminished (RLL) Heart Exam: Positive: Rate Normal, Regular Rhythm, Normal S1, Normal S2 Abdomen Exam: Positive: Normal bowel sounds, Soft Extremity Exam: Negative: Edema, Swelling Skin Exam: Negative: Breakdown Neuro Exam: Positive: Other Psych Exam: Negative: Mental status NL Assessment /Plan Problems (1) Severe protein-calorie malnutrition Status: Chronic Problem Text: 08/04 - cont TPN Awaiting bed at [facility] for transfer 08/03: infusion site still functional. still waiting for transfer for IR placement of feeding tube. 08/02/18: PPN started and infusing in right foot peripheral line. Transfer on HOLD due to new onset pneumonia with hypotension and hypoxia. 07/30 Plan to proceed with J-tube, await bed availability at [facility], nursing to f/u on this today. D/w nursing starting peripheral nutrition, she will look into this if the site pt has is compatible. 07/27/18: see below for plan. unchanged. will hold on transfer until decision is made. 07/26/18: mag is low at 1.7 today will replace. Unable to provide PPN/TPN due to pulling out PICC line. Tolerating IVF for now. Wang Zhong [facility] Hotel General Manager-I advised that patient would need a J-tube for enteral feeding given recurrent aspiration. I advised that this would only mitigate, but not eliminate, the aspiration risk. Additionally unless there was 24/7 supervision, the patient would most likely pull out the J-tube. As the patient's PCP, I agree with DNR status and favor POLYMERIZATION KETTLE OPERATOR status. Osvaldo advised me that the guardianship committee was meeting on Thu07/28/18 to discuss the patient's code status and that the senior controller, Tyron Hinkle, would call me tomorrow (there has never been family identified to assume guardianship) (2) Pneumonia Status: Acute Problem Text: 08/04 - Sats stable. CXR 08/02 unchanged infiltrate - no worsening. WBC normalized. D/C Vanco Cont Meropenem (3) Hypothermia Status: Chronic Discussed With: Nurse, Other Discussed With: ([facility] aide) Problem Specific Plan: Monitor Clinically Problem Text: 08/02/18: no hypothermia over last several days. 07/[address], would be ideal to check temp once daily or with a change in status only. 07/29/18: DC warming blanket. Frequent rectal temps are causing more discomfort than optional intervention. Patient's behavior is at [facility] and he is not exhibiting signs of significant hypothermia. will monitor temps with routine vital signs at this time. 07/27/18: has Chronic hypothermia averaging a temp of 93 at home residence. Stable w/o warming blanket for last 12 hours. acute on chronic It should be noted that his baseline temperature is reported as roughly 95F per staff at [facility]. (4) Dysphagia Status: Chronic Problem Text: 07/30 see above. 07/25: Again his dysphagia is the underlying cause of his severe and worsening malnutrition. There is not a bed for him at [facility] yet. I was too busy transferring him to the ICU and calling specialists for advice to inquire about beds at other [facility] today. If there is not a bed at [facility] for him tomorrow, this inquiry is still probably a good idea. 07/24 -- ultimately, many of Mr. Hamilton' problems are secondary to his dysphagia. He has been losing weight and has had multiple episodes of pneumonia, felt secondary to aspiration. Though he passed a swallow evaluation earlier this week, he visibly aspirated the same diet, with a speech therapist, the very next day. This directly contributes to his malnutrition and aspiration. His weight loss prior to hospitalization probably reflects decreased intake secondary to dysphagia. The Guardianship committee at [facility] has requested we attempt to have a PEG tube placed for artificial nutrition. We have discussed that this will NOT eliminate the risk of aspiration (although ti should reduce it), and there is significant concern that he will pull it out as he has his central line, and several peripheral IVs. They stated that they have several clients that have PEGs that they protect with abdominal binders; they would like to try this option for him. I did attempt to transfer him to [facility] today, but they don't have a bed available. He is on a wait list with them. Tomorrow I will check with [facility] and [facility]. If we can't get anywhere by the end of the weekend, perhaps we should [place] back with out surgeons and see if they would consider attempting this placement even though they feel it will be harder on him and them. (5) Seizure disorder Status: Chronic Response to Treatment: Controlled Problem Specific Plan: Monitor Clinically Problem Text: 07/25: I spoke to the neurologist air conditioning installer supervisor to go through his neuropsychiatrically active medications to make sure none of them were causing the hypothermia. He was most concerned about the levothyroxine which is addressed below. The atypical antipsychotics should be covered by the haldol deconate. The Artane and Mysoline are likely for tremors or side effects of the anti-psychotics. The Gabatril and trazodone shouldn't cause these symptoms, but he encouraged me to use lorazepam 0.5mg IV QHS to provide some similar action/coverage so he is less likely to seize from withdrawal of these oral meds. Ultimately it would be best to get enteral access and resume his proven regimen. Seizure precaution were reaffirmed (6) Hypothyroidism Status: Chronic Response to Treatment: Stable, Controlled Problem Specific Plan: Monitor Clinically Problem Text: 07/25: his lack of levothyoxine could be a significant factor in his hypothermia. I reduced his usual PO dose by 25% and ordered it IV. 07/23 -- chronic and stable. No PO levothyroxine as no NG tube and NPO. PMH of hypothyroidism; T4 and TSH wnl; r/o myexedma coma. PO synthroid dose through NG tube feeding (7) Anemia Status: Chronic Response to Treatment: Stable Problem Specific Plan: Repeat Labs Problem Text: Hg 9.1 today compared to 12.5 yesterday. Likely 2/2 to hemodilution. PMH of anemia as well as GI bleed. Neg occult blood test. Continue to trend CBC (8) Cognitive impairment Status: Chronic Response to Treatment: Stable Problem Text: [facility] pt with PMH of advanced cognitive impairement with psychosis. As many of his meds as could be given parenterally were changed today. Still enteral dosing of his proven regimen would be best. (9) Physical deconditioning Status: Chronic Response to Treatment: Stable Problem Text: PT d/c as pt unable to follow command. d/c bedrest; OOB with assist. Sitter with fall precaution. (10) Constipation Status: Resolved Response to Treatment: Stable, Controlled Problem Specific Plan: Monitor Clinically Problem Text: PMH of constipation. CT abdomen showed obstipation. bowel mo vements noted 07/21. Fleet enema PRN. Plan/VTE VTE Prophylaxis Ordered?: Yes (SCD) Plan IVF: Continue Diet: Make NPO Activity: Bedrest Medications: Bowel Regimen Diagnostics: Check Labs, Repeat Labs in AM VS, I&O, 24H, Fishbone Vital Signs/I&O Vital Signs Date Time Temp Pulse Resp B/P (MAP) Pulse Ox O2 Delivery O2 Flow Rate FiO2 08/04/18 06:00 95.6 51 15 94/61 (72) 100 08/01/18 07:45 1.0 I&O- Last 24 Hours up to 6 AM 08/04/18 06:00 Intake Total 510 ml Balance 510 ml Laboratory Data 24H LABS Laboratory Tests 2 08/03/18 17:15: Bedside Glucose (Misc Panel) 101 08/04/18 00:11: Bedside Glucose (Misc Panel) 99 08/04/18 05:44: Immature Granulocyte % (Auto) 1.1, White Blood Count 6.3, Red Blood Count 3.27L, Hemoglobin 8.7L, Hematocrit 27.2L, Mean Corpuscular Volume 83.2, Mean Corpuscular Hemoglobin 26.6L, Mean Corpuscular Hemoglobin Concent 32.0, Red Cell Distribution Width 17.1H, Platelet Count 273, Neutrophils (%) (Auto) 76.0H, Lymphocytes (%) (Auto) 13.3L, Monocytes (%) (Auto) 8.8H, Eosinophils (%) (Auto) 0.6, Basophils (%) (Auto) 0.2, Neutrophils # (Auto) 4.8, Lymphocytes # (Auto) 0.8L, Monocytes # (Auto) 0.6, Eosinophils # (Auto) 0.0, Basophils # (Auto) 0.0, Nucleated Red Blood Cells % (auto) 0.3H, Anion Gap 5L, Glomerular Filtration Rate > 60.0, Blood Urea Nitrogen 8, Creatinine 0.47L, Sodium Level 141, Potassium Level 3.7, Chloride Level 108H, Carbon Dioxide Level 28, Calcium Level 8.3L, Aspartate Amino Transf (AST/SGOT) 17, Alanine Aminotransferase (ALT/SGPT) 18, Alkaline Phosphatase 107, Total Bilirubin 0.2, Total Protein 5.9L, Albumin 1.7L, Albumin/Globulin Ratio 0.40L 08/04/18 09:59: Vancomycin Level Trough 13.3 08/04/18 11:24: Bedside Glucose (Misc Panel) 88 CBC/BMP Laboratory Tests 08/04/18 05:44 Red Blood Count 3.27 L, Mean Corpuscular Volume 83.2, Mean Corpuscular Hemoglobin 26.6 L, Mean Corpuscular Hemoglobin Concent 32.0, Red Cell D istribution Width 17.1 H, Neutrophils (%) (Auto) 76.0 H, Lymphocytes (%) (Auto) 13.3 L, Monocytes (%) (Auto) 8.8 H, Eosinophils (%) (Auto) 0.6, Basophils (%) (Auto) 0.2, Neutrophils # (Auto) 4.8, Lymphocytes # (Auto) 0.8 L, Monocytes # (Auto) 0.6, Eosinophils # (Auto) 0.0, Basophils # (Auto) 0.0, Calcium Level 8.3 L, Aspartate Amino Transf (AST/SGOT) 17, Alanine Aminotransferase (ALT/SGPT) 18, Alkaline Phosphatase 107, Total Bilirubin 0.2, Total Protein 5.9 L, Albumin 1.7 L CAROL PERRY PA-C Aug 04, 2018 12:13
[2018-08-04 14:00] VITALS: BP 99/74
[2018-08-04] MEDS: AMINO AC/ELECTROLYTE/DEX/CALC 1,000 ML IV SCH (15:22)
[2018-08-04] MEDS: HumaLOG INSULIN (NovoLOG) PER UNIT SC SCH (16:59)
[2018-08-04] MEDS ORDERED: FAT EMULSION IV 20% 500 ML IV SCH (18:00)
[2018-08-04] MEDS: LORazepam 2 MG/ML VIAL (J2060) IV SCH ×2 (21:00→21:59)
[2018-08-04 22:00] VITALS: BP 127/80
[2018-08-05] MEDS: HumaLOG INSULIN (NovoLOG) PER UNIT SC SCH ×4 (00:49→19:00)
[2018-08-05] MEDS: MEROPENEM INJ 1 GM in APPROPRIATE DILUENT 1 EA IV SCH ×3 (02:00→17:59)
[2018-08-05] MEDS: HYDROCORTISONE 100 MG/2 ML VIAL (J1720) IV SCH ×2 (02:00→15:05)
[2018-08-05 06:00] VITALS: BP 128/67
[2018-08-05] MEDS: DEXTROSE 50% 50 ML SYRINGE IV PRN (06:16)
[2018-08-05] MEDS: AMINO AC/ELECTROLYTE/DEX/CALC 1,000 ML IV SCH ×2 (06:34→23:27)
[2018-08-05 06:42] LABS: HEMOGLOBIN 10.4 g/dl (13.5-17.5); MEAN CORPUSCULAR HEMOGLOBIN 29.1 pg (27.0-33.0); MEAN CORPUSCULAR HGB CONC 34.7 g/dl (32.0-36.5); MEAN CORPUSCULAR VOLUME 83.8 fl (80.0-96.0); PLATELET COUNT, AUTOMATED 332 10^3/uL (150-450); RED BLOOD COUNT 3.58 10^6/uL (4.30-6.10)
--- NOTE | 2018-08-05 08:54 | IPNPDOC ---
Subjective Date Seen The patient was seen on 08/05/18. Subjective Chief Complaint/HPI No new issues or concerns - still waiting for bed at [facility] [[email or web address]] Constitutional: Denies: Chills, Fever Pulmonary: Denies: Dyspnea, Cough Cardiovascular: Denies: Chest Pain, Palpitations Gastrointestinal: Denies: Nausea, Vomiting, Abdominal Pain, Diarrhea, Consti pation Objective Physical Examination General Exam: Positive: Alert, No Acute Distress ENT Exam: Positive: Tongue Midline (slightly dry) Neck Exam: Positive: Supple Chest Exam: Positive: Clear to auscultation, Diminished (RLL) Heart Exam: Positive: Rate Normal, Regular Rhythm, Normal S1, Normal S2 Abdomen Exam: Positive: Normal bowel sounds, Soft Extremity Exam: Negative: Edema, Swelling Skin Exam: Negative: Breakdown Neuro Exam: Positive: Other Psych Exam: Negative: Mental status NL Assessment /Plan Problems (1) Hypotension Problem Text: BP remains variable - Has been on IV hydrocortisone since 08/01 due to hypotension - started when his condition declined and new pneumonia found on CXR. Will need to cut back Hydrocortisone and monitor BP. (2) Severe protein-calorie malnutrition Status: Chronic Problem Text: 08/05 - cont TPN Awaiting bed at [facility] [[email or web address]] for transfer 08/03: infusion site still functional. still waiting for transfer for IR placement of feeding tube. 08/02/18: PPN started and infusing in right foot peripheral line. Transfer on HOLD due to new onset pneumonia with hypotension and hypoxia. 07/30 Plan to proceed with J-tube, await bed availability at [facility] [[email or web address]], nursing to f/u on this today. D/w nursing starting peripheral nutrition, she will look into this if the site pt has is compatible. 07/27/18: see below for plan. unchanged. will hold on transfer until decision is made. 07/26/18: mag is low at 1.7 today will replace. Unable to provide PPN/TPN due to pulling out PICC line. Tolerating IVF for now. Wang Zhong [facility] Build Manager-I advised that patient would need a J-tube for enteral feeding given recurrent aspiration. I advised that this would only mitigate, but not eliminate, the aspiration risk. Additionally unless there was 24/7 supervision, the patient would most likely pull out the J-tube. As the patient's PCP, I agree with DNR status and favor DIESEL TRUCK MECHANIC status. Osvaldo advised me that the guardianship committee was meeting on Thu07/28/18 to discuss the patie nt's code status and that the brazing machine tender, Tyron iHnkle, would call me tomorrow (there has never been family identified to assume guardianship) (3) Pneumonia Status: Acute Problem Text: 08/05 - Sats stable. CXR 08/02 unchanged infiltrate - no worsening. WBC normalized. D/C Vanco Cont Meropenem D#5 (4) Hypothermia Status: Chronic Discussed With: Nurse, Other Discussed With: ([facility] aide) Problem Specific Plan: Monitor Clinically Problem Text: 08/05 - Has some hypothermia this am per VS, but patient alert without signs of hypothermia 08/02/18: no hypothermia over last several days. 07/[address], would be ideal to check temp once daily or with a change in status only. 07/29/18: DC warming blanket. Frequent rectal temps are causing more discomfort than optional intervention. Patient's behavior is at [facility] and he is not exhibiting signs of significant hypothermia. will monitor temps with routine vital signs at this time. 07/27/18: has Chronic hypothermia averaging a temp of 93 at home residence. Stab le w/o warming blanket for last 12 hours. acute on chronic It should be noted that his baseline temperature is reported as roughly 95F per staff at [facility]. (5) Dysphagia Status: Chronic Problem Text: 07/30 see above. 07/25: Again his dysphagia is the underlying cause of his severe and worsening malnutrition. There is not a bed for him at [facility] [[email or web address]] yet. I was too busy transferring him to the ICU and calling specialists for advice to inquire about beds at other [facility] today. If there is not a bed at [facility] [[email or web address]] for him tomorrow, this inquiry is still probably a good idea. 07/24 -- ultimately, many of Mr. Hamilton' problems are secondary to his dysphagia. He has been losing weight and has had multiple episodes of pneumonia, felt secondary to aspiration. Though he passed a swallow evaluation earlier this week, he visibly aspirated the same diet, with a speech therapist, the very next day. This directly contributes to his malnutrition and aspiration. His weight loss prior to hospitalization probably reflects decreased intake secondary to dysphagia. The Guardianship committee at [facility] has requested we attempt to have a PEG tube placed for artificial nutrition. We have discussed that this will NOT eliminate the risk of aspiration (although ti should reduce it), and there is significant concern that he will pull it out as he has his central line, and several peripheral IVs. They stated that they have several clients that have PEGs that they protect with abdominal binders; they would like to try this option for him. I did attempt to transfer him to [facility] [[email or web address]] today, but they don't have a bed available. He is on a wait list with them. Tomorrow I will check with [facility]. If we can't get anywhere by the end of the weekend, perhaps we should [place] back with out surgeons and see if they would consider attempting this placement even though they feel it will be harder on him and them. (6) Seizure disorder Status: Chronic Response to Treatment: Controlled Problem Specific Plan: Monitor Clinically Problem Text: 07/25: I spoke to the neurologist commissioner of relocation services to go through his neuropsychiatrically active medications to make sure none of them were causing the hypothermia. He was most concerned about the levothyroxine which is addressed below. The atypical antipsychotics should be covered by the haldol deconate. The Artane and Mysoline are likely for tremors or side effects of the anti-psychotics. The Gabatril and trazodone shouldn't cause these symptoms, but he encouraged me to use lorazepam 0.5mg IV QHS to provide some similar action/coverage so he is less likely to seize from withdrawal of these oral meds. Ultimately it would be best to get enteral access and resume his proven regimen. Seizure precaution were reaffirmed (7) Hypothyroidism Status: Chronic Response to Treatment: Stable, Controlled Problem Specific Plan: Monitor Clinically Problem Text: 07/25: his lack of levothyoxine could be a significant factor in his hypothermia. I reduced his usual PO dose by 25% and ordered it IV. 07/23 -- chronic and stable. No PO levothyroxine as no NG tube and NPO. PMH of hypothyroidism; T4 and TSH wnl; r/o myexedma coma. PO synthroid dose through NG tube feeding (8) Anemia Status: Chronic Response to Treatment: Stable Problem Specific Plan: Repeat Labs Problem Text: Hg 9.1 today compared to 12.5 yesterday. Likely 2/2 to hemodilution. PMH of anemia as well as GI bleed. Neg occult blood test. Continue to trend CBC (9) Cognitive impairment Status: Chronic Response to Treatment: Stable Problem Text: [facility] pt with PMH of advanced cognitive impairement with psychosis. As many of his meds as could be given parenterally were changed today. Still enteral dosing of his proven regimen would be best. (10) Physical deconditioning Status: Chronic Response to Treatment: Stable Problem Text: PT d/c as pt unable to follow command. d/c bedrest; OOB with assist. Sitter with fall precaution. (11) Constipation Status: Resolved Response to Treatment: Stable, Controlled Problem Specific Plan: Monitor Clinically Problem Text: PMH of constipation. CT abdomen showed obstipation. bowel movements noted 07/21. Fleet enema PRN. Plan/VTE VTE Prophylaxis Ordered?: Yes (SCD) Plan IVF: Continue Diet: Make NPO Activity: Bedrest Medications: Bowel Regimen Diagnostics: Check Labs, Repeat Labs in AM VS, I&O, [facility] V[facility] Signs/I&O Vital Signs Date Time Temp Pulse Resp B/P (MAP) Pulse Ox O2 Delivery O2 Flow Rate FiO2 08/05/18 06:00 90.3 42 22 128/67 (87) 96 08/01/18 07:45 1.0 I&O- Last 24 Hours up to 6 AM0 08/05/18 06:00 Intake Total 1740 ml Output Total 0 ml Balance 1740 ml Laboratory Data 24H LABS Laboratory Tests 2 08/04/18 09:59: Vancomycin Level Trough 13.3 08/04/18 11:24: Bedside Glucose (Misc Panel) 88 08/04/18 16:50: Bedside Glucose (Misc Panel) 73L 08/05/18 00:36: Bedside Glucose (Misc Panel) 103 08/05/18 06:03: Bedside Glucose (Misc Panel) 62L 08/05/18 06:25: Nucleated Red Blood Cells % (auto) 0.4H 08/05/18 07:06: Bedside Glucose (Misc Panel) 122H CBC/BMP Laboratory Tests 08/05/18 06:25 Red Blood Count 3.58 L, Mean Corpuscular Volume 83.8, Mean Corpuscular Hemoglobin 29.1, Mean Corpuscular Hemoglobin Concent 34.7, Red Cell Distribution Width 16.9 H CAROL PERRY PA-C Aug 05, 2018 08:54
[2018-08-05] MEDS: LEVOTHYROXINE 100 MCG (0.1MG) VIAL IV SCH (10:05)
[2018-08-05 14:00] VITALS: BP 107/76
[2018-08-05] MEDS ORDERED: FAT EMULSION IV 20% 500 ML IV SCH (18:00)
[2018-08-05] MEDS: LORazepam 2 MG/ML VIAL (J2060) IV SCH (21:54)
[2018-08-05 22:00] VITALS: BP 104/60
[2018-08-06] MEDS: MEROPENEM INJ 1 GM in APPROPRIATE DILUENT 1 EA IV SCH ×3 (02:00→17:19)
[2018-08-06] MEDS: HYDROCORTISONE 100 MG/2 ML VIAL (J1720) IV SCH ×2 (02:00→16:43)
[2018-08-06] MEDS: LORazepam 2 MG/ML VIAL (J2060) IV PRN ×2 (03:32→16:41)
[2018-08-06] MEDS: HumaLOG INSULIN (NovoLOG) PER UNIT SC SCH ×4 (05:38→18:00)
[2018-08-06 06:00] VITALS: BP 102/60
--- NOTE | 2018-08-06 09:02 | IPNPDOC ---
Subjective Date Seen The patient was seen on 08/06/18. Subjective Chief Complaint/HPI No new issues or concerns from nursing Constitutional: Denies: Chills, Fever Pulmonary: Denies: Dyspnea, Cough Cardiovascular: Denies: Chest Pain Gastrointestinal: Denies: Nausea, Vomiting, Abdominal Pain, Diarrhea, Constipation Objective Physical Examination General Exam: Positive: Alert, No Acute Distress ENT Exam: Positive: Tongue Midline (slightly dry) Neck Exam: Positive: Supple Chest Exam: Positive: Clear to auscultation, Diminished (RLL) Heart Exam: Positive: Rate Normal, Regular Rhythm, Normal S1, Normal S2 Abdomen Exam: Positive: Normal bowel sounds, Soft Extremity Exam: Negative: Edema, Swelling Skin Exam: Negative: Breakdown Neuro Exam: Positive: Other Psych Exam: Negative: Mental status NL Assessment /Plan Problems (1) Hypotension Problem Text: 08/06 - BP remains variable but overall stable. Has been on IV hydrocortisone since 08/01 due to hypotension - started when his condition declined and new pneumonia found on CXR. Dose of Hydrocortisone was decreased yesterday 08/05 - monitor BP. (2) Severe protein-calorie malnutrition Status: Chronic Problem Text: 08/06 - cont TPN - [facility] has been made aware that patient does not require ICU bed - hopefully this will improve chances of transfer soon. [facility] says we should look elsewhere for bed. Called [facility], waiting for re sponse. Will ask [facility] to consider doing IR procedure as outpatient and returning here. 08/05 - cont TPN Awaiting bed at [facility] for transfer 08/03: infusion site still functional. still waiting for transfer for IR placement of feeding tube. 08/02/18: PPN started and infusing in right foot peripheral line. Transfer on HOLD due to new onset pneumonia with hypotension and hypoxia. 07/30 Plan to proceed with J-tube, await bed availability at [facility], nursing to f/u on this today. D/w nursing starting peripheral nutrition, she will look into this if the site pt has is compatible. 07/27/18: see below for plan. unchanged. will hold on transfer until decision is made. 07/26/18: mag is low at 1.7 today will replace. Unable to provide PPN/TPN due to pulling out PICC line. Tolerating IVF for now. Wang Zhong [facility] Clubhouse Attendant-I advised that patient would need a J-tube for enteral feeding given recurrent aspiration. I advised that this would only mitigate, but not eliminate, the aspiration risk. Additionally unless there was 19/01 supervision, the patient would most likely pull out the J-tube. As the patient's PCP, I agree with DNR status and favor SCRAP IRON LOADER status. Osvaldo advised me that the guardianship committee was meeting on Thu07/28/18 to discuss the patient's code status and that the toll line repairer, Tyron Hinkle, would call me tomorrow (there has never been family identified to assume guardianship) (3) Pneumonia Status: Acute Problem Text: 08/06 - Clinically stable - Meropenem D #6 08/05 - Sats stable. CXR 08/02 unchanged infiltrate - no worsening. WBC normalized. D/C Vanco Cont Meropenem D#5 (4) Hypothermia Status: Chronic Discussed With: Nurse, Other Discussed With: ([facility] aide) Problem Specific Plan: Monitor Clinically Problem Text: 08/05 - Has some hypothermia this am per VS, but patient alert without signs of hypothermia 08/02/18: no hypothermia over last several days. 07/[address], would be ideal to check temp once daily or with a change in status only. 07/29/18: DC warming blanket. Frequent rectal temps are causing more discomfort than optional intervention. Patient's behavior is at [facility] and he is not exhibiting signs of significant hypothermia. will monitor temps with routine vital signs at this time. 07/27/18: has Chronic hypothermia averaging a temp of 93 at home residence. Stable w/o warming blanket for last 12 hours. acute on chronic It should be noted that his baseline temperature is reported as roughly 95F per staff at [facility]. (5) Dysphagia Status: Chronic Problem Text: 07/30 see above. 07/25: Again his dysphagia is the underlying cause of his severe and worsening malnutrition. There is not a bed for him at [facility] yet. I was too busy transferring him to the ICU and calling specialists for advice to inquire about beds at other [facility] today. If there is not a bed at [facility] for him tomorrow, this inquiry is still probably a good idea. 07/24 -- ultimately, many of Mr. Hamilton' problems are secondary to his dysphagia. He has been losing weight and has had multiple episodes of pneumonia, felt secondary to aspiration. Though he passed a swallow evaluation earlier this week, he visibly aspirated the same diet, with a speech therapist, the very next day. This directly contributes to his malnutrition and aspiration. His weight loss prior to hospitalization probably reflects decreased intake secondary to dysphagia. The Guardianship committee at [facility] has requested we attempt to have a PEG tube placed for artificial nutrition. We have discussed that this will NOT eliminate the risk of aspiration (although ti should reduce it), and there is significant concern that he will pull it out as he has his central line, and several peripheral IVs. They stated that they have several clients that have PEGs that they protect with abdominal binders; they would like to try this option for him. I did attempt to transfer him to [facility] today, but they don't have a bed available. He is on a wait list with them. Tomorrow I will check with [facility] and [facility]. If we can't get anywhere by the end of the weekend, perhaps we should [place] back with out surgeons and see if they would consider attempting this placement even though they feel it will be harder on him and them. (6) Seizure disorder Status: Chronic Response to Treatment: Controlled Problem Specific Plan: Monitor Clinically Problem Text: 07/25: I spoke to the neurologist senior quality control inspector to go through his neuropsychiatrically active medications to make sure none of them were causing the hypothermia. He was most concerned about the levothyroxine which is addressed below. The atypical antipsychotics should be covered by the haldol deconate. The Artane and Mysoline are likely for tremors or side effects of the anti-psychotics. The Gabatril and trazodone shouldn't cause these symptoms, but he encouraged me to use lorazepam 0.5mg IV QHS to provide some similar action/coverage so he is less likely to seize from withdrawal of these oral meds. Ultimately it would be best to get enteral access and resume his proven regimen. Seizure precaution were reaffirmed (7) Hypothyroidism Status: Chronic Response to Treatment: Stable, Controlled Problem Specific Plan: Monitor Clinically Problem Text: 07/25: his lack of levothyoxine could be a significant factor in his hypothermia. I reduced his usual PO dose by 25% and ordered it IV. 07/23 -- chronic and stable. No PO levothyroxine as no NG tube and NPO. PMH of hypothyroidism; T4 and TSH wnl; r/o myexedma coma. PO synthroid dose through NG tube feeding (8) Anemia Status: Chronic Response to Treatment: Stable Problem Specific Plan: Repeat Labs Problem Text: Hg 9.1 today compared to 12.5 yesterday. Likely 2/2 to hemodilution. PMH of anemia as well as GI bleed. Neg occult blood test. Continue to trend CBC (9) Cognitive impairment Status: Chronic Response to Treatment: Stable Problem Text: [facility] pt with PMH of advanced cognitive impairement with psychosis. As many of his meds as could be given parenterally were changed today. Still enteral dosing of his proven regimen would be best. (10) Physical deconditioning Status: Chronic Response to Treatment: Stable Problem Text: PT d/c as pt unable to follow command. d/c bedrest; OOB with assist. Sitter with fall precaution. (11) Constipation Status: Resolved Response to Treatment: Stable, Controlled Problem Specific Plan: Monitor Clinically Problem Text: PMH of constipation. CT abdomen showed obstipation. bowel movements noted 07/21. Fleet enema PRN. Plan/VTE VTE Prophylaxis Ordered?: Yes (SCD) Plan IVF: Continue Diet: Make NPO Activity: Bedrest Medications: Bowel Regimen Diagnostics: Check Labs, Repeat Labs in AM VS, I&O, 24H, [facility] Vital Signs/I&O Vital Signs Date Time Temp Pulse Resp B/P (MAP) Pulse Ox O2 Delivery O2 Flow Rate FiO2 08/06/18 06:00 95.3 59 16 102/60 (74) 94 08/01/18 07:45 1.0 I&O- Last 24 Hours up to 6 AM 08/06/18 06:00 Intake Total 1060 ml Output Total 0 ml Balance 1060 ml Laboratory Data 24H LABS Laboratory Tests 2 08/05/18 12:00: Bedside Glucose (Misc Panel) 83 08/05/18 17:47: Bedside Glucose (Misc Panel) 75L 08/06/18 00:01: Bedside Glucose (Misc Panel) 94 08/06/18 05:25: Bedside Glucose (Misc Panel) 103 CAROL PERRY PA-C Aug 06, 2018 09:02 Ben Ley MD Aug 06, 2018 12:18
[2018-08-06] MEDS: LEVOTHYROXINE 100 MCG (0.1MG) VIAL IV SCH (16:43)
[2018-08-06] MEDS: AMINO AC/ELECTROLYTE/DEX/CALC 1,000 ML IV SCH (17:19)
[2018-08-06] MEDS: FLEET ENEMA PR SCH (17:55)
[2018-08-06] MEDS ORDERED: FAT EMULSION IV 20% 500 ML IV SCH (18:00)
[2018-08-06] MEDS: LORazepam 2 MG/ML VIAL (J2060) IV SCH (20:01)
[2018-08-06 22:00] VITALS: BP 89/54
[2018-08-07] MEDS: MEROPENEM INJ 1 GM in APPROPRIATE DILUENT 1 EA IV SCH ×3 (01:40→18:32)
[2018-08-07] MEDS: HYDROCORTISONE 100 MG/2 ML VIAL (J1720) IV SCH ×2 (01:40→14:30)
[2018-08-07 06:00] VITALS: BP 106/69
[2018-08-07] MEDS: HumaLOG INSULIN (NovoLOG) PER UNIT SC SCH ×4 (06:00→18:00)
[2018-08-07 06:29] LABS: HEMATOCRIT 29.6 % (42.0-52.0); HEMOGLOBIN 9.7 g/dl (13.5-17.5); MEAN CORPUSCULAR HEMOGLOBIN 28.1 pg (27.0-33.0); MEAN CORPUSCULAR HGB CONC 32.8 g/dl (32.0-36.5); MEAN CORPUSCULAR VOLUME 85.8 fl (80.0-96.0); PLATELET COUNT, AUTOMATED 299 10^3/uL (150-450); RED BLOOD COUNT 3.45 10^6/uL (4.30-6.10); WHITE BLOOD COUNT 7.3 10^3/uL (4.0-10.0)
[2018-08-07 08:03] LABS: ALBUMIN 2.1 GM/DL (3.2-5.2); ALT/SGPT 23 U/L (12-78); BILIRUBIN,TOTAL 0.2 MG/DL (0.2-1.0); BLOOD UREA NITROGEN 8 MG/DL (7-18); CALCIUM LEVEL 7.8 MG/DL (8.8-10.2); CARBON DIOXIDE LEVEL 30 MEQ/L (21-32); CHLORIDE LEVEL 107 MEQ/L (98-107); CREATININE FOR GFR 0.53 MG/DL (0.70-1.30); GLOMERULAR FILTRATION RATE > 60.0 (>49); GLUCOSE, FASTING 93 MG/DL (70-100); SODIUM LEVEL 143 MEQ/L (136-145); TOTAL PROTEIN 6.1 GM/DL (6.4-8.2)
[2018-08-07] MEDS: LEVOTHYROXINE 100 MCG (0.1MG) VIAL IV SCH (10:05)
[2018-08-07] MEDS: AMINO AC/ELECTROLYTE/DEX/CALC 1,000 ML IV SCH (10:06)
[2018-08-07 14:00] VITALS: BP 114/79
--- NOTE | 2018-08-07 14:26 | IPNPDOC ---
Subjective Date Seen The patient was seen on 08/07/18. Subjective Chief Complaint/HPI stable MS exam Constitutional: Denies: Fever Eyes: Denies: Pain Skin: Denies: Rash Pulmonary: Denies: Dyspnea, Cough Objective Physical Examination General Exam: Positive: Alert, No Acute Distress ENT Exam: Positive: Tongue Midline (slightly dry) Neck Exam: Positive: Supple Chest Exam: Positive: Clear to auscultation, Diminished (RLL) Heart Exam: Positive: Rate Normal, Regular Rhythm, Normal S1, Normal S2 Abdomen Exam: Positive: Normal bowel sounds, Soft Extremity Exam: Negative: Edema, Swelling Skin Exam: Negative: Breakdown Neuro Exam: Positive: Other Psych Exam: Negative: Mental status NL Assessment /Plan Problems (1) Severe protein-calorie malnutrition Status: Chronic Problem Text: 08/07/18 case d/w Dr. Babatunde Miller, patient's personal surgeon for many years, who agrees with the futility of gastrostomy tube placement. He feels that if it were to be demanded by the Guardianship Committee, the safest way to place it would be radiologically (PRG). Endoscopically placed gastrostomy tube (PEG) would entail a high risk for emergent tracheostomy due to the patient's severe macroglossia. 07/26/18 Long d/w Osvaldo Zhong [facility] Seasonal Warehouse Associate-I advised that patient would need a J-tube for enteral feeding given recurrent aspiration. I advised that this would only mitigate, but not eliminate, the aspiration risk. Additionally unless there was 24/ supervision, the patient would most likely pull out the J-tube. As the patient's PCP, I agree with DNR status and favor PRECISION MACHINIST status. I discussed the case with the guardianship committee reaffirming my thought that it was medically futile to place a gastrostomy tube endoscopically OR radiologically given the high likelihood of patient tube dislodgment and then leakage and infection risks of the subsequent open wound. (there has never been family identified to assume guardianship) (2) Pneumonia Status: Resolved Problem Text: D7/7 john for RLL aspiration pneumonia/pneumonitis 08/07 normotensive, stable WBC, plan dc john/HC 08/08 (3) Hypothermia Status: Chronic Discussed With: Nurse, Other Discussed With: ([facility] aide) Problem Specific Plan: Monitor Clinically Problem Text: chronic, mild-baseline 95F (4) Dysphagia Status: Chronic Problem Text: 07/30 see above. 07/25: Again his dysphagia is the underlying cause of his severe and worsening malnutrition. There is not a bed for him at [facility] yet. I was too busy transferring him to the ICU and calling specialists for advice to inquire about beds at other [facility] today. If there is not a bed at [facility] for him tomorrow, this inquiry is still probably a good idea. 07/24 -- ultimately, many of Mr. Hamilton' problems are secondary to his dysphagia. He has been losing weight and has had multiple episodes of pneumonia, felt secondary to aspiration. Though he passed a swallow evaluation earlier this week, he visibly aspirated the same diet, with a speech therapist, the very next day. This directly contributes to his malnutrition and aspiration. His weight loss prior to hospitalization probably reflects decreased intake secondary to d ysphagia. The Guardianship committee at [facility] has requested we attempt to have a PEG tube placed for artificial nutrition. We have discussed that this will NOT eliminate the risk of aspiration (although ti should reduce it), and there is significant concern that he will pull it out as he has his central line, and several peripheral IVs. They stated that they have several clients that have PEGs that they protect with abdominal binders; they would like to try this option for him. I did attempt to transfer him to [facility] today, but they don't have a bed available. He is on a wait list with them. Tomorrow I will check with [facility] and [facility]. If we can't get anywhere by the end of the weekend, perhaps we should [place] back with out surgeons and see if they would consider attempting this placement even though they feel it will be harder on him and them. (5) Seizure disorder Status: Chronic Response to Treatment: Controlled Problem Specific Plan: Monitor Clinically Problem Text: No seizure activity on paul 0.5 IV QHS 07/25: I spoke to the neurologist inspection clerk to go through his neuropsychiatrically active medications to make sure none of them were causing the hypothermia. He was most concerned about the levothyroxine which is addressed below. The atypical antipsychotics should be covered by the haldol deconate. The Artane and Mysoline are likely for tremors or side effects of the anti-psychotics. The Gabatril and trazodone shouldn't cause these symptoms, but he encouraged me to use lorazepam 0.5mg IV QHS to provide some similar action/coverage so he is less likely to seize from withdrawal of these oral meds. Ultimately it would be best to get enteral access and resume his proven regimen. Seizure precaution were reaffirmed (6) Hypothyroidism Status: Chronic Response to Treatment: Stable, Controlled Problem Specific Plan: Monitor Clinically Problem Text: continue LT4 37.7 IV QD HD LT4 50 (07/16/18 TSH/FT4 0.8/1.1 on LT4 50) (7) Anemia Status: Chronic Response to Treatment: Stable Problem Specific Plan: Repeat Labs Problem Text: favor 2 ACD 08/07 stable hgb 9.7 06/2018 baseline 13-14 (8) Cognitive impairment Status: Chronic Response to Treatment: Stable Problem Text: [facility] pt with PMH of advanced cognitive impairement with psychosis. As many of his meds as could be given parenterally were changed today. Still enteral dosing of his proven regimen would be best. (9) Physical deconditioning Status: Chronic Response to Treatment: Stable Problem Text: PT d/c as pt unable to follow command. d/c bedrest; OOB with assist. Sitter with fall precaution. (10) Constipation Status: Chronic Response to Treatment: Stable, Controlled Problem Specific Plan: Monitor Clinically Problem Text: PMH of constipation. CT abdomen showed obstipation. bowel movements noted 07/21. Fleet enema PRN. Plan/VTE VTE Prophylaxis Ordered?: Yes (SCD) Plan IVF: Continue Diet: Make NPO Activity: Bedrest Medications: Bowel Regimen Diagnostics: Check Labs, Repeat Labs in AM VS, I&O, [facility], [facility] Vital Signs/I&O Vital Signs Date Time Temp Pulse Resp B/P (MAP) Pulse Ox O2 Delivery O2 Flow Rate FiO2 08/07/18 06:00 95.8 54 17 106/69 (81) 97 08/01/18 07:45 1.0 I&O- Last 24 Hours up to 6 AM 08/07/18 06:00 Intake Total 1900 ml Output Total 0 ml Balance 1900 ml Laboratory Data 24H LABS Laboratory Tests 2 08/06/18 17:57: Bedside Glucose (Misc Panel) 101 08/07/18 00:06: Bedside Glucose (Misc Panel) 103 08/07/18 05:58: Nucleated Red Blood Cells % (auto) 0.3H, Anion Gap 6L, Glomerular Filtration Rate > 60.0, Blood Urea Nitrogen 8, Creatinine 0.53L, Sodium Level 143, Potassium Level 4.0, Chloride Level 107, Carbon Dioxide Level 30, Calcium Level 7.8L, Aspartate Amino Transf (AST/SGOT) 25, Alanine Aminotransferase (ALT/SGPT) 23, Alkaline Phosphatase 101, Total Bilirubin 0.2, Total Protein 6.1L, Albumin 2.1L, Magnesium Level 2.0, Albumin/Globulin Ratio 0.53L, Thyroid Stimulating Hormone (TSH) 2.460 08/07/18 11:49: Bedside Glucose (Misc Panel) 83 CBC/BMP Laboratory Tests 08/07/18 05:58 Red Blood Count 3.45 L, Mean Corpuscular Volume 85.8, Mean Corpuscular Hemoglobin 28.1, Mean Corpuscular Hemoglobin Concent 32.8, Red Cell Distribution Width 17.0 H, Calcium Level 7.8 L, Aspartate Amino Transf (AST/SGOT) 25, Alanine Aminotransferase (ALT/SGPT) 23, Alkaline Phosphatase 101, Total Bilirubin 0.2, Total Protein 6.1 L, Albumin 2.1 L Jacky Shelton M.D. Aug 07, 2018 14:25
[2018-08-07] MEDS ORDERED: FAT EMULSION IV 20% 500 ML IV SCH (18:00)
[2018-08-07] MEDS: LORazepam 2 MG/ML VIAL (J2060) IV SCH (20:51)
[2018-08-07 22:00] VITALS: BP 103/68
[2018-08-08] MEDS: MEROPENEM INJ 1 GM in APPROPRIATE DILUENT 1 EA IV SCH ×2 (02:14→09:48)
[2018-08-08] MEDS: HYDROCORTISONE 100 MG/2 ML VIAL (J1720) IV SCH ×2 (02:14→14:07)
[2018-08-08] MEDS: AMINO AC/ELECTROLYTE/DEX/CALC 1,000 ML IV SCH ×2 (02:14→18:30)
[2018-08-08] MEDS: HumaLOG INSULIN (NovoLOG) PER UNIT SC SCH ×4 (05:25→17:09)
[2018-08-08 06:00] VITALS: BP 111/59
[2018-08-08 06:32] LABS: HEMATOCRIT 29.1 % (42.0-52.0); HEMOGLOBIN 9.7 g/dl (13.5-17.5); MEAN CORPUSCULAR HGB CONC 33.3 g/dl (32.0-36.5); MEAN CORPUSCULAR VOLUME 84.1 fl (80.0-96.0); PLATELET COUNT, AUTOMATED 281 10^3/uL (150-450); RED BLOOD COUNT 3.46 10^6/uL (4.30-6.10); WHITE BLOOD COUNT 7.3 10^3/uL (4.0-10.0)
[2018-08-08 06:53] LABS: BLOOD UREA NITROGEN 8 MG/DL (7-18); CARBON DIOXIDE LEVEL 28 MEQ/L (21-32); CHLORIDE LEVEL 109 MEQ/L (98-107); CREATININE FOR GFR 0.44 MG/DL (0.70-1.30); GLOMERULAR FILTRATION RATE > 60.0 (>49); GLUCOSE, FASTING 104 MG/DL (70-100); POTASSIUM SERUM 3.7 MEQ/L (3.5-5.1); SODIUM LEVEL 142 MEQ/L (136-145)
[2018-08-08] MEDS: LEVOTHYROXINE 100 MCG (0.1MG) VIAL IV SCH (09:47)
[2018-08-08 14:00] VITALS: BP 112/67
--- NOTE | 2018-08-08 16:45 | IPNPDOC ---
Subjective Date Seen The patient was seen on 08/08/18. Subjective Chief Complaint/HPI baseline mental status s agitation Constitutional: Denies: Fever Skin: Denies: Rash Pulmonary: Denies: Cough Gastrointestinal: Denies: Vomiting Objective Physical Examination General Exam: Positive: Alert, No Acute Distress ENT Exam: Positive: Tongue Midline (slightly dry) Neck Exam: Positive: Supple Chest Exam: Positive: Clear to auscultation, Diminished (RLL) Heart Exam: Positive: Rate Normal, Regular Rhythm, Normal S1, Normal S2 Abdomen Exam: Positive: Normal bowel sounds, Soft Extremity Exam: Negative: Edema, Swelling Skin Exam: Negative: Breakdown Neuro Exam: Positive: Other Psych Exam: Negative: Mental status NL Assessment /Plan Problems (1) Severe protein-calorie malnutrition Status: Chronic Problem Text: D10 PPN at 60H via LLE-has not removed line given 19/01 sitter 08/07/18 case d/w Dr. Babatunde Miller, patient's personal surgeon for many years, who agrees with the futility of gastrostomy tube placement (for same reasons as below). He feels that if it were to be demanded by the Guardianship Committee, the safest way to place it would be radiologically (PRG). An endoscopically placed gastrostomy tube (PEG) would entail a high risk for emergent tracheostomy due to the patient's severe macroglossia. He stated that he would affirm this in a note. Then I'd favor appealing the Guardianship Committee for INTERMEDIATE PROJECT MANAGER status. 07/26/18 Long d/w Osvaldo Zhong [facility] Instrument Fitter-I advised that patient wou ld need a J-tube for enteral feeding given recurrent aspiration. I advised that this would only mitigate, but not eliminate, the aspiration risk. Additionally unless there was 19/01 supervision, the patient would most likely pull out the J- tube. As the patient's PCP, I agree with DNR status and favor INTERMEDIATE PROJECT MANAGER status. I discussed the case with the guardianship committee reaffirming my thought that it was medically futile to place a gastrostomy tube endoscopically OR radiologically given the high likelihood of patient tube dislodgment and then leakage and infection risks of the subsequent open wound. (there has never been family identified to assume guardianship) (2) Pneumonia Status: Acute Problem Text: D7/7 john for RLL aspiration pneumonia/pneumonitis 2/10 normotensive, stable WBC, CXR c improved RLL opacity; therefore, dc john/HC (3) Hypothermia Status: Chronic Discussed With: Nurse, Other Discussed With: ([facility] aide) Problem Specific Plan: Monitor Clinically Problem Text: chronic, mild-at baseline 95F (4) Dysphagia Status: Chronic Problem Text: as per malnutrition (5) Seizure disorder Status: Chronic Response to Treatment: Controlled Problem Specific Plan: Monitor Clinically Problem Text: No seizure activity on paul 0.5 IV QHS 07/25: I spoke to the neurologist forestry consultant to go through his neuropsychiatrically active medications to make sure none of them were causing the hypothermia. He was most concerned about the levothyroxine which is addressed below. The atypical antipsychotics should be covered by the haldol deconate. The Artane and Mysoline are likely for tremors or side effects of the anti-psychotics. The [place] batril and trazodone shouldn't cause these symptoms, but he encouraged me to use lorazepam 0.5mg IV QHS to provide some similar action/coverage so he is less likely to seize from withdrawal of these oral meds. Ultimately it would be best to get enteral access and resume his proven regimen. Seizure precaution were reaffirmed (6) Hypothyroidism Status: Chronic Response to Treatment: Stable, Controlled Problem Specific Plan: Monitor Clinically Problem Text: continue LT4 37.7 IV QD HD LT4 50 (07/16/18 TSH/FT4 0.8/1.1 on LT4 50) (7) Anemia Status: Chronic Response to Treatment: Stable Problem Specific Plan: Repeat Labs Problem Text: favor 2 ACD 08/07 stable hgb 9.7 06/2018 baseline 13-14 (8) Cognitive impairment Status: Chronic Response to Treatment: Stable Problem Text: at baseline mentation s agitation (9) Physical deconditioning Status: Chronic Response to Treatment: Stable Problem Text: continue QD PT (10) Constipation Status: Resolved Response to Treatment: Stable, Controlled Problem Specific Plan: Monitor Clinically Problem Text: chronic obstipation recurrent ACPO 2 neurogenic bowel on baseline doc/lact/linac/MOM/PG and Fleets enema MWF Plan/VTE VTE Prophylaxis Ordered?: Yes (SCD) Plan IVF: Continue Diet: Make NPO Activity: Bedrest Medications: Bowel Regimen Diagnostics: Check Labs, Repeat Labs in AM VS, I&O, 24H, [facility] Vital Signs/I&O Vital Signs Date Time Temp Pulse Resp B/P (MAP) Pulse Ox O2 Delivery O2 Flow Rate FiO2 08/08/18 14:00 95.6 61 16 112/67 (82) 100 I&O- Last 24 Hours up to 6 AM 08/08/18 06:00 Intake Total 1590 ml Output Total 0 ml Balance 1590 ml Laboratory Data 24H LABS Laboratory Tests 2 08/07/18 16:52: Bedside Glucose (Misc Panel) 73L 08/08/18 00:07: Bedside Glucose (Misc Panel) 85 08/08/18 05:24: Bedside Glucose (Misc Panel) 97 08/08/18 05:49: Nucleated Red Blood Cells % (auto) 0.0, Anion Gap 5L, Glomerular Filtration Rate > 60.0, Blood Urea Nitrogen 8, Creatinine 0.44L, Sodium Level 142, Potassium Level 3.7, Chloride Level 109H, Carbon Dioxide Level 28, Calcium Level 8.0L 08/08/18 11:53: Bedside Glucose (Misc Panel) 72L CBC/BMP Laboratory Tests 08/08/18 05:49 Red Blood Count 3.46 L, Mean Corpuscular Volume 84.1, Mean Corpuscular Hemoglobin 28.0, Mean Corpuscular Hemoglobin Concent 33.3, Red Cell Distribution Width 16.9 H, Calcium Level 8.0 L Jacky Shelton M.D. Aug 08, 2018 16:45
[2018-08-08] MEDS ORDERED: FAT EMULSION IV 20% 500 ML IV SCH (18:00)
[2018-08-08] MEDS: LORazepam 2 MG/ML VIAL (J2060) IV SCH (20:06)
[2018-08-09] VITALS: BP 119/77
[2018-08-09 06:00] VITALS: BP 96/66
[2018-08-09] MEDS: HumaLOG INSULIN (NovoLOG) PER UNIT SC SCH ×4 (06:00→17:19)
[2018-08-09 06:07] LABS: HEMATOCRIT 29.7 % (42.0-52.0); MEAN CORPUSCULAR HEMOGLOBIN 28.3 pg (27.0-33.0); MEAN CORPUSCULAR HGB CONC 33.7 g/dl (32.0-36.5); MEAN CORPUSCULAR VOLUME 84.1 fl (80.0-96.0); PLATELET COUNT, AUTOMATED 290 10^3/uL (150-450); RED BLOOD COUNT 3.53 10^6/uL (4.30-6.10); WHITE BLOOD COUNT 5.9 10^3/uL (4.0-10.0)
[2018-08-09 06:42] LABS: BLOOD UREA NITROGEN 9 MG/DL (7-18); CALCIUM LEVEL 8.3 MG/DL (8.8-10.2); CARBON DIOXIDE LEVEL 28 MEQ/L (21-32); CHLORIDE LEVEL 107 MEQ/L (98-107); CREATININE FOR GFR 0.48 MG/DL (0.70-1.30); GLOMERULAR FILTRATION RATE > 60.0 (>49); GLUCOSE, FASTING 103 MG/DL (70-100); POTASSIUM SERUM 3.7 MEQ/L (3.5-5.1); SODIUM LEVEL 142 MEQ/L (136-145)
[2018-08-09] MEDS: FLEET ENEMA PR SCH (10:11)
[2018-08-09] MEDS: LEVOTHYROXINE 100 MCG (0.1MG) VIAL IV SCH (10:11)
--- NOTE | 2018-08-09 10:12 | REP ---
CHEST, TWO VIEWS: Two views of the chest are performed. COMPARISON: 08/02/2018 as well as other prior exams. Right lower lobe infiltrate has significantly improved. There is, however, streaky infiltrate in the right upper lobe. There is probably some left retrocardiac streaky infiltrate as well. Cardiomediastinal silhouette is unchanged. IMPRESSION: Mild streaky right upper and left lower lobe infiltrates. Electronically Signed by Mj Warren MD 08/09/2018 10:40 P
--- NOTE | 2018-08-09 10:48 | IPNPDOC ---
Subjective Date Seen The patient was seen on 08/09/18. Subjective Chief Complaint/HPI Pt nonverbal, ROS unable to be obtained. Nursing reports no new concerns. [facility] staff at bedside, reports pt relatively calm this morning. General: Reports: ROS Unobtainable Objective Physical Examination General Exam: Positive: Alert, No Acute Distress; Negative: Cooperative ENT Exam: Positive: Tongue Midline (slightly dry, protruding) Neck Exam: Positive: Supple Chest Exam: Positive: Clear to auscultation, Diminished (throughout) Heart Exam: Positive: Rate Normal, Regular Rhythm, Normal S1, Normal S2 Abdomen Exam: Positive: Normal bowel sounds, Soft Extremity Exam: Negative: Edema, Swelling Skin Exam: Negative: Breakdown Neuro Exam: Positive: Other Psych Exam: Negative: Mental status NL Assessment /Plan Problems (1) Severe protein-calorie malnutrition Status: Chronic Problem Text: 08/09/18 Case d/w Dr Shelton, Dr Gallardo and Dr Miller - agreement in regards to medical futility of placement of gastrostomy tube. Tube will only slightly mitigate pts aspiration risks, given his habitus risks assoc with conscious sedation, therefore requiring general anesthesia, d/t habitus, difficult and risky intubation, could require tracheostomy. If pt pulls out gastrostomy tube especially in first few weeks this is a surgical emergency, therefor revisiting same anesthesia risks. If tube placed would recommend DIGITAL FORENSIC ANALYST status planned for patient if tube is d/c by the patient. Given futility and risks, strong recommendation for DIGITAL FORENSIC ANALYST. Dr Gallardo plans to address medical team concerns with Guardianship Committee and William Zhong. D11 PPN at 60H via LLE-has not removed line given 19/01 sitter 08/07/18 case d/w Dr. Babatunde Miller, patient's personal surgeon for many years, who agrees with the futility of gastrostomy tube placement (for same reasons as below). He feels that if it were to be demanded by the Guardianship Committee, the safest way to place it would be radiologically (PRG). An endoscopically placed gastrostomy tube (PEG) would entail a high risk for emergent tracheostomy due to the patient's severe macroglossia. He stated that he would affirm this in a note. Then I'd favor appealing the Guardianship Committee for DIGITAL FORENSIC ANALYST status. 07/26/18 Long d/w Osvaldo Zhong [facility] Court Worker-I advised that patient would need a J-tube for enteral feeding given recurrent aspiration. I advised that this would only mitigate, but not eliminate, the aspiration risk. Additi onally unless there was 19/01 supervision, the patient would most likely pull out the J-tube. As the patient's PCP, I agree with DNR status and favor DIGITAL FORENSIC ANALYST status. I discussed the case with the guardianship committee reaffirming my thought that it was medically futile to place a gastrostomy tube endoscopically OR radiologically given the high likelihood of patient tube dislodgment and then leakage and infection risks of the subsequent open wound. (there has never been family identified to assume guardianship) (2) Pneumonia Status: Resolved Problem Text: john for RLL aspiration pneumonia/pneumonitis 08/08 normotensive, stable WBC, CXR c improved RLL opacity; therefore, dc john/HC (3) Hypothermia Status: Chronic Discussed With: Nurse, Other Discussed With: ([facility] aide) Problem Specific Plan: Monitor Clinically Problem Text: chronic, mild-at baseline 95F (4) Dysphagia Status: Chronic Problem Text: as per malnutrition (5) Seizure disorder Status: Chronic Response to Treatment: Controlled Problem Specific Plan: Monitor Clinically Problem Text: No seizure activity on paul 0.5 IV QHS 07/25: I spoke to the neurologist communications engineering technician to go through his neuropsychiatrically active medications to make sure none of them were causing the hypothermia. He was most concerned about the levothyroxine which is addressed below. The atypical antipsychotics should be covered by the haldol deconate. The Artane and Mysoline are likely for tremors or side effects of the anti-psychotics. The Gabatril and trazodone shouldn't cause these symptoms, but he encouraged me to use lorazepam 0.5mg IV QHS to provide some similar action/coverage so he is less likely to seize from withdrawal of these oral meds. Ultimately it would be best to get enteral access and resume his proven regimen. Seizure precaution were reaffirmed (6) Hypothyroidism Status: Chronic Response to Treatment: Stable, Controlled Problem Specific Plan: Monitor Clinically Problem Text: continue LT4 37.7 IV QD HD LT4 50 (07/16/18 TSH/FT4 0.8/1.1 on LT4 50) (7) Anemia Status: Chronic Response to Treatment: Stable Problem Specific Plan: Repeat Labs Problem Text: favor 2 ACD / stable hgb 9.7 06/2018 baseline 13-14 (8) Cognitive impairment Status: Chronic Response to Treatment: Stable Problem Text: at baseline mentation s agitation (9) Physical deconditioning Status: Chronic Response to Treatment: Stable Problem Text: continue QD PT (10) Constipation Status: Resolved Response to Treatment: Stable, Controlled Problem Specific Plan: Monitor Clinically Problem Text: chronic obstipation recurrent ACPO 2 neurogenic bowel on baseline doc/lact/linac/MOM/PG and Fleets enema MWF Plan/VTE VTE Prophylaxis Ordered?: Yes (SCD) Plan IVF: Continue Diet: Make NPO Activity: Bedrest Medications: Bowel Regimen Diagnostics: Check Labs, Repeat Labs in AM Family Medicine Attending Note: I saw and examined Mr. Hamilton, discussed with MAINOR Banks. Agree with her note as documented. It was reported to me that, even with a sitter at bedside, Mr. Hamilton managed to fall out of the bed this morning. I did examine him and found he did not sustain any injuries. I feel that this situation helps to crystallize the problem with Mr. Hamilton' ongoing care. Even with a full-time sitter assigned, Mr. Hamilton was able to get himself into a dangerous position. I do not have confidence that he will not be able to pull or wriggle a PEG tube out of his body. If this were to happen within the first 3 weeks, before full epithelialization of the wound occurs he would constitute a medical emergency because it would need to be treated same as a perforated gastric ulcer. I believe that pursuing PEG tube placement is not only medically futile, but we'll put him through an uncomfortable procedure that will only threaten his life in the long run. I spoke to Ronaldo Naranjo, the PFS worker in charge of his case at this time, he recommended I hold off speaking to the guardianship community today because we are still waiting for more communication from [facility] on his MOLST form. Once we have all this together, I should be able to address the issues at the same time. 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) VS, I&O, 24H, Fishbone Vital Signs/I&O Vital Signs Date Time Temp Pulse Resp B/P (MAP) Pulse Ox O2 Delivery O2 Flow Rate FiO2 08/09/18 06:00 95.8 61 17 96/66 (76) 99 I&O- Last 24 Hours up to 6 AM 08/09/18 06:00 Intake Total 1490 ml Output Total 0 ml Balance 1490 ml Laboratory Data 24H LABS Laboratory Tests 2 08/08/18 11:53: Bedside Glucose (Misc Panel) 72L 08/08/18 16:48: Bedside Glucose (Misc Panel) 86 08/09/18 00:21: Bedside Glucose (Misc Panel) 93 08/09/18 05:49: Bedside Glucose (Misc Panel) 89 08/09/18 05:54: Nucleated Red Blood Cells % (auto) 0.3H, Anion Gap 7L, Glomerular Filtration Rate > 60.0, Blood Urea Nitrogen 9, Creatinine 0.48L, Sodium Level 142, Potassium Level 3.7, Chloride Level 107, Carbon Dioxide Level 28, Calcium Level 8.3L CBC/BMP Laboratory Tests 08/09/18 05:54 Red Blood Count 3.53 L, Mean Corpuscular Volume 84.1, Mean Corpuscular Hemoglobin 28.3, Mean Corpuscular Hemoglobin Concent 33.7, Red Cell Distribution Width 16.9 H, Calcium Level 8.3 L NANCY ARCINIEGA PA-C Aug 09, 2018 10:48 Yong Gallardo MD Aug 09, 2018 20:22
[2018-08-09] MEDS: AMINO AC/ELECTROLYTE/DEX/CALC 1,000 ML IV SCH (11:01)
[2018-08-09 14:00] VITALS: BP 102/66
[2018-08-09] MEDS ORDERED: FAT EMULSION IV 20% 500 ML IV SCH (18:00)
[2018-08-09 22:00] VITALS: BP 97/69
[2018-08-10] MEDS: HumaLOG INSULIN (NovoLOG) PER UNIT SC SCH ×4 (00:14→17:49)
[2018-08-10] MEDS: LORazepam 2 MG/ML VIAL (J2060) IV SCH ×2 (00:19→23:17)
[2018-08-10] MEDS: AMINO AC/ELECTROLYTE/DEX/CALC 1,000 ML IV SCH ×2 (03:47→21:38)
[2018-08-10 06:00] VITALS: BP 93/63
[2018-08-10 07:01] LABS: HEMATOCRIT 30.9 % (42.0-52.0); HEMOGLOBIN 9.9 g/dl (13.5-17.5); MEAN CORPUSCULAR VOLUME 87.3 fl (80.0-96.0); PLATELET COUNT, AUTOMATED 292 10^3/uL (150-450); RED BLOOD COUNT 3.54 10^6/uL (4.30-6.10); WHITE BLOOD COUNT 5.4 10^3/uL (4.0-10.0)
[2018-08-10 07:25] LABS: BLOOD UREA NITROGEN 10 MG/DL (7-18); CALCIUM LEVEL 8.3 MG/DL (8.8-10.2); CARBON DIOXIDE LEVEL 29 MEQ/L (21-32); CHLORIDE LEVEL 108 MEQ/L (98-107); GLOMERULAR FILTRATION RATE > 60.0 (>49); GLUCOSE, FASTING 87 MG/DL (70-100); POTASSIUM SERUM 4.1 MEQ/L (3.5-5.1); SODIUM LEVEL 142 MEQ/L (136-145)
[2018-08-10] MEDS: LEVOTHYROXINE 100 MCG (0.1MG) VIAL IV SCH (09:12)
--- NOTE | 2018-08-10 10:59 | IPNPDOC ---
Subjective Date Seen The patient was seen on 08/10/18. Subjective Chief Complaint/HPI Nusring this morning without new concerns. PFS awaits update regarding Code status inquiry. General: Reports: ROS Unobtainable Objective Physical Examination General Exam: Positive: Alert, No Acute Distress; Negative: Cooperative ENT Exam: Positive: Tongue Midline (enlarged) Neck Exam: Positive: Supple Chest Exam: Positive: Clear to auscultation, Diminished (throughout) Heart Exam: Positive: Rate Normal, Regular Rhythm, Normal S1, Normal S2 Abdomen Exam: Positive: Normal bowel sounds, Soft Extremity Exam: Negative: Edema, Swelling Skin Exam: Negative: Breakdown Neuro Exam: Positive: Other Psych Exam: Negative: Mental status NL Assessment /Plan Problems (1) Severe protein-calorie malnutrition Status: Chronic Problem Text: 08/10 No changes. He continues on PPN as this is all it's possible to give him until we have a better way to get nutrition into his body, or he goes comfort measures. 08/09/18 Case d/w Dr Shelton, Dr Gallardo and Dr Miller - agreement in regards to medical futility of placement of gastrostomy tube. Tube will only slightly mitigate pts aspiration risks, given his habitus risks assoc with conscious sedation, therefore requiring general anesthesia, d/t habitus, difficult and risky intubation, could require tracheostomy. If pt pulls out gastrostomy tube especially in first few weeks this is a surgical emergency, therefor revisiting same anesthesia risks. If tube placed would recommend FLAME CHANNELER status planned for patient if tube is d/c by the patient. Given futility and risks, strong recommendation for FLAME CHANNELER. Dr Gallardo plans to address medical team concerns with Guardianship Committee and William Zhong. D11 PPN at 60H via LLE-has not removed line given 19/01 sitter 08/07/18 case d/w Dr. Babatunde Miller, patient's personal surgeon for many years, who agrees with the futility of gastrostomy tube placement (for same reasons as below). He feels that if it were to be demanded by the Guardianship Committee, the safest way to place it would be radiologically (PRG). An endoscopically placed gastrostomy tube (PEG) would entail a high risk for emergent tracheostomy due to the patient's severe macroglossia. He stated that he would affirm this in a note. Then I'd favor appealing the Guardianship Committee for FLAME CHANNELER status. 07/26/18 Long d/w Osvaldo Zhong [facility] Manager Search Engine-I advised that patient would need a J-tube for enteral feeding given recurrent aspiration. I advised that this would only mitigate, but not eliminate, the aspiration risk. A dditionally unless there was 24/7 supervision, the patient would most likely pull out the J-tube. As the patient's PCP, I agree with DNR status and favor FLAME CHANNELER status. I discussed the case with the guardianship committee reaffirming my thought that it was medically futile to place a gastrostomy tube endoscopically OR radiologically given the high likelihood of patient tube dislodgment and then leakage and infection risks of the subsequent open wound. (there has never been family identified to assume guardianship) (2) Dysphagia Status: Chronic Problem Text: He remains at very high risk of microaspiration as well as aspiration of gastric contents if a PEG tube is placed. (3) Hypothermia Status: Chronic Discussed With: Nurse, Other Discussed With: ([facility] aide) Problem Specific Plan: Monitor Clinically Problem Text: chronic, mild-at baseline 95F (4) Seizure disorder Status: Chronic Response to Treatment: Controlled Problem Specific Plan: Monitor Clinically Problem Text: No seizure activity on lorazepam 0.5 IV QHS 07/25: I spoke to the neurologist intervention manager to go through his neuropsychiatrically active medications to make sure none of them were causing the hypothermia. He was most concerned about the levothyroxine which is addressed below. The atypical antipsychotics should be covered by the haldol deconate. The Artane and Mysoline are likely for tremors or side effects of the anti-psychotics. The Gabatril and trazodone shouldn't cause these symptoms, but he encouraged me to use lorazepam 0.5mg IV QHS to provide some similar action/coverage so he is less likely to seize from withdrawal of these oral meds. Ultimately it would be best to get enteral access and resume his proven regimen. Seizure precaution were reaffirmed (5) Hypothyroidism Status: Chronic Response to Treatment: Stable, Controlled Problem Specific Plan: Monitor Clinically Problem Text: continue LT4 37.7 IV QD HD LT4 50 (07/16/18 TSH/FT4 0.8/1.1 on LT4 50) (6) Anemia Status: Chronic Response to Treatment: Stable Problem Specific Plan: Repeat Labs Problem Text: favor 2 ACD 08/07 stable hgb 9.7 06/2018 baseline 13-14 (7) Cognitive impairment Status: Chronic Response to Treatment: Stable Problem Text: at baseline mentation s agitation (8) Physical deconditioning Status: Chronic Response to Treatment: Stable Problem Text: continue QD PT (9) Constipation Status: Resolved Response to Treatment: Stable, Controlled Problem Specific Plan: Monitor Clinically Problem Text: chronic obstipation recurrent ACPO 2 neurogenic bowel on baseline doc/lact/linac/MOM/PG and Fleets enema MWF (10) Pneumonia Status: Resolved Problem Text: Completed D7 john for RLL aspiration pneumonia/pneumonitis 08/08 normotensive, stable WBC, CXR c improved RLL opacity; therefore, dc john/HC Plan/VTE VTE Prophylaxis Ordered?: Yes (SCD) Plan IVF: Continue Diet: Make NPO Activity: Bedrest Medications: Bowel Regimen Diagnostics: Check Labs, Repeat Labs in AM Family Medicine Attending Note: I saw and examined Mr. Hamilton, discussed with MAINOR Banks. Agree with her note as documented. Unfortunately by the time I saw him in the early afternoon he had another seizure. He has been off his seizure meds for some time, but we have been able to keep his seizures at bay with a once daily dose of lorazepam in the evening. He did receive some lorazepam today to break his seizure. I will start him on twice daily lorazepam to see if we can keep enough GABAergic tone to suppress further seizures. 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) VS, I&O, 24H, Fishbone Vital Signs/I&O Vital Signs Date Time Temp Pulse Resp B/P (MAP) Pulse Ox O2 Delivery O2 Flow Rate FiO2 08/10/18 06:00 96.6 67 19 93/63 (73) 100 I&O- Last 24 Hours up to 6 AM 08/10/18 06:00 Intake Total 1440 ml Output Total 0 ml Balance 1440 ml Laboratory Data 24H LABS Laboratory Tests 2 08/09/18 12:01: Bedside Glucose (Misc Panel) 93 08/09/18 17:10: Bedside Glucose (Misc Panel) 79L 08/09/18 20:20: Bedside Glucose (Misc Panel) 81 08/09/18 23:54: Bedside Glucose (Misc Panel) 81 08/10/18 05:31: Nucleated Red Blood Cells % (auto) 0.0, Anion Gap 5L, Glomerular Filtration Rate > 60.0, Blood Urea Nitrogen 10, Creatinine 0.60L, Sodium Level 142, Potassium Level 4.1, Chloride Level 108H, Carbon Dioxide Level 29, Calcium Level 8.3L 08/10/18 06:49: Bedside Glucose (Misc Panel) 81 CBC/BMP Laboratory Tests 08/10/18 05:31 Red Blood Count 3.54 L, Mean Corpuscular Volume 87.3, Mean Corpuscular Hemoglobin 28.0, Mean Corpuscular Hemoglobin Concent 32.0, Red Cell Distribution Width 17.0 H, Calcium Level 8.3 L NANCY ARCINIEGA PA-C Aug 10, 2018 10:59 am Yong Gallardo MD Aug 10, 2018 8:49 pm
[2018-08-10 11:55] VITALS: BP 93/50
[2018-08-10] MEDS ORDERED: FAT EMULSION IV 20% 500 ML IV SCH (18:00)
[2018-08-10 22:00] VITALS: BP 97/67
[2018-08-10 23:00] VITALS: BP 84/68
--- NOTE | 2018-08-10 23:21 | CR ---
DATE OF CONSULTATION: 08/08/2018 REASON FOR CONSULTATION: Possible Peg tube placement. HISTORY OF PRESENT ILLNESS The patient is a 67-year-old black male who I have seen over many years; has been very nonverbal over the years and essentially has been a patient of [facility] and essentially came into the hospital with some sepsis issues. He had some progressive decline over time and essentially over the few years that I had seen him he has become more sedated, had lost a lot of weight and is here for the sepsis issue. There has been some vomiting that he has had and the etiology of this has yet to be determined, although it could have been infectious. PAST MEDICAL HISTORY: Is significant for advanced cognitive impairment with psychosis, history of hypothyroidism, history of seizure disorder, history of urinary tract infections, history of Farheen fundoplication and cholecystectomy, history of severe constipation, history of incontinence as well as pneumonitis, history of septic shock, history of anemia, history of protein calorie malnutrition, history of dysphasia, history of severe mental retardation, history of the of fecal impaction and history of episodes of hypotension. PHYSICAL EXAMINATION: On his physical exam, he has lost a significant amount weight since I have last seen him and just over the last year appears that he has lost about 30 pounds. In some ways it makes his tongue not protrude as much as it has been, so it probably protrudes at least an inch less than it normally does and it is not as large as it typically was, but I feel that is because of his overall weight loss issues. His abdomen is soft, nondistended and it is nontender. He has upper midline incision that is well-healed. No evidence of hernias is present in this area. IMPRESSION AND PLAN Currently the question is whether this patient should have a PEG tube placement or whether from a surgical standpoint I feel that that is the optimum procedure for him. We two issues associated with PEG tube placement; one of which is access to the abdomen and whether that it is safe to proceed with an intervention with sedation or with general anesthesia. If we chose the route of proceeding with an endoscopic placement of a Peg tube then he would need some sort of sedation. Unfortunately, sedation alone would be very high risk given that his tongue and is oropharynx issue would preclude a safe sedation situation. He would need to be intubated. Unfortunately, given his overall oral presentation and protruding tongue, etc it may be that this would have to be either an awake intubation or may in some cases machine turner to be an airway that is very tenuous and concerning for possible airway loss and I would be concerned that he may end up needing a tracheostomy at the same time to perform this Peg tube. Thus as I had previously recommended a safer approach if the Peg tube is so desired then placement with this through interventional radiology is "a safer" approach I feel. However, I feel that does not include the same issues associated with Peg tube as other individuals, which is the patient has had a consistent history with removing/pulling out IVS:, removing tubes etc despite being restrained as well as having gloves on and having sitters, he still seems to manage to get out IVS:, tubing etc. and thus I would be extremely concerned with someone with a fresh G tube that he may pull this out. If he does then that by definition is a hole in the stomach that is a gastric perforation which would be either need to be repaired or he would need to be made comfortable. From my Illness standpoint I feel that it is foolish with his history and recurrence of removing things to proceed with this without the written expectation that if he removed his tube, that I would not proceed with an operative intervention to fix this. I feel that that would be setting ourselves up for a laparotomy in this individual. Unfortunately, he has many more medical issues that need treatment with surgical intervention and in much the same way such as chronic colostomy for his chronic constipation issues, possible suprapubic catheter and all these have been not performed because of the overall patient status and thus in this case, I feel the Peg tube is much along the same lines. Unfortunately, I do not have any other recommendations at this time other than possibly considering comfort care situation. If other opinions from other surgeons are desired I feel that is obviously reasonable and you can pursue that as you so deem necessary.
[2018-08-11] MEDS: HumaLOG INSULIN (NovoLOG) PER UNIT SC SCH ×4 (00:11→18:00)
[2018-08-11 01:15] VITALS: BP 118/80
[2018-08-11 05:53] LABS: HEMATOCRIT 30.3 % (42.0-52.0); HEMOGLOBIN 9.8 g/dl (13.5-17.5); MEAN CORPUSCULAR HEMOGLOBIN 27.5 pg (27.0-33.0); MEAN CORPUSCULAR HGB CONC 32.3 g/dl (32.0-36.5); MEAN CORPUSCULAR VOLUME 84.9 fl (80.0-96.0); PLATELET COUNT, AUTOMATED 280 10^3/uL (150-450); RED BLOOD COUNT 3.57 10^6/uL (4.30-6.10); WHITE BLOOD COUNT 5.4 10^3/uL (4.0-10.0)
[2018-08-11 06:00] VITALS: BP 91/68
[2018-08-11 06:18] LABS: BLOOD UREA NITROGEN 12 MG/DL (7-18); CALCIUM LEVEL 8.1 MG/DL (8.8-10.2); CARBON DIOXIDE LEVEL 27 MEQ/L (21-32); CHLORIDE LEVEL 106 MEQ/L (98-107); GLOMERULAR FILTRATION RATE > 60.0 (>49); GLUCOSE, FASTING 103 MG/DL (70-100); POTASSIUM SERUM 3.9 MEQ/L (3.5-5.1); SODIUM LEVEL 140 MEQ/L (136-145)
[2018-08-11] MEDS: LORazepam 2 MG/ML VIAL (J2060) IV SCH ×2 (08:30→21:27)
--- NOTE | 2018-08-11 08:34 | IPNPDOC ---
Subjective Date Seen The patient was seen on 08/11/18. Subjective Chief Complaint/HPI Patient non-communicative. [facility] staff at bedside General: Reports: ROS Unobtainable Objective Physical Examination General Exam: Positive: Alert, No Acute Distress; Negative: Cooperative ENT Exam: Positive: Tongue Midline (enlarged) Neck Exam: Positive: Supple Chest Exam: Positive: Clear to auscultation, Diminished (throughout) Heart Exam: Positive: Rate Normal, Regular Rhythm, Normal S1, Normal S2 Abdomen Exam: Positive: Normal bowel sounds, Soft Extremity Exam: Negative: Edema, Swelling Skin Exam: Negative: Breakdown Psych Exam: Negative: Mental status NL Assessment /Plan Problems (1) Severe protein-calorie malnutrition Status: Chronic Problem Text: 08/11/18: Patient remains on PPN, PEG tube placement not favored as detailed previously. WASTE WATER OPERATOR status has been recommended and guardianship committee has been consulted 08/10 No changes. He continues on PPN as this is all it's possible to give him until we have a better way to get nutrition into his body, or he goes comfort measures. 08/09/18 Case d/w Dr Shelton, Dr Gallardo and Dr Miller - agreement in regards to medical futility of placement of gastrostomy tube. Tube will only slightly mitigate pts aspiration risks, given his habitus risks assoc with conscious sedation, therefore requiring general anesthesia, d/t habitus, difficult and risky intubation, could require tracheostomy. If pt pulls out gastrostomy tube especially in first few weeks this is a surgical emergency, therefor revisiting same anesthesia risks. If tube placed would recommend WASTE WATER OPERATOR status planned for patient if tube is d/c by the patient. Given futility and risks, strong recommendation for WASTE WATER OPERATOR. Dr Gallardo plans to address medical team concerns with Guardianship Committee and William Zhong. D11 PPN at 60H via LLE-has not removed line given 19/01 sitter 08/07/18 case d/w Dr. Babatunde Miller, patient's personal surgeon for many years, who agrees with the futility of gastrostomy tube placement (for same reasons as below). He feels that if it were to be demanded by the Guardianship Committee, the safest way to place it would be radiologically (PRG). An endoscopically placed gastrostomy tube (PEG) would entail a high risk for emergent tracheostomy due to the patient's severe macroglossia. He stated that he would affirm this in a note. Then I'd favor appealing the Guardianship Committee for WASTE WATER OPERATOR status. 07/26/18 Long d/w Osvaldo Zhong [facility] Mathematics Lecturer-I advised that patient would need a J-tube for enteral feeding given recurrent aspiration. I advised t hat this would only mitigate, but not eliminate, the aspiration risk. Additionally unless there was 24/ supervision, the patient would most likely pull out the J-tube. As the patient's PCP, I agree with DNR status and favor WASTE WATER OPERATOR status. I discussed the case with the guardianship committee reaffirming my thought that it was medically futile to place a gastrostomy tube endoscopically OR radiologically given the high likelihood of patient tube dislodgment and then leakage and infection risks of the subsequent open wound. (there has never been family identified to assume guardianship) (2) Dysphagia Status: Chronic Problem Text: He remains at very high risk of microaspiration as well as aspiration of gastric contents if a PEG tube is placed. (3) Hypothermia Status: Chronic Discussed With: Nurse, Other Discussed With: ([facility] aide) Problem Specific Plan: Monitor Clinically Problem Text: chronic, mild-at baseline 95F (4) Seizure disorder Status: Chronic Response to Treatment: Controlled Problem Specific Plan: Monitor Clinically Problem Text: 08/11: He has not had another seizure since he was placed on lorazepam 0.5mg BID. He has been more sedated acting in the mornings with the addition of a second dose of lorazepam. 07/25: I spoke to the neurologist paper cone maker to go through his neuropsychiatrically active medications to make sure none of them were causing the hypothermia. He was most concerned about the levothyroxine which is addressed below. The atypical antipsychotics should be covered by the haldol deconate. The Artane and Mysoline are likely for tremors or side effects of the anti-psychotics. The Gabatril and trazodone shouldn't cause these symptoms, but he encouraged me to use lorazepam 0.5mg IV QHS to provide some similar action/coverage so he is less likely to seize from withdrawal of these oral meds. Ultimately it would be best to get enteral access and resume his proven regimen. Seizure precaution were reaffirmed (5) Hypothyroidism Status: Chronic Response to Treatment: Stable, Controlled Problem Specific Plan: Monitor Clinically Problem Text: continue LT4 37.7 IV QD HD LT4 50 (07/16/18 TSH/FT4 0.8/1.1 on LT4 50) (6) Anemia Status: Chronic Response to Treatment: Stable Problem Specific Plan: Repeat Labs Problem Text: 08/11/18: Remains stable favor 2 ACD 08/07 stable hgb 9.7 06/2018 baseline 13-14 (7) Cognitive impairment Status: Chronic Response to Treatment: Stable Problem Text: at baseline mentation s agitation (8) Physical deconditioning Status: Chronic Response to Treatment: Stable Problem Text: continue QD PT (9) Constipation Status: Resolved Response to Treatment: Stable, Controlled Problem Specific Plan: Monitor Clinically Problem Text: chronic obstipation recurrent ACPO 2 neurogenic bowel on baseline doc/lact/linac/MOM/PG and Fleets enema MWF (10) Pneumonia Status: Resolved Problem Text: Completed D7 john for RLL aspiration pneumonia/pneumonitis 08/08 normotensive, stable WBC, CXR c improved RLL opacity; therefore, dc john/HC Plan/VTE VTE Prophylaxis Ordered?: Yes (SCD) Plan IVF: Continue Diet: Make NPO Activity: Bedrest Medications: Bowel Regimen Diagnostics: Check Labs, Repeat Labs in AM Family Medicine Attending Note: I saw and examined Mr. Hamilton, discussed with Vinayak Ramsay, DNP agree with her note as documented. I will work on completing the most check form for DNR today. I would very much like to me in person with the guardianship community to make sure they're truly informed with regards to the decision to move forward with PEG tube. Hopefully this can be coordinated in the next couple days. 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) VS, I&O, 24H, Fishbone Vital Signs/I&O Vital Signs Date Time Temp Pulse Resp B/P (MAP) Pulse Ox O2 Delivery O2 Flow Rate FiO2 08/11/18 06:00 95.9 69 17 91/68 (76) 97 I&O- Last 24 Hours up to 6 AM 08/11/18 06:00 Intake Total 960 ml Output Total 0 ml Balance 960 ml Laboratory Data 24H LABS Laboratory Tests 2 08/10/18 11:39: Bedside Glucose (Misc Panel) 85 08/10/18 17:09: Bedside Glucose (Misc Panel) 80 08/10/18 23:58: Bedside Glucose (Misc Panel) 88 08/11/18 05:37: Nucleated Red Blood Cells % (auto) 0.0, Anion Gap 7L, Glomerular Filtration Rate > 60.0, Blood Urea Nitrogen 12, Creatinine 0.60L, Sodium Level 140, Potassium Level 3.9, Chloride Level 106, Carbon Dioxide Level 27, Calcium Level 8.1L CBC/BMP Laboratory Tests 08/11/18 05:37 Red Blood Count 3.57 L, Mean Corpuscular Volume 84.9, Mean Corpuscular Hemoglo bin 27.5, Mean Corpuscular Hemoglobin Concent 32.3, Red Cell Distribution Width 17.1 H, Calcium Level 8.1 L VINAYAK RAMSAY Aug 11, 2018 8:34 am Yong Gallardo MD Aug 11, 2018 8:36 pm
[2018-08-11] MEDS: FLEET ENEMA PR SCH (09:00)
[2018-08-11] MEDS: LEVOTHYROXINE 100 MCG (0.1MG) VIAL IV SCH (09:49)
[2018-08-11] MEDS: AMINO AC/ELECTROLYTE/DEX/CALC 1,000 ML IV SCH ×2 (13:11→21:56)
[2018-08-11 14:00] VITALS: BP 98/71
[2018-08-11] MEDS: FAT EMULSION IV 20% 500 ML IV SCH ×2 (18:00→21:57)
[2018-08-11 22:00] VITALS: BP 112/58
[2018-08-12] MEDS: HumaLOG INSULIN (NovoLOG) PER UNIT SC SCH ×4 (00:33→18:00)
[2018-08-12 05:47] LABS: HEMATOCRIT 28.3 % (42.0-52.0); HEMOGLOBIN 9.3 g/dl (13.5-17.5); MEAN CORPUSCULAR HEMOGLOBIN 27.7 pg (27.0-33.0); MEAN CORPUSCULAR HGB CONC 32.9 g/dl (32.0-36.5); MEAN CORPUSCULAR VOLUME 84.2 fl (80.0-96.0); PLATELET COUNT, AUTOMATED 281 10^3/uL (150-450); RED BLOOD COUNT 3.36 10^6/uL (4.30-6.10)
[2018-08-12 06:00] VITALS: BP 119/70
[2018-08-12 06:08] LABS: BLOOD UREA NITROGEN 13 MG/DL (7-18); CALCIUM LEVEL 7.8 MG/DL (8.8-10.2); CARBON DIOXIDE LEVEL 26 MEQ/L (21-32); CHLORIDE LEVEL 108 MEQ/L (98-107); CREATININE FOR GFR 0.47 MG/DL (0.70-1.30); GLOMERULAR FILTRATION RATE > 60.0 (>49); GLUCOSE, FASTING 102 MG/DL (70-100); POTASSIUM SERUM 3.7 MEQ/L (3.5-5.1); SODIUM LEVEL 140 MEQ/L (136-145)
--- NOTE | 2018-08-12 08:56 | IPNPDOC ---
Subjective Date Seen The patient was seen on 08/12/18. Subjective Chief Complaint/HPI Pt this morning has been calm, nursing without new concerns. IV site lost last night was able to be successfully replaced. General: Reports: ROS Unobtainable Pulmonary: Reports: Dyspnea Objective Physical Examination General Exam: Positive: Alert, Cooperative, No Acute Distress ENT Exam: Positive: Tongue Midline (enlarged) Neck Exam: Positive: Supple Chest Exam: Positive: Clear to auscultation, Diminished (throughout) Heart Exam: Positive: Rate Normal, Regular Rhythm, Normal S1, Normal S2 Abdomen Exam: Positive: Normal bowel sounds, Soft Extremity Exam: Negative: Edema, Swelling Skin Exam: Negative: Breakdown Psych Exam: Negative: Mental status NL Assessment /Plan Problems (1) Severe protein-calorie malnutrition Status: Chronic Problem Text: 08/12 No change to status. Await further input from PFS, Guardianship committee. 08/11/18: Patient remains on PPN, PEG tube placement not favored as detailed previously. NEON SIGN ERECTOR status has been recommended and guardianship committee has been consulted 08/10 No changes. He continues on PPN as this is all it's possible to give him until we have a better way to get nutrition into his body, or he goes comfort measures. 08/09/18 Case d/w Dr Shelton, Dr Gallardo and Dr Miller - agreement in regards to medical futility of placement of gastrostomy tube. Tube will only slightly mitigate pts aspiration risks, given his habitus risks assoc with conscious sedation, therefore requiring general anesthesia, d/t habitus, difficult and risky intubation, could require tracheostomy. If pt pulls out gastrostomy tube especially in first few weeks this is a surgical emergency, therefor revisiting same anesthesia risks. If tube placed would recommend NEON SIGN ERECTOR status planned for patient if tube is d/c by the patient. Given futility and risks, strong recommendation for NEON SIGN ERECTOR. Dr Gallardo plans to address medical team concerns with Guardianship Committee and William Zhong. D11 PPN at 60H via LLE-has not removed line given 19/01 sitter 08/07/18 case d/w Dr. Babatunde Miller, patient's personal surgeon for many years, who agrees with the futility of gastrostomy tube placement (for same reasons as below). He feels that if it were to be demanded by the Guardianship Committee, the safest way to place it would be radiologically (PRG). An endoscopically placed gastrostomy tube (PEG) would entail a high risk for emergent tracheostomy due to the patient's severe macroglossia. He stated that he would affirm this in a note. Then I'd favor appealing the Guardianship Committee for NEON SIGN ERECTOR status. 07/26/18 Long d/w Osvaldo Zhong [facility] [id number] Programmer Analyst-I advised that patient would need a J-tube for enteral feeding given recurrent aspiration. I advised that this would only mitigate, but not eliminate, the aspiration risk. Additionally unless there was 19/01 supervision, the patient would most likely pull out the J-tube. As the patient's PCP, I agree with DNR status and favor NEON SIGN ERECTOR status. I discussed the case with the guardianship committee reaffirming my thought that it was medically futile to place a gastrostomy tube endoscopically OR radiologically given the high likelihood of patient tube dislodgment and then leakage and infection risks of the subsequent open wound. (there has never been family identified to assume guardianship) (2) Dysphagia Status: Chronic Problem Text: He remains at very high risk of microaspiration as well as aspiration of gastric contents if a PEG tube is placed. (3) Hypothermia Status: Chronic Discussed With: Nurse, Other Discussed With: ([facility] aide) Problem Specific Plan: Monitor Clinically Problem Text: chronic, mild-at baseline 95F (4) Seizure disorder Status: Chronic Response to Treatment: Controlled Problem Specific Plan: Monitor Clinically Problem Text: 08/11: He has not had another seizure since he was placed on lorazepam 0.5mg BID. He has been more sedated acting in the mornings with the addition of a second dose of lorazepam. 07/25: I spoke to the neurologist cannoneer to go through his neuropsychiatrically active medications to make sure none of them were causing the hypothermia. He was most concerned about the levothyroxine which is addressed below. The atypical antipsychotics should be covered by the haldol deconate. The Artane and Mysoline are likely for tremors or side effects of the anti-psychotics. The Gabatril and trazodone shouldn't cause these symptoms, but he encouraged me to use lorazepam 0.5mg IV QHS to provide some similar action/coverage so he is less likely to seize from withdrawal of these oral meds. Ultimately it would be best to get enteral access and resume his proven regimen. Seizure precaution were reaffirmed (5) Hypothyroidism Status: Chronic Response to Treatment: Stable, Controlled Problem Specific Plan: Monitor Clinically Problem Text: continue LT4 37.7 IV QD HD LT4 50 (07/16/18 TSH/FT4 0.8/1.1 on LT4 50) (6) Anemia Status: Chronic Response to Treatment: Stable Problem Specific Plan: Repeat Labs Problem Text: 08/11/18: Remains stable favor 2 ACD 08/07 stable hgb 9.7 06/2018 baseline 13-14 (7) Cognitive impairment Status: Chronic Response to Treatment: Stable Problem Text: at baseline mentation s agitation (8) Physical deconditioning Status: Chronic Response to Treatment: Stable Problem Text: continue QD PT (9) Constipation Status: Chronic Response to Treatment: Stable, Controlled Problem Specific Plan: Monitor Clinically Problem Text: chronic obstipation recurrent ACPO 2 neurogenic bowel on baseline doc/lact/linac/MOM/PG and Fleets enema MWF (10) Pneumonia Status: Resolved Problem Text: Completed D7 john for RLL aspiration pneumonia/pneumonitis 08/08 normotensive, stable WBC, CXR c improved RLL opacity; therefore, dc john/HC Plan/VTE VTE Prophylaxis Ordered?: Yes (SCD) Plan IVF: Continue Diet: Make NPO Activity: Bedrest Medications: Bowel Regimen Diagnostics: Check Labs, Repeat Labs in AM Family Medicine Attending Note: I saw and examined Mr. Hamilton, discussed with MAINOR Banks. Agree with her note as documented. I received a call from the [facility] requesting clarification on the need to transfer Mr. Hamilton. I filled them fully in on the situation. They requested that I speak with our radiologist to confirm that there is a radiographic window through which a tube to be placed. I spoke with one of our radiologists regarding the CT examination from 07/15/18. Unfortunately he felt that there was not a radiographic window for tube placement because of the dilated colon which was full of stool at the time. Since he has been nothing by mouth for several weeks since then, I decided to repeat a CT of the abdomen to reevaluate the radiographic window for interventional guided G-tube placement. Again, unfortunately, the repeat scan shows gas-filled dilated colon obstructing access to his stomach. This is a fairly unusual situation, but given the fact that he has a long-standing history of colonic retention and requires thrice weekly enemas in order to move his bowels, it does make some sense. The end result of this is that interventional guided G-tube placement is not really an option for him. I also now very concerned that PEG tube placement will be impossible for the same reasons. I'll need to speak with the surgeons to clarify this. (overedger) VS, I&O, 24H, Fishbone Vital Signs/I&O Vital Signs Date Time Temp Pulse Resp B/P (MAP) Pulse Ox O2 Delivery O2 Flow Rate FiO2 08/12/18 06:00 96.6 67 17 119/70 (86) 100 I&O- Last 24 Hours up to 6 AM 08/12/18 06:00 Intake Total 1300 ml Output Total 0 ml Balance 1300 ml Laboratory Data 24H LABS Laboratory Tests 2 08/11/18 11:30: Bedside Glucose (Misc Panel) 77L 08/11/18 13:52: Bedside Glucose (Misc Panel) 89 08/11/18 18:00: Bedside Glucose (Misc Panel) 94 08/12/18 00:05: Bedside Glucose (Misc Panel) 84 08/12/18 05:26: Nucleated Red Blood Cells % (auto) 0.0, Anion Gap 6L, Glomerular Filtration Rate > 60.0, Blood Urea Nitrogen 13, Creatinine 0.47L, Sodium Level 140, Potassium Level 3.7, Chloride Level 108H, Carbon Dioxide Level 26, Calcium Level 7.8L CBC/BMP Laboratory Tests 08/12/18 05:26 Red Blood Count 3.36 L, Mean Corpuscular Volume 84.2, Mean Corpuscular Hemoglobin 27.7, Mean Corpuscular Hemoglobin Concent 32.9, Red Cell Distribution Width 16.8 H, Calcium Level 7.8 L NANCY ARCINIEGA PA-C Aug 12, 2018 08:56 Yong Gallardo MD Aug 14, 2018 21:41
[2018-08-12] MEDS: LEVOTHYROXINE 100 MCG (0.1MG) VIAL IV SCH (12:23)
[2018-08-12] MEDS: LORazepam 2 MG/ML VIAL (J2060) IV SCH ×2 (12:25→21:42)
[2018-08-12] MEDS: AMINO AC/ELECTROLYTE/DEX/CALC 1,000 ML IV SCH ×2 (15:46→23:08)
[2018-08-12 16:00] VITALS: BP 102/68
--- NOTE | 2018-08-12 16:00 | REP ---
CT ABDOMEN WITHOUT IV CONTRAST: CT abdomen was performed without IV contrast. Sagittal and coronary reconstruction images are performed. Comparison is made with prior CT of 07/15/2018. In the visualized lower lung zones there are mild infiltrates but these have significantly improved since the prior study. There are tiny bilateral pleural effusions. The liver, spleen, adrenals, pancreas and kidneys are grossly unchanged. Patient has had a prior cholecystectomy. A hiatal hernia is again noted. No gross adenopathy is seen and I see no free air or free fluid. The study is primarily performed to evaluate for a window to place a gastrostomy tube however the stomach is completely surrounded by colon and there is no adequate window to place a gastrostomy tube. There are degenerative changes of the spine. IMPRESSION: CT of the abdomen without contrast demonstrates similar appearance to the exam of 07/15/2018, although there does appear to be some clearance of fecal material from the colon. The colon completely surrounds the stomach and there is no adequate window to place a gastrostomy tube. Previously noted lower lung infiltrates have significantly improved with mild residual. There are tiny bilateral effusions. Electronically Signed by Mj Warren MD 08/13/2018 03:54 P
[2018-08-12] MEDS ORDERED: FAT EMULSION IV 20% 500 ML IV SCH (18:00)
[2018-08-12 21:42] VITALS: BP 112/78
[2018-08-12 22:00] VITALS: BP 112/78
[2018-08-13] MEDS: HumaLOG INSULIN (NovoLOG) PER UNIT SC SCH ×4 (00:24→17:31)
[2018-08-13 05:47] LABS: HEMATOCRIT 33.2 % (42.0-52.0); HEMOGLOBIN 10.7 g/dl (13.5-17.5); MEAN CORPUSCULAR HEMOGLOBIN 27.3 pg (27.0-33.0); MEAN CORPUSCULAR HGB CONC 32.2 g/dl (32.0-36.5); MEAN CORPUSCULAR VOLUME 84.7 fl (80.0-96.0); PLATELET COUNT, AUTOMATED 289 10^3/uL (150-450); RED BLOOD COUNT 3.92 10^6/uL (4.30-6.10); WHITE BLOOD COUNT 17.8 10^3/uL (4.0-10.0)
[2018-08-13 06:00] VITALS: BP 95/58
[2018-08-13 06:18] LABS: BLOOD UREA NITROGEN 12 MG/DL (7-18); CALCIUM LEVEL 8.4 MG/DL (8.8-10.2); CARBON DIOXIDE LEVEL 24 MEQ/L (21-32); CHLORIDE LEVEL 108 MEQ/L (98-107); CREATININE FOR GFR 0.54 MG/DL (0.70-1.30); GLOMERULAR FILTRATION RATE > 60.0 (>49); GLUCOSE, FASTING 62 MG/DL (70-100); POTASSIUM SERUM 3.7 MEQ/L (3.5-5.1); SODIUM LEVEL 140 MEQ/L (136-145)
[2018-08-13] MEDS: DEXTROSE 50% 50 ML SYRINGE IV PRN (06:44)
[2018-08-13] MEDS ORDERED: NS 500 ML IV ONE (06:45)
--- NOTE | 2018-08-13 07:41 | REP ---
Portable chest, 07:05 a.m., single AP view, the patient semi upright: Comparison 08/08/2018. Lung brandon are clear. Cardiac size normal. The alba, mediastinum, skeletal structures are unremarkable. No definite acute cardiopulmonary findings. There are artifacts from matting on which the patient is lying, reducing sensitivity of the study. A followup study without the matting is recommended. Electronically Signed by Mj Varghese MD 08/13/2018 07:32 A
--- NOTE | 2018-08-13 09:22 | IPNPDOC ---
Subjective Date Seen The patient was seen on 08/13/18. Subjective Chief Complaint/HPI Pt this morning with bump in his WBC. Nursing with no concerns to report. General: Reports: ROS Unobtainable (d/t MR) Objective Physical Examination General Exam: Positive: Alert, Cooperative, No Acute Distress (sleeping in bed, opens his eyes to voice, then closes them again.) ENT Exam: Positive: Tongue Midline (enlarged) Neck Exam: Positive: Supple Chest Exam: Positive: Clear to auscultation, Diminished (throughout) Heart Exam: Positive: Rate Normal, Regular Rhythm, Normal S1, Normal S2 Abdomen Exam: Positive: Normal bowel sounds, Soft Extremity Exam: Negative: Edema, Swelling Skin Exam: Negative: Breakdown Psych Exam: Negative: Mental status NL Assessment /Plan Problems (1) Leukocytosis Status: Acute Response to Treatment: Worse Problem Text: WBC increased from 4.9 to 17.8, temps 98 this am, typically 95- 96, monitor. CXR benign, CT A & P done yesterday with improvement in infiltrates. Pt high risk for aspiration and this could very well be the cause, monitor closely for change in status. Pt was given 500 Cc NS bolus this AM at report of elevation inf WBC. Repeat BC also ordered. Check UA with straight cath. Repeat CBC this afternoon. Monitor temp, if remains elevated, start IV Clinda. (2) Severe protein-calorie malnutrition Status: Chronic Problem Text: 08/13 CT A & P done yest suggesting no window d/t bowel to access the stomach for PEG placement. Dr Gallardo plans to d/w with Dr Miller, where he thinks he will be able to access the stomach to place a tube with this new finding. If he feels this isn't likely, the recommendation would become PERSONAL BANKING REPRESENTATIVE, Dr Gallardo is calling [facility] Guardianship Committee at 1010 Thursday morning to discuss the case further with William Zhong and the Committee. 08/12 No change to status. Await further input from PFS, Guardianship committee. 08/11/18: Patient remains on PPN, PEG tube placement not favored as detailed previously. PERSONAL BANKING REPRESENTATIVE status has been recommended and guardianship committee has been consulted 08/10 No changes. He continues on PPN as this is all it's possible to give him until we have a better way to get nutrition into his body, or he goes comfort measures. 08/09/18 Case d/w Dr Shelton, Dr Gallardo and Dr Miller - agreement in regards to medical futility of placement of gastrostomy tube. Tube will only slightly mitigate pts aspiration risks, given his habitus risks assoc with conscious sedation, therefore requiring general anesthesia, d/t habitus, difficult and risky intubation, could require tracheostomy. If pt pulls out gastrostomy tube especially in first few weeks this is a surgical emergency, therefor revisiting same anesthesia risks. If tube placed would recommend PERSONAL BANKING REPRESENTATIVE status planned for patient if tube is d/c by the patient. Given futility and risks, strong recommendation for PERSONAL BANKING REPRESENTATIVE. Dr Gallardo plans to address medical team concerns with Guardianship Committee and William Zhong. D11 PPN at 60H via LLE-has not removed line given 19/01 sitter 08/07/18 case d/w Dr. Babatunde Miller, patient's personal surgeon for many years, who agrees with the futility of gastrostomy tube placement (for same reasons as below). He feels that if it were to be demanded by the Guardianship Committee, the safest way to place it would be radiologically (PRG). An endoscopically placed gastrostomy tube (PEG) would entail a high risk for emergent tracheostomy due to the patient's severe macroglossia. He stated that he would affirm this in a note. Then I'd favor appealing the Guardianship Committee for PERSONAL BANKING REPRESENTATIVE status. 07/26/18 Long d/w Osvaldo Zhong [facility] Oceanographic Meteorologist-I advised that patient would need a J-tube for enteral feeding given recurrent aspiration. I advised that this would only mitigate, but not eliminate, the aspiration risk. Additionally unless there was 19/01 supervision, the patient would most likely pull out the J-tube. As the patient's PCP, I agree with DNR status and favor PERSONAL BANKING REPRESENTATIVE status. I discussed the case with the guardianship committee reaffirming my thought that it was medically futile to place a gastrostomy tube endoscopically OR radiologically given the high likelihood of patient tube dislodgment and then leakage and infection risks of the subsequent open wound. (there has never been family identified to assume guardianship) (3) Dysphagia Status: Chronic Problem Text: He remains at very high risk of microaspiration as well as asp iration of gastric contents if a PEG tube is placed. (4) Hypothermia Status: Chronic Discussed With: Nurse, Other Discussed With: ([facility] aide) Problem Specific Plan: Monitor Clinically Problem Text: chronic, mild-at baseline 95F (5) Seizure disorder Status: Chronic Response to Treatment: Controlled Problem Specific Plan: Monitor Clinically Problem Text: 08/11: He has not had another seizure since he was placed on lorazepam 0.5mg BID. He has been more sedated acting in the mornings with the addition of a second dose of lorazepam. 07/25: I spoke to the neurologist guest relations manager to go through his neuropsychiatrically active medications to make sure none of them were causing the hypothermia. He was most concerned about the levothyroxine which is addressed below. The atypical antipsychotics should be covered by the haldol deconate. The Artane and Mysoline are likely for tremors or side effects of the anti-psychotics. The Gabatril and trazodone shouldn't cause these symptoms, but he encouraged me to use lorazepam 0.5mg IV QHS to provide some similar action/coverage so he is less likely to seize from withdrawal of these oral meds. Ultimately it would be best to get enteral access and resume his proven regimen. Seizure precaution were reaffirmed (6) Hypothyroidism Status: Chronic Response to Treatment: Stable, Controlled Problem Specific Plan: Monitor Clinically Problem Text: continue LT4 37.7 IV QD HD LT4 50 (07/16/18 TSH/FT4 0.8/1.1 on LT4 50) (7) Anemia Status: Chronic Response to Treatment: Stable Problem Specific Plan: Repeat Labs Problem Text: 08/11/18: Remains stable favor 2 ACD 08/07 stable hgb 9.7 06/2018 baseline 13-14 (8) Cognitive impairment Status: Chronic Response to Treatment: Stable Problem Text: at baseline mentation s agitation (9) Physical deconditioning Status: Chronic Response to Treatment: Stable Problem Text: continue QD PT (10) Constipation Status: Chronic Response to Treatment: Stable, Controlled Problem Specific Plan: Monitor Clinically Problem Text: chronic obstipation recurrent ACPO 2 neurogenic bowel on baseline doc/lact/linac/MOM/PG and Fleets enema MWF (11) Pneumonia Status: Resolved Problem Text: Completed D7 john for RLL aspiration pneumonia/pneumonitis 08/08 normotensive, stable WBC, CXR c improved RLL opacity; therefore, dc john/HC Plan/VTE VTE Prophylaxis Ordered?: Yes (SCD) Plan IVF: Continue Diet: Make NPO Activity: Bedrest Medications: Bowel Regimen Diagnostics: Check Labs, Repeat Labs in AM Family Medicine Attending Note: I saw and examined Mr. Hamilton, discussed with MAINOR Banks. Agree with her note as documented. Since we determined that interventional radiology guided G-tube placement is not an option for him, I spoke to Mr. Zhong regarding further options. He has invited me to showing the guardianship committees call on Thursday to provide them an update. In the interim, Mr. Hamilton his white count has spiked up. I'm concerned is possible he may have aspirated again. We are rechecking his white count to see if this continues to rise or if it was a spurious finding. 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) VS, I&O, 24H, Fishbone Vital Signs/I&O Vital Signs Date Time Temp Pulse Resp B/P (MAP) Pulse Ox O2 Delivery O2 Flow Rate FiO2 08/13/18 06:00 98.2 101 16 95/58 (70) 98 I&O- Last 24 Hours up to 6 AM 08/13/18 06:00 Intake Total 960 ml Output Total 0 ml Balance 960 ml Laboratory Data 24H LABS Laboratory Tests 2 08/12/18 11:35: Bedside Glucose (Misc Panel) 71L 08/12/18 18:01: Bedside Glucose (Misc Panel) 87 08/13/18 00:18: Bedside Glucose (Misc Panel) 109 08/13/18 05:13: Nucleated Red Blood Cells % (auto) 0.0, Anion Gap 8, Glomerular Filtration Rate > 60.0, Blood Urea Nitrogen 12, Creatinine 0.54L, Sodium Level 140, Potassium Level 3.7, Chloride Level 108H, Carbon Dioxide Level 24, Calcium Level 8.4L 08/13/18 06:11: Bedside Glucose (Misc Panel) 54L 08/13/18 06:29: Bedside Glucose Confirm (Misc) 53 08/13/18 07:10: Bedside Glucose (Misc Panel) 107 CBC/BMP Laboratory Tests 08/13/18 05:13 Red Blood Count 3.92 L, Mean Corpuscular Volume 84.7, Mean Corpuscular Hemoglobin 27.3, Mean Corpuscular Hemoglobin Concent 32.2, Red Cell Distribution Width 16.9 H, Calcium Level 8.4 L Microbiology Microbiology 08/13/18 Blood Culture, Received Pending 08/13/18 Blood Culture, Received Pending 08/13/18 Gram Stain - Final, Resulted 08/13/18 Wound Culture, Resulted Pending NANCY ARCINIEGA PA-C Aug 13, 2018 09:22 Yong Gallardo MD Aug 14, 2018 21:46
[2018-08-13] MEDS: LORazepam 2 MG/ML VIAL (J2060) IV SCH ×2 (10:06→21:00)
[2018-08-13] MEDS: LEVOTHYROXINE 100 MCG (0.1MG) VIAL IV SCH (10:06)
[2018-08-13 11:11] VITALS: BP 92/56
[2018-08-13] MEDS: FLEET ENEMA PR SCH (11:36)
[2018-08-13 14:00] VITALS: BP 95/51
[2018-08-13] MEDS: AMINO AC/ELECTROLYTE/DEX/CALC 1,000 ML IV SCH (14:17)
[2018-08-13 14:29] LABS: BASO # 0.1 10^3/uL (0.0-0.2); BASO % 0.2 % (0.0-1.0); EOS % 0.1 % (0.0-3.0); HEMATOCRIT 32.4 % (42.0-52.0); HEMOGLOBIN 10.3 g/dl (13.5-17.5); LYMPH # 0.3 10^3/uL (1.5-4.5); MEAN CORPUSCULAR HEMOGLOBIN 27.5 pg (27.0-33.0); MEAN CORPUSCULAR HGB CONC 31.8 g/dl (32.0-36.5); MEAN CORPUSCULAR VOLUME 86.6 fl (80.0-96.0); NEUTROPHILS % 94.5 % (36.0-66.0); PLATELET COUNT, AUTOMATED 262 10^3/uL (150-450); RED BLOOD COUNT 3.74 10^6/uL (4.30-6.10)
[2018-08-13 14:58] LABS: NEUTROPHILS # 30.4 10^3/uL (1.8-7.7); WHITE BLOOD COUNT 32.2 10^3/uL (4.0-10.0)
[2018-08-13] MEDS ORDERED: FAT EMULSION IV 20% 500 ML IV SCH (18:00)
[2018-08-13 19:58] LABS: C REACTIVE PROTEIN QUANTITATIV 3.13 MG/DL (0.00-0.30)
[2018-08-13 21:00] VITALS: BP 80/58
[2018-08-13 22:00] VITALS: BP 66/40
[2018-08-13] MEDS ORDERED: NS 1,000 ML IV ONE (22:15)
[2018-08-14] VITALS: BP 88/66
[2018-08-14] MEDS: MICAFUNGIN SODIUM 100 MG in D5W MINI-BAG PLUS 100 ML IV SCH ×2 (00:01→22:27)
[2018-08-14 06:00] VITALS: BP 96/58
[2018-08-14] MEDS: HumaLOG INSULIN (NovoLOG) PER UNIT SC SCH ×3 (06:00→12:00)
[2018-08-14 06:06] LABS: BASO % 0.2 % (0.0-1.0); HEMATOCRIT 31.7 % (42.0-52.0); HEMOGLOBIN 9.8 g/dl (13.5-17.5); LYMPH # 0.4 10^3/uL (1.5-4.5); LYMPH % 1.9 % (24.0-44.0); MEAN CORPUSCULAR HEMOGLOBIN 26.6 pg (27.0-33.0); MEAN CORPUSCULAR HGB CONC 30.9 g/dl (32.0-36.5); MEAN CORPUSCULAR VOLUME 85.9 fl (80.0-96.0); MONO # 0.6 10^3/uL (0.0-0.8); MONO % 2.8 % (0.0-5.0); NEUTROPHILS # 19.3 10^3/uL (1.8-7.7); NEUTROPHILS % 94.4 % (36.0-66.0); PLATELET COUNT, AUTOMATED 197 10^3/uL (150-450); RED BLOOD COUNT 3.69 10^6/uL (4.30-6.10); WHITE BLOOD COUNT 20.5 10^3/uL (4.0-10.0)
[2018-08-14 06:40] LABS: BLOOD UREA NITROGEN 17 MG/DL (7-18); CALCIUM LEVEL 8.5 MG/DL (8.8-10.2); CARBON DIOXIDE LEVEL 26 MEQ/L (21-32); CHLORIDE LEVEL 108 MEQ/L (98-107); CREATININE FOR GFR 0.78 MG/DL (0.70-1.30); GLOMERULAR FILTRATION RATE > 60.0 (>49); GLUCOSE, FASTING 76 MG/DL (70-100); POTASSIUM SERUM 3.9 MEQ/L (3.5-5.1); SODIUM LEVEL 140 MEQ/L (136-145)
[2018-08-14] MEDS: AMINO AC/ELECTROLYTE/DEX/CALC 1,000 ML IV SCH (08:51)
[2018-08-14] MEDS: LEVOTHYROXINE 100 MCG (0.1MG) VIAL IV SCH (09:00)
[2018-08-14] MEDS: LORazepam 2 MG/ML VIAL (J2060) IV SCH ×3 (09:00→22:25)
[2018-08-14 14:00] VITALS: BP 114/55
[2018-08-14] MEDS: NS 1,000 ML IV SCH (15:41)
--- NOTE | 2018-08-14 18:03 | REP ---
LEFT LOWER EXTREMITY DOPPLER VENOUS ULTRASOUND: 08/14/2018. Clinical history: Swelling left lower extremity, evaluate for DVT. Comparison: None. Technique: The deep venous system of the left lower extremity is evaluated with tan scale imaging, compression ultrasound, color imaging and duplex Doppler interrogation. Examination from the groin through the popliteal fossa into the proximal calf. Findings: There is full compressibility from the common femoral vein in the inguinal region through the popliteal vein. Color imaging confirms patency throughout the course of the deep venous system. There is respiratory variation and augmented flow at all levels. Impression: 1. No Doppler venous ultrasound evidence of DVT in the left lower extremity. Electronically Signed by Declan Bar MD 08/14/2018 05:55 P
[2018-08-14 22:00] VITALS: BP 103/70
[2018-08-15 06:00] VITALS: BP 103/84
[2018-08-15 06:39] LABS: BASO % 0.2 % (0.0-1.0); EOS # 0.1 10^3/uL (0.0-0.50); EOS % 0.7 % (0.0-3.0); HEMATOCRIT 31.5 % (42.0-52.0); HEMOGLOBIN 9.8 g/dl (13.5-17.5); LYMPH # 0.8 10^3/uL (1.5-4.5); LYMPH % 7.4 % (24.0-44.0); MEAN CORPUSCULAR HEMOGLOBIN 26.8 pg (27.0-33.0); MEAN CORPUSCULAR HGB CONC 31.1 g/dl (32.0-36.5); MEAN CORPUSCULAR VOLUME 86.1 fl (80.0-96.0); MONO # 0.7 10^3/uL (0.0-0.8); MONO % 6.9 % (0.0-5.0); NEUTROPHILS # 8.8 10^3/uL (1.8-7.7); PLATELET COUNT, AUTOMATED 167 10^3/uL (150-450); RED BLOOD COUNT 3.66 10^6/uL (4.30-6.10); WHITE BLOOD COUNT 10.4 10^3/uL (4.0-10.0)
[2018-08-15] MEDS: NS 1,000 ML IV SCH (07:00)
[2018-08-15 07:06] LABS: ALBUMIN 2.1 GM/DL (3.2-5.2); ALT/SGPT 58 U/L (12-78); BILIRUBIN,TOTAL 0.6 MG/DL (0.2-1.0); BLOOD UREA NITROGEN 18 MG/DL (7-18); CALCIUM LEVEL 8.9 MG/DL (8.8-10.2); CARBON DIOXIDE LEVEL 24 MEQ/L (21-32); CHLORIDE LEVEL 109 MEQ/L (98-107); CREATININE FOR GFR 0.85 MG/DL (0.70-1.30); GLOMERULAR FILTRATION RATE > 60.0 (>49); GLUCOSE, FASTING 89 MG/DL (70-100); POTASSIUM SERUM 3.9 MEQ/L (3.5-5.1); SODIUM LEVEL 139 MEQ/L (136-145); TOTAL PROTEIN 6.9 GM/DL (6.4-8.2)
--- NOTE | 2018-08-15 08:48 | IPN ---
DATE OF VISIT: 08/14/2018 Mr. Hamilton is seen on [address]. He is a 67-year-old multihandicapped gentleman who had been treated earlier in this hospitalization for a sepsis related to pneumonia and a urinary tract infection (UTI). He did seem to be doing reasonably well until earlier this week when his white count started coming up, and he had a blood culture positive for a yeastlike organism on gram stain X 2. A wound culture on the right ankle showed yeast as well. He has been somewhat more lethargic this week. He has not had any cough or dyspnea and has not been febrile, but the staff report to me that his left leg has been swollen. He is getting his intravenous (IV) medications through that left vein in the dorsum of his foot on the left. Dr. Gallardo when he signed out to me today reported that he had a blood pressure of 66/40 late last night that responded to a bolus of IV fluid. He is a gentleman who has been considered for a gastrostomy tube, but he has had previous surgery on his abdomen, and on imaging, his colon appears to be in the way; and, therefore, if it had to be done, it would have to be done as an open procedure. His current medication regimen calls for him to receive micafungin IV every 24 hours, lorazepam 0.5 mg twice a day IV, levothyroxine 37.5 mcg IV. He has as-needed medications for seizures and for agitation and has haloperidol decanoate order. On examination, his temperature is 97.5. His pulse is 108. Blood pressure 114/50. Oxygen (O2) saturation 100% on room air. He is lying quietly on his side. He has spontaneous movements. His lungs are clear. His heart has a regular rhythm without any murmur, click, or gallop. Abdomen is soft and nontender without any masses or organomegaly. Bowel sounds are active. He does have a bran vertical surgical scar in his epigastrium. There is no edema or calf tenderness on the right. On the left, he does have erythema and swelling above his calf and thigh. No palpable cords are noted. Laboratories done today show that his white count has improved. It had peaked at 32,000 yesterday afternoon but is down to 20,000 or 20,500 today. Hemoglobin is 9.8. His BUN is 17, creatinine 0.78, sodium 140, potassium 3.9. Urine done yesterday was 5 white cells, 7 red cells. His C-reactive protein which had been 3.13 yesterday is 20.8 today. His sedimentation rate does not appear to be recorded at this time. ASSESSMENT: 1. Positive blood cultures for yeastlike organism. 2. Leukocytosis. 3. Left leg phlebitis. 4. Dysphagia with his risk of aspiration. 5. History of hypothermia. 6. Seizure disorder. 7. Hypothyroidism. 8. Anemia. PLAN: The patient will continue on his IV antibiotic because of the swelling in his leg. I am going to discontinue the PPN that is being given through the IV in that leg. I think that it is causing inflammation in his leg veins. Will also do a deep venous thrombosis (DVT) scan and make sure he has not developed a DVT in his leg. The patient's condition is somewhat tenuous. He is a FULL CODE. Not having any cardiopulmonary issues right now. Blood pressure is stable. Nonetheless, he is looking at having some sort of parenteral feeding on a permanent basis started. Will continue to monitor his complete blood count (CBC) and chemistry. I will just give him saline through his veins. His IV in his leg seems to be functioning well. It is just that the left leg is swollen. PRABHJOT
[2018-08-15] MEDS: LEVOTHYROXINE 100 MCG (0.1MG) VIAL IV SCH (11:46)
[2018-08-15 14:00] VITALS: BP 108/68
[2018-08-15] MEDS: LORazepam 2 MG/ML VIAL (J2060) IV SCH (20:31)
[2018-08-15] MEDS: MICAFUNGIN SODIUM 100 MG in D5W MINI-BAG PLUS 100 ML IV SCH (20:31)
[2018-08-15 22:00] VITALS: BP 112/74
[2018-08-16] MEDS: NS 1,000 ML IV SCH (00:11)
[2018-08-16] MEDS ORDERED: D5W/0.45% SODIUM CHLORIDE 1,000 ML IV SCH (00:30)
[2018-08-16 05:53] LABS: BASO % 0.1 % (0.0-1.0); EOS # 0.1 10^3/uL (0.0-0.50); EOS % 1.1 % (0.0-3.0); HEMATOCRIT 29.2 % (42.0-52.0); HEMOGLOBIN 9.3 g/dl (13.5-17.5); LYMPH # 0.6 10^3/uL (1.5-4.5); LYMPH % 4.6 % (24.0-44.0); MEAN CORPUSCULAR HEMOGLOBIN 26.9 pg (27.0-33.0); MEAN CORPUSCULAR HGB CONC 31.8 g/dl (32.0-36.5); MEAN CORPUSCULAR VOLUME 84.4 fl (80.0-96.0); MONO # 0.7 10^3/uL (0.0-0.8); NEUTROPHILS # 10.9 10^3/uL (1.8-7.7); NEUTROPHILS % 87.8 % (36.0-66.0); PLATELET COUNT, AUTOMATED 151 10^3/uL (150-450); RED BLOOD COUNT 3.46 10^6/uL (4.30-6.10); WHITE BLOOD COUNT 12.4 10^3/uL (4.0-10.0)
[2018-08-16 06:00] VITALS: BP 98/64
[2018-08-16 06:20] LABS: ALBUMIN 1.9 GM/DL (3.2-5.2); ALT/SGPT 49 U/L (12-78); BILIRUBIN,TOTAL 0.5 MG/DL (0.2-1.0); BLOOD UREA NITROGEN 18 MG/DL (7-18); CALCIUM LEVEL 8.6 MG/DL (8.8-10.2); CARBON DIOXIDE LEVEL 22 MEQ/L (21-32); CHLORIDE LEVEL 111 MEQ/L (98-107); CREATININE FOR GFR 0.69 MG/DL (0.70-1.30); GLOMERULAR FILTRATION RATE > 60.0 (>49); GLUCOSE, FASTING 80 MG/DL (70-100); POTASSIUM SERUM 4.1 MEQ/L (3.5-5.1); SODIUM LEVEL 140 MEQ/L (136-145); TOTAL PROTEIN 6.7 GM/DL (6.4-8.2)
--- NOTE | 2018-08-16 10:01 | IPNPDOC ---
Subjective Date Seen The patient was seen on 08/16/18. Subjective Chief Complaint/HPI Nursing reports plans for pt to have PICC placed today. General: Reports: ROS Unobtainable Objective Physical Examination General Exam: Positive: Alert, No Acute Distress; Negative: Cooperative (pt moving about bed, reaching for me, my hair and stethoscope while attempting to exam him. he was not combative or aggressive, just active.) ENT Exam: Positive: Tongue Midline (enlarged) Neck Exam: Positive: Supple Chest Exam: Positive: Clear to auscultation, Diminished (throughout) Heart Exam: Positive: Rate Normal, Regular Rhythm, Normal S1, Normal S2 Abdomen Exam: Positive: Normal bowel sounds, Soft Extremity Exam: Negative: Edema, Swelling Skin Exam: Negative: Breakdown Psych Exam: Negative: Mental status NL Assessment /Plan Problems (1) Septicemia due to fungus Status: Acute Response to Treatment: Stable, Improving Problem Specific Plan: Monitor Clinically, Repeat Labs Problem Text: BC + yeast, started on Micafungin IV, WBC 12.4, slightly elevated c/w yesterday. Temps remain hypothermic, baseline 94-95 (2) Leukocytosis Status: Acute Response to Treatment: Worse Problem Text: 08/14 WBC increased from 4.9 to 17.8, temps 98 this am, typically 95-96, monitor. CXR benign, CT A & P done yesterday with improvement in infiltrates. Pt high risk for aspiration and this could very well be the cause, monitor closely for change in status. Pt was given 500 Cc NS bolus this AM at report of elevation inf WBC. Repeat BC also ordered. Check UA with straight cath. Repeat CBC this afternoon. Monitor temp, if remains elevated, start IV Clinda. (3) Severe protein-calorie malnutrition Status: Chronic Problem Text: 08/16 IV access issues d/t Distal extremity swelling, currently on IVF, await PICC placement to being TPN, has been on PPN. Concerns that pt will pull out PICC remain, Discussion between Guardianship committee and Dr Gallardo planned for this morning. 08/13 CT A & P done yest suggesting no window d/t bowel to access the stomach for PEG placement. Dr Gallardo plans to d/w with Dr Miller, where he thinks he will be able to access the stomach to place a tube with this new finding. If he feels this isn't likely, the recommendation would become SUPERVISOR CLAIMS, Dr Gallardo is calling [facility] Guardianship Committee at 1010 Thursday morning to discuss the case further with William Zhong and the Committee. 08/12 No change to status. Await further input from PFS, Guardianship committee. 08/11/18: Patient remains on PPN, PEG tube placement not favored as detailed previously. SUPERVISOR CLAIMS status has been recommended and guardianship committee has been consulted 08/10 No changes. He continues on PPN as this is all it's possible to give him until we have a better way to get nutrition into his body, or he goes comfort measures. 08/09/18 Case d/w Dr Shelton, Dr Gallardo and Dr Miller - agreement in regards to medical futility of placement of gastrostomy tube. Tube will only slightly mitigate pts aspiration risks, given his habitus risks assoc with conscious sedation, therefore requiring general anesthesia, d/t habitus, difficult and risky intubation, could require tracheostomy. If pt pulls out gastrostomy tube especially in first few weeks this is a surgical emergency, therefor revisiting same anesthesia risks. If tube placed would recommend SUPERVISOR CLAIMS status planned for patient if tube is d/c by the patient. Given futility and risks, strong recommendation for SUPERVISOR CLAIMS. Dr Gallardo plans to address medical team concerns with Guardianship Committee and William Zhong. D11 PPN at 60H via LLE-has not removed line given 19/01 sitter 08/07/18 case d/w Dr. Babatunde Miller, patient's personal surgeon for many years, who agrees with the futility of gastrostomy tube placement (for same reasons as below). He feels that if it were to be demanded by the Guardianship Committee, the safest way to place it would be radiologically (PRG). An endoscopically placed gastrostomy tube (PEG) would entail a high risk for emergent tracheostomy due to the patient's severe macroglossia. He stated that he would affirm this in a note. Then I'd favor appealing the Guardianship Committee for SUPERVISOR CLAIMS status. 07/26/18 Long d/w Osvaldo Zhong [facility] Managing Director-I advised that patient would need a J-tube for enteral feeding given recurrent aspiration. I advised that this would only mitigate, but not eliminate, the aspiration risk. Additionally unless there was 24/ supervision, the patient would most likely pull out the J-tube. As the patient's PCP, I agree with DNR status and favor SUPERVISOR CLAIMS status. I discussed the case with the guardianship committee reaffirming my thought that it was medically futile to place a gastrostomy tube endoscopically OR radiologically given the high likelihood of patient tube dislodgment and then leakage and infection risks of the subsequent open wound. (there has never been family identified to assume guardianship) (4) Dysphagia Status: Chronic Problem Text: He remains at very high risk of microaspiration as well as aspiration of gastric contents if a PEG tube is placed. (5) Hypothermia Status: Chronic Discussed With: Nurse, Other Discussed With: (C aide) Problem Specific Plan: Monitor Clinically Problem Text: chronic, mild-at baseline 95F (6) Seizure disorder Status: Chronic Response to Treatment: Controlled Problem Specific Plan: Monitor Clinically Problem Text: 08/11: He has not had another seizure since he was placed on lorazepam 0.5mg BID. He has been more sedated acting in the mornings with the addition of a second dose of lorazepam. 07/25: I spoke to the neurologist extrusion line operator to go through his neuropsychiatrically active medications to make sure none of them were causing the hypothermia. He was most concerned about the levothyroxine which is addressed below. The atypical antipsychotics should be covered by the haldol deconate. The Artane and Mysoline are likely for tremors or side effects of the anti-psychotics. The Gabatril and trazodone shouldn't cause these symptoms, but he encouraged me to use lorazepam 0.5mg IV QHS to provide some similar action/coverage so he is less likely to seize from withdrawal of these oral meds. Ultimately it would be best to get enteral access and resume his proven regimen. Seizure precaution were reaffirmed (7) Hypothyroidism Status: Chronic Response to Treatment: Stable, Controlled Problem Specific Plan: Monitor Clinically Problem Text: continue LT4 37.7 IV QD HD LT4 50 (07/16/18 TSH/FT4 0.8/1.1 on LT4 50) (8) Anemia Status: Chronic Response to Treatment: Stable Problem Specific Plan: Repeat Labs Problem Text: 08/11/18: Remains stable favor 2 ACD 08/07 stable hgb 9.7 06/2018 baseline 13-14 (9) Cognitive impairment Status: Chronic Response to Treatment: Stable Problem Text: at baseline mentation s agitation (10) Physical deconditioning Status: Chronic Response to Treatment: Stable Problem Text: continue QD PT (11) Constipation Status: Chronic Response to Treatment: Stable, Controlled Problem Specific Plan: Monitor Clinically Problem Text: chronic obstipation recurrent ACPO 2 neurogenic bowel on baseline doc/lact/linac/MOM/PG and Fleets enema MWF (12) Pneumonia Status: Resolved Problem Text: Completed D7 john for RLL aspiration pneumonia/pneumonitis 08/08 normotensive, stable WBC, CXR c improved RLL opacity; therefore, dc john/HC Plan/VTE VTE Prophylaxis Ordered?: Yes (SCD) Plan IVF: Continue Diet: Make NPO Activity: Bedrest Medications: Bowel Regimen Diagnostics: Check Labs, Repeat Labs in AM VS, I&O, 24H, Fishbone Vital Signs/I&O Vital Signs Date Time Temp Pulse Resp B/P (MAP) Pulse Ox O2 Delivery O2 Flow Rate FiO2 08/16/18 06:00 96.1 89 16 98/64 (75) 97 I&O- Last 24 Hours up to 6 AM 08/16/18 06:00 Intake Total 400 ml Output Total 750 ml Balance -350 ml Laboratory Data 24H LABS Laboratory Tests 2 08/16/18 00:17: Bedside Glucose (Misc Panel) 58L 08/16/18 05:38: Immature Granulocyte % (Auto) 0.4, White Blood Count 12.4H, Red Blood Count 3.46L, Hemoglobin 9.3L, Hematocrit 29.2L, Mean Corpuscular Volume 84.4, Mean Corpuscular Hemoglobin 26.9L, Mean Corpuscular Hemoglobin Concent 31.8L, Red Cell Distribution Width 16.9H, Platelet Count 151, Neutrophils (%) (Auto) 87.8H, Lymphocytes (%) (Auto) 4.6L, Monocytes (%) (Auto) 6.0H, Eosinophils (%) (Auto) 1.1, Basophils (%) (Auto) 0.1, Neutrophils # (Auto) 10.9H, Lymphocytes # (Auto) 0.6L, Monocytes # (Auto) 0.7, Eosinophils # (Auto) 0.1, Basophils # (Auto) 0.0, Nucleated Red Blood Cells % (auto) 0.0, Anion Gap 7L, Glomerular Filtration Rate > 60.0, Blood Urea Nitrogen 18, Creatinine 0.69L, Sodium Level 140, Potassium Level 4.1, Chloride Level 111H, Carbon Dioxide Level 22, Calcium Level 8.6L, Aspartate Amino Transf (AST/SGOT) 87H, Alanine Aminotransferase (ALT/SGPT) 49, Alkaline Phosphatase 108, Total Bilirubin 0.5, Total Protein 6.7, Albumin 1.9L, Albumin/Globulin Ratio 0.40L CBC/BMP Laboratory Tests 08/16/18 05:38 Red Blood Count 3.46 L, Mean Corpuscular Volume 84.4, Mean Corpuscular Hemoglobin 26.9 L, Mean Corpuscular Hemoglobin Concent 31.8 L, Red Cell Distribution Width 16.9 H, Neutrophils (%) (Auto) 87.8 H, Lymphocytes (%) (Auto) 4.6 L, Monocytes (%) (Auto) 6.0 H, Eosinophils (%) (Auto) 1.1, Basophils (%) (Auto) 0.1, Neutrophils # (Auto) 10.9 H, Lymphocytes # (Auto) 0.6 L, Monocytes # (Auto) 0.7, Eosinophils # (Auto) 0.1, Basophils # (Auto) 0.0, Calcium Level 8.6 L, Aspartate Amino Transf (AST/SGOT) 87 H, Alanine Aminotransferase (ALT/SGPT) 49, Alkaline Phosphatase 108, Total Bilirubin 0.5, Total Protein 6.7, Albumin 1.9 L Microbiology Microbiology 08/13/18 Blood Culture - Preliminary, Resulted Yeast Like Organism 08/13/18 Blood Culture - Final, Complete Yeast Like Organism 08/13/18 Gram Stain - Final, Complete 08/13/18 Wound Culture - Final, Complete Yeast Like Organism NANCY ARCINIEGA PA-C Aug 16, 2018 10:01
[2018-08-16] MEDS: FLEET ENEMA PR SCH (10:45)
[2018-08-16] MEDS: LORazepam 2 MG/ML VIAL (J2060) IV SCH ×2 (10:45→22:08)
[2018-08-16] MEDS: LEVOTHYROXINE 100 MCG (0.1MG) VIAL IV SCH (10:45)
[2018-08-16] MEDS: HumaLOG INSULIN (NovoLOG) PER UNIT SC SCH (18:00)
[2018-08-16] MEDS ORDERED: FAT EMULSION IV 20% 500 ML IV SCH (18:00)
[2018-08-16] MEDS ORDERED: AMINO AC/ELECTROLYTE/DEX/CALC 1,000 ML IV SCH (18:00)
--- NOTE | 2018-08-16 21:16 | IPN ---
DATE: 08/15/2018 The patient is seen today on [facility]. He is much more alert today. He has had some issues with his temperature being low again, although he does not appear ill or lethargic because of that. His left leg is much less swollen, although he does have a few blisters on the dorsum of his left foot, and it has been noted that he has a movable nodule on the back of his neck on the left side. This is similar in consistency to the two submandibular nodules he has on the right side. We discontinued his parenteral feedings yesterday because we thought that they were inflaming his blood vessels. He remains on IV fluids at 60 mL an hour. He is getting micafungin every 24 hours, lorazepam twice a day and as needed, Synthroid 37-1/2 mcg daily, Haldol decanoate once a month. PHYSICAL EXAMINATION: On examination, last recorded temperature was 90.1, although it was 95.8 this morning. He does not feel cold. His blood pressure is 108/60, pulse is 76 and regular, respirations 15, oxygen (O2) saturation on room air 100%. He is moving about. He is nonverbal, however. He did try to grab at me. The nodules on his neck and submandibular area are as mentioned above. His lungs are clear. His heart has a regular rhythm without any murmur, click or gallop. Abdomen: Soft and nontender without any masses or organomegaly. Bowel sounds are active. He does have a midline vertical epigastric scar. He does have some contracture in his knees. The left leg is nearly the same size as the right and erythema is gone as well. There are a few blisters, about the size of a fingerprint on the dorsum of his foot, but he still has the IV on that side. Labs today show white count down to 10,400, hemoglobin 9.8, platelets 167,000. Chemistries showed BUN of 18, creatinine 0.85, AST of 97, alkaline phosphatase of 114, glucose of 89, albumin of 2.1. ASSESSMENT: 1. Fungemia, under treatment. 2. Leukocytosis, much improved. 3. Left leg phlebitis and swelling is much improved. 4. Dysphagia with risk of aspiration. 5. Hypothermia. 6. Seizure disorder. 7. Hypothyroidism. 8. Anemia. We are going to continue his IV antifungal antibiotic. We have discontinued the parenteral feedings because of the inflammation in the veins. He remains a FULL CODE. Certainly we are not going to be able to give him nutrition unless he has a percutaneous endoscopic gastrostomy (PEG) tube. I think it will be a major undertaking not only to keep the PEG Tube in but also to keep a peripherally inserted central catheter (PICC) line in as has been ordered. His feeding tube will have to be done as an open procedure given the previous surgical scars and the presence of a dilated colon in the way. Nonetheless, he is better than he was yesterday, and this is gratifying. The staff did suggest to me that they were concerned that he had gotten both his doses of Ativan on a prior shift, so that they held the Ativan this morning. The question is whether his improved alertness is perhaps due that he is down a dose or just has not had any this afternoon.
[2018-08-16 22:00] VITALS: BP 96/59
[2018-08-16] MEDS: D5W/0.9% SODIUM CHLORIDE 1,000 ML IV SCH (22:08)
[2018-08-16] MEDS: MICAFUNGIN SODIUM 100 MG in D5W MINI-BAG PLUS 100 ML IV SCH (22:08)
[2018-08-17 06:00] VITALS: BP 95/63
[2018-08-17 06:01] LABS: BASO % 0.2 % (0.0-1.0); EOS # 0.2 10^3/uL (0.0-0.50); EOS % 2.7 % (0.0-3.0); HEMATOCRIT 32.2 % (42.0-52.0); HEMOGLOBIN 10.3 g/dl (13.5-17.5); LYMPH # 0.8 10^3/uL (1.5-4.5); LYMPH % 9.7 % (24.0-44.0); MEAN CORPUSCULAR HEMOGLOBIN 26.8 pg (27.0-33.0); MEAN CORPUSCULAR VOLUME 83.9 fl (80.0-96.0); MONO # 0.6 10^3/uL (0.0-0.8); MONO % 7.7 % (0.0-5.0); NEUTROPHILS # 6.4 10^3/uL (1.8-7.7); NEUTROPHILS % 79.3 % (36.0-66.0); RED BLOOD COUNT 3.84 10^6/uL (4.30-6.10); WHITE BLOOD COUNT 8.1 10^3/uL (4.0-10.0)
[2018-08-17 06:19] LABS: PLATELET COUNT, AUTOMATED 160 10^3/uL (150-450)
[2018-08-17 06:25] LABS: ALBUMIN 1.9 GM/DL (3.2-5.2); ALT/SGPT 47 U/L (12-78); BILIRUBIN,TOTAL 0.5 MG/DL (0.2-1.0); BLOOD UREA NITROGEN 15 MG/DL (7-18); CALCIUM LEVEL 9.1 MG/DL (8.8-10.2); CARBON DIOXIDE LEVEL 20 MEQ/L (21-32); CHLORIDE LEVEL 113 MEQ/L (98-107); CREATININE FOR GFR 0.68 MG/DL (0.70-1.30); GLOMERULAR FILTRATION RATE > 60.0 (>49); GLUCOSE, FASTING 105 MG/DL (70-100); POTASSIUM SERUM 3.4 MEQ/L (3.5-5.1); SODIUM LEVEL 142 MEQ/L (136-145)
[2018-08-17] MEDS: D5W/0.9% SODIUM CHLORIDE 1,000 ML IV SCH ×3 (07:48→20:00)
[2018-08-17 09:34] VITALS: BP 98/62
[2018-08-17] MEDS: LEVOTHYROXINE 100 MCG (0.1MG) VIAL IV SCH (10:11)
[2018-08-17] MEDS: LORazepam 2 MG/ML VIAL (J2060) IV SCH ×2 (10:29→20:28)
--- NOTE | 2018-08-17 11:12 | IPNPDOC ---
Subjective Date Seen The patient was seen on 08/17/18. Subjective Chief Complaint/HPI Nursing reports no new concerns this morning. Await input from [facility] via PFS General: Reports: ROS Unobtainable Objective Physical Examination General Exam: Positive: Alert, No Acute Distress; Negative: Cooperative (pt moving about bed) ENT Exam: Positive: Tongue Midline (enlarged) Neck Exam: Positive: Supple Chest Exam: Positive: Clear to auscultation, Diminished (throughout) Heart Exam: Positive: Rate Normal, Regular Rhythm, Normal S1, Normal S2 Abdomen Exam: Positive: Normal bowel sounds, Soft Extremity Exam: Negative: Edema, Swelling Skin Exam: Negative: Breakdown Psych Exam: Negative: Mental status NL Assessment /Plan Assessment PPN on hold secondary to apparent sensitivity -- blistering reactions at both previous IV sites without apparent infiltrate. Agree with below. -- CDT Problems (1) Septicemia due to fungus Status: Acute Response to Treatment: Stable, Improving Problem Specific Plan: Monitor Clinically, Repeat Labs Problem Text: 08/17 Micafungin D 4, WBC normalized 08/16 BC + yeast, started on Micafungin IV, WBC 12.4, slightly elevated c/w yesterday. Temps remain hypothermic, baseline 94-95 (2) Leukocytosis Status: Acute Response to Treatment: Worse Problem Text: 08/16 normalized 08/14 WBC increased from 4.9 to 17.8, temps 98 this am, typically 95-96, monitor. CXR benign, CT A & P done yesterday with improvement in infiltrates. Pt high risk for aspiration and this could very well be the cause, monitor closely for change in status. Pt was given 500 Cc NS bolus this AM at report of elevation inf WBC. Repeat BC also ordered. Check UA with straight cath. Repeat CBC this afternoon. Monitor temp, if remains elevated, start IV Clinda. (3) Severe protein-calorie malnutrition Status: Chronic Problem Text: 08/16 IV access issues d/t Distal extremity swelling, currently on IVF, await PICC placement to being TPN, has been on PPN. Concerns that pt will pull out PICC remain, Discussion between Guardianship committee and Dr Gallardo planned for this morning. 08/13 CT A & P done yest suggesting no window d/t bowel to access the stomach for PEG placement. Dr Gallardo plans to d/w with Dr Miller, where he thinks he will be able to access the stomach to place a tube with this new finding. If he feels this isn't likely, the recommendation would become BUHR DRESSER, Dr Gallardo is calling [facility] Guardianship Committee at [phone] Thursday morning to discuss the case further with William Zhong and the Committee. 08/12 No change to status. Await further input from [facility], Guardianship committee. 08/11/18: Patient remains on PPN, PEG tube placement not favored as detailed previously. BUHR DRESSER status has been recommended and guardianship committee has been consulted 08/10 No changes. He continues on PPN as this is all it's possible to give him until we have a better way to get nutrition into his body, or he goes comfort measures. 08/09/18 Case d/w Dr Shelton, Dr Gallardo and Dr Miller - agreement in regards to medical futility of placement of gastrostomy tube. Tube will only slightly mitigate pts aspiration risks, given his habitus risks assoc with conscious sedation, therefore requiring general anesthesia, d/t habitus, difficult and risky intubation, could require tracheostomy. If pt pulls out gastrostomy tube especially in first few weeks this is a surgical emergency, therefor revisiting same anesthesia risks. If tube placed would recommend BUHR DRESSER status planned for patient if tube is d/c by the patient. Given futility and risks, strong recommendation for BUHR DRESSER. Dr Gallardo plans to address medical team concerns with Guardianship Committee and William Zhong. D11 PPN at 60H via LLE-has not removed line given 19/01 sitter 08/07/18 case d/w Dr. Babatunde Miller, patient's personal surgeon for many years, who agrees with the futility of gastrostomy tube placement (for same reasons as below). He feels that if it were to be demanded by the Guardianship Committee, the safest way to place it would be radiologically (PRG). An endoscopically placed gastrostomy tube (PEG) would entail a high risk for emergent tracheostomy due to the patient's severe macroglossia. He stated that he would affirm this in a note. Then I'd favor appealing the Guardianship Committee for BUHR DRESSER status. 07/26/18 Long d/w Osvaldo Zhong [facility] Cotton Weigher-I advised that patient would need a J-tube for enteral feeding given recurrent aspiration. I advised that this would only mitigate, but not eliminate, the aspiration risk. Additionally unless there was 24/ supervision, the patient would most likely pull out the J-tube. As the patient's PCP, I agree with DNR status and favor BUHR DRESSER status. I discussed the case with the guardianship committee reaffirming my thought that it was medically futile to place a gastrostomy tube endoscopically OR radiologically given the high likelihood of patient tube dislodgment and then leakage and infection risks of the subsequent open wound. (there has never been family identified to assume guardianship) (4) Dysphagia Status: Chronic Problem Text: He remains at very high risk of microaspiration as well as aspiration of gastric contents if a PEG tube is placed. (5) Hypothermia Status: Chronic Discussed With: Nurse, Other Discussed With: ([facility] aide) Problem Specific Plan: Monitor Clinically Problem Text: chronic, mild-at baseline 95F (6) Seizure disorder Status: Chronic Response to Treatment: Controlled Problem Specific Plan: Monitor Clinically Problem Text: 08/11: He has not had another seizure since he was placed on lorazepam 0.5mg BID. He has been more sedated acting in the mornings with the addition of a second dose of lorazepam. 07/25: I spoke to the neurologist refrigeration supervisor to go through his neuropsychiatrically active medications to make sure none of them were causing the hypothermia. He was most concerned about the levothyroxine which is addressed below. The atypical antipsychotics should be covered by the haldol deconate. The Artane and Mysoline are likely for tremors or side effects of the anti-psychotics. The Jw atril and trazodone shouldn't cause these symptoms, but he encouraged me to use lorazepam 0.5mg IV QHS to provide some similar action/coverage so he is less likely to seize from withdrawal of these oral meds. Ultimately it would be best to get enteral access and resume his proven regimen. Seizure precaution were reaffirmed (7) Hypothyroidism Status: Chronic Response to Treatment: Stable, Controlled Problem Specific Plan: Monitor Clinically Problem Text: continue LT4 37.7 IV QD HD LT4 50 (07/16/18 TSH/FT4 0.8/1.1 on LT4 50) (8) Anemia Status: Chronic Response to Treatment: Stable Problem Specific Plan: Repeat Labs Problem Text: 08/11/18: Remains stable favor 2 ACD 08/07 stable hgb 9.7 06/2018 baseline 13-14 (9) Cognitive impairment Status: Chronic Response to Treatment: Stable Problem Text: at baseline mentation s agitation (10) Physical deconditioning Status: Chronic Response to Treatment: Stable Problem Text: continue QD PT (11) Constipation Status: Chronic Response to Treatment: Stable, Controlled Problem Specific Plan: Monitor Clinically Problem Text: chronic obstipation recurrent ACPO 2 neurogenic bowel on baseline doc/lact/linac/MOM/PG and Fleets enema MWF (12) Pneumonia Status: Resolved Problem Text: Completed D7 john for RLL aspiration pneumonia/pneumonitis 08/08 normotensive, stable WBC, CXR c improved RLL opacity; therefore, dc john/HC Plan/VTE VTE Prophylaxis Ordered?: Yes (SCD) Plan IVF: Continue Diet: Make NPO Activity: Bedrest Medications: Bowel Regimen Diagnostics: Check Labs, Repeat Labs in AM VS, I&O, [facility] Vital Signs/I&O Vital Signs Date Time Temp Pulse Resp B/P (MAP) Pulse Ox O2 Delivery O2 Flow Rate FiO2 08/17/18 09:34 95.1 60 16 98/62 (74) 97 I&O- Last 24 Hours up to 6 AM 08/17/18 06:00 Intake Total 1440 ml Output Total 351 ml Balance 1089 ml Laboratory Data 24H LABS Laboratory Tests 2 08/16/18 12:29: Bedside Glucose (Misc Panel) 79L 08/16/18 17:06: Bedside Glucose (Misc Panel) 78L 08/16/18 21:29: Bedside Glucose (Misc Panel) 71L 08/17/18 00:03: Bedside Glucose (Misc Panel) 104 08/17/18 05:34: Immature Granulocyte % (Auto) 0.4, White Blood Count 8.1, Red Blood Count 3.84L, Hemoglobin 10.3L, Hematocrit 32.2L, Mean Corpuscular Volume 83.9, Mean Corpuscular Hemoglobin 26.8L, Mean Corpuscular Hemoglobin Concent 32.0, Red Cell Distribution Width 16.8H, Platelet Count 160, Neutrophils (%) (Auto) 79.3H, Lymphocytes (%) (Auto) 9.7L, Monocytes (%) (Auto) 7.7H, Eosinophils (%) (Auto) 2.7, Basophils (%) (Auto) 0.2, Neutrophils # (Auto) 6.4, Lymphocytes # (Auto) 0.8L, Monocytes # (Auto) 0.6, Eosinophils # (Auto) 0.2, Basophils # (Auto) 0.0, Nucleated Red Blood Cells % (auto) 0.4H, Anion Gap 9, Glomerular Filtration Rate > 60.0, Blood Urea Nitrogen 15, Creatinine 0.68L, Sodium Level 142, Potassium Level 3.4L, Chloride Level 113H, Carbon Dioxide Level 20L, Calcium Level 9.1, Aspartate Amino Transf (AST/SGOT) 65H, Alanine Aminotransferase (ALT/SGPT) 47, Alkaline Phosphatase 117, Total Bilirubin 0.5, Total Protein 7.0, Albumin 1.9L, Albumin/Globulin Ratio 0.37L CBC/BMP Laboratory Tests 08/17/18 05:34 Red Blood Count 3.84 L, Mean Corpuscular Volume 83.9, Mean Corpuscular Hemoglobin 26.8 L, Mean Corpuscular Hemoglobin Concent 32.0, Red Cell Distribution Width 16.8 H, Neutrophils (%) (Auto) 79.3 H, Lymphocytes (%) (Auto) 9.7 L, Monocytes (%) (Auto) 7.7 H, Eosinophils (%) (Auto) 2.7, Basophils (%) (Auto) 0.2, Neutrophils # (Auto) 6.4, Lymphocytes # (Auto) 0.8 L, Monocytes # (Auto) 0.6, Eosinophils # (Auto) 0.2, Basophils # (Auto) 0.0, Calcium Level 9.1, Aspartate Amino Transf (AST/SGOT) 65 H, Alanine Aminotransferase (ALT/SGPT) 47, Alkaline Phosphatase 117, Total Bilirubin 0.5, Total Protein 7.0, Albumin 1.9 L Microbiology Microbiology 08/13/18 Blood Culture - Preliminary, Resulted Yeast Like Organism 08/13/18 Blood Culture - Final, Complete Yeast Like Organism 08/13/18 Gram Stain - Final, Complete 08/13/18 Wound Culture - Final, Complete Yeast Like Organism NANCY ARCINIEGA PA-C Aug 17, 2018 11:12 THERESA LUQUE DO Aug 17, 2018 23:13
[2018-08-17] MEDS: HumaLOG INSULIN (NovoLOG) PER UNIT SC SCH ×3 (12:00→17:20)
[2018-08-17 16:00] VITALS: BP 101/71
[2018-08-17] MEDS: MICAFUNGIN SODIUM 100 MG in D5W MINI-BAG PLUS 100 ML IV SCH (20:27)
[2018-08-17 22:00] VITALS: BP 85/53
[2018-08-18] MEDS: D5W/0.9% SODIUM CHLORIDE 1,000 ML IV SCH ×3 (02:03→21:00)
[2018-08-18 05:47] LABS: BASO % 0.3 % (0.0-1.0); EOS # 0.1 10^3/uL (0.0-0.50); EOS % 0.9 % (0.0-3.0); HEMATOCRIT 30.7 % (42.0-52.0); HEMOGLOBIN 9.5 g/dl (13.5-17.5); LYMPH # 0.7 10^3/uL (1.5-4.5); LYMPH % 6.2 % (24.0-44.0); MEAN CORPUSCULAR HEMOGLOBIN 26.8 pg (27.0-33.0); MEAN CORPUSCULAR HGB CONC 30.9 g/dl (32.0-36.5); MEAN CORPUSCULAR VOLUME 86.5 fl (80.0-96.0); MONO # 0.7 10^3/uL (0.0-0.8); MONO % 6.3 % (0.0-5.0); NEUTROPHILS % 85.6 % (36.0-66.0); PLATELET COUNT, AUTOMATED 157 10^3/uL (150-450); RED BLOOD COUNT 3.55 10^6/uL (4.30-6.10); WHITE BLOOD COUNT 11.6 10^3/uL (4.0-10.0)
[2018-08-18 06:00] VITALS: BP 108/61
[2018-08-18 06:11] LABS: ALBUMIN 1.9 GM/DL (3.2-5.2); ALT/SGPT 42 U/L (12-78); BILIRUBIN,TOTAL 0.4 MG/DL (0.2-1.0); BLOOD UREA NITROGEN 10 MG/DL (7-18); CALCIUM LEVEL 8.4 MG/DL (8.8-10.2); CARBON DIOXIDE LEVEL 21 MEQ/L (21-32); CHLORIDE LEVEL 117 MEQ/L (98-107); CREATININE FOR GFR 0.75 MG/DL (0.70-1.30); GLOMERULAR FILTRATION RATE > 60.0 (>49); GLUCOSE, FASTING 87 MG/DL (70-100); SODIUM LEVEL 146 MEQ/L (136-145); TOTAL PROTEIN 6.7 GM/DL (6.4-8.2)
[2018-08-18 08:35] VITALS: BP 119/69
[2018-08-18] MEDS: FLEET ENEMA PR SCH (09:01)
--- NOTE | 2018-08-18 12:21 | IPNPDOC ---
Subjective Date Seen The patient was seen on 08/18/18. Subjective Chief Complaint/HPI Patient lying in bed sleeping when I entered the room. [facility] staff at his bedside General: Reports: ROS Unobtainable Objective Physical Examination General Exam: Positive: No Acute Distress, Other (sleeping ); Negative: Cooperative (pt moving about bed) ENT Exam: Positive: Tongue Midline (enlarged) Neck Exam: Positive: Supple Chest Exam: Positive: Clear to auscultation, Diminished (throughout) Heart Exam: Positive: Rate Normal, Regular Rhythm, Normal S1, Normal S2 Abdomen Exam: Positive: Normal bowel sounds, Soft Extremity Exam: Negative: Edema, Swelling Skin Exam: Negative: Breakdown Psych Exam: Negative: Mental status NL Assessment /Plan Problems (1) Septicemia due to fungus Status: Acute Response to Treatment: Stable, Improving Problem Specific Plan: Monitor Clinically, Repeat Labs Problem Text: 08/18/18: We have lost IV access. Patient is unable to take PO meds. We are holding off on PICC line d/t pending MANAGER COSMETICS status 08/17 Micafungin D 4, WBC normalized 08/16 BC + yeast, started on Micafungin IV, WBC 12.4, slightly elevated c/w yesterday. Temps remain hypothermic, baseline 94-95 (2) Leukocytosis Status: Acute Response to Treatment: Worse Problem Text: 08/18/18: WBC slightly elevated today 11.6 08/16 normalized 08/14 WBC increased from 4.9 to 17.8, temps 98 this am, typically 95-96, monitor. CXR benign, CT A & P done yesterday with improvement in infiltrates. Pt high risk for aspiration and this could very well be the cause, monitor closely for change in status. Pt was given 500 Cc NS bolus this AM at report of elevation inf WBC. Repeat BC also ordered. Check UA with straight cath. Repeat CBC this afternoon. Monitor temp, if remains elevated, start IV Clinda. (3) Severe protein-calorie malnutrition Status: Chronic Problem Text: 08/18/18: IV access was lost this morning and we have been unsuccessful in regaining access. PICC line has been considered, however, the concern remains patient will pull out. This will be discussed further with attending. 08/16 IV access issues d/t Distal extremity swelling, currently on IVF, await PICC placement to being TPN, has been on PPN. Concerns that pt will pull out PICC remain, Discussion between Guardianship committee and Dr Gallardo planned for this morning. 08/13 CT A & P done yest suggesting no window d/t bowel to access the stomach for PEG placement. Dr Gallardo plans to d/w with Dr Miller, where he thinks he will be able to access the stomach to place a tube with this new finding. If he feels this isn't likely, the recommendation would become MANAGER COSMETICS, Dr Gallardo is calling [facility] Guardianship Committee at [phone] Thursday morning to discuss the case further with William Zhong and the Committee. 08/12 No change to status. Await further input from PFS, Guardianship committee. 08/11/18: Patient remains on PPN, PEG tube placement not favored as detailed previously. MANAGER COSMETICS status has been recommended and guardianship committee has been consulted 08/10 No changes. He continues on PPN as this is all it's possible to give him until we have a better way to get nutrition into his body, or he goes comfort measures. 08/09/18 Case d/w Dr Shelton, Dr Gallardo and Dr Miller - agreement in regards to medical futility of placement of gastrostomy tube. Tube will only slightly mitigate pts aspiration risks, given his habitus risks assoc with conscious sedation, therefore requiring general anesthesia, d/t habitus, difficult and risky intubation, could require tracheostomy. If pt pulls out gastrostomy tube especially in first few weeks this is a surgical emergency, therefor revisiting same anesthesia risks. If tube placed would recommend MANAGER COSMETICS status planned for patient if tube is d/c by the patient. Given futility and risks, strong recommendation for MANAGER COSMETICS. Dr Gallardo plans to address medical team concerns with Guardianship Committee and William Zhong. D11 PPN at 60H via LLE-has not removed line given 19/01 sitter 08/07/18 case d/w Dr. Babatunde Miller, patient's personal surgeon for many years, who agrees with the futility of gastrostomy tube placement (for same reasons as below). He feels that if it were to be demanded by the Guardianship Committee, the safest way to place it would be radiologically (PRG). An endoscopically placed gastrostomy tube (PEG) would entail a high risk for emergent tracheostomy due to the patient's severe macroglossia. He stated that he would affirm this in a note. Then I'd favor appealing the Guardianship Committee for MANAGER COSMETICS status. 07/26/18 Long d/w Osvaldo Zhong [facility] [employer]-I advised that patient would need a J-tube for enteral feeding given recurrent aspiration. I advised that this would only mitigate, but not eliminate, the aspiration risk. Additionally unless there was 19/01 supervision, the patient would most likely pull out the J-tube. As the patient's PCP, I agree with DNR status and favor MANAGER COSMETICS status. I discussed the case with the guardianship committee reaffirming my thought that it was medically futile to place a gastrostomy tube endoscopically OR radiologically given the high likelihood of patient tube dislodgment and then leakage and infection risks of the subsequent open wound. (there has never been family identified to assume guardianship) (4) Dysphagia Status: Chronic Problem Text: He remains at very high risk of microaspiration as well as aspiration of gastric contents if a PEG tube is placed. (5) Hypothermia Status: Chronic Discussed With: Nurse, Other Discussed With: ([facility] aide) Problem Specific Plan: Monitor Clinically Problem Text: chronic, mild-at baseline 95F (6) Seizure disorder Status: Chronic Response to Treatment: Controlled Problem Specific Plan: Monitor Clinically Problem Text: 08/11: He has not had another seizure since he was placed on lorazepam 0.5mg BID. He has been more sedated acting in the mornings with the addition of a second dose of lorazepam. 07/25: I spoke to the neurologist trigonometry teacher to go through his neuropsychiatrically active medications to make sure none of them were causing the hypothermia. He was most concerned about the levothyroxine which is addressed below. The atypical antipsychotics should be covered by the haldol deconate. The Artane and Mysoline are likely for tremors or side effects of the anti-psychotics. The Gabatril and trazodone shouldn't cause these symptoms, but he encouraged me to use lorazepam 0.5mg IV QHS to provide some similar action/coverage so he is less likely to seize from withdrawal of these oral meds. Ultimately it would be best to get enteral access and resume his proven regimen. Seizure precaution were reaffirmed (7) Hypothyroidism Status: Chronic Response to Treatment: Stable, Controlled Problem Specific Plan: Monitor Clinically Problem Text: continue LT4 37.7 IV QD HD LT4 50 (07/16/18 TSH/FT4 0.8/1.1 on LT4 50) (8) Anemia Status: Chronic Response to Treatment: Stable Problem Specific Plan: Repeat Labs Problem Text: 08/11/18: Remains stable favor 2 ACD 08/07 stable hgb 9.7 06/2018 baseline 13-14 (9) Cognitive impairment Status: Chronic Response to Treatment: Stable Problem Text: at baseline mentation s agitation (10) Physical deconditioning Status: Chronic Response to Treatment: Stable Problem Text: continue QD PT (11) Constipation Status: Chronic Response to Treatment: Stable, Controlled Problem Specific Plan: Monitor Clinically Problem Text: chronic obstipation recurrent ACPO 2 neurogenic bowel on baseline doc/lact/linac/MOM/PG and Fleets enema MWF (12) Pneumonia Status: Resolved Problem Text: Completed D7 john for RLL aspiration pneumonia/pneumonitis 08/08 normotensive, stable WBC, CXR c improved RLL opacity; therefore, dc john/HC Plan/VTE VTE Prophylaxis Ordered?: Yes (SCD) Plan IVF: Continue Diet: Make NPO Activity: Bedrest Medications: Bowel Regimen Diagnostics: Check Labs, Repeat Labs in AM VS, I&O, [facility]O Vital Signs Date Time Temp Pulse Resp B/P (MAP) Pulse Ox O2 Delivery O2 Flow Rate FiO2 08/18/18 08:35 95.3 67 16 119/69 (86) 100 I&O- Last 24 Hours up to 6 AM 08/18/18 06:00 Intake Total 2160 ml Output Total 600 ml Balance 1560 ml Laboratory Data 24H LABS Laboratory Tests 2 08/17/18 16:58: Bedside Glucose (Misc Panel) 114 08/18/18 00:04: Bedside Glucose (Misc Panel) 73L 08/18/18 05:27: Immature Granulocyte % (Auto) 0.7, White Blood Count 11.6H, Red Blood Count 3.55L, Hemoglobin 9.5L, Hematocrit 30.7L, Mean Corpuscular Volume 86.5, Mean Corpuscular Hemoglobin 26.8L, Mean Corpuscular Hemoglobin Concent 30.9L, Red Cell Distribution Width 16.8H, Platelet Count 157, Neutrophils (%) (Auto) 85.6H, Lymphocytes (%) (Auto) 6.2L, Monocytes (%) (Auto) 6.3H, Eosinophils (%) (Auto) 0.9, Basophils (%) (Auto) 0.3, Neutrophils # (Auto) 10.0H, Lymphocytes # (Auto) 0.7L, Monocytes # (Auto) 0.7, Eosinophils # (Auto) 0.1, Basophils # (Auto) 0.0, Nucleated Red Blood Cells % (auto) 0.0, Anion Gap 8, Glomerular Filtration Rate > 60.0, Blood Urea Nitrogen 10, Creatinine 0.75, Sodium Level 146H, Potassium Level 3.0L, Chloride Level 117H, Carbon Dioxide Level 21, Calcium Level 8.4L, Aspartate Amino Transf (AST/SGOT) 47H, Alanine Aminotransferase (ALT/SGPT) 42, Alkaline Phosphatase 114, Total Bilirubin 0.4, Total Protein 6.7, Albumin 1.9L, Albumin/Globulin Ratio 0.40L 08/18/18 06:07: Bedside Glucose (Misc Panel) 105 08/18/18 11:51: Bedside Glucose (Misc Panel) 261H CBC/BMP Laboratory Tests 08/18/18 05:27 Red Blood Count 3.55 L, Mean Corpuscular Volume 86.5, Mean Corpuscular Hemoglobin 26.8 L, Mean Corpuscular Hemoglobin Concent 30.9 L, Red Cell Distribution Width 16.8 H, Neutrophils (%) (Auto) 85.6 H, Lymphocytes (%) (Auto) 6.2 L, Monocytes (%) (Auto) 6.3 H, Eosinophils (%) (Auto) 0.9, Basophils (%) (Auto) 0.3, Neutrophils # (Auto) 10.0 H, Lymphocytes # (Auto) 0.7 L, Monocytes # (Auto) 0.7, Eosinophils # (Auto) 0.1, Basophils # (Auto) 0.0, Calcium Level 8.4 L, Aspartate Amino Transf (AST/SGOT) 47 H, Alanine Aminotransferase (ALT/SGPT) 42, Alkaline Phosphatase 114, Total Bilirubin 0.4, Total Protein 6.7, Albumin 1.9 L Microbiology Microbiology 08/13/18 Blood Culture - Preliminary, Resulted Yeast Like Organism 08/13/18 Blood Culture - Final, Complete Yeast Like Organism 08/13/18 Gram Stain - Final, Complete 08/13/18 Wound Culture - Final, Complete Yeast Like Organism VINAYAK HILL [facility] Aug 18, 2018 12:21
[2018-08-18] MEDS: LEVOTHYROXINE 100 MCG (0.1MG) VIAL IV SCH (12:46)
[2018-08-18 14:00] VITALS: BP 108/73
[2018-08-18] MEDS: MICAFUNGIN SODIUM 100 MG in D5W MINI-BAG PLUS 100 ML IV SCH (21:00)
[2018-08-18] MEDS: LORazepam 2 MG/ML VIAL (J2060) IM SCH (21:00)
[2018-08-18 22:00] VITALS: BP 101/67
[2018-08-19] MEDS: D5W/0.9% SODIUM CHLORIDE 1,000 ML IV SCH ×2 (05:17→13:31)
[2018-08-19 05:53] LABS: BASO % 0.3 % (0.0-1.0); EOS # 0.1 10^3/uL (0.0-0.50); EOS % 0.7 % (0.0-3.0); HEMATOCRIT 32.3 % (42.0-52.0); HEMOGLOBIN 9.9 g/dl (13.5-17.5); LYMPH # 0.8 10^3/uL (1.5-4.5); LYMPH % 7.8 % (24.0-44.0); MEAN CORPUSCULAR HEMOGLOBIN 26.2 pg (27.0-33.0); MEAN CORPUSCULAR HGB CONC 30.7 g/dl (32.0-36.5); MEAN CORPUSCULAR VOLUME 85.4 fl (80.0-96.0); MONO # 0.5 10^3/uL (0.0-0.8); MONO % 5.2 % (0.0-5.0); NEUTROPHILS # 8.8 10^3/uL (1.8-7.7); NEUTROPHILS % 84.9 % (36.0-66.0); PLATELET COUNT, AUTOMATED 153 10^3/uL (150-450); RED BLOOD COUNT 3.78 10^6/uL (4.30-6.10); WHITE BLOOD COUNT 10.4 10^3/uL (4.0-10.0)
[2018-08-19 06:00] VITALS: BP 113/79
[2018-08-19 06:22] LABS: ALBUMIN 1.8 GM/DL (3.2-5.2); ALT/SGPT 37 U/L (12-78); BILIRUBIN,TOTAL 0.4 MG/DL (0.2-1.0); BLOOD UREA NITROGEN 10 MG/DL (7-18); CALCIUM LEVEL 8.4 MG/DL (8.8-10.2); CARBON DIOXIDE LEVEL 20 MEQ/L (21-32); CHLORIDE LEVEL 118 MEQ/L (98-107); CREATININE FOR GFR 0.78 MG/DL (0.70-1.30); GLOMERULAR FILTRATION RATE > 60.0 (>49); GLUCOSE, FASTING 69 MG/DL (70-100); POTASSIUM SERUM 3.5 MEQ/L (3.5-5.1); SODIUM LEVEL 148 MEQ/L (136-145)
[2018-08-19] MEDS: LORazepam 2 MG/ML VIAL (J2060) IM SCH (08:22)
[2018-08-19] MEDS: LEVOTHYROXINE 100 MCG (0.1MG) VIAL IV SCH (09:00)
[2018-08-19 09:14] VITALS: BP 104/65
--- NOTE | 2018-08-19 11:11 | IPNPDOC ---
Subjective Date Seen The patient was seen on 08/19/18. Subjective Chief Complaint/HPI Sitter at bedside. No concerns expressed by nursing staff General: Reports: ROS Unobtainable Objective Physical Examination General Exam: Positive: No Acute Distress, Other (sleeping ); Negative: Cooperative (pt moving about bed) ENT Exam: Positive: Tongue Midline (enlarged) Neck Exam: Positive: Supple Chest Exam: Positive: Clear to auscultation, Diminished (throughout) Heart Exam: Positive: Rate Normal, Regular Rhythm, Normal S1, Normal S2 Abdomen Exam: Positive: Normal bowel sounds, Soft Extremity Exam: Negative: Edema, Swelling Skin Exam: Negative: Breakdown Psych Exam: Negative: Mental status NL Assessment /Plan Assessment MOLST checklist has been approved, and patient is cleared for POT PULLER status. MOLST form filled out, and POT PULLER orders entered -- CDT Problems (1) Septicemia due to fungus Status: Acute Response to Treatment: Stable, Improving Problem Specific Plan: Monitor Clinically, Repeat Labs Problem Text: 08/18/18: We have been unsuccessful in attempts to regain IV access. POT PULLER status is pending. 08/18/18: We have lost IV access. Patient is unable to take PO meds. We are holding off on PICC line d/t pending POT PULLER status 08/17 Micafungin D 4, WBC normalized 08/16 BC + yeast, started on Micafungin IV, WBC 12.4, slightly elevated c/w yesterday. Temps remain hypothermic, baseline 94-95 (2) Leukocytosis Status: Acute Response to Treatment: Worse Problem Text: 08/19/18: WBC trending down, 10.4 08/18/18: WBC slightly elevated today 11.6 08/16 normalized 08/14 WBC increased from 4.9 to 17.8, temps 98 this am, typically 95-96, monitor. CXR benign, CT A & P done yesterday with improvement in infiltrates. Pt high risk for aspiration and this could very well be the cause, monitor closely for change in status. Pt was given 500 Cc NS bolus this AM at report of elevation inf WBC. Repeat BC also ordered. Check UA with straight cath. Repeat CBC this afternoon. Monitor temp, if remains elevated, start IV Clinda. (3) Severe protein-calorie malnutrition Status: Chronic Problem Text: 08/19/18: No change in status. Await decisions from guardianship committee and PFS 08/18/18: IV access was lost this morning and we have been unsuccessful in regaining access. PICC line has been considered, however, the concern remains patient will pull out. This will be discussed further with attending. 08/16 IV access issues d/t Distal extremity swelling, currently on IVF, await PICC placement to being TPN, has been on PPN. Concerns that pt will pull out PICC remain, Discussion between Guardianship committee and Dr Gallardo planned for this morning. 08/13 CT A & P done yest suggesting no window d/t bowel to access the stomach for PEG placement. Dr Gallardo plans to d/w with Dr Miller, where he thinks he will be able to access the stomach to place a tube with this new finding. If he feels this isn't likely, the recommendation would become POT PULLER, Dr Gallardo is calling [facility] Guardianship Committee at [phone] Thursday morning to discuss the case further with William Zhong and the Committee. 08/12 No change to status. Await further input from PFS, Guardianship commit stephanie. 08/11/18: Patient remains on PPN, PEG tube placement not favored as detailed previously. POT PULLER status has been recommended and guardianship committee has been consulted 08/10 No changes. He continues on PPN as this is all it's possible to give him until we have a better way to get nutrition into his body, or he goes comfort measures. 08/09/18 Case d/w Dr Shelton, Dr Gallardo and Dr Miller - agreement in regards to medical futility of placement of gastrostomy tube. Tube will only slightly miti gate pts aspiration risks, given his habitus risks assoc with conscious sedation, therefore requiring general anesthesia, d/t habitus, difficult and risky intubation, could require tracheostomy. If pt pulls out gastrostomy tube especially in first few weeks this is a surgical emergency, therefor revisiting same anesthesia risks. If tube placed would recommend POT PULLER status planned for patient if tube is d/c by the patient. Given futility and risks, strong recommendation for POT PULLER. Dr Gallardo plans to address medical team concerns with Guardianship Committee and William Zhong. D11 PPN at 60H via LLE-has not removed line given 24//Sofi barton 08/07/18 case d/w Dr. Babatunde Miller, patient's personal surgeon for many years, who agrees with the futility of gastrostomy tube placement (for same reasons as below). He feels that if it were to be demanded by the Guardianship Committee, the safest way to place it would be radiologically (PRG). An endoscopically placed gastrostomy tube (PEG) would entail a high risk for emergent tracheostomy due to the patient's severe macroglossia. He stated that he would affirm this in a note. Then I'd favor appealing the Guardianship Committee for POT PULLER status. 07/26/18 Long d/w Osvaldo Zhong [facility] [employer]er-I advised that patient would need a J-tube for enteral feeding given recurrent aspiration. I advised that this would only mitigate, but not eliminate, the aspiration risk. Additionally unless there was 19/01 supervision, the patient would most likely pull out the J-tube. As the patient's PCP, I agree with DNR status and favor POT PULLER status. I discussed the case with the guardianship committee reaffirming my thought that it was medically futile to place a gastrostomy tube endoscopically OR radiologically given the high likelihood of patient tube dislodgment and then leakage and infection risks of the subsequent open wound. (there has never been family identified to assume guardianship) (4) Dysphagia Status: Chronic Problem Text: He remains at very high risk of microaspiration as well as aspiration of gastric contents if a PEG tube is placed. (5) Hypothermia Status: Chronic Discussed With: Nurse, Other Discussed With: ([facility] aide) Problem Specific Plan: Monitor Clinically Problem Text: chronic, mild-at baseline 95F (6) Seizure disorder Status: Chronic Response to Treatment: Controlled Problem Specific Plan: Monitor Clinically Problem Text: 08/11: He has not had another seizure since he was placed on lorazepam 0.5mg BID. He has been more sedated acting in the mornings with the addition of a second dose of lorazepam. 07/25: I spoke to the neurologist paving stone installer to go through his neuropsychiatrically active medications to make sure none of them were causing the hypothermia. He was most concerned about the levothyroxine which is addressed below. The atypical antipsychotics should be covered by the haldol deconate. The Artane and Mysoline are likely for tremors or side effects of the anti-psychotics. The Gabatril and trazodone shouldn't cause these symptoms, but he encouraged me to use lorazepam 0.5mg IV QHS to provide some similar action/coverage so he is less likely to seize from withdrawal of these oral meds. Ultimately it would be best to get enteral access and resume his proven regimen. Seizure precaution were reaffirmed (7) Hypothyroidism Status: Chronic Response to Treatment: Stable, Controlled Problem Specific Plan: Monitor Clinically Problem Text: continue LT4 37.7 IV QD HD LT4 50 (07/16/18 TSH/FT4 0.8/1.1 on LT4 50) (8) Anemia Status: Chronic Response to Treatment: Stable Problem Specific Plan: Repeat Labs Problem Text: 08/11/18: Remains stable favor 2 ACD 08/07 stable hgb 9.7 06/2018 baseline 13-14 (9) Cognitive impairment Status: Chronic Response to Treatment: Stable Problem Text: at baseline mentation s agitation (10) Physical deconditioning Status: Chronic Response to Treatment: Stable Problem Text: continue QD PT (11) Constipation Status: Chronic Response to Treatment: Stable, Controlled Problem Specific Plan: Monitor Clinically Problem Text: chronic obstipation recurrent ACPO 2 neurogenic bowel on baseline doc/lact/linac/MOM/PG and Fleets enema MWF (12) Pneumonia Status: Resolved Problem Text: Completed D7 john for RLL aspiration pneumonia/pneumonitis 08/08 normotensive, stable WBC, CXR c improved RLL opacity; therefore, dc john/HC Plan/VTE VTE Prophylaxis Ordered?: Yes (SCD) Plan IVF: Continue Diet: Make NPO Activity: Bedrest Medications: Bowel Regimen Diagnostics: Check Labs, Repeat Labs in AM VS, I&O, 24H, Fishbone Vital Signs/I&O Vital Signs Date Time Temp Pulse Resp B/P (MAP) Pulse Ox O2 Delivery O2 Flow Rate FiO2 08/19/18 09:14 95.2 64 18 104/65 (78) 100 I&O- Last 24 Hours up to 6 AM 08/19/18 06:00 Intake Total 720 ml Output Total 1050 ml Balance -330 ml Laboratory Data 24H LABS Laboratory Tests 2 08/18/18 11:51: Bedside Glucose (Misc Panel) 261H 08/18/18 16:55: Bedside Glucose (Misc Panel) 94 08/19/18 05:31: Immature Granulocyte % (Auto) 1.1, White Blood Count 10.4H, Red Blood Count 3.78L, Hemoglobin 9.9L, Hematocrit 32.3L, Mean Corpuscular Volume 85.4, Mean Corpuscular Hemoglobin 26.2L, Mean Corpuscular Hemoglobin Concent 30.7L, Red Cell Distribution Width 16.8H, Platelet Count 153, Neutrophils (%) (Auto) 84.9H, Lymphocytes (%) (Auto) 7.8L, Monocytes (%) (Auto) 5.2H, Eosinophils (%) (Auto) 0.7, Basophils (%) (Auto) 0.3, Neutrophils # (Auto) 8.8H, Lymphocytes # (Auto) 0.8L, Monocytes # (Auto) 0.5, Eosinophils # (Auto) 0.1, Basophils # (Auto) 0.0, Nucleated Red Blood Cells % (auto) 0.3H, Anion Gap 10, Glomerular Filtration Rate > 60.0, Blood Urea Nitrogen 10, Creatinine 0.78, Sodium Level 148H, Potassium Level 3.5, Chloride Level 118H, Carbon Dioxide Level 20L, Calcium Level 8.4L, Aspartate Amino Transf (AST/SGOT) 43H, Alanine Aminotransferase (ALT/SGPT) 37, Alkaline Phosphatase 117, Total Bilirubin 0.4, Total Protein 7.0, Albumin 1.8L, Albumin/Globulin Ratio 0.35L 08/19/18 05:46: Bedside Glucose (Misc Panel) 106 CBC/BMP Laboratory Tests 08/19/18 05:31 Red Blood Count 3.78 L, Mean Corpuscular Volume 85.4, Mean Corpuscular Hemoglobin 26.2 L, Mean Corpuscular Hemoglobin Concent 30.7 L, Red Cell Distribution Width 16.8 H, Neutrophils (%) (Auto) 84.9 H, Lymphocytes (%) (Auto) 7.8 L, Monocytes (%) (Auto) 5.2 H, Eosinophils (%) (Auto) 0.7, Basophils (%) (Auto) 0.3, Neutrophils # (Auto) 8.8 H, Lymphocytes # (Auto) 0.8 L, Monocytes # (Auto) 0.5, Eosinophils # (Auto) 0.1, Basophils # (Auto) 0.0, Calcium Level 8.4 L, Aspartate Amino Transf (AST/SGOT) 43 H, Alanine Aminotransferase (ALT/SGPT) 37, Alkaline Phosphatase 117, Total Bilirubin 0.4, Total Protein 7.0, Albumin 1.8 L Microbiology Microbiology 08/13/18 Blood Culture - Final, Complete Kelly Albicans 08/13/18 Blood Culture - Final, Complete Yeast Like Organism 08/13/18 Gram Stain - Final, Complete 08/13/18 Wound Culture - Final, Complete Yeast Like Organism VINAYAK HILL Aug 19, 2018 11:11 THERESA LUQUE DO Aug 20, 2018 01:34
[2018-08-19 14:00] VITALS: BP 112/73
[2018-08-19] MEDS ORDERED: BISACODYL 10 MG SUPP PR PRN (20:45)
[2018-08-19] MEDS ORDERED: FLEET ENEMA PR PRN (20:45)
[2018-08-19] MEDS ORDERED: ACETAMINOPHEN 650 MG SUPP PR PRN (20:45)
[2018-08-19] MEDS ORDERED: SCOPOLAMINE 1MG TRANSDERMAL PATCH TOP PRN (20:45)
[2018-08-19] MEDS ORDERED: ATROPINE SULFATE 1% OP SOLN 2 ML BTL SL PRN (20:45)
[2018-08-19] MEDS: LORazepam 1 MG TAB SL PRN ×2 (21:13→23:35)
[2018-08-20] MEDS: FLEET ENEMA PR SCH (09:00)
--- NOTE | 2018-08-20 11:11 | IPNPDOC ---
Subjective Date Seen The patient was seen on 08/20/18. Subjective Chief Complaint/HPI Patient lying in bed when I entered the room General: Reports: ROS Unobtainable Objective Physical Examination General Exam: Positive: No Acute Distress, Other (sleeping ); Negative: Cooperative (pt moving about bed) ENT Exam: Positive: Tongue Midline (enlarged) Chest Exam: Positive: Clear to auscultation, Diminished (throughout) Heart Exam: Positive: Rate Normal, Regular Rhythm, Normal S1, Normal S2 Abdomen Exam: Positive: Normal bowel sounds, Soft Extremity Exam: Negative: Edema, Swelling Skin Exam: Negative: Breakdown Psych Exam: Negative: Mental status NL Assessment /Plan Assessment Hiding under the covers when seen today. Nursing denies need for anything else to keep him comfortable. When bed is available at [facility], plan to DC with hospice support. -- CDT Problems (1) Septicemia due to fungus Status: Acute Response to Treatment: Stable, Improving Problem Specific Plan: Monitor Clinically, Repeat Labs Problem Text: 08/20/18: Patient appears comfortable. No agitation, no distress. Hospice consult has been requested. We await to hear from [facility] regarding transfer back to their facility with hospice care. 08/18/18: We have been unsuccessful in attempts to regain IV access. E LEARNING COORDINATOR status is pending. 08/18/18: We have lost IV access. Patient is unable to take PO meds. We are holding off on PICC line d/t pending E LEARNING COORDINATOR status 08/17 Micafungin D 4, WBC normalized 08/16 BC + yeast, started on Micafungin IV, WBC 12.4, slightly elevated c/w yesterday. Temps remain hypothermic, baseline 94-95 (2) Leukocytosis Status: Acute Problem Text: 08/19/18: WBC trending down, 10.4 08/18/18: WBC slightly elevated today 11.6 08/16 normalized 08/14 WBC increased from 4.9 to 17.8, temps 98 this am, typically 95-96, monitor. CXR benign, CT A & P done yesterday with improvement in infiltrates. Pt high risk for aspiration and this could very well be the cause, monitor closely for change in status. Pt was given 500 Cc NS bolus this AM at report of elevation inf WBC. Repeat BC also ordered. Check UA with straight cath. Repeat CBC this afternoon. Monitor temp, if remains elevated, start IV Clinda. (3) Severe protein-calorie malnutrition Status: Chronic Problem Text: 08/19/18: No change in status. Await decisions from guardianship committee and PFS 08/18/18: IV access was lost this morning and we have been unsuccessful in regaining access. PICC line has been considered, however, the concern remains patient will pull out. This will be discussed further with attending. 08/16 IV access issues d/t Distal extremity swelling, currently on IVF, await PICC placement to being TPN, has been on PPN. Concerns that pt will pull out PICC remain, Discussion between Guardianship committee and Dr Gallardo planned for this morning. 08/13 CT A & P done yest suggesting no window d/t bowel to access the stomach for PEG placement. Dr Gallardo plans to d/w with Dr Miller, where he thinks he will be able to access the stomach to place a tube with this new finding. If he feels this isn't likely, the recommendation would become E LEARNING COORDINATOR, Dr Gallardo is calling [facility] Guardianship Committee at 1010 Thursday morning to discuss the case further with William Zhong and the Committee. 08/12 No change to status. Await further input from PFS, Guardianship committee. 08/11/18: Patient remains on PPN, PEG tube placement not favored as detailed previously. E LEARNING COORDINATOR status has been recommended and guardianship committee has been consulted 08/10 No changes. He continues on PPN as this is all it's possible to give him until we have a better way to get nutrition into his body, or he goes comfort measures. 08/09/18 Case d/w Dr Shelton, Dr Gallardo and Dr Miller - agreement in regards to medical futility of placement of gastrostomy tube. Tube will only slightly mitigate pts aspiration risks, given his habitus risks assoc with conscious sedation, therefore requiring general anesthesia, d/t habitus, difficult and risky intubation, could require tracheostomy. If pt pulls out gastrostomy tube especially in first few weeks this is a surgical emergency, therefor revisiting same anesthesia risks. If tube placed would recommend E LEARNING COORDINATOR status planned for patient if tube is d/c by the patient. Given futility and risks, strong recommendation for E LEARNING COORDINATOR. Dr Gallardo plans to address medical team concerns with Guardianship Committee and William Ganter. D11 PPN at 60H via LLE-has not removed line given 19/01 sitter 08/07/18 case d/w Dr. Babatunde Miller, patient's personal surgeon for many years, who agrees with the futility of gastrostomy tube placement (for same reasons as below). He feels that if it were to be demanded by the Guardianship Committee, the safest way to place it would be radiologically (PRG). An endoscopically placed gastrostomy tube (PEG) would entail a high risk for emergent tracheostomy due to the patient's severe macroglossia. He stated that he would affirm this in a note. Then I'd favor appealing the Guardianship Committee for E LEARNING COORDINATOR status. 07/26/18 Long d/w Osvaldo Zhong [facility] Contact Clerk-I advised that patient would need a J-tube for enteral feeding given recurrent aspiration. I advised that this would only mitigate, but not eliminate, the aspiration risk. Additionally unless there was 19/01 supervision, the patient would most likely pull out the J-tube. As the patient's PCP, I agree with DNR status and favor E LEARNING COORDINATOR status. I discussed the case with the guardianship committee reaffirming my thought that it was medically futile to place a gastrostomy tube endoscopically OR radiologically given the high likelihood of patient tube dislodgment and then leakage and infection risks of the subsequent open wound. (there has never been family identified to assume guardianship) (4) Dysphagia Status: Chronic Problem Text: He remains at very high risk of microaspiration as well as aspiration of gastric contents if a PEG tube is placed. (5) Hypothermia Status: Chronic Discussed With: Nurse, Other Discussed With: ([facility] aide) Problem Specific Plan: Monitor Clinically Problem Text: chronic, mild-at baseline 95F (6) Seizure disorder Status: Chronic Response to Treatment: Controlled Problem Specific Plan: Monitor Clinically Problem Text: 08/11: He has not had another seizure since he was placed on lorazepam 0.5mg BID. He has been more sedated acting in the mornings with the addition of a second dose of lorazepam. 07/25: I spoke to the neurologist environmental project manager to go through his neuropsychiatrically active medications to make sure none of them were causing the hypothermia. He was most concerned about the levothyroxine which is addressed below. The atypical antipsychotics should be covered by the haldol deconate. The Artane and Mysoline are likely for tremors or side effects of the anti-psychotics. The Gabatril and trazodone shouldn't cause these symptoms, but he encouraged me to use lorazepam 0.5mg IV QHS to provide some similar action/coverage so he is less likely to seize from withdrawal of these oral meds. Ultimately it would be best to get enteral access and resume his proven regimen. Seizure precaution were reaffirmed (7) Hypothyroidism Status: Chronic Response to Treatment: Stable, Controlled Problem Specific Plan: Monitor Clinically Problem Text: continue LT4 37.7 IV QD HD LT4 50 (07/16/18 TSH/FT4 0.8/1.1 on LT4 50) (8) Anemia Status: Chronic Response to Treatment: Stable Problem Specific Plan: Repeat Labs Problem Text: 08/11/18: Remains stable favor 2 ACD 08/07 stable hgb 9.7 06/2018 baseline 13-14 (9) Cognitive impairment Status: Chronic Response to Treatment: Stable Problem Text: at baseline mentation s agitation (10) Physical deconditioning Status: Chronic Response to Treatment: Stable Problem Text: continue QD PT (11) Constipation Status: Chronic Response to Treatment: Stable, Controlled Problem Specific Plan: Monitor Clinically Problem Text: chronic obstipation recurrent ACPO 2 neurogenic bowel on baseline doc/lact/linac/MOM/PG and Fleets enema MWF (12) Pneumonia Status: Resolved Problem Text: Completed D7 john for RLL aspiration pneumonia/pneumonitis 08/08 normotensive, stable WBC, CXR c improved RLL opacity; therefore, dc john/HC Plan/VTE VTE Prophylaxis Ordered?: Yes (SCD) Plan IVF: Continue Diet: Make NPO Activity: Bedrest Medications: Bowel Regimen Diagnostics: Check Labs, Repeat Labs in AM VS, I&O, 24H, Fishbone Vital Signs/I&O Vital Signs Date Time Temp Pulse Resp B/P (MAP) Pulse Ox O2 Delivery O2 Flow Rate FiO2 08/19/18 14:00 94.8 73 16 112/73 (86) 99 I&O- Last 24 Hours up to 6 AM 08/20/18 06:00 Intake Total 0 ml Output Total 700 ml Balance -700 ml Laboratory Data 24H LABS Laboratory Tests 2 08/19/18 11:17: Bedside Glucose (Misc Panel) 66L Microbiology Microbiology 08/13/18 Blood Culture - Final, Complete Kelly Albicans 08/13/18 Blood Culture - Final, Complete Yeast Like Organism 08/13/18 Gram Stain - Final, Complete 08/13/18 Wound Culture - Final, Complete Yeast Like Organism VINAYAK HILL Aug 20, 2018 11:11 THERESA LUQUE DO Aug 21, 2018 00:09
[2018-08-20] MEDS: LORazepam 1 MG TAB SL PRN (21:20)
[2018-08-20] MEDS: MORPHINE 10MG/0.5ML ORAL CONCENTRATE SOLUTION U/D SL PRN (22:39)
[2018-08-21] MEDS: LORazepam 1 MG TAB SL PRN ×2 (00:19→16:45)
[2018-08-21] MEDS: HALOPERIDOL DECANOATE 100 MG/ML VIAL (J1631) IM SCH (09:00)
--- NOTE | 2018-08-21 13:43 | IPNPDOC ---
Subjective Date Seen The patient was seen on 08/21/18. Subjective Chief Complaint/HPI JOURNEYMAN CARPENTER General: Reports: ROS Unobtainable Objective Physical Examination General Exam: Positive: No Acute Distress, Other (sleeping ); Negative: Cooperative (pt moving about bed) ENT Exam: Positive: Tongue Midline (enlarged) Chest Exam: Positive: Clear to auscultation, Diminished (throughout) Heart Exam: Positive: Rate Normal, Regular Rhythm, Normal S1, Normal S2 Abdomen Exam: Positive: Normal bowel sounds, Soft Extremity Exam: Negative: Edema, Swelling Skin Exam: Negative: Nl turgor and temperature (reduced skin turgor), Breakdown Psych Exam: Negative: Mental status NL Assessment /Plan Problems (1) Comfort measures only status Status: Acute Problem Text: JOURNEYMAN CARPENTER due to futility of intervention as a result of complex of problems that cannot be adequately remediated for this gentleman. Hope is to be able to move to [facility] residence when bed available. Consider restart of comfort feeds if he is awake enough. (2) Septicemia due to fungus Status: Acute Response to Treatment: Stable, Improving Problem Specific Plan: Monitor Clinically, Repeat Labs Problem Text: 08/20/18: Patient appears comfortable. No agitation, no distress. Hospice consult has been requested. We await to hear from [facility] regarding transfer back to their facility with hospice care. 08/18/18: We have been unsuccessful in attempts to regain IV access. JOURNEYMAN CARPENTER status is pending. 08/18/18: We have lost IV access. Patient is unable to take PO meds. We are holding off on PICC line d/t pending JOURNEYMAN CARPENTER status 08/17 Micafungin D 4, WBC normalized 08/16 BC + yeast, started on Micafungin IV, WBC 12.4, slightly elevated c/w yesterday. Temps remain hypothermic, baseline 94-95 (3) Leukocytosis Status: Acute Problem Text: 08/19/18: WBC trending down, 10.4 08/18/18: WBC slightly elevated today 11.6 08/16 normalized 08/14 WBC increased from 4.9 to 17.8, temps 98 this am, typically 95-96, monitor. CXR benign, CT A & P done yesterday with improvement in infiltrates. Pt high risk for aspiration and this could very well be the cause, monitor closely for change in status. Pt was given 500 Cc NS bolus this AM at report of elevation inf WBC. Repeat BC also ordered. Check UA with straight cath. Repeat CBC this afternoon. Monitor temp, if remains elevated, start IV Clinda. (4) Severe protein-calorie malnutrition Status: Chronic Problem Text: 08/19/18: No change in status. Await decisions from guardianship committee and PFS 08/18/18: IV access was lost this morning and we have been unsuccessful in regaining access. PICC line has been considered, however, the concern remains patient will pull out. This will be discussed further with attending. 08/16 IV access issues d/t Distal extremity swelling, currently on IVF, await PICC placement to being TPN, has been on PPN. Concerns that pt will pull out PICC remain, Discussion between Guardianship committee and Dr Gallardo planned for this morning. 08/13 CT A & P done yest suggesting no window d/t bowel to access the stomach for PEG placement. Dr Gallardo plans to d/w with Dr Miller, where he thinks he will be able to access the stomach to place a tube with this new finding. If he feels this isn't likely, the recommendation would become JOURNEYMAN CARPENTER, Dr Gallardo is calling [facility] Guardianship Committee at 1010 Thursday morning to discuss the case further with William Zhong and the Committee. 08/12 No change to status. Await further input from PFS, Guardianship c ommittee. 08/11/18: Patient remains on PPN, PEG tube placement not favored as detailed previously. JOURNEYMAN CARPENTER status has been recommended and guardianship committee has been consulted 08/10 No changes. He continues on PPN as this is all it's possible to give him until we have a better way to get nutrition into his body, or he goes comfort measures. 08/09/18 Case d/w Dr Shelton, Dr Gallardo and Dr Miller - agreement in regards to medical futility of placement of gastrostomy tube. Tube will only slightly mitigate pts aspiration risks, given his habitus risks assoc with conscious sedation, therefore requiring general anesthesia, d/t habitus, difficult and risky intubation, could require tracheostomy. If pt pulls out gastrostomy tube especially in first few weeks this is a surgical emergency, therefor revisiting same anesthesia risks. If tube placed would recommend JOURNEYMAN CARPENTER status planned for patient if tube is d/c by the patient. Given futility and risks, strong recommendation for JOURNEYMAN CARPENTER. Dr Gallardo plans to address medical team concerns with Guardianship Committee and William Zhong. D11 PPN at 60H via LLE-has not removed line given 19/01 sitter 08/07/18 case d/w Dr. Babatunde Miller, patient's personal surgeon for many years, who agrees with the futility of gastrostomy tube placement (for same reasons as below). He feels that if it were to be demanded by the Guardianship Committee, the safest way to place it would be radiologically (PRG). An endoscopically placed gastrostomy tube (PEG) would entail a high risk for emergent tracheostomy due to the patient's severe macroglossia. He stated that he would affirm this in a note. Then I'd favor appealing the Guardianship Committee for JOURNEYMAN CARPENTER status. 07/26/18 Long d/w Osvaldo Zhong [facility] Aircraft Metalsmith-I advised that patient would need a J-tube for enteral feeding given recurrent aspiration. I advised that this would only mitigate, but not eliminate, the aspiration risk. Additionally unless there was 19/01 supervision, the patient would most likely pull out the J-tube. As the patient's PCP, I agree with DNR status and favor JOURNEYMAN CARPENTER status. I discussed the case with the guardianship committee reaffirming my thought that it was medically futile to place a gastrostomy tube endoscopically OR radiologically given the high likelihood of patient tube dislodgment and then leakage and infection risks of the subsequent open wound. (there has never been family identified to assume guardianship) (5) Dysphagia Status: Chronic Problem Text: He remains at very high risk of microaspiration as well as aspiration of gastric contents if a PEG tube is placed. Also thought to be unacceptable risk for tube dislodgement if a tube were to be place. (6) Hypothermia Status: Chronic Discussed With: Nurse, Other Discussed With: ([facility] aide) Problem Specific Plan: Monitor Clinically Problem Text: chronic, mild-at baseline 95F (7) Seizure disorder Status: Chronic Response to Treatment: Controlled Problem Specific Plan: Monitor Clinically Problem Text: 08/11: He has not had another seizure since he was placed on lorazepam 0.5mg BID. He has been more sedated acting in the mornings with the addition of a second dose of lorazepam. 07/25: I spoke to the neurologist supervisor customer records division to go through his neuropsychiatrically active medications to make sure none of them were causing the hypothermia. He was most concerned about the levothyroxine which is addressed below. The atypical antipsychotics should be covered by the haldol deconate. The Artane and Mysoline are likely for tremors or side effects of the anti-psychotics. The Gabatril and trazodone shouldn't cause these symptoms, but he encouraged me to use lorazepam 0.5mg IV QHS to provide some similar action/coverage so he is less likely to seize from withdrawal of these oral meds. Ultimately it would be best to get enteral access and resume his proven regimen. Seizure precaution were reaffirmed (8) Hypothyroidism Status: Chronic Response to Treatment: Stable, Controlled Problem Specific Plan: Monitor Clinically Problem Text: continue LT4 37.7 IV QD HD LT4 50 (07/16/18 TSH/FT4 0.8/1.1 on LT4 50) (9) Anemia Status: Chronic Response to Treatment: Stable Problem Specific Plan: Repeat Labs Problem Text: 08/11/18: Remains stable favor 2 ACD 08/07 stable hgb 9.7 06/2018 baseline 13-14 (10) Cognitive impairment Status: Chronic Response to Treatment: Stable Problem Text: at baseline mentation s agitation (11) Physical deconditioning Status: Chronic Response to Treatment: Stable Problem Text: continue QD PT (12) Constipation Status: Chronic Response to Treatment: Stable, Controlled Problem Specific Plan: Monitor Clinically Problem Text: chronic obstipation recurrent ACPO 2 neurogenic bowel on baseline doc/lact/linac/MOM/PG and Fleets enema MWF (13) Pneumonia Status: Resolved Problem Text: Completed D7 john for RLL aspiration pneumonia/pneumonitis 08/08 normotensive, stable WBC, CXR c improved RLL opacity; therefore, dc john/HC Plan/VTE VTE Prophylaxis Ordered?: Yes (SCD) Plan IVF: Continue Diet: Make NPO Activity: Bedrest Medications: Bowel Regimen Diagnostics: Check Labs, Repeat Labs in AM Advance Directives: Comfort care VS, I&O, 24H, Fishbone Vital Signs/I&O Vital Signs Date Time Temp Pulse Resp B/P (MAP) Pulse Ox O2 Delivery O2 Flow Rate FiO2 08/19/18 14:00 94.8 73 16 112/73 (07) 99 I&O- Last 24 Hours up to 6 AM 08/21/18 06:00 Intake Total 0 ml Output Total 0 ml Balance 0 ml Laboratory Data Microbiology Microbiology 08/13/18 Blood Culture - Final, Complete Kelly Albicans 08/13/18 Blood Culture - Final, Complete Yeast Like Organism 08/13/18 Gram Stain - Final, Complete 08/13/18 Wound Culture - Final, Complete Yeast Like Organism Ben Ley MD Aug 21, 2018 13:43
--- NOTE | 2018-08-22 09:41 | IPNPDOC ---
Subjective Date Seen The patient was seen on 08/22/18. Subjective Chief Complaint/HPI Financial Processing Clerk General: Reports: ROS Unobtainable Objective Physical Examination General Exam: Positive: No Acute Distress, Other (sleeping ); Negative: Cooperative (pt moving about bed) ENT Exam: Positive: Tongue Midline (enlarged); Negative: Mucous membr. moist/pink (Dry) Chest Exam: Positive: Clear to auscultation, Diminished (throughout) Heart Exam: Positive: Rate Normal, Regular Rhythm, Normal S1, Normal S2 Abdomen Exam: Positive: Normal bowel sounds, Soft Extremity Exam: Negative: Edema, Swelling Skin Exam: Negative: Nl turgor and temperature (reduced skin turgor), Breakdown Psych Exam: Negative: Mental status NL Assessment /Plan Problems (1) Comfort measures only status Status: Acute Response to Treatment: Stable Problem Text: 08/22: due to discomfort associated with straight cath, will place klein. he has sitter from [facility] at the bedside so hopefully it will not be traumatically disrupted by the patient. FURNITURE MOVER HELPER due to futility of intervention as a result of complex of problems that cannot be adequately remediated for this gentleman. Hope is to be able to move to [facility] residence when bed available. Consider restart of comfort feeds if he is awake enough. (2) Septicemia due to fungus Status: Acute Response to Treatment: Stable, Improving Problem Specific Plan: Monitor Clinically, Repeat Labs Problem Text: 08/22: Financial Processing Clerk 08/20/18: Patient appears comfortable. No agitation, no distress. Hospice consult has been requested. We await to hear from [facility] regarding transfer back to their facility with hospice care. 08/18/18: We have been unsuccessful in attempts to regain IV access. FURNITURE MOVER HELPER status is pending. 08/18/18: We have lost IV access. Patient is unable to take PO meds. We are holding off on PICC line d/t pending FURNITURE MOVER HELPER status 08/17 Micafungin D 4, WBC normalized 08/16 BC + yeast, started on Micafungin IV, WBC 12.4, slightly elevated c/w yesterday. Temps remain hypothermic, baseline 94-95 (3) Leukocytosis Status: Acute Problem Text: 08/19/18: WBC trending down, 10.4 08/18/18: WBC slightly elevated today 11.6 08/16 normalized 08/14 WBC increased from 4.9 to 17.8, temps 98 this am, typically 95-96, monitor. CXR benign, CT A & P done yesterday with improvement in infiltrates. Pt high risk for aspiration and this could very well be the cause, monitor c losely for change in status. Pt was given 500 Cc NS bolus this AM at report of elevation inf WBC. Repeat BC also ordered. Check UA with straight cath. Repeat CBC this afternoon. Monitor temp, if remains elevated, start IV Clinda. (4) Severe protein-calorie malnutrition Status: Chronic Problem Text: 08/22: FURNITURE MOVER HELPER 08/19/18: No change in status. Await decisions from guardianship committee and PFS 08/18/18: IV access was lost this morning and we have been unsuccessful in regaining access. PICC line has been considered, however, the concern remains patient will pull out. This will be discussed further with attending. 08/16 IV access issues d/t Distal extremity swelling, currently on IVF, await PICC placement to being TPN, has been on PPN. Concerns that pt will pull out PICC remain, Discussion between Guardianship committee and Dr Gallardo planned for this morning. 08/13 CT A & P done yest suggesting no window d/t bowel to access the stomach for PEG placement. Dr Gallardo plans to d/w with Dr Miller, where he thinks he will be able to access the stomach to place a tube with this new finding. If he feels this isn't likely, the recommendation would become FURNITURE MOVER HELPER, Dr Gallardo is calling [facility] Guardianship Committee at 1010 Thursday morning to discuss the case further with William Zhong and the Committee. 08/12 No change to status. Await further input from PFS, Guardianship committee. 08/11/18: Patient remains on PPN, PEG tube placement not favored as detailed previously. FURNITURE MOVER HELPER status has been recommended and guardianship committee has been consulted 08/10 No changes. He continues on PPN as this is all it's possible to give him until we have a better way to get nutrition into his body, or he goes comfort measures. 08/09/18 Case d/w Dr Shelton, Dr Gallardo and Dr Miller - agreement in regards to medical futility of placement of gastrostomy tube. Tube will only slightly mitigate pts aspiration risks, given his habitus risks assoc with conscious sedation, therefore requiring general anesthesia, d/t habitus, difficult and risky intubation, could require tracheostomy. If pt pulls out gastrostomy tube especially in first few weeks this is a surgical emergency, therefor revisiting same anesthesia risks. If tube placed would recommend FURNITURE MOVER HELPER status planned for patient if tube is d/c by the patient. Given futility and risks, strong recommendation for FURNITURE MOVER HELPER. Dr Gallardo plans to address medical team concerns with Guardianship Committee and William Zhong. D11 PPN at 60H via LLE-has not removed line given 19/01 sitter 08/07/18 case d/w Dr. Babatunde Miller, patient's personal surgeon for many years, who agrees with the futility of gastrostomy tube placement (for same reasons as below). He feels that if it were to be demanded by the Guardianship Committee, the safest way to place it would be radiologically (PRG). An endoscopically placed gastrostomy tube (PEG) would entail a high risk for emergent tracheostomy due to the patient's severe macroglossia. He stated that he would affirm this in a note. Then I'd favor appealing the Guardianship Committee for FURNITURE MOVER HELPER status. 07/26/18 Long d/w Osvaldo Zhong [facility] Manager Games-I advised that patient would need a J-tube for enteral feeding given recurrent aspiration. I advised that this would only mitigate, but not eliminate, the aspiration risk. Additionally unless there was 19/01 supervision, the patient would most likely pull out the J-tube. As the patient's PCP, I agree with DNR status and favor FURNITURE MOVER HELPER status. I discussed the case with the guardianship committee reaffirming my thought that it was medically futile to place a gastrostomy tube endoscopically OR radiologically given the high likelihood of patient tube dislodgment and then leakage and infection risks of the subsequent open wound. (there has never been family identified to assume guardianship) (5) Dysphagia Status: Chronic Problem Text: He remains at very high risk of microaspiration as well as aspiration of gastric contents if a PEG tube is placed. Also thought to be unacceptable risk for tube dislodgement if a tube were to be place. (6) Hypothermia Status: Chronic Discussed With: Nurse, Other Discussed With: ([facility] aide) Problem Specific Plan: Monitor Clinically Problem Text: chronic, mild-at baseline 95F (7) Seizure disorder Status: Chronic Response to Treatment: Controlled Problem Specific Plan: Monitor Clinically Problem Text: 08/11: He has not had another seizure since he was placed on lorazepam 0.5mg BID. He has been more sedated acting in the mornings with the addition of a second dose of lorazepam. 07/25: I spoke to the neurologist electronic scale tester to go through his neuropsychiatrically active medications to make sure none of them were causing the hypothermia. He was most concerned about the levothyroxine which is addressed below. The atypical antipsychotics should be covered by the haldol deconate. The Artane and Mysoline are likely for tremors or side effects of the anti-psychotics. The Gabatril and trazodone shouldn't cause these symptoms, but he encouraged me to use lorazepam 0.5mg IV QHS to provide some similar action/coverage so he is less likely to seize from withdrawal of these oral meds. Ultimately it would be best to get enteral access and resume his proven regimen. Seizure precaution were reaffirmed (8) Hypothyroidism Status: Chronic Response to Treatment: Stable, Controlled Problem Specific Plan: Monitor Clinically Problem Text: continue LT4 37.7 IV QD HD LT4 50 (07/16/18 TSH/FT4 0.8/1.1 on LT4 50) (9) Anemia Status: Chronic Response to Treatment: Stable Problem Specific Plan: Repeat Labs Problem Text: 08/11/18: Remains stable favor 2 ACD 08/07 stable hgb 9.7 06/2018 baseline 13-14 (10) Cognitive impairment Status: Chronic Response to Treatment: Stable Problem Text: at baseline mentation s agitation (11) Physical deconditioning Status: Chronic Response to Treatment: Stable Problem Text: continue QD PT (12) Constipation Status: Chronic Response to Treatment: Stable, Controlled Problem Specific Plan: Monitor Clinically Problem Text: chronic obstipation recurrent ACPO 2 neurogenic bowel on baseline doc/lact/linac/MOM/PG and Fleets enema MWF (13) Pneumonia Status: Resolved Problem Text: Completed D7 john for RLL aspiration pneumonia/pneumonitis 08/08 normotensive, stable WBC, CXR c improved RLL opacity; therefore, dc john/HC Plan/VTE VTE Prophylaxis Ordered?: Yes (SCD) Plan IVF: Continue Diet: Make NPO Activity: Bedrest Medications: Bowel Regimen Diagnostics: Check Labs, Repeat Labs in AM Advance Directives: Comfort care VS, I&O, 24H, Fishbone Vital Signs/I&O Vital Signs Date Time Temp Pulse Resp B/P (MAP) Pulse Ox O2 Delivery O2 Flow Rate FiO2 08/19/18 14:00 94.8 73 16 112/73 (86) 99 I&O- Last 24 Hours up to 6 AM 08/22/18 06:00 Intake Total 0 ml Output Total 0 ml Balance 0 ml Laboratory Data Microbiology Microbiology 08/13/18 Blood Culture - Final, Complete Kelly Albicans 08/13/18 Blood Culture - Final, Complete Yeast Like Organism 08/13/18 Gram Stain - Final, Complete 08/13/18 Wound Culture - Final, Complete Yeast Like Organism Ben Ley MD Aug 22, 2018 09:40
[2018-08-23] MEDS: MORPHINE 10MG/0.5ML ORAL CONCENTRATE SOLUTION U/D SL PRN (04:36)
[2018-08-23] MEDS: FLEET ENEMA PR SCH (09:00)
--- NOTE | 2018-08-23 10:50 | IPNPDOC ---
Subjective Date Seen The patient was seen on 08/23/18. Subjective Chief Complaint/HPI ASPIRATION Events since last encounter Remains on TIN DIPPER. Appears comfortable. hospice consult placed. [facility] has secured a bed and is able to take patient on 08/24/18 General: Reports: ROS Unobtainable Objective Physical Examination General Exam: Positive: No Acute Distress, Other (sleeping ); Negative: Cooperative (pt moving about bed) ENT Exam: Positive: Tongue Midline (enlarged); Negative: Mucous membr. moist/pink (Dry) Chest Exam: Positive: Clear to auscultation, Diminished (throughout) Heart Exam: Positive: Rate Normal, Regular Rhythm, Normal S1, Normal S2 Abdomen Exam: Positive: Normal bowel sounds, Soft Extremity Exam: Negative: Edema, Swelling Skin Exam: Negative: Nl turgor and temperature (reduced skin turgor), Breakdown Psych Exam: Negative: Mental status NL Assessment /Plan Problems (1) Comfort measures only status Status: Acute Response to Treatment: Stable Problem Text: 08/24/18: DC to [facility] home with Hospice in am. 08/22: due to discomfort associated with straight cath, will place klein. he has sitter from [facility] at the bedside so hopefully it will not be traumatically disrupted by the patient. TIN DIPPER due to futility of intervention as a result of complex of problems that cannot be adequately remediated for this gentleman. Hope is to be able to move to [facility] residence when bed available. Consider restart of comfort feeds if he is awake enough. (2) Septicemia due to fungus Status: Acute Response to Treatment: Stable, Improving Problem Specific Plan: Monitor Clinically, Repeat Labs Problem Text: 08/22: Shrinking Machine Operator 08/20/18: Patient appears comfortable. No agitation, no distress. Hospice consult has been requested. We await to hear from [facility] regarding transfer back to their facility with hospice care. 08/18/18: We have been unsuccessful in attempts to regain IV access. TIN DIPPER status is pending. 08/18/18: We have lost IV access. Patient is unable to take PO meds. We are holding off on PICC line d/t pending TIN DIPPER status 08/17 Micafungin D 4, WBC normalized 08/16 BC + yeast, started on Micafungin IV, WBC 12.4, slightly elevated c/w yesterday. Temps remain hypothermic, baseline 94-95 (3) Leukocytosis Status: Acute Problem Text: 08/19/18: WBC trending down, 10.4 08/18/18: WBC slightly elevated today 11.6 08/16 normalized 08/14 WBC increased from 4.9 to 17.8, temps 98 this am, typically 95-96, monitor. CXR benign, CT A & P done yesterday with improvement in infiltrates. Pt high risk for aspiration and this could very well be the cause, monitor closely for change in status. Pt was given 500 Cc NS bolus this AM at report of elevation inf WBC. Repeat BC also ordered. Check UA with straight cath. Repeat CBC this afternoon. Monitor temp, if remains elevated, start IV Clinda. (4) Severe protein-calorie malnutrition Status: Chronic Problem Text: 08/22: TIN DIPPER 08/19/18: No change in status. Await decisions from guardianship committee and PFS 08/18/18: IV access was lost this morning and we have been unsuccessful in regai jani access. PICC line has been considered, however, the concern remains patient will pull out. This will be discussed further with attending. 08/16 IV access issues d/t Distal extremity swelling, currently on IVF, await PICC placement to being TPN, has been on PPN. Concerns that pt will pull out PICC remain, Discussion between Guardianship committee and Dr Gallardo planned for this morning. 08/13 CT A & P done yest suggesting no window d/t bowel to access the stomach for PEG placement. Dr Gallardo plans to d/w with Dr Miller, where he thinks he will be able to access the stomach to place a tube with this new finding. If he feels this isn't likely, the recommendation would become TIN DIPPER, Dr Gallardo is calling [facility] Guardianship Committee at 1010 Thursday morning to discuss the case further with William Zhong and the Committee. 08/12 No change to status. Await further input from PFS, Guardianship committee. 08/11/18: Patient remains on PPN, PEG tube placement not favored as detailed previously. TIN DIPPER status has been recommended and guardianship committee has been consulted 08/10 No changes. He continues on PPN as this is all it's possible to give him until we have a better way to get nutrition into his body, or he goes comfort measures. 08/09/18 Case d/w Dr Shelton, Dr Gallardo and Dr Miller - agreement in regards to medical futility of placement of gastrostomy tube. Tube will only slightly meng igate pts aspiration risks, given his habitus risks assoc with conscious sedation, therefore requiring general anesthesia, d/t habitus, difficult and risky intubation, could require tracheostomy. If pt pulls out gastrostomy tube especially in first few weeks this is a surgical emergency, therefor revisiting same anesthesia risks. If tube placed would recommend TIN DIPPER status planned for patient if tube is d/c by the patient. Given futility and risks, strong recommendation for TIN DIPPER. Dr Gallardo plans to address medical team concerns with Guardianship Committee and William Zhong. D11 PPN at 60H via LLE-has not removed line given 19/01 sitter 08/07/18 case d/w Dr. Babatunde Miller, patient's personal surgeon for many years, who agrees with the futility of gastrostomy tube placement (for same reasons as below). He feels that if it were to be demanded by the Guardianship Committee, the safest way to place it would be radiologically (PRG). An endoscopically placed gastrostomy tube (PEG) would entail a high risk for emergent tracheostomy due to the patient's severe macroglossia. He stated that he would affirm this in a note. Then I'd favor appealing the Guardianship Committee for TIN DIPPER status. 07/26/18 Long d/w Osvaldo Zhong [facility] Income Tax Auditor-I advised that patient would need a J-tube for enteral feeding given recurrent aspiration. I advised that this would only mitigate, but not eliminate, the aspiration risk. Additionally unless there was 19/01 supervision, the patient would most likely pull out the J-tube. As the patient's PCP, I agree with DNR status and favor TIN DIPPER status. I discussed the case with the guardianship committee reaffirming my thought that it was medically futile to place a gastrostomy tube endoscopically OR radiologically given the high likelihood of patient tube dislodgment and then leakage and infection risks of the subsequent open wound. (there has never been family identified to assume guardianship) (5) Dysphagia Status: Chronic Problem Text: He remains at very high risk of microaspiration as well as aspiration of gastric contents if a PEG tube is placed. Also thought to be unacceptable risk for tube dislodgement if a tube were to be place. (6) Hypothermia Status: Chronic Discussed With: Nurse, Other Discussed With: ([facility] aide) Problem Specific Plan: Monitor Clinically Problem Text: chronic, mild-at baseline 95F (7) Seizure disorder Status: Chronic Response to Treatment: Controlled Problem Specific Plan: Monitor Clinically Problem Text: 08/11: He has not had another seizure since he was placed on lorazepam 0.5mg BID. He has been more sedated acting in the mornings with the addition of a second dose of lorazepam. 07/25: I spoke to the neurologist hazard mitigation officer to go through his neuropsychiatrically active medications to make sure none of them were causing the hypothermia. He was most concerned about the levothyroxine which is addressed below. The aty pical antipsychotics should be covered by the haldol deconate. The Artane and Mysoline are likely for tremors or side effects of the anti-psychotics. The Gabatril and trazodone shouldn't cause these symptoms, but he encouraged me to use lorazepam 0.5mg IV QHS to provide some similar action/coverage so he is less likely to seize from withdrawal of these oral meds. Ultimately it would be best to get enteral access and resume his proven regimen. Seizure precaution were reaffirmed (8) Hypothyroidism Status: Chronic Response to Treatment: Stable, Controlled Problem Specific Plan: Monitor Clinically Problem Text: continue LT4 37.7 IV QD HD LT4 50 (07/16/18 TSH/FT4 0.8/1.1 on LT4 50) (9) Anemia Status: Chronic Response to Treatment: Stable Problem Specific Plan: Repeat Labs Problem Text: 08/11/18: Remains stable favor 2 ACD 08/07 stable hgb 9.7 06/2018 baseline 13-14 (10) Cognitive impairment Status: Chronic Response to Treatment: Stable Problem Text: at baseline mentation s agitation (11) Physical deconditioning Status: Chronic Response to Treatment: Stable Problem Text: continue QD PT (12) Constipation Status: Chronic Response to Treatment: Stable, Controlled Problem Specific Plan: Monitor Clinically Problem Text: chronic obstipation recurrent ACPO 2 neurogenic bowel on baseline doc/lact/linac/MOM/PG and Fleets enema MWF (13) Pneumonia Status: Resolved Problem Text: Completed D7 john for RLL aspiration pneumonia/pneumonitis 08/08 normotensive, stable WBC, CXR c improved RLL opacity; therefore, dc john/HC Plan/VTE VTE Prophylaxis Ordered?: Yes (SCD) Plan IVF: Continue Diet: Make NPO Activity: Bedrest Medications: Bowel Regimen Diagnostics: Check Labs, Repeat Labs in AM Advance Directives: Comfort care VS, I&O, 24H, Fishbone Vital Signs/I&O Vital Signs Date Time Temp Pulse Resp B/P (MAP) Pulse Ox O2 Delivery O2 Flow Rate FiO2 08/19/18 14:00 94.8 73 16 112/73 (86) 99 I&O- Last 24 Hours up to 6 AM 08/23/18 06:00 Intake Total 0 ml Output Total 850 ml Balance -850 ml Laboratory Data Microbiology Microbiology 08/13/18 Blood Culture - Final, Complete Kelly Albicans 08/13/18 Blood Culture - Final, Complete Yeast Like Organism 08/13/18 Gram Stain - Final, Complete 08/13/18 Wound Culture - Final, Complete Yeast Like Organism Aixa Swift COOPER HELPER Aug 23, 2018 10:50
[2018-08-24] MEDS ORDERED: MORP20SO3 PO (07:27)
[2018-08-24] MEDS ORDERED: HYOS125TA PO (07:27)
[2018-08-24] MEDS ORDERED: ACET65SU PR (07:27)
[2018-08-24] MEDS ORDERED: LORA0.5T11 PO (07:27)
--- NOTE | 2018-08-24 11:24 | DSES ---
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 The patient also consistent with a past medical history of seizures, recurrent urinary tract infections, recurrent aspiration pneumonia. He is a [facility] ([facility]) longterm resident who presented to the emergency department (ED) after staff had noticed that he had been progressively decreasing his oral intake and increased lethargy with intermittent vomiting of undigested food. The patient was evaluated in the ED. He was found to have some hypothermia. Nohemy Hugger was started, and the patient was subsequently admitted with a positive diagnosis of pneumonitis and urinary tract infection (UTI). HOSPITAL COURSE: The patient was placed on intravenous (IV) fluids. Temperature was improved to range between 93 and 95, and eventually the Nohemy Hugger and warming blankets were stopped. The patient is status post speech pathology evaluation. Was shown to have severe oral pharyngeal dysphagia. The patient was recommended to continue with nothing by mouth status. Oral care recommended and dysphagia treatment recommended. The patient had subsequent repeat visits with speech pathology, and the patient was noted to have significant cough post swallow and pureed solids were intolerable. Anterior spillage was noted throughout, and post swallow cough was observed. It was again recommended that the patient remain with nothing by mouth status due to recurrent risk of aspiration. At this point, it was determined that the patient would need a feeding tube. General surgery was consulted and recommended that the patient have interventionally placed feeding tube secondary to high risk due to tongue protrusion and oropharynx issue with sedation. Attempted transfer to [facility] for this procedure was started. However, there was a significant delay due to lack of available beds. The case was discussed with Osvaldo Zhong, and the patient was placed on DO NOT RESUSCITATE (DNR) and favor comfort measures only (MEDICATION SPECIALIST) status. At this point, DNR status was obtained through the appropriate lines of communication. Dr. Babatunde Miller was consulted again regarding possible percutaneous endoscopic gastrostomy (PEG) tube placement due to delay in transfer for interventionally placed PEG tube. Per Dr. Miller's note, he agrees with the futility of a gastrostomy tube placement in that an endoscopically placed gastrostomy tube would entail a high risk for emergent tracheostomy due to the patient's severe macroglossia. Guardianship committee was approached for MEDICATION SPECIALIST status due to the futility of the patient's treatment. While waiting for MEDICATION SPECIALIST status through the guardianship committee through [facility], the patient did develop fungemia on his blood culture with elia albicans. He was treated with an antifungal agent IV. However, the patient lost his IV access. At that time, the patient's veins had significant inflammation, as well, secondary to long-term use of peripheral parenteral nutrition (PPN). On 08/19/2018, a medical orders for life-sustaining treatment (MOLST) checklist had been approved, and the patient had been cleared for a MEDICATION SPECIALIST status. MOLST form was filled out. MEDICATION SPECIALIST orders were entered. The patient has remained comfortable throughout hospitalization. Pain has been managed accordingly with as needed suppository medication, as well as lorazepam orally disintegrating tablet (ODT) and Roxanol sublingual as needed. The patient has received oral care, as well as mouth swabs as needed and comfort feeds as needed. [facility] staff has remained at the bedside. IMAGING: The patient has had multiple images throughout hospitalization, including CT chest, CT abdomen and pelvis, barium swallow, head CT, multiple chest x-rays, as well as the vascular ultrasound which ruled out deep venous thrombosis (DVT) of the left lower extremity. PROCEDURES: Include: Peripherally inserted central catheter (PICC) line placement. However, the patient removed his PICC line due to agitation. Also, status post cookie swallow on 07/20/2018. DISCHARGE DIAGNOSES: 1. Severe aspiration pneumonia. 2. Septicemia due to fungus. 3. Severe protein-calorie malnutrition. 4. Dysphagia. 5. Seizure disorder. 6. Cognitive impairment. 7. Deconditioning. 8. Chronic constipation secondary to neurogenic bowel. 9. Chronic hypothermia. PLAN: The patient will be discharged to [facility] under the care of Hospice, as well as [facility] staff members. MEDICATIONS: Are as follows: - acetaminophen 650 mg suppository every 4 hours as needed mild pain or temperature above 101 - hyoscyamine sulfate 0.125 mg by mouth every 4 hours as needed for terminal secretions with a maximum daily dose of six tablets - lorazepam 0.5 mg tablet by mouth every 4 hours as needed for anxiety, agitation, maximum daily dose of three - morphine sulfate 100 mg/5 mL 0.25 to 1 mL by mouth every 2 hours as needed for pain or dyspnea, maximum daily dose of 12 mL Continued medication includes: - haloperidol decanoate 50 mg intramuscular (IM) monthly All of the patient's other medications were stopped, as the patient has not been taking any oral medications throughout most of his hospitalization. The patient may have comfort feeds. Activity is as tolerated. 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 The patient is discharged in stable condition. Prognosis is poor, and the patient will continue with MEDICATION SPECIALIST. MTDD
== END 2018-08-24 12:00 | disposition hospice, home (50) | DRG 871 ==
LOC: M ED 09:32 → M ED INP 16:30 → M ICU 20:51 → M PCU 07-18 23:24 → M MS5PR 07-21 23:50 → M ICU 07-25 17:51 → M MSPAV 07-26 18:50
PROVIDERS: ADMIT Internal Medicine; ATTEND Family Medicine
PROC: 02H633Z Insertion of Infusion Device into Right Atrium, Percutaneous Approach (ICD-10-PCS; principal; 2018-07-16)
PROC: 3E0336Z Introduction of Nutritional Substance into Peripheral Vein, Percutaneous Approach (ICD-10-PCS; 2018-07-30)
DX: A41.9 Sepsis, unspecified organism (principal); J69.0 Pneumonitis due to inhalation of food and vomit; R65.21 Severe sepsis with septic shock; E43 Unspecified severe protein-calorie malnutrition; R57.1 Hypovolemic shock; N39.0 Urinary tract infection, site not specified; E87.0 Hyperosmolality and hypernatremia; K59.2 Neurogenic bowel, not elsewhere classified; F72 Severe intellectual disabilities; Z51.5 Encounter for palliative care; Z66 Do not resuscitate; B37.7 Candidal sepsis; R33.9 Retention of urine, unspecified; K14.8 Other diseases of tongue; E03.9 Hypothyroidism, unspecified; D72.819 Decreased white blood cell count, unspecified; E87.6 Hypokalemia; K59.00 Constipation, unspecified; I80.3 Phlebitis and thrombophlebitis of lower extremities, unspecified; D64.9 Anemia, unspecified; B95.8 Unspecified staphylococcus as the cause of diseases classified elsewhere; R13.12 Dysphagia, oropharyngeal phase; G40.909 Epilepsy, unspecified, not intractable, without status epilepticus; R68.0 Hypothermia, not associated with low environmental temperature; Z88.0 Allergy status to penicillin; Z88.8 Allergy status to other drugs, medicaments and biological substances; Z79.899 Other long term (current) drug therapy